=== PATIENT | female | born 1950 | race Caucasian/White ===

== ENCOUNTER 2021-02-01 13:42 | Inpatient (IN) | payer OTHER, SELFPAY ==
--- NOTE | 2021-02-01 | ECG_ITS ---
Test Reason : ect clearence Blood Pressure : / mmHG Vent. Rate : 057 BPM Atrial Rate : 057 BPM P-R Int : 128 ms QRS Dur : 068 ms QT Int : 448 ms P-R-T Axes : 055 -19 009 degrees QTc Int : 436 ms Sinus bradycardia Inferior infarct , age undetermined Abnormal ECG No previous ECGs available Referred By: Mark Brennan Electronically Signed By:ILIANA MORAES MD
--- NOTE | ~2021-02-01 | CT_ITS ---
EXAMINATION: CT HEAD WITHOUT CONTRAST CLINICAL INFORMATION: Major depressive disorder with psychosis. COMPARISON: None available. TECHNIQUE: Contiguous axial imaging was performed from the skull base to vertex without intravenous administration of contrast. This CT examination was performed using dose optimization techniques as appropriate, variously including the following: *Automated exposure control. *Adjustment of mA and/or kV according to patient size (this includes techniques or standardized protocols for targeted exams where dose is matched to indication/reason for exam; i.e. extremities or head). *Use of iterative reconstruction technique. DLP: 720 mGy-cm FINDINGS: There is no evidence of acute intracranial hemorrhage or edematous territorial infarction. Scattered hypoattenuation in the periventricular and deep white matter are consistent with mild to moderate microangiopathy. Adams-white matter differentiation is preserved. Proportional prominence of the ventricles and sulcal spaces. No evidence for obstructive hydrocephalus. No abnormal mass effect or midline shift. No extra-axial fluid collections. No acute soft tissue or osseous abnormalities. Mild mucosal thickening of the paranasal sinuses. The mastoid air cells and middle ear cavities are clear. CT/CT head/brain wo con IMPRESSION: 1. No evidence of acute intracranial hemorrhage or edematous territorial infarction. 2. Mild to moderate underlying microangiopathy and generalized cerebral volume loss.
[2021-02-01 14:03] VITALS: BP 142/78; PULSE 63; RESP 18; TEMP 36.6; O2SAT 95
[2021-02-01 15:26] VITALS: BMI 19.5
--- NOTE | 2021-02-01 15:27 | HO.PSYADMNOT ---
HPI Date of Service: 02/01/21 Chief Complaint: Major Depressive D/O Recurrent Severe w/Psychotic Sources of Information: patient interviewed and chart reviewed HPI Subjective Notes: Agosto Warning and Section 12B Narrative: The patient is a 70-year-old female, , mother of 2 adult children, retired customer senior human resources representative, currently living with her with good social support, referred from the [facility] for ECT. 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 The patient reported that her 1st psychiatric contact was 20 years ago and since then she has tried ? all the medications available with poor response. According to the [place] records, the patient has history of lengthy hospitalizations with limited improvement During the intake interview, the patient reported that her depressive symptoms worsened 2 years ago with depressed mood, anhedonia, lack of energy, feelings of hopelessness and worthlessness and sporadic psychotic symptoms elicited by auditory hallucinations and paranoia. She also complained of neurovegetative symptoms elicited by poor appetite and losing weight, at least 10 lb in the last 2 months. The patient complains of feeling ?always cold and requested special treatment regarding that. The patient is a very poor historian, she is unable to recall the different trials of medication but she is able to contract for safety in the facility. She stated that she was transferring to this unit in order to have ECT sings she has failed to hold her medications. She stated that ?this is the last resource . Past Psychiatric History: As described, her 1st psychiatric contact was 20 years ago, the patient is a very poor historian but according to the records she has tried several antidepressants and currently she is on Prozac and mirtazapine. According to the records she has history of lengthy admissions, according to the patient she has 3 admissions in the past. Medical Evaluation Reviewed: Hospitalist [facility] Family History: The patient reported that her mother had severe depression and she was admitted several times due to failed suicidal attempts. Social History: The patient is the oldest of 2 siblings, her milestones were achieved at expected age and she was raised by her grandmother since her mother was absent due to her mental illness. According to the patient, her father was absent. She attended regular school, she graduated and attended college with a degree own liberal arts. 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 She is the mother of 2 children and she has good social support Substance History: Denies Trauma History: Denies Diagnostics Vital Signs (24Hr): Vital Signs - 24 hr 02/01/21 14:03 Temperature 98 F Pulse Rate 63 Respiratory Rate 18 Blood Pressure 142/78 H Pulse Oximetry 95 Meds/Allergies Meds Home Medications Acetaminophen (Acetaminophen 325 Mg Tablet) 650 mg PO Q6H PRN PRN Reason: Headache/Pain Mild Scale (1-3) Al Hydroxide/Mg Hydroxide (Magnesium Hydrox/Alum Hydrox 30 Ml Oral.Susp) 30 ml PO Q6H PRN PRN Reason: Heartburn/Nausea Apixaban (Apixaban 5 Mg Tablet) 5 mg PO BID OMAR Docusate Sodium (Docusate Sodium 100 Mg Capsule) 100 mg PO DAILY PRN PRN Reason: Constipation Fluoxetine HCl (Fluoxetine Hcl 20 Mg Capsule) 40 mg PO DAILY O[facility] Gabapentin (Gabapentin 600 Mg Tablet) 600 mg PO TID OMAR Hydroxyzine HCl (Hydroxyzine Hcl 25 Mg Tablet) 25 mg PO BEDTIME PRN PRN Reason: Anxiety Lorazepam (Lorazepam 0.5 Mg Tablet) 0.5 mg PO Q8H PRN PRN Reason: Anxiety Magnesium Hydroxide (Milk Of Magnesia 30 Ml Oral.Susp) 30 ml PO DAILY PRN PRN Reason: Constipation Mirtazapine (Mirtazapine 15 Mg Tablet) 45 mg PO BEDTIME OMAR Olanzapine (Olanzapine 5 Mg Tablet) 5 mg PO DAILY OMAR Olanzapine (Olanzapine 7.5 Mg Tablet) 7.5 mg PO BEDTIME OMAR Trazodone HCl (Trazodone Hcl 50 Mg Tablet) 50 mg PO BEDTIME PRN PRN Reason: Insomnia Allergies Allergies Allergy/AdvReac Type Severity Reaction Status Date / Time No Known Allergies Allergy Verified 02/01/21 15:34 Mental Status Exam Mental Status Exam Patient Appearance: Well Grooomed Patient Orientation: Person Level of Consciousness: Awake and Restless Patient Behavior: Passive, Restless, Crying and Uncooperative Mood Description: Withdrawn and Depressed Affect Description: Constricted Ability to Follow Directions: Fair Speech Pattern: Clear Hallucinations: None Delusions: Paranoid Ideation Thought Process: Distracted and Evasive Thought Content: positive for Circumstantial, positive for Perseveration and positive for Poverty of Content Depressive Symptoms: Increased Anxiety, Diff. Making Decisions, Difficulty Sleeping and Changes in Appetite Judgement: Fair Assessment & Plan Assessment & Plan (1) Major depressive disorder, recurrent episode with mood-congruent psychotic features: Status: Acute Code(s): F33.3 - Major depressive disorder, recurrent, severe with psychotic symptoms Assessment and Plan: The patient is an elderly female with a long history of 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 The patient was transfer from the [facility] to this facility for ECT treatment. Plan 1. Continue antidepressants as per med reconciliation. 2. Regular blood work with CBC, comprehensive metabolic panel, lipid panel, hemoglobin A1c, TSH, T4 free and other medications. 3. EKG for ECT clearance. 4. Consult to hospitalist for ECT clearance Patient educated on: diagnosis, medication risk/benefits, ECT and therapeutic strategies Informed Consent: understands Reason for continued inpatient stay Substantial Risk for: harm to self, inability to function, rapid decompensation and med/psych decompensation
--- NOTE | 2021-02-01 16:02 | PC.ADMIT ---
Patient Shanelle Hull ,70 years old, female who was diagnosed for Major Depressive Disorder with Psychotic features. Has been transferred today from the [facility] to [facility] for further investigation and management including ECT treatment. Patient with unremarkable medical history except for HTN ,was under medical treatment at the [facility] but reported severe anxiety , she had lengthy hospitalization and has not remitted with pharmacotherapy . Patient has a VS: BP : 142/78 , Spo2: 95. Pls: 63. Temp: 98. She is alert, confused but oriented on time ,space, person. She has been complaining of cold . No complaint of chest pain, no edema, no nausea, no vomiting. HS, LS,BS not listen to. Patient declined complete assessment. Patient was admitted today at 14H00 PM on the unit for further evaluation and advance management including ECT treatment.
[2021-02-01] MEDS: LORazepam 0.5 MG TABLET PO (16:48)
[2021-02-01] MEDS: Mirtazapine 15 MG TABLET 45 MG PO (20:22)
[2021-02-01] MEDS: Gabapentin 600 MG TABLET PO (20:22)
[2021-02-01] MEDS: OLANZapine 7.5 MG TABLET PO (20:22)
[2021-02-01] MEDS: Apixaban 5 MG TABLET PO (20:22)
[2021-02-01 20:32] VITALS: BP 95/57; PULSE 60; RESP 16; TEMP 36.7; O2SAT 96
[2021-02-02 06:00] VITALS: BP 177/65; PULSE 71; RESP 18; TEMP 36.6; O2SAT 96
[2021-02-02 07:00] VITALS: BMI 19.3
[2021-02-02 08:34] LABS: MANUAL DIFF FLAG NO
[2021-02-02 08:39] LABS: Basophils Percent Auto 0.7 % (0-2); Eosinophils Percent Auto 0.9 % (0-4); Hematocrit 42.7 % (37.0-47.0); Hemoglobin 14.3 g/dl (12.0-16.0); Imm Gran Abs Auto 0.02 X10*3/uL (0.00-0.03); Imm Gran Pct Auto 0.5 % (0.0-0.4); Lymphocytes Percent Auto 24.4 % (20-40); Mean Corpuscular HGB Conc 33.5 g/dl (31.0-35.0); Mean Corpuscular Hemoglobin 31.4 pg (27.0-33.0); Mean Corpuscular Volume 93.8 fL (80.0-98.0); Mean Platelet Volume 9.6 fL (9.4-12.3); Monocytes Absolute Auto 0.4 X10*3/uL (0.1-1.2); Monocytes Percent Auto 8.7 % (2-11); Neutrophils Absolute Auto 2.8 x10*3/uL (2.0-8.3); Neutrophils Percent Auto 64.8 % (45-73); Platelet Count 228 X10*3/uL (160-400); Red Blood Count 4.55 X10*6/uL (4.20-5.50); Red Cell Distribution Width 12.6 % (11.0-16.0); White Blood Count 4.3 X10*3/uL (4.8-10.8)
[2021-02-02] MEDS: OLANZapine 5 MG TABLET PO (08:46)
[2021-02-02] MEDS: Apixaban 5 MG TABLET PO ×2 (08:46→20:11)
[2021-02-02] MEDS: Gabapentin 600 MG TABLET PO ×3 (08:46→20:11)
[2021-02-02] MEDS: FLUoxetine HCl 20 MG CAPSULE 40 MG PO (08:46)
[2021-02-02 08:53] LABS: Estimated Average Glucose 108 mg/dL; Hemoglobin A1c % 5.4 %
[2021-02-02 09:06] LABS: Alanine Aminotransferase 21 U/L (0-31); Albumin Level 4.1 g/dL (3.5-5.0); Alkaline Phosphatase 92 U/L (39-117); Anion Gap 11 (12-20); Aspartate Amino Transferase 23 U/L (5-31); Bilirubin Total 0.7 mg/dL (0.0-1.0); Blood Urea Nitrogen 16 mg/dL (9-16); Calcium 9.2 mg/dL (8.4-10.2); Carbon Dioxide 26 mmol/L (22-29); Chloride 108 mmol/L (96-108); Cholesterol 224 mg/dL; Creatinine Clr Calc Pharmacy 55.8; Estimated Glomerular Filt Rate > 60; Glucose Fasting 106 mg/dL (60-99); HDL Cholesterol 54 mg/dL; LDL Cholesterol Calculated 158 mg/dl; Sodium 141 mmol/L (135-145); Total Protein 6.5 g/dL (6.5-8.0); Triglycerides 62 mg/dL
[2021-02-02 09:07] LABS: Alanine Aminotransferase 22 U/L (0-31); Albumin Level 4.1 g/dL (3.5-5.0); Alkaline Phosphatase 92 U/L (39-117); Aspartate Amino Transferase 24 U/L (5-31); Bilirubin Direct 0.2 mg/dL (0.0-0.5); Bilirubin Total 0.7 mg/dL (0.0-1.0); Total Protein 6.6 g/dL (6.5-8.0)
[2021-02-02 09:28] LABS: Free T4 (Free Thyroxine) 1.07 ng/dL (0.71-1.85)
[2021-02-02 09:41] LABS: Vitamin B12 308 pg/mL (200-900)
--- NOTE | 2021-02-02 15:44 | P.PNPSI_ITS ---
Subjective Subjective Date of Service: 02/02/21 Reason For Visit: Major Depressive D/O Recurrent Severe w/Psychotic Subjective Notes: 3 Day Interim History: The nursing staff reported that the patient signed a 3 day notice today since she felt that it was too called. She complains that sometimes her but is too hot or too cold. On interview, the patient reports depressive symptoms and she was feeling not pleased with the temperature of the unit. I ordered a CT scan, another blood work and so far the results are normal. Since the patient has signed a 3 day notice a we are not going to schedule her for ECT tomorrow yet Mental Status Exam Mental Status Exam Patient Appearance: Well Grooomed Patient Orientation: Person Level of Consciousness: Awake Patient Behavior: Passive and Suspicious Mood Description: Depressed Affect Description: Constricted Patient Cognition Impaired: No Ability to Follow Directions: Fair Speech Pattern: Clear Hallucinations: None Delusions: Paranoid Ideation Thought Process: Distracted and Slowed Thinking Thought Content: positive for Circumstantial, positive for Perseveration, positive for Poverty of Content and positive for Thought Blocking Judgement: Fair Diagnostics Vital Signs (24Hr): Vital Signs - 24 hr 02/01/21 20:32 02/02/21 06:00 Temperature 98.1 F 97.8 F Pulse Rate 60 71 Respiratory Rate 16 18 Blood Pressure 95/57 L 177/65 H Pulse Oximetry 96 96 BMI result Body Mass Index 19.3 Labs Results: 02/02/21 08:25 02/02/21 08:25 Labs: Laboratory Results - last 48 hr 02/02/21 02/02/21 02/02/21 08:25 08:25 08:25 WBC 4.3 L RBC 4.55 Hgb 14.3 Hct 42.7 MCV 93.8 MCH 31.4 MCHC 33.5 RDW 12.6 Plt Count 228 MPV 9.6 Immature Gran % (Auto) 0.5 H Neut % (Auto) 64.8 Lymph % (Auto) 24.4 [place] % (Auto) 8.7 Eos % (Auto) 0.9 Baso % (Auto) 0.7 Lymph # (Auto) 1.0 L [place] # (Auto) 0.4 Eos # (Auto) 0.0 Baso # (Auto) 0.0 Abs Immat Gran (auto) 0.02 Absolute Neuts (auto) 2.8 Absolute Nucleated RBC 0.000 Nucleated RBC % (auto) 0.0 Sodium 141 Potassium 4.0 Chloride 108 Carbon Dioxide 26 Anion Gap 11 L BUN 16 Creatinine 0.75 Estim Creat Clear Calc 55.8 Estimated GFR > 60 Fasting Glucose 106 H Estimat Average Glucose Hemoglobin A1c % Calcium 9.2 Total Bilirubin 0.7 0.7 Direct Bilirubin 0.2 AST 24 23 ALT 22 21 Alkaline Phosphatase 92 92 Total Protein 6.6 6.5 Albumin 4.1 4.1 Triglycerides 62 Cholesterol 224 LDL Cholesterol, Calc 158 HDL Cholesterol 54 Vitamin B12 Folate TSH 0.90 Free T4 1.07 02/02/21 02/02/21 08:25 08:25 WBC RBC Hgb Hct MCV MCH MCHC RDW Plt Count MPV Immature Gran % (Auto) Neut % (Auto) Lymph % (Auto) [place] % (Auto) Eos % (Auto) Baso % (Auto) Lymph # (Auto) [place] # (Auto) Eos # (Auto) Baso # (Auto) Abs Immat Gran (auto) Absolute Neuts (auto) Absolute Nucleated RBC Nucleated RBC % (auto) Sodium Potassium Chloride Carbon Dioxide Anion Gap BUN Creatinine Estim Creat Clear Calc Estimated GFR Fasting Glucose Estimat Average Glucose 108 Hemoglobin A1c % 5.4 Calcium Total Bilirubin Direct Bilirubin AST ALT Alkaline Phosphatase Total Protein Albumin Triglycerides Cholesterol LDL Cholesterol, Calc HDL Cholesterol Vitamin B12 308 Folate 16.0 TSH Free T4 Imaging Radiology Impressions: ITS Impressions Head CT 02/02/21 10:30 IMPRESSION: 1. No evidence of acute intracranial hemorrhage or edematous territorial infarction. 2. Mild to moderate underlying microangiopathy and generalized cerebral volume loss. Medications Medications Current Medications Acetaminophen (Acetaminophen 325 Mg Tablet) 650 mg PO Q6H PRN PRN Reason: Headache/Pain Mild Scale (1-3) Al Hydroxide/Mg Hydroxide (Magnesium Hydrox/Alum Hydrox 30 Ml Oral.Susp) 30 ml PO Q6H PRN PRN Reason: Heartburn/Nausea Apixaban (Apixaban 5 Mg Tablet) 5 mg PO BID [facility] Last Admin: 02/02/21 08:46 Dose: 5 mg Documented by: Docusate Sodium (Docusate Sodium 100 Mg Capsule) 100 mg PO DAILY PRN PRN Reason: Constipation Fluoxetine HCl (Fluoxetine Hcl 20 Mg Capsule) 40 mg PO DAILY [facility] Last Admin: 02/02/21 08:46 Dose: 40 mg Documented by: Gabapentin (Gabapentin 600 Mg Tablet) 600 mg PO TID [facility] Last Admin: 02/02/21 08:46 Dose: 600 mg Documented by: Lorazepam (Lorazepam 0.5 Mg Tablet) 0.5 mg PO Q8H PRN PRN Reason: Anxiety Last Admin: 02/01/21 16:48 Dose: 0.5 mg Documented by: Magnesium Hydroxide (Milk Of Magnesia 30 Ml Oral.Susp) 30 ml PO DAILY PRN PRN Reason: Constipation Mirtazapine (Mirtazapine 15 Mg Tablet) 45 mg PO BEDTIME [facility] Last Admin: 02/01/21 20:22 Dose: 45 mg Documented by: Olanzapine (Olanzapine 5 Mg Tablet) 5 mg PO DAILY [facility] Last Admin: 02/02/21 08:46 Dose: 5 mg Documented by: Olanzapine (Olanzapine 7.5 Mg Tablet) 7.5 mg PO BEDTIME [facility] Last Admin: 02/01/21 20:22 Dose: 7.5 mg Documented by: Allergies Allergies Allergy/AdvReac Type Severity Reaction Status Date / Time amoxicillin [From Augmentin] Allergy Unknown Unknown Verified 02/01/21 15:55 aspirin Allergy Unknown Unknown Verified 02/01/21 16:34 clavulanic acid Allergy Unknown Unknown Verified 02/01/21 15:55 [From Augmentin] diphenhydramine Allergy Unknown Unknown Verified 02/01/21 16:35 hydrochlorothiazide Allergy Unknown Unknown Verified 02/01/21 16:44 metronidazole Allergy Unknown Unknown Verified 02/01/21 16:54 trazodone Allergy Unknown Unknown Verified 02/01/21 16:54 augmentin Allergy Unknown Unknown Uncoded 02/01/21 15:55 Assessment & Plan Assessment & Plan (1) Major depressive disorder, recurrent episode with mood-congruent psychotic features: Status: Acute Code(s): F33.3 - Major depressive disorder, recurrent, severe with psychotic symptoms Assessment and Plan: The patient is an elderly female with a long history of 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 The patient was transfer from the [facility] to this facility for ECT treatment. Plan 1. Continue antidepressants as per med reconciliation. 2. Regular blood work with CBC, comprehensive metabolic panel, lipid panel, hemoglobin A1c, TSH, T4 free a came back normal. 3. EKG for ECT clearance came back with an old infarct. 4. Consult to hospitalist for ECT clearance. I called the hospitalist and they are going to come today in the afternoon. 5. Since the patient signed a 3 day notice we are not going to schedule to ECT yet. I spent minutes with the patient and/or on the patient floor today, greater than?50% of which was spent counseling/coordinating care. Reason for contiued inpatient stay Substantial Risk for: inability to function, rapid decompensation and med/psych decompensation
[2021-02-02] MEDS: LORazepam 0.5 MG TABLET PO (16:39)
[2021-02-02] MEDS: clonazePAM 1 MG TABLET PO (17:47)
[2021-02-02 18:00] VITALS: BP 102/54; PULSE 61; RESP 17; TEMP 37.2; O2SAT 94
[2021-02-02] MEDS: Acetaminophen 325 MG TABLET 650 MG PO (18:21)
[2021-02-02] MEDS: OLANZapine 7.5 MG TABLET PO (20:11)
--- NOTE | 2021-02-02 22:15 | PM.EVENT ---
Event Note Date of Service: 02/02/21 Event Note: attempted to see pt at 9 pm. pt was sleeping.l will attempt to see her agin in AM
[2021-02-02] MEDS: Mirtazapine 15 MG TABLET 45 MG PO (23:19)
[2021-02-03 06:00] VITALS: BP 126/67; PULSE 59; RESP 16; TEMP 36.4; O2SAT 95
[2021-02-03] MEDS: OLANZapine 5 MG TABLET PO (08:15)
[2021-02-03] MEDS: Gabapentin 600 MG TABLET PO ×3 (08:16→19:42)
[2021-02-03] MEDS: FLUoxetine HCl 20 MG CAPSULE 40 MG PO (08:16)
[2021-02-03] MEDS: Apixaban 5 MG TABLET PO ×2 (08:16→19:42)
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
--- NOTE | 2021-02-03 13:52 | MHC.CLN ---
Addendum entered by Kamla Johnson, HAI 02/03/21 14:01: ENSURE CLEAR BID PROVIDES 480 KCALS, 16 G PROTEIN. Original Note: NUTRITION VISITED WITH PATIENT AT LUNCH TODAY. ATE GREATER THAN 50% AT LUNCH. ASKED PATIENT ABOUT SUPPLEMENTS. WILLING TO TRY ENSURE CLEAR. 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 PATIENT CONCERNED THAT ACID MAY UPSET HER STOMACH BUT WILLING TO TRY. WEIGHT LOSS REPORTED BY PATIENT OF 20 POUNDS OVER TWO YEAR PERIOD. ATTRIBUTES WEIGHT LOSS TO WALKING TOO MUCH . ENCOURAGE INTAKE OF MEALS AND SUPPLEMENTS.
--- NOTE | 2021-02-03 16:13 | HO.PSYCHPN ---
Subjective Subjective Date of Service: 02/03/21 Reason For Visit: Major Depressive D/O Recurrent Severe w/Psychotic Subjective Notes: Conditional Voluntary Interim History: The nursing staff reported that the patient recanted her 3 day notice. On interview, the patient remains dysphoric very anxious she requested to increase Ativan up to 1 mg 3 times a day. No active suicidal ideation. Over the phone, the social sciences research scientist when this prescriber talked with her psycho education in to ECT was provided. Also we did an extensive psych with location in to ECT with the patient and she agreed on the procedure. Mental Status Exam Mental Status Exam Patient Appearance: Disheveled and Unkempt Patient Orientation: Person Level of Consciousness: Awake and Restless Patient Behavior: Guarded Mood Description: Depressed Affect Description: Constricted Ability to Follow Directions: Fair Speech Pattern: Clear Hallucinations: Tactile Delusions: Paranoid Ideation Thought Process: Linear Thought Content: positive for Obsessional Thoughts and positive for Circumstantial Depressive Symptoms: Increased Anxiety, Increased Irritability, Feelings of Worthlessness, Feelings of Guilt and Loss of Energy Judgement: Fair Diagnostics Vital Signs (24Hr): Vital Signs - 24 hr 02/02/21 18:00 02/03/21 06:00 Temperature 98.9 F 97.5 F Pulse Rate 61 59 Respiratory Rate 17 16 Blood Pressure 102/54 L 126/67 Pulse Oximetry 94 95 BMI result Body Mass Index 19.3 Labs Results: 02/02/21 08:25 02/02/21 08:25 Labs: Laboratory Results - last 48 hr 02/02/21 02/02/21 02/02/21 08:25 08:25 08:25 WBC 4.3 L RBC 4.55 Hgb 14.3 Hct 42.7 MCV 93.8 MCH 31.4 MCHC 33.5 RDW 12.6 Plt Count 228 MPV 9.6 Immature Gran % (Auto) 0.5 H Neut % (Auto) 64.8 Lymph % (Auto) 24.4 [place] % (Auto) 8.7 Eos % (Auto) 0.9 Baso % (Auto) 0.7 Lymph # (Auto) 1.0 L [place] # (Auto) 0.4 Eos # (Auto) 0.0 Baso # (Auto) 0.0 Abs Immat Gran (auto) 0.02 Absolute Neuts (auto) 2.8 Absolute Nucleated RBC 0.000 Nucleated RBC % (auto) 0.0 Sodium 141 Potassium 4.0 Chloride 108 Carbon Dioxide 26 Anion Gap 11 L BUN 16 Creatinine 0.75 Estim Creat Clear Calc 55.8 Estimated GFR > 60 Fasting Glucose 106 H Estimat Average Glucose Hemoglobin A1c % Calcium 9.2 Total Bilirubin 0.7 0.7 Direct Bilirubin 0.2 AST 24 23 ALT 22 21 Alkaline Phosphatase 92 92 Total Protein 6.6 6.5 Albumin 4.1 4.1 Triglycerides 62 Cholesterol 224 LDL Cholesterol, Calc 158 HDL Cholesterol 54 Vitamin B12 Folate TSH 0.90 Free T4 1.07 02/02/21 02/02/21 08:25 08:25 WBC RBC Hgb Hct MCV MCH MCHC RDW Plt Count MPV Immature Gran % (Auto) Neut % (Auto) Lymph % (Auto) [place] % (Auto) Eos % (Auto) Baso % (Auto) Lymph # (Auto) [place] # (Auto) Eos # (Auto) Baso # (Auto) Abs Immat Gran (auto) Absolute Neuts (auto) Absolute Nucleated RBC Nucleated RBC % (auto) Sodium Potassium Chloride Carbon Dioxide Anion Gap BUN Creatinine Estim Creat Clear Calc Estimated GFR Fasting Glucose Estimat Average Glucose 108 Hemoglobin A1c % 5.4 Calcium Total Bilirubin Direct Bilirubin AST ALT Alkaline Phosphatase Total Protein Albumin Triglycerides Cholesterol LDL Cholesterol, Calc HDL Cholesterol Vitamin B12 308 Folate 16.0 TSH Free T4 Imaging Radiology Impressions: ITS Impressions Head CT 02/02/21 10:30 IMPRESSION: 1. No evidence of acute intracranial hemorrhage or edematous territorial infarction. 2. Mild to moderate underlying microangiopathy and generalized cerebral volume loss. Medications Medications Current Medications Acetaminophen (Acetaminophen 325 Mg Tablet) 650 mg PO Q6H PRN PRN Reason: Headache/Pain Mild Scale (1-3) Last Admin: 02/02/21 18:21 Dose: 650 mg Documented by: Al Hydroxide/Mg Hydroxide (Magnesium Hydrox/Alum Hydrox 30 Ml Oral.Susp) 30 ml PO Q6H PRN PRN Reason: Heartburn/Nausea Apixaban (Apixaban 5 Mg Tablet) 5 mg PO BID [facility] Last Admin: 02/03/21 08:16 Dose: 5 mg Documented by: Docusate Sodium (Docusate Sodium 100 Mg Capsule) 100 mg PO DAILY PRN PRN Reason: Constipation Fluoxetine HCl (Fluoxetine Hcl 20 Mg Capsule) 40 mg PO DAILY [facility] Last Admin: 02/03/21 08:16 Dose: 40 mg Documented by: Gabapentin (Gabapentin 600 Mg Tablet) 600 mg PO TID [facility] Last Admin: 02/03/21 14:26 Dose: 600 mg Documented by: Lorazepam (Lorazepam 1 Mg Tablet) 1 mg PO Q8H PRN PRN Reason: Anxiety Magnesium Hydroxide (Milk Of Magnesia 30 Ml Oral.Susp) 30 ml PO DAILY PRN PRN Reason: Constipation Mirtazapine (Mirtazapine 15 Mg Tablet) 45 mg PO BEDTIME [facility] Last Admin: 02/02/21 23:19 Dose: 45 mg Documented by: Olanzapine (Olanzapine 5 Mg Tablet) 5 mg PO DAILY [facility] Last Admin: 02/03/21 08:15 Dose: 5 mg Documented by: Olanzapine (Olanzapine 7.5 Mg Tablet) 7.5 mg PO BEDTIME [facility] Last Admin: 02/02/21 20:11 Dose: 7.5 mg Documented by: Allergies Allergies Allergy/AdvReac Type Severity Reaction Status Date / Time amoxicillin [From Augmentin] Allergy Unknown Unknown Verified 02/01/21 15:55 aspirin Allergy Unknown Unknown Verified 02/01/21 16:34 clavulanic acid Allergy Unknown Unknown Verified 02/01/21 15:55 [From Augmentin] diphenhydramine Allergy Unknown Unknown Verified 02/01/21 16:35 hydrochlorothiazide Allergy Unknown Unknown Verified 02/01/21 16:44 metronidazole Allergy Unknown Unknown Verified 02/01/21 16:54 trazodone Allergy Unknown Unknown Verified 02/01/21 16:54 augmentin Allergy Unknown Unknown Uncoded 02/01/21 15:55 Assessment & Plan Assessment & Plan (1) Pre-op evaluation: Status: Acute Code(s): Z01.818 - Encounter for other preprocedural examination Assessment and Plan: This is a 70 yo F who endorses a medical history of pulmonary embolism. Denies any known CAD / CVD. She is transferred from the [place] for ECT. 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 Plan 1. Continue Remeron and other antidepressants. 2. ECT for Saturday. She was already medically cleared with a kg and a CT scan without any major comorbidities. 3. Gather more collateral information I spent minutes with the patient and/or on the patient floor today, greater than?50% of which was spent counseling/coordinating care. Reason for contiued inpatient stay Substantial Risk for: harm to self, inability to function, rapid decompensation and med/psych decompensation
[2021-02-03] MEDS: Mirtazapine 15 MG TABLET 45 MG PO (19:41)
[2021-02-03] MEDS: OLANZapine 7.5 MG TABLET PO (19:43)
[2021-02-03] MEDS: LORazepam 1 MG TABLET PO (19:46)
[2021-02-03 20:11] VITALS: BP 105/61; PULSE 61; RESP 16; TEMP 37.2; O2SAT 93
[2021-02-04 08:30] VITALS: BP 125/68; PULSE 63; RESP 18; TEMP 36.3; O2SAT 96
[2021-02-04] MEDS: Apixaban 5 MG TABLET PO ×2 (09:27→21:05)
[2021-02-04] MEDS: Gabapentin 600 MG TABLET PO ×3 (09:27→21:04)
[2021-02-04] MEDS: Loperamide HCl 2 MG CAPSULE 4 MG PO (09:27)
[2021-02-04] MEDS: FLUoxetine HCl 20 MG CAPSULE 40 MG PO (09:27)
[2021-02-04] MEDS: OLANZapine 5 MG TABLET PO (09:27)
--- NOTE | 2021-02-04 10:01 | P.PNPSI_ITS ---
Subjective Subjective Date of Service: 02/04/21 Reason For Visit: Major Depressive D/O Recurrent Severe w/Psychotic Subjective Notes: Conditional Voluntary Interim History: The nursing staff reported the patient is mostly in her room, questioning herself if she would really wants to the ECT. On interview the patient remains dysphoric and she was asking me about more information regarding ECT. No safety concerns at this moment Mental Status Exam Mental Status Exam Patient Appearance: Disheveled Patient Orientation: Person Level of Consciousness: Awake Patient Behavior: Cooperative Mood Description: Depressed Affect Description: Constricted Patient Cognition Impaired: No Ability to Follow Directions: Good Speech Pattern: Clear Hallucinations: None Delusions: Paranoid Ideation Thought Process: Distracted and Evasive Thought Content: positive for Circumstantial Judgement: Fair Diagnostics Vital Signs (24Hr): Vital Signs - 24 hr 02/03/21 20:11 02/04/21 08:30 Temperature 98.9 F 97.3 F Pulse Rate 61 63 Respiratory Rate 16 18 Blood Pressure 105/61 125/68 Pulse Oximetry 93 96 BMI result Body Mass Index 19.3 Labs Results: 02/02/21 08:25 02/02/21 08:25 Imaging Radiology Impressions: ITS Impressions Head CT 02/02/21 10:30 IMPRESSION: 1. No evidence of acute intracranial hemorrhage or edematous territorial infarction. 2. Mild to moderate underlying microangiopathy and generalized cerebral volume loss. Medications Medications Current Medications Acetaminophen (Acetaminophen 325 Mg Tablet) 650 mg PO Q6H PRN PRN Reason: Headache/Pain Mild Scale (1-3) Last Admin: 02/02/21 18:21 Dose: 650 mg Documented by: Al Hydroxide/Mg Hydroxide (Magnesium Hydrox/Alum Hydrox 30 Ml Oral.Susp) 30 ml PO Q6H PRN PRN Reason: Heartburn/Nausea Apixaban (Apixaban 5 Mg Tablet) 5 mg PO BID [facility]CLUD[facility] Last Admin: 02/04/21 09:27 Dose: 5 mg Documented by: Docusate Sodium (Docusate Sodium 100 Mg Capsule) 100 mg PO DAILY PRN PRN Reason: Constipation Fluoxetine HCl (Fluoxetine Hcl 20 Mg Capsule) 40 mg PO DAILY [facility]CLUD[facility] Last Admin: 02/04/21 09:27 Dose: 40 mg Documented by: Gabapentin (Gabapentin 600 Mg Tablet) 600 mg PO TID [facility] Last Admin: 02/04/21 09:27 Dose: 600 mg Documented by: Loperamide HCl (Loperamide Hcl 2 Mg Capsule) 4 mg PO Q4H PRN PRN Reason: Diarrhea Last Admin: 02/04/21 09:27 Dose: 4 mg Documented by: Lorazepam (Lorazepam 1 Mg Tablet) 1 mg PO Q8H PRN PRN Reason: Anxiety Last Admin: 02/03/21 19:46 Dose: 1 mg Documented by: Magnesium Hydroxide (Milk Of Magnesia 30 Ml Oral.Susp) 30 ml PO DAILY PRN PRN Reason: Constipation Mirtazapine (Mirtazapine 15 Mg Tablet) 45 mg PO BEDTIME [facility] Last Admin: 02/03/21 19:41 Dose: 45 mg Documented by: Olanzapine (Olanzapine 5 Mg Tablet) 5 mg PO DAILY [facility]CLUD[facility] Last Admin: 02/04/21 09:27 Dose: 5 mg Documented by: Olanzapine (Olanzapine 7.5 Mg Tablet) 7.5 mg PO BEDTIME [facility] Last Admin: 02/03/21 19:43 Dose: 7.5 mg Documented by: Allergies Allergies Allergy/AdvReac Type Severity Reaction Status Date / Time amoxicillin [From Augmentin] Allergy Unknown Unknown Verified 02/01/21 15:55 aspirin Allergy Unknown Unknown Verified 02/01/21 16:34 clavulanic acid Allergy Unknown Unknown Verified 02/01/21 15:55 [From Augmentin] diphenhydramine Allergy Unknown Unknown Verified 02/01/21 16:35 hydrochlorothiazide Allergy Unknown Unknown Verified 02/01/21 16:44 metronidazole Allergy Unknown Unknown Verified 02/01/21 16:54 trazodone Allergy Unknown Unknown Verified 02/01/21 16:54 augmentin Allergy Unknown Unknown Uncoded 02/01/21 15:55 Assessment & Plan Assessment & Plan (1) Pre-op evaluation: Status: Acute Code(s): Z01.818 - Encounter for other preprocedural examination Assessment and Plan: This is a 70 yo F who endorses a medical history of pulmonary embolism. Denies any known CAD / CVD. She is transferred from the [place] for ECT. 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 Plan 1. Continue Remeron and other antidepressants. 2. ECT for Saturday. She was already medically cleared with a kg and a CT scan without any major comorbidities. 3. Gather more collateral information I spent minutes with the patient and/or on the patient floor today, greater than?50% of which was spent counseling/coordinating care. Reason for contiued inpatient stay Substantial Risk for: inability to function, rapid decompensation and med/psych decompensation
[2021-02-04] MEDS: LORazepam 1 MG TABLET PO (11:00)
[2021-02-04 19:51] VITALS: BP 108/58; PULSE 54; RESP 16; TEMP 37; O2SAT 95
[2021-02-04] MEDS: Mirtazapine 15 MG TABLET 45 MG PO (21:05)
[2021-02-04] MEDS: OLANZapine 7.5 MG TABLET PO (21:05)
[2021-02-05] MEDS: FLUoxetine HCl 20 MG CAPSULE 40 MG PO (08:26)
[2021-02-05] MEDS: OLANZapine 5 MG TABLET PO (08:26)
[2021-02-05] MEDS: Apixaban 5 MG TABLET PO ×2 (08:26→21:21)
[2021-02-05] MEDS: Gabapentin 600 MG TABLET PO ×3 (08:26→21:21)
[2021-02-05 08:29] VITALS: BP 113/67; PULSE 67; RESP 16; TEMP 36.5; O2SAT 97
[2021-02-05] MEDS: LORazepam 1 MG TABLET PO (08:32)
--- NOTE | 2021-02-05 10:16 | HO.PSYCHPN ---
Subjective Subjective Date of Service: 02/05/21 Reason For Visit: Major Depressive D/O Recurrent Severe w/Psychotic Subjective Notes: Conditional Voluntary Interim History: The nursing staff reports that the patient has been mostly in her room, she does not have any eye contact with staff or peers. New patient therapist reported that she has court a [place] . On interview, the patient reports some depression, she denies new symptoms and she has been fully compliant with treatment. She is fully aware that tomorrow we will start ECT for depression. Mental Status Exam Mental Status Exam Patient Appearance: Disheveled and Unkempt Patient Orientation: Person Level of Consciousness: Awake Patient Behavior: Passive and Suspicious Mood Description: Depressed Affect Description: Constricted Patient Cognition Impaired: Yes Ability to Follow Directions: Fair Speech Pattern: Clear Hallucinations: None Delusions: Paranoid Ideation Thought Process: Distracted and Evasive Thought Content: positive for Circumstantial Judgement: Fair Diagnostics Vital Signs (24Hr): Vital Signs - 24 hr 02/04/21 19:51 02/05/21 08:29 Temperature 98.6 F 97.7 F Pulse Rate 54 67 Respiratory Rate 16 16 Blood Pressure 108/58 L 113/67 Pulse Oximetry 95 97 BMI result Body Mass Index 19.3 Labs Results: 02/02/21 08:25 02/02/21 08:25 Imaging Radiology Impressions: ITS Impressions Head CT 02/02/21 10:30 IMPRESSION: 1. No evidence of acute intracranial hemorrhage or edematous territorial infarction. 2. Mild to moderate underlying microangiopathy and generalized cerebral volume loss. Medications Medications Current Medications Acetaminophen (Acetaminophen 325 Mg Tablet) 650 mg PO Q6H PRN PRN Reason: Headache/Pain Mild Scale (1-3) Last Admin: 02/02/21 18:21 Dose: 650 mg Documented by: Al Hydroxide/Mg Hydroxide (Magnesium Hydrox/Alum Hydrox 30 Ml Oral.Susp) 30 ml PO Q6H PRN PRN Reason: Heartburn/Nausea Apixaban (Apixaban 5 Mg Tablet) 5 mg PO BID [facility] Last Admin: 02/05/21 08:26 Dose: 5 mg Documented by: Docusate Sodium (Docusate Sodium 100 Mg Capsule) 100 mg PO DAILY PRN PRN Reason: Constipation Fluoxetine HCl (Fluoxetine Hcl 20 Mg Capsule) 40 mg PO DAILY [facility] Last Admin: 02/05/21 08:26 Dose: 40 mg Documented by: Gabapentin (Gabapentin 600 Mg Tablet) 600 mg PO TID [facility] Last Admin: 02/05/21 08:26 Dose: 600 mg Documented by: Loperamide HCl (Loperamide Hcl 2 Mg Capsule) 4 mg PO Q4H PRN PRN Reason: Diarrhea Last Admin: 02/04/21 09:27 Dose: 4 mg Documented by: Lorazepam (Lorazepam 1 Mg Tablet) 1 mg PO Q8H PRN PRN Reason: Anxiety Last Admin: 02/05/21 08:32 Dose: 1 mg Documented by: Magnesium Hydroxide (Milk Of Magnesia 30 Ml Oral.Susp) 30 ml PO DAILY PRN PRN Reason: Constipation Mirtazapine (Mirtazapine 15 Mg Tablet) 45 mg PO BEDTIME [facility] Last Admin: 02/04/21 21:05 Dose: 45 mg Documented by: Olanzapine (Olanzapine 5 Mg Tablet) 5 mg PO DAILY [facility] Last Admin: 02/05/21 08:26 Dose: 5 mg Documented by: Olanzapine (Olanzapine 7.5 Mg Tablet) 7.5 mg PO BEDTIME [facility] Last Admin: 02/04/21 21:05 Dose: 7.5 mg Documented by: Allergies Allergies Allergy/AdvReac Type Severity Reaction Status Date / Time amoxicillin [From Augmentin] Allergy Unknown Unknown Verified 02/01/21 15:55 aspirin Allergy Unknown Unknown Verified 02/01/21 16:34 clavulanic acid Allergy Unknown Unknown Verified 02/01/21 15:55 [From Augmentin] diphenhydramine Allergy Unknown Unknown Verified 02/01/21 16:35 hydrochlorothiazide Allergy Unknown Unknown Verified 02/01/21 16:44 metronidazole Allergy Unknown Unknown Verified 02/01/21 16:54 trazodone Allergy Unknown Unknown Verified 02/01/21 16:54 augmentin Allergy Unknown Unknown Uncoded 02/01/21 15:55 Assessment & Plan Assessment & Plan (1) Pre-op evaluation: Status: Acute Code(s): Z01.818 - Encounter for other preprocedural examination Assessment and Plan: This is a 70 yo F who endorses a medical history of pulmonary embolism. Denies any known CAD / CVD. She is transferred from the [place] for ECT. 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 Plan 1. Continue Remeron and other antidepressants. 2. ECT for Saturday. She was already medically cleared with EKG, laboratory work out and a CT scan without any major comorbidities. 3. Gather more collateral information I spent minutes with the patient and/or on the patient floor today, greater than?50% of which was spent counseling/coordinating care. Reason for contiued inpatient stay Substantial Risk for: harm to self, inability to function, rapid decompensation and med/psych decompensation
[2021-02-05] MEDS: OLANZapine 7.5 MG TABLET PO (21:22)
[2021-02-05] MEDS: Mirtazapine 15 MG TABLET 45 MG PO (21:22)
[2021-02-05] MEDS: Acetaminophen 325 MG TABLET 650 MG PO (21:33)
[2021-02-05 21:50] VITALS: BP 127/64; PULSE 56; RESP 18; TEMP 36.2; O2SAT 95
--- NOTE | 2021-02-06 06:00 | PC.NURSE ---
Pt. is refusing to go to ECT this morning. Pt. is very anxious. She is unable to void. She refuses to put on a hospital gown because she is too cold. Dr. Brennan notified that pt. is refusing ECT. He will let Dr. Castañeda know.
[2021-02-06 06:10] VITALS: BP 142/76; PULSE 66; RESP 18; TEMP 36.6
[2021-02-06] MEDS: OLANZapine 5 MG TABLET PO (09:42)
[2021-02-06] MEDS: FLUoxetine HCl 20 MG CAPSULE 40 MG PO (09:42)
[2021-02-06] MEDS: Apixaban 5 MG TABLET PO ×2 (09:42→20:41)
[2021-02-06] MEDS: Gabapentin 600 MG TABLET PO ×3 (09:42→20:41)
--- NOTE | 2021-02-06 16:45 | P.PNPSI_ITS ---
Subjective Subjective Date of Service: 02/06/21 Reason For Visit: Major Depressive D/O Recurrent Severe w/Psychotic Subjective Notes: Conditional Voluntary and 3 Day Interim History: Patient's case reviewed in treatment team discussed with nursing staff. Patient withdrawn focused on somatic concerns regarding heat and cold and cannot be satisfied in either direction. Somatically obsessional E preoccupied patient refused ECT today which was scheduled Medication Compliance: Yes Review of Systems Acute medical concerns: No Mental Status Exam Mental Status Exam Patient Appearance: Disheveled and Unkempt Patient Orientation: Person and Situation Level of Consciousness: Awake Patient Behavior: Passive and Distractible Mood Description: Depressed, Anxious and Apprehensive Affect Description: Constricted and Anxious Patient Cognition Impaired: Yes Ability to Follow Directions: Fair Speech Pattern: Clear Hallucinations: None Delusions: Paranoid Ideation Thought Process: Distracted and Evasive Thought Content: positive for Circumstantial Judgement: Fair Judgement and Insight: Patient preoccupied with feelings of hot and cold afebrile cannot be consoled has put in 3 day notice understands that she was transferred here for treatment with ECT for treatment resistant psychotic level anxiety and depression Diagnostics Vital Signs (24Hr): Vital Signs - 24 hr 02/05/21 21:50 02/06/21 06:10 Temperature 97.1 F 97.8 F Pulse Rate 56 66 Respiratory Rate 18 18 Blood Pressure 127/64 142/76 H Pulse Oximetry 95 BMI result Body Mass Index 19.3 Labs Results: 02/02/21 08:25 02/02/21 08:25 Imaging Radiology Impressions: ITS Impressions Head CT 02/02/21 10:30 IMPRESSION: 1. No evidence of acute intracranial hemorrhage or edematous territorial infarction. 2. Mild to moderate underlying microangiopathy and generalized cerebral volume loss. Medications Medications Current Medications Acetaminophen (Acetaminophen 325 Mg Tablet) 650 mg PO Q6H PRN PRN Reason: Headache/Pain Mild Scale (1-3) Last Admin: 02/05/21 21:33 Dose: 650 mg Documented by: Al Hydroxide/Mg Hydroxide (Magnesium Hydrox/Alum Hydrox 30 Ml Oral.Susp) 30 ml PO Q6H PRN PRN Reason: Heartburn/Nausea Apixaban (Apixaban 5 Mg Tablet) 5 mg PO BID [facility] Last Admin: 02/06/21 09:42 Dose: 5 mg Documented by: Docusate Sodium (Docusate Sodium 100 Mg Capsule) 100 mg PO DAILY PRN PRN Reason: Constipation Fluoxetine HCl (Fluoxetine Hcl 20 Mg Capsule) 40 mg PO DAILY [facility] Last Admin: 02/06/21 09:42 Dose: 40 mg Documented by: Gabapentin (Gabapentin 600 Mg Tablet) 600 mg PO TID [facility] Last Admin: 02/06/21 14:44 Dose: 600 mg Documented by: Loperamide HCl (Loperamide Hcl 2 Mg Capsule) 4 mg PO Q4H PRN PRN Reason: Diarrhea Last Admin: 02/04/21 09:27 Dose: 4 mg Documented by: Lorazepam (Lorazepam 1 Mg Tablet) 1 mg PO Q8H PRN PRN Reason: Anxiety Last Admin: 02/05/21 08:32 Dose: 1 mg Documented by: Magnesium Hydroxide (Milk Of Magnesia 30 Ml Oral.Susp) 30 ml PO DAILY PRN PRN Reason: Constipation Mirtazapine (Mirtazapine 15 Mg Tablet) 45 mg PO BEDTIME [facility] Last Admin: 02/05/21 21:22 Dose: 45 mg Documented by: Olanzapine (Olanzapine 5 Mg Tablet) 5 mg PO DAILY [facility] Last Admin: 02/06/21 09:42 Dose: 5 mg Documented by: Olanzapine (Olanzapine 7.5 Mg Tablet) 7.5 mg PO BEDTIME [facility] Last Admin: 02/05/21 21:22 Dose: 7.5 mg Documented by: Allergies Allergies Allergy/AdvReac Type Severity Reaction Status Date / Time amoxicillin [From Augmentin] Allergy Unknown Unknown Verified 02/01/21 15:55 aspirin Allergy Unknown Unknown Verified 02/01/21 16:34 clavulanic acid Allergy Unknown Unknown Verified 02/01/21 15:55 [From Augmentin] diphenhydramine Allergy Unknown Unknown Verified 02/01/21 16:35 hydrochlorothiazide Allergy Unknown Unknown Verified 02/01/21 16:44 metronidazole Allergy Unknown Unknown Verified 02/01/21 16:54 trazodone Allergy Unknown Unknown Verified 02/01/21 16:54 augmentin Allergy Unknown Unknown Uncoded 02/01/21 15:55 Assessment & Plan Assessment & Plan (1) Pre-op evaluation: Status: Acute Code(s): Z01.818 - Encounter for other preprocedural examination Assessment and Plan: This is a 70 yo F who endorses a medical history of pulmonary embolism. Denies any known CAD / CVD. She is transferred from the [place] for ECT. 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 Plan Patient irritable dysphoric refusing consideration of ECT at this time preoccupied with needing to leave the hospital because of ongoing somatic concerns. Has difficulty taking and information regarding this and what would her treatment be if she did leave the hospital. Trying to coordinate care with Dr. Solis I spent minutes with the patient and/or on the patient floor today, greater than?50% of which was spent counseling/coordinating care. Reason for contiued inpatient stay Substantial Risk for: inability to function and rapid decompensation
[2021-02-06] MEDS: OLANZapine 7.5 MG TABLET PO (20:41)
[2021-02-06 20:50] VITALS: BP 101/56; PULSE 62; RESP 16; TEMP 36.4; O2SAT 94
[2021-02-06] MEDS: Mirtazapine 15 MG TABLET 45 MG PO (21:06)
[2021-02-06 23:01] LABS: COVID-19 Test Negative (Negative)
[2021-02-07] MEDS: LORazepam 1 MG TABLET PO ×2 (00:34→09:47)
[2021-02-07 06:00] VITALS: BP 141/77; PULSE 65; TEMP 36.8; O2SAT 94
[2021-02-07] MEDS: OLANZapine 5 MG TABLET PO (09:39)
[2021-02-07] MEDS: Apixaban 5 MG TABLET PO ×2 (09:39→20:44)
[2021-02-07] MEDS: Gabapentin 600 MG TABLET PO ×2 (09:39→13:42)
[2021-02-07] MEDS: FLUoxetine HCl 20 MG CAPSULE 40 MG PO (09:39)
[2021-02-07] MEDS: LORazepam 0.5 MG TABLET PO (13:43)
[2021-02-07] MEDS: Acetaminophen 325 MG TABLET 650 MG PO (14:53)
[2021-02-07 19:47] VITALS: BP 96/57; PULSE 58; RESP 16; TEMP 35.8; O2SAT 95
[2021-02-07] MEDS: Mirtazapine 15 MG TABLET 45 MG PO (20:44)
[2021-02-07] MEDS: OLANZapine 7.5 MG TABLET PO (20:45)
--- NOTE | 2021-02-07 22:30 | HO.PSYCHPN ---
Subjective Subjective Date of Service: 02/07/21 Reason For Visit: Major Depressive D/O Recurrent Severe w/Psychotic Subjective Notes: Conditional Voluntary Healthcare Proxy: No Guardianship: No Interim History: The patient did retract her 3 day and although at times somatically preoccupied to the point of delusion and rumination she is aware that she suffers from clinical depression was able to rate relate long history of family history of clinical depression and suicide. Patient able to give informed consent to ECT reviewed risks benefits alternatives Medication Compliance: Yes Attending Groups: No Review of Systems Medical Review of Systems: unchanged Mental Status Exam Mental Status Exam Patient Appearance: Disheveled Patient Orientation: Person, Place and Situation Level of Consciousness: Awake Patient Behavior: Passive and Distractible Mood Description: Withdrawn, Depressed, Anxious and Apprehensive Affect Description: Constricted and Anxious Patient Cognition Impaired: Yes Ability to Follow Directions: Fair Speech Pattern: Clear Hallucinations: None Delusions: Paranoid Ideation Thought Process: Distracted and Evasive Thought Content: positive for Circumstantial Depressive Symptoms: Increased Anxiety and Difficulty Concentrating Judgement: Fair Judgement and Insight: Patient with improved insight agreeable to treatment Diagnostics Vital Signs (24Hr): Vital Signs - 24 hr 02/07/21 06:00 02/07/21 19:47 Temperature 98.2 F 96.5 F L Pulse Rate 65 58 Respiratory Rate 16 Blood Pressure 141/77 H 96/57 L Pulse Oximetry 94 95 BMI result Body Mass Index 19.3 Labs Results: 02/02/21 08:25 02/02/21 08:25 Labs: Laboratory Results - last 48 hr 02/06/21 22:20 COVID-19 ([facility]) Negative COVID-19 Clin Com See Note Imaging Radiology Impressions: ITS Impressions Head CT 02/02/21 10:30 IMPRESSION: 1. No evidence of acute intracranial hemorrhage or edematous territorial infarction. 2. Mild to moderate underlying microangiopathy and generalized cerebral volume loss. Medications Medications Current Medications Acetaminophen (Acetaminophen 325 Mg Tablet) 650 mg PO Q6H PRN PRN Reason: Headache/Pain Mild Scale (1-3) Last Admin: 02/07/21 14:53 Dose: 650 mg Documented by: Al Hydroxide/Mg Hydroxide (Magnesium Hydrox/Alum Hydrox 30 Ml Oral.Susp) 30 ml PO Q6H PRN PRN Reason: Heartburn/Nausea Apixaban (Apixaban 5 Mg Tablet) 5 mg PO BID [facility] Last Admin: 02/07/21 20:44 Dose: 5 mg Documented by: Docusate Sodium (Docusate Sodium 100 Mg Capsule) 100 mg PO DAILY PRN PRN Reason: Constipation Fluoxetine HCl (Fluoxetine Hcl 20 Mg Capsule) 40 mg PO DAILY [facility] Last Admin: 02/07/21 09:39 Dose: 40 mg Documented by: Gabapentin (Gabapentin 600 Mg Tablet) 600 mg PO TID [facility] Last Admin: 02/07/21 20:43 Dose: Not Given Documented by: Loperamide HCl (Loperamide Hcl 2 Mg Capsule) 4 mg PO Q4H PRN PRN Reason: Diarrhea Last Admin: 02/04/21 09:27 Dose: 4 mg Documented by: Lorazepam (Lorazepam 1 Mg Tablet) 1 mg PO Q8H PRN PRN Reason: Anxiety Last Admin: 02/07/21 09:47 Dose: 1 mg Documented by: Lorazepam (Lorazepam 0.5 Mg Tablet) 0.5 mg PO TID [facility] Last Admin: 02/07/21 20:43 Dose: Not Given Documented by: Magnesium Hydroxide (Milk Of Magnesia 30 Ml Oral.Susp) 30 ml PO DAILY PRN PRN Reason: Constipation Mirtazapine (Mirtazapine 15 Mg Tablet) 45 mg PO BEDTIME [facility] Last Admin: 02/07/21 20:44 Dose: 45 mg Documented by: Olanzapine (Olanzapine 5 Mg Tablet) 5 mg PO DAILY [facility] Last Admin: 02/07/21 09:39 Dose: 5 mg Documented by: Olanzapine (Olanzapine 7.5 Mg Tablet) 7.5 mg PO BEDTIME [facility] Last Admin: 02/07/21 20:45 Dose: 7.5 mg Documented by: Allergies Allergies Allergy/AdvReac Type Severity Reaction Status Date / Time amoxicillin [From Augmentin] Allergy Unknown Unknown Verified 02/01/21 15:55 aspirin Allergy Unknown Unknown Verified 02/01/21 16:34 clavulanic acid Allergy Unknown Unknown Verified 02/01/21 15:55 [From Augmentin] diphenhydramine Allergy Unknown Unknown Verified 02/01/21 16:35 hydrochlorothiazide Allergy Unknown Unknown Verified 02/01/21 16:44 metronidazole Allergy Unknown Unknown Verified 02/01/21 16:54 trazodone Allergy Unknown Unknown Verified 02/01/21 16:54 augmentin Allergy Unknown Unknown Uncoded 02/01/21 15:55 Assessment & Plan Assessment & Plan (1) Major depressive disorder, recurrent episode with mood-congruent psychotic features: Status: Acute Code(s): F33.3 - Major depressive disorder, recurrent, severe with psychotic symptoms Assessment and Plan: This is a 70 yo F who endorses a medical history of pulmonary embolism. Denies any known CAD / CVD. She is transferred from the [place] for ECT. 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 Plan Patient with history of treatment distant depression somatic preoccupation. No major contraindication to ECT reviewed risks benefits side effects alternatives. Responded well to lorazepam PRn was able to give a more coherent history of multiple losses and family history. Patient able to retract 3 day notice agreeable to treatment plan which has been coordinated with a I spent __35____ minutes with the patient and/or on the patient floor today, greater than?50% of which was spent counseling/coordinating care. Reason for contiued inpatient stay Substantial Risk for: inability to function and rapid decompensation
[2021-02-08 06:00] VITALS: BP 162/82; PULSE 66; RESP 16; TEMP 36.2; O2SAT 94
[2021-02-08 06:27] VITALS: BP 162/82; PULSE 66; RESP 16; TEMP 36.6; O2SAT 94
--- NOTE | 2021-02-08 06:42 | PC.NURSE ---
Patient was brought already to PACU and was yelling that it is cold there and refused ECT.Patient was brought back by staff to the unit.Dr. Castañeda notified through gilbert Castro
[2021-02-08] MEDS: Apixaban 5 MG TABLET PO ×2 (08:32→20:38)
[2021-02-08] MEDS: LORazepam 0.5 MG TABLET PO ×4 (08:32→20:38)
[2021-02-08] MEDS: Gabapentin 600 MG TABLET PO ×3 (08:32→20:38)
[2021-02-08] MEDS: FLUoxetine HCl 20 MG CAPSULE 40 MG PO (08:32)
[2021-02-08] MEDS: OLANZapine 5 MG TABLET PO (08:32)
[2021-02-08 09:47] LABS: COVID-19 Test Negative (Negative)
[2021-02-08 10:29] VITALS: BP 139/83; PULSE 71; RESP 18; TEMP 36.6; O2SAT 94
[2021-02-08] MEDS: LORazepam 1 MG TABLET PO (15:34)
--- NOTE | 2021-02-08 15:56 | HO.PSYCHPN ---
Subjective Subjective Date of Service: 02/08/21 Reason For Visit: Major Depressive D/O Recurrent Severe w/Psychotic Subjective Notes: Agosto Warning, Conditional Voluntary and 3 Day Healthcare Proxy: No Guardianship: No Interim History: Patient distraught agitated denies active self-harm Patient's case reviewed extensively with Dr. Solis referring psychiatrist and patient's . The patient refused ECT again this morning having severe panic and somatic focus on hot and cold body temperature cannot be reassured and was asking to leave the hospital. Patient ruminating distraught anxious with no plan if she were to return home discussed different options including medication treatment managing anxiety help with ECT treatment in weight and manage patient's physiological concerns however has not been able to manage this either at home or at the [place]. Medication Compliance: Yes Attending Groups: No Mental Status Exam Mental Status Exam Patient Appearance: Disheveled and Unkempt Patient Orientation: Person, Place and Situation Level of Consciousness: Awake and Restless Patient Behavior: Anxious, Distractible and Pacing Mood Description: Withdrawn, Depressed, Anxious and Apprehensive Affect Description: Constricted, Anxious, Sad, Nervous and Apprehensive Patient Cognition Impaired: Yes Ability to Follow Directions: Fair Speech Pattern: Clear Hallucinations: None Delusions: Paranoid Ideation Thought Process: Distracted, Rumination and Evasive Thought Content: positive for Obsessional Thoughts, positive for Circumstantial, positive for Preoccupation, positive for Hypochondriasis, negative for Suicidal Ideation or negative for Homicidal Ideation Depressive Symptoms: Increased Anxiety, Loss of Int. in Activity, Hopelessness and Difficulty Concentrating Judgement: Fair Judgement and Insight: Impulsive easily agitated poor insight difficulty taking information Diagnostics Vital Signs (24Hr): Vital Signs - 24 hr 02/07/21 19:47 02/08/21 06:00 02/08/21 06:27 Temperature 96.5 F L 97.2 F 97.8 F Pulse Rate 58 66 66 Respiratory Rate 16 16 16 Blood Pressure 96/57 L 162/82 H 162/82 H Pulse Oximetry 95 94 94 02/08/21 10:29 Temperature 97.8 F Pulse Rate 71 Respiratory Rate 18 Blood Pressure 139/83 Pulse Oximetry 94 BMI result Body Mass Index 19.3 Labs Results: 02/02/21 08:25 02/02/21 08:25 Labs: Laboratory Results - last 48 hr 02/06/21 02/08/21 22:20 09:20 COVID-19 ([facility]) Negative Negative COVID-19 Clin Com See Note See Note Imaging Radiology Impressions: ITS Impressions Head CT 02/02/21 10:30 IMPRESSION: 1. No evidence of acute intracranial hemorrhage or edematous territorial infarction. 2. Mild to moderate underlying microangiopathy and generalized cerebral volume loss. Medications Medications Current Medications Acetaminophen (Acetaminophen 325 Mg Tablet) 650 mg PO Q6H PRN PRN Reason: Headache/Pain Mild Scale (1-3) Last Admin: 02/07/21 14:53 Dose: 650 mg Documented by: Al Hydroxide/Mg Hydroxide (Magnesium Hydrox/Alum Hydrox 30 Ml Oral.Susp) 30 ml PO Q6H PRN PRN Reason: Heartburn/Nausea Alprazolam (Alprazolam 0.25 Mg Tablet) 0.25 mg PO ONCE ONE Stop: 02/08/21 15:52 Apixaban (Apixaban 5 Mg Tablet) 5 mg PO BID [facility] Last Admin: 02/08/21 08:32 Dose: 5 mg Documented by: Docusate Sodium (Docusate Sodium 100 Mg Capsule) 100 mg PO DAILY PRN PRN Reason: Constipation Gabapentin (Gabapentin 600 Mg Tablet) 600 mg PO TID [facility] Last Admin: 02/08/21 14:57 Dose: 600 mg Documented by: Loperamide HCl (Loperamide Hcl 2 Mg Capsule) 4 mg PO Q4H PRN PRN Reason: Diarrhea Last Admin: 02/04/21 09:27 Dose: 4 mg Documented by: Lorazepam (Lorazepam 1 Mg Tablet) 1 mg PO Q8H PRN PRN Reason: Anxiety Last Admin: 02/08/21 15:34 Dose: 1 mg Documented by: Lorazepam (Lorazepam 0.5 Mg Tablet) 0.5 mg PO TID [facility] Last Admin: 02/08/21 14:57 Dose: 0.5 mg Documented by: Magnesium Hydroxide (Milk Of Magnesia 30 Ml Oral.Susp) 30 ml PO DAILY PRN PRN Reason: Constipation Mirtazapine (Mirtazapine 15 Mg Tablet) 45 mg PO BEDTIME [facility] Last Admin: 02/07/21 20:44 Dose: 45 mg Documented by: Olanzapine (Olanzapine 5 Mg Tablet) 5 mg PO DAILY [facility] Last Admin: 02/08/21 08:32 Dose: 5 mg Documented by: Olanzapine (Olanzapine 7.5 Mg Tablet) 7.5 mg PO BEDTIME [facility] Last Admin: 02/07/21 20:45 Dose: 7.5 mg Documented by: Olanzapine (Olanzapine 2.5 Mg Tablet) 2.5 mg PO BID PRN PRN Reason: Psychosis Allergies Allergies Allergy/AdvReac Type Severity Reaction Status Date / Time amoxicillin [From Augmentin] Allergy Unknown Unknown Verified 02/01/21 15:55 aspirin Allergy Unknown Unknown Verified 02/01/21 16:34 clavulanic acid Allergy Unknown Unknown Verified 02/01/21 15:55 [From Augmentin] diphenhydramine Allergy Unknown Unknown Verified 02/01/21 16:35 hydrochlorothiazide Allergy Unknown Unknown Verified 02/01/21 16:44 metronidazole Allergy Unknown Unknown Verified 02/01/21 16:54 trazodone Allergy Unknown Unknown Verified 02/01/21 16:54 augmentin Allergy Unknown Unknown Uncoded 02/01/21 15:55 Assessment & Plan Assessment & Plan (1) Major depressive disorder, recurrent episode with mood-congruent psychotic features: Status: Acute Code(s): F33.3 - Major depressive disorder, recurrent, severe with psychotic symptoms Assessment and Plan: This is a 70 yo F who endorses a medical history of pulmonary embolism. Denies any known CAD / CVD. She is transferred from the [place] for ECT. 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 Plan Patient has 3 day notice evaluate for safety or for possibility of transfer back to [place] trying to manage symptoms so she can engage in ECT. Marked somatic psychotic anxiety alprazolam p.r.n. given olanzapine 2.5 b.i.d. p.r.n. added. Fluoxetine may be contributing to anxiety is consider Anafranil or nortriptyline no physiologic basis for symptoms or have been noted I spent __45____ minutes with the patient and/or on the patient floor today, greater than?50% of which was spent counseling/coordinating care. Occludes conversations with the patient's Dr. Solis nursing staff and patient Reason for contiued inpatient stay Substantial Risk for: inability to function, rapid decompensation and med/psych decompensation
[2021-02-08] MEDS: ALPRAZolam 0.25 MG TABLET PO (16:22)
[2021-02-08 18:00] VITALS: BP 98/54; PULSE 60; RESP 18; TEMP 35.7; O2SAT 94
[2021-02-08] MEDS: Mirtazapine 15 MG TABLET 45 MG PO (20:38)
[2021-02-08] MEDS: OLANZapine 7.5 MG TABLET PO (20:38)
[2021-02-09 06:00] VITALS: BP 120/63; PULSE 68; TEMP 37; O2SAT 95
[2021-02-09] MEDS: OLANZapine 5 MG TABLET PO (10:14)
[2021-02-09] MEDS: Gabapentin 600 MG TABLET PO ×3 (10:15→20:16)
[2021-02-09] MEDS: LORazepam 0.5 MG TABLET PO (10:15)
[2021-02-09] MEDS: Apixaban 5 MG TABLET PO ×2 (10:15→20:16)
[2021-02-09] MEDS: Acetaminophen 325 MG TABLET 650 MG PO (11:21)
[2021-02-09 11:34] LABS: COVID-19 Test Negative (Negative); IDNOW Serial# 9DD0AD1C
[2021-02-09] MEDS: ALPRAZolam 0.25 MG TABLET PO ×2 (16:07→20:17)
--- NOTE | 2021-02-09 16:36 | HO.PSYCHPN ---
Subjective Subjective Date of Service: 02/09/21 Reason For Visit: Major Depressive D/O Recurrent Severe w/Psychotic Subjective Notes: Agosto Warning, Conditional Voluntary and 3 Day Interim History: Patient has 3 day notice agosto warning. Patient with severe anxiety panic did respond to Education regarding her somatic symptoms and anxiety disorder. Improved with change from lorazepam to alprazolam. Currently agreeable to ECT which to this point she has not been able to cooperate with ECT the to this point secondary to severe anxiety and somatisizing Medication Compliance: Yes Mental Status Exam Mental Status Exam Patient Appearance: Disheveled Patient Orientation: Person, Place and Situation Level of Consciousness: Awake and Restless Patient Behavior: Guarded, Anxious, Distractible and Pacing Mood Description: Withdrawn, Depressed, Anxious and Apprehensive Affect Description: Constricted, Anxious, Sad, Nervous and Apprehensive Patient Cognition Impaired: Yes Ability to Follow Directions: Fair Speech Pattern: Clear Hallucinations: None Delusions: Present (Somatic preoccupations) Thought Process: Distracted, Rumination and Evasive Thought Content: positive for Obsessional Thoughts, positive for Circumstantial, positive for Preoccupation, positive for Hypochondriasis, negative for Suicidal Ideation or negative for Homicidal Ideation Depressive Symptoms: Increased Anxiety, Loss of Int. in Activity, Hopelessness and Difficulty Concentrating Judgement: Fair Judgement and Insight: Impulsive easily agitated poor insight difficulty taking information Diagnostics Vital Signs (24Hr): Vital Signs - 24 hr 02/08/21 18:00 Temperature 96.2 F L Pulse Rate 60 Respiratory Rate 18 Blood Pressure 98/54 L Pulse Oximetry 94 BMI result Body Mass Index 19.3 Labs Results: 02/02/21 08:25 02/02/21 08:25 Labs: Laboratory Results - last 48 hr 02/08/21 02/09/21 09:20 11:00 COVID-19 ([facility]) Negative Negative COVID-19 Clin Com See Note See Note Imaging Radiology Impressions: ITS Impressions Head CT 02/02/21 10:30 IMPRESSION: 1. No evidence of acute intracranial hemorrhage or edematous territorial infarction. 2. Mild to moderate underlying microangiopathy and generalized cerebral volume loss. Medications Medications Current Medications Acetaminophen (Acetaminophen 325 Mg Tablet) 650 mg PO Q6H PRN PRN Reason: Headache/Pain Mild Scale (1-3) Last Admin: 02/09/21 11:21 Dose: 650 mg Documented by: Al Hydroxide/Mg Hydroxide (Magnesium Hydrox/Alum Hydrox 30 Ml Oral.Susp) 30 ml PO Q6H PRN PRN Reason: Heartburn/Nausea Alprazolam (Alprazolam 0.25 Mg Tablet) 0.25 mg PO TID [facility] Last Admin: 02/09/21 16:07 Dose: 0.25 mg Documented by: Apixaban (Apixaban 5 Mg Tablet) 5 mg PO BID [facility] Last Admin: 02/09/21 10:15 Dose: 5 mg Documented by: Docusate Sodium (Docusate Sodium 100 Mg Capsule) 100 mg PO DAILY PRN PRN Reason: Constipation Gabapentin (Gabapentin 600 Mg Tablet) 600 mg PO TID [facility] Last Admin: 02/09/21 16:07 Dose: 600 mg Documented by: Loperamide HCl (Loperamide Hcl 2 Mg Capsule) 4 mg PO Q4H PRN PRN Reason: Diarrhea Last Admin: 02/04/21 09:27 Dose: 4 mg Documented by: Magnesium Hydroxide (Milk Of Magnesia 30 Ml Oral.Susp) 30 ml PO DAILY PRN PRN Reason: Constipation Mirtazapine (Mirtazapine 15 Mg Tablet) 45 mg PO BEDTIME [facility] Last Admin: 02/08/21 20:38 Dose: 45 mg Documented by: Olanzapine (Olanzapine 5 Mg Tablet) 5 mg PO DAILY [facility] Last Admin: 02/09/21 10:14 Dose: 5 mg Documented by: Olanzapine (Olanzapine 7.5 Mg Tablet) 7.5 mg PO BEDTIME [facility] Last Admin: 02/08/21 20:38 Dose: 7.5 mg Documented by: Olanzapine (Olanzapine 2.5 Mg Tablet) 2.5 mg PO BID PRN PRN Reason: Psychosis Allergies Allergies Allergy/AdvReac Type Severity Reaction Status Date / Time amoxicillin [From Augmentin] Allergy Unknown Unknown Verified 02/01/21 15:55 aspirin Allergy Unknown Unknown Verified 02/01/21 16:34 clavulanic acid Allergy Unknown Unknown Verified 02/01/21 15:55 [From Augmentin] diphenhydramine Allergy Unknown Unknown Verified 02/01/21 16:35 hydrochlorothiazide Allergy Unknown Unknown Verified 02/01/21 16:44 metronidazole Allergy Unknown Unknown Verified 02/01/21 16:54 trazodone Allergy Unknown Unknown Verified 02/01/21 16:54 augmentin Allergy Unknown Unknown Uncoded 02/01/21 15:55 Assessment & Plan Assessment & Plan (1) Major depressive disorder, recurrent episode with mood-congruent psychotic features: Status: Acute Code(s): F33.3 - Major depressive disorder, recurrent, severe with psychotic symptoms Assessment and Plan: This is a 70 yo F who endorses a medical history of pulmonary embolism. Denies any known CAD / CVD. She is transferred from the [place] for ECT. 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 Plan Patient has 3 day notice but agreeable to retracting. Has been able to take in more information regarding anxiety panic in her symptoms. Agreeable to ECT which is scheduled will need much reassurance seems improved with Prozac discontinued and changed from lorazepam to alprazolam I spent minutes with the patient and/or on the patient floor today, greater than?50% of which was spent counseling/coordinating care. Reason for contiued inpatient stay Substantial Risk for: inability to function, rapid decompensation and med/psych decompensation
--- NOTE | 2021-02-09 17:57 | PC.NURSE ---
Per Dr. Castañeda, do not hold pt's alprazolam on Saturday morning before ECT, will pass along to night RN.
[2021-02-09] MEDS: Mirtazapine 15 MG TABLET 45 MG PO (20:16)
[2021-02-09] MEDS: OLANZapine 7.5 MG TABLET PO (20:17)
[2021-02-09 20:37] VITALS: BP 99/58; PULSE 60; RESP 16; TEMP 36.1; O2SAT 95
[2021-02-10 08:53] VITALS: BP 125/64; PULSE 60; RESP 14; TEMP 36.6; O2SAT 94
[2021-02-10] MEDS: ALPRAZolam 0.25 MG TABLET PO ×3 (08:54→19:24)
[2021-02-10] MEDS: OLANZapine 5 MG TABLET PO (08:54)
[2021-02-10] MEDS: Gabapentin 600 MG TABLET PO ×3 (08:54→19:23)
[2021-02-10] MEDS: Apixaban 5 MG TABLET PO ×2 (08:54→19:23)
--- NOTE | 2021-02-10 11:04 | HO.PSYCHPN ---
Subjective Subjective Date of Service: 02/10/21 Reason For Visit: Major Depressive D/O Recurrent Severe w/Psychotic Subjective Notes: Conditional Voluntary and 3 Day Interim History: Patient was seen and discussed in rounds. Records were reviewed. She continues to be extremely anxious and wanting to go home. She is being considered for ECT which was the primary reason for admission however it has not taken place yet. She is walking around saying ?I am cold? repeatedly. PRNs were encouraged. Eating and mostly sleeping adequately. No changes were made today Review of Systems Review of Systems Could not be assessed due to high level of anxiety Mental Status Exam Mental Status Exam Narrative: Patient was seen today. She is alert, extremely anxious and only making repetitive statement about wanting to go home and being cold. She could not be assessed formally today due to high level of anxiety and not wanting to stand still. Diagnostics Vital Signs (24Hr): Vital Signs - 24 hr 02/09/21 20:37 02/10/21 08:53 Temperature 96.9 F 97.8 F Pulse Rate 60 60 Respiratory Rate 16 14 Blood Pressure 99/58 L 125/64 Pulse Oximetry 95 94 BMI result Body Mass Index 19.3 Labs Results: 02/02/21 08:25 02/02/21 08:25 Labs: Laboratory Results - last 48 hr 02/09/21 11:00 COVID-19 ([facility]) Negative COVID-19 Clin Com See Note Imaging Radiology Impressions: ITS Impressions Head CT 02/02/21 10:30 IMPRESSION: 1. No evidence of acute intracranial hemorrhage or edematous territorial infarction. 2. Mild to moderate underlying microangiopathy and generalized cerebral volume loss. Medications Medications Current Medications Acetaminophen (Acetaminophen 325 Mg Tablet) 650 mg PO Q6H PRN PRN Reason: Headache/Pain Mild Scale (1-3) Last Admin: 02/09/21 11:21 Dose: 650 mg Documented by: Al Hydroxide/Mg Hydroxide (Magnesium Hydrox/Alum Hydrox 30 Ml Oral.Susp) 30 ml PO Q6H PRN PRN Reason: Heartburn/Nausea Alprazolam (Alprazolam 0.25 Mg Tablet) 0.25 mg PO TID [facility] Last Admin: 02/10/21 08:54 Dose: 0.25 mg Documented by: Apixaban (Apixaban 5 Mg Tablet) 5 mg PO BID [facility] Last Admin: 02/10/21 08:54 Dose: 5 mg Documented by: Docusate Sodium (Docusate Sodium 100 Mg Capsule) 100 mg PO DAILY PRN PRN Reason: Constipation Gabapentin (Gabapentin 600 Mg Tablet) 600 mg PO TID [facility] Last Admin: 02/10/21 08:54 Dose: 600 mg Documented by: Loperamide HCl (Loperamide Hcl 2 Mg Capsule) 4 mg PO Q4H PRN PRN Reason: Diarrhea Last Admin: 02/04/21 09:27 Dose: 4 mg Documented by: Magnesium Hydroxide (Milk Of Magnesia 30 Ml Oral.Susp) 30 ml PO DAILY PRN PRN Reason: Constipation Mirtazapine (Mirtazapine 15 Mg Tablet) 45 mg PO BEDTIME [facility] Last Admin: 02/09/21 20:16 Dose: 45 mg Documented by: Olanzapine (Olanzapine 5 Mg Tablet) 5 mg PO DAILY [facility] Last Admin: 02/10/21 08:54 Dose: 5 mg Documented by: Olanzapine (Olanzapine 7.5 Mg Tablet) 7.5 mg PO BEDTIME [facility] Last Admin: 02/09/21 20:17 Dose: 7.5 mg Documented by: Olanzapine (Olanzapine 2.5 Mg Tablet) 2.5 mg PO BID PRN PRN Reason: Psychosis Allergies Allergies Allergy/AdvReac Type Severity Reaction Status Date / Time amoxicillin [From Augmentin] Allergy Unknown Unknown Verified 02/01/21 15:55 aspirin Allergy Unknown Unknown Verified 02/01/21 16:34 clavulanic acid Allergy Unknown Unknown Verified 02/01/21 15:55 [From Augmentin] diphenhydramine Allergy Unknown Unknown Verified 02/01/21 16:35 hydrochlorothiazide Allergy Unknown Unknown Verified 02/01/21 16:44 metronidazole Allergy Unknown Unknown Verified 02/01/21 16:54 trazodone Allergy Unknown Unknown Verified 02/01/21 16:54 augmentin Allergy Unknown Unknown Uncoded 02/01/21 15:55 Assessment & Plan Assessment & Plan (1) Major depressive disorder, recurrent episode with mood-congruent psychotic features: Status: Acute Code(s): F33.3 - Major depressive disorder, recurrent, severe with psychotic symptoms Assessment and Plan: This is a 70 yo F who endorses a medical history of pulmonary embolism. Denies any known CAD / CVD. She is transferred from the [place] for ECT. 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 Plan Patient has 3 day notice but agreeable to retracting. Has been able to take in more information regarding anxiety panic in her symptoms. Agreeable to ECT which is scheduled will need much reassurance seems improved with Prozac discontinued and changed from lorazepam to alprazolam 02/10: Continue current regimen and plans with no changes today I spent minutes with the patient and/or on the patient floor today, greater than?50% of which was spent counseling/coordinating care. Reason for contiued inpatient stay Substantial Risk for: inability to function
--- NOTE | 2021-02-10 11:11 | HO.PSYCHPN ---
Subjective Subjective Reason For Visit: Major Depressive D/O Recurrent Severe w/Psychotic Diagnostics Vital Signs (24Hr): Vital Signs - 24 hr 02/09/21 20:37 02/10/21 08:53 Temperature 96.9 F 97.8 F Pulse Rate 60 60 Respiratory Rate 16 14 Blood Pressure 99/58 L 125/64 Pulse Oximetry 95 94 BMI result Body Mass Index 19.3 Labs Results: 02/02/21 08:25 02/02/21 08:25 Labs: Laboratory Results - last 48 hr 02/09/21 11:00 COVID-19 ([facility]) Negative COVID-19 Clin Com See Note Imaging Radiology Impressions: ITS Impressions Head CT 02/02/21 10:30 IMPRESSION: 1. No evidence of acute intracranial hemorrhage or edematous territorial infarction. 2. Mild to moderate underlying microangiopathy and generalized cerebral volume loss. Medications Medications Current Medications Acetaminophen (Acetaminophen 325 Mg Tablet) 650 mg PO Q6H PRN PRN Reason: Headache/Pain Mild Scale (1-3) Last Admin: 02/09/21 11:21 Dose: 650 mg Documented by: Al Hydroxide/Mg Hydroxide (Magnesium Hydrox/Alum Hydrox 30 Ml Oral.Susp) 30 ml PO Q6H PRN PRN Reason: Heartburn/Nausea Alprazolam (Alprazolam 0.25 Mg Tablet) 0.25 mg PO TID [facility] Last Admin: 02/10/21 08:54 Dose: 0.25 mg Documented by: Apixaban (Apixaban 5 Mg Tablet) 5 mg PO BID [facility] Last Admin: 02/10/21 08:54 Dose: 5 mg Documented by: Docusate Sodium (Docusate Sodium 100 Mg Capsule) 100 mg PO DAILY PRN PRN Reason: Constipation Gabapentin (Gabapentin 600 Mg Tablet) 600 mg PO TID [facility] Last Admin: 02/10/21 08:54 Dose: 600 mg Documented by: Loperamide HCl (Loperamide Hcl 2 Mg Capsule) 4 mg PO Q4H PRN PRN Reason: Diarrhea Last Admin: 02/04/21 09:27 Dose: 4 mg Documented by: Magnesium Hydroxide (Milk Of Magnesia 30 Ml Oral.Susp) 30 ml PO DAILY PRN PRN Reason: Constipation Mirtazapine (Mirtazapine 15 Mg Tablet) 45 mg PO BEDTIME [facility] Last Admin: 02/09/21 20:16 Dose: 45 mg Documented by: Olanzapine (Olanzapine 5 Mg Tablet) 5 mg PO DAILY [facility] Last Admin: 02/10/21 08:54 Dose: 5 mg Documented by: Olanzapine (Olanzapine 7.5 Mg Tablet) 7.5 mg PO BEDTIME [facility] Last Admin: 02/09/21 20:17 Dose: 7.5 mg Documented by: Olanzapine (Olanzapine 2.5 Mg Tablet) 2.5 mg PO BID PRN PRN Reason: Psychosis Allergies Allergies Allergy/AdvReac Type Severity Reaction Status Date / Time amoxicillin [From Augmentin] Allergy Unknown Unknown Verified 02/01/21 15:55 aspirin Allergy Unknown Unknown Verified 02/01/21 16:34 clavulanic acid Allergy Unknown Unknown Verified 02/01/21 15:55 [From Augmentin] diphenhydramine Allergy Unknown Unknown Verified 02/01/21 16:35 hydrochlorothiazide Allergy Unknown Unknown Verified 02/01/21 16:44 metronidazole Allergy Unknown Unknown Verified 02/01/21 16:54 trazodone Allergy Unknown Unknown Verified 02/01/21 16:54 augmentin Allergy Unknown Unknown Uncoded 02/01/21 15:55 Assessment & Plan Assessment & Plan (1) Major depressive disorder, recurrent episode with mood-congruent psychotic features: Status: Acute Code(s): F33.3 - Major depressive disorder, recurrent, severe with psychotic symptoms Assessment and Plan: This is a 70 yo F who endorses a medical history of pulmonary embolism. Denies any known CAD / CVD. She is transferred from the [place] for ECT. 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 Plan Patient has 3 day notice but agreeable to retracting. Has been able to take in more information regarding anxiety panic in her symptoms. Agreeable to ECT which is scheduled will need much reassurance seems improved with Prozac discontinued and changed from lorazepam to alprazolam 02/10: Continue current regimen and plans with no changes today I spent minutes with the patient and/or on the patient floor today, greater than?50% of which was spent counseling/coordinating care.
[2021-02-10] MEDS: OLANZapine 2.5 MG TABLET PO (17:57)
[2021-02-10] MEDS: Mirtazapine 15 MG TABLET 45 MG PO (19:23)
[2021-02-10] MEDS: OLANZapine 7.5 MG TABLET PO (19:24)
[2021-02-10 20:38] VITALS: BP 137/74; PULSE 55; RESP 16; TEMP 37.1; O2SAT 97
[2021-02-10] MEDS: LORazepam 1 MG TABLET PO (21:00)
[2021-02-11] MEDS: Gabapentin 600 MG TABLET PO ×3 (08:29→21:13)
[2021-02-11] MEDS: ALPRAZolam 0.25 MG TABLET PO ×3 (08:29→21:13)
[2021-02-11] MEDS: OLANZapine 5 MG TABLET PO (08:29)
[2021-02-11] MEDS: Apixaban 5 MG TABLET PO ×2 (08:29→21:14)
--- NOTE | 2021-02-11 10:13 | P.PNPSI_ITS ---
Subjective Subjective Date of Service: 02/11/21 Reason For Visit: Major Depressive D/O Recurrent Severe w/Psychotic Subjective Notes: Conditional Voluntary Interim History: Patient was seen and discussed in rounds. She has settled down and is much less anxious today. She did receive p.r.n. Ativan which was very helpful. I will order a p.r.n. in case she gets more anxious and restless today. She is much calmer and was laying comfortably in bed today. No comp laints or side effects. No changes were made today except the p.r.n. addition Review of Systems Review of Systems Yes all other systems are reviewed and are negative Mental Status Exam Mental Status Exam Narrative: Patient was seen today. She is alert, markedly lessanxious. She is not demanding to go home and not walking around stating that she is ?cold?. No acute signs observed. No signs of psychosis. No SI. Moderate depression is present. Cognitively is grossly intact. Judgment is intact Diagnostics Vital Signs (24Hr): Vital Signs - 24 hr 02/10/21 20:38 Temperature 98.8 F Pulse Rate 55 Respiratory Rate 16 Blood Pressure 137/74 Pulse Oximetry 97 BMI result Body Mass Index 19.3 Labs Results: 02/02/21 08:25 02/02/21 08:25 Labs: Laboratory Results - last 48 hr 02/09/21 11:00 COVID-19 ([facility]) Negative COVID-19 Clin Com See Note Imaging Radiology Impressions: ITS Impressions Head CT 02/02/21 10:30 IMPRESSION: 1. No evidence of acute intracranial hemorrhage or edematous territorial infarction. 2. Mild to moderate underlying microangiopathy and generalized cerebral volume loss. Medications Medications Current Medications Acetaminophen (Acetaminophen 325 Mg Tablet) 650 mg PO Q6H PRN PRN Reason: Headache/Pain Mild Scale (1-3) Last Admin: 02/09/21 11:21 Dose: 650 mg Documented by: Al Hydroxide/Mg Hydroxide (Magnesium Hydrox/Alum Hydrox 30 Ml Oral.Susp) 30 ml PO Q6H PRN PRN Reason: Heartburn/Nausea Alprazolam (Alprazolam 0.25 Mg Tablet) 0.25 mg PO TID [facility] Last Admin: 02/11/21 08:29 Dose: 0.25 mg Documented by: Apixaban (Apixaban 5 Mg Tablet) 5 mg PO BID [facility] Last Admin: 12/25/21 08:29 Dose: 5 mg Documented by: Docusate Sodium (Docusate Sodium 100 Mg Capsule) 100 mg PO DAILY PRN PRN Reason: Constipation Gabapentin (Gabapentin 600 Mg Tablet) 600 mg PO TID [facility] Last Admin: 02/11/21 08:29 Dose: 600 mg Documented by: Loperamide HCl (Loperamide Hcl 2 Mg Capsule) 4 mg PO Q4H PRN PRN Reason: Diarrhea Last Admin: 02/04/21 09:27 Dose: 4 mg Documented by: Magnesium Hydroxide (Milk Of Magnesia 30 Ml Oral.Susp) 30 ml PO DAILY PRN PRN Reason: Constipation Mirtazapine (Mirtazapine 15 Mg Tablet) 45 mg PO BEDTIME [facility] Last Admin: 02/10/21 19:23 Dose: 45 mg Documented by: Olanzapine (Olanzapine 5 Mg Tablet) 5 mg PO DAILY [facility] Last Admin: 02/11/21 08:29 Dose: 5 mg Documented by: Olanzapine (Olanzapine 7.5 Mg Tablet) 7.5 mg PO BEDTIME [facility] Last Admin: 02/10/21 19:24 Dose: 7.5 mg Documented by: Olanzapine (Olanzapine 2.5 Mg Tablet) 2.5 mg PO BID PRN PRN Reason: Psychosis Last Admin: 02/10/21 17:57 Dose: 2.5 mg Documented by: Allergies Allergies Allergy/AdvReac Type Severity Reaction Status Date / Time amoxicillin [From Augmentin] Allergy Unknown Unknown Verified 02/01/21 15:55 aspirin Allergy Unknown Unknown Verified 02/01/21 16:34 clavulanic acid Allergy Unknown Unknown Verified 02/01/21 15:55 [From Augmentin] diphenhydramine Allergy Unknown Unknown Verified 02/01/21 16:35 hydrochlorothiazide Allergy Unknown Unknown Verified 02/01/21 16:44 metronidazole Allergy Unknown Unknown Verified 02/01/21 16:54 trazodone Allergy Unknown Unknown Verified 02/01/21 16:54 augmentin Allergy Unknown Unknown Uncoded 02/01/21 15:55 Assessment & Plan Assessment & Plan (1) Major depressive disorder, recurrent episode with mood-congruent psychotic features: Status: Acute Code(s): F33.3 - Major depressive disorder, recurrent, severe with psychotic symptoms Assessment and Plan: This is a 70 yo F who endorses a medical history of pulmonary embolism. Denies any known CAD / CVD. She is transferred from the [place] for ECT. 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 Plan Patient has 3 day notice but agreeable to retracting. Has been able to take in more information regarding anxiety panic in her symptoms. Agreeable to ECT which is scheduled will need much reassurance seems improved with Prozac discontinued and changed from lorazepam to alprazolam 02/10: Continue current regimen and plans with no changes today 02/11: Continue current regimen and plans. Addition of p.r.n. Ativan was put in place I spent minutes with the patient and/or on the patient floor today, greater than?50% of which was spent counseling/coordinating care. Reason for contiued inpatient stay Substantial Risk for: other
[2021-02-11] MEDS: OLANZapine 2.5 MG TABLET PO (11:40)
[2021-02-11] MEDS: LORazepam 1 MG TABLET PO (13:14)
[2021-02-11 18:00] VITALS: BP 98/35; PULSE 55; RESP 16; TEMP 36.5; O2SAT 94
[2021-02-11] MEDS: OLANZapine 7.5 MG TABLET PO (21:12)
[2021-02-11] MEDS: Mirtazapine 15 MG TABLET 45 MG PO (21:13)
[2021-02-12 06:00] VITALS: BP 100/63; PULSE 61; TEMP 36.9; O2SAT 96
[2021-02-12] MEDS: ALPRAZolam 0.25 MG TABLET PO ×3 (09:17→20:14)
[2021-02-12] MEDS: Gabapentin 600 MG TABLET PO ×2 (09:17→15:37)
[2021-02-12] MEDS: Apixaban 5 MG TABLET PO ×2 (09:17→20:15)
[2021-02-12] MEDS: OLANZapine 5 MG TABLET PO (09:17)
--- NOTE | 2021-02-12 11:11 | P.PNPSI_ITS ---
Subjective Subjective Date of Service: 02/12/21 Reason For Visit: Major Depressive D/O Recurrent Severe w/Psychotic Subjective Notes: Conditional Voluntary Interim History: Patient was seen and discussed in rounds today. Records were reviewed. She is doing much better and has been less anxious. Not complaining of being cold anymore. Current medications reviewed. Questions about 1 of the medications discussed. No complaints or side effects. Eating and sleeping adequately. No changes were implemented today Medication Compliance: Yes Side effects from medications: No Review of Systems Review of Systems Yes all other systems are reviewed and are negative Mental Status Exam Mental Status Exam Narrative: Patient was seen today. She is alert, markedly lessanxious. She is much more settled and agreeable today. No acute signs observed. No signs of psychosis. No SI. No overt signs of depression. Cognitively is grossly intact. Judgment is intact Diagnostics Vital Signs (24Hr): Vital Signs - 24 hr 02/11/21 18:00 Temperature 97.7 F Pulse Rate 55 Respiratory Rate 16 Blood Pressure 98/35 L Pulse Oximetry 94 BMI result Body Mass Index 19.3 Labs Results: 02/02/21 08:25 02/02/21 08:25 Imaging Radiology Impressions: ITS Impressions Head CT 02/02/21 10:30 IMPRESSION: 1. No evidence of acute intracranial hemorrhage or edematous territorial infarction. 2. Mild to moderate underlying microangiopathy and generalized cerebral volume loss. Medications Medications Current Medications Acetaminophen (Acetaminophen 325 Mg Tablet) 650 mg PO Q6H PRN PRN Reason: Headache/Pain Mild Scale (1-3) Last Admin: 02/09/21 11:21 Dose: 650 mg Documented by: Al Hydroxide/Mg Hydroxide (Magnesium Hydrox/Alum Hydrox 30 Ml Oral.Susp) 30 ml PO Q6H PRN PRN Reason: Heartburn/Nausea Alprazolam (Alprazolam 0.25 Mg Tablet) 0.25 mg PO TID [facility] Last Admin: 02/12/21 09:17 Dose: 0.25 mg Documented by: Apixaban (Apixaban 5 Mg Tablet) 5 mg PO BID [facility] Last Admin: 02/12/21 09:17 Dose: 5 mg Documented by: Docusate Sodium (Docusate Sodium 100 Mg Capsule) 100 mg PO DAILY PRN PRN Reason: Constipation Gabapentin (Gabapentin 600 Mg Tablet) 600 mg PO TID [facility] Last Admin: 02/12/21 09:17 Dose: 600 mg Documented by: Loperamide HCl (Loperamide Hcl 2 Mg Capsule) 4 mg PO Q4H PRN PRN Reason: Diarrhea Last Admin: 02/04/21 09:27 Dose: 4 mg Documented by: Magnesium Hydroxide (Milk Of Magnesia 30 Ml Oral.Susp) 30 ml PO DAILY PRN PRN Reason: Constipation Mirtazapine (Mirtazapine 15 Mg Tablet) 45 mg PO BEDTIME [facility] Last Admin: 02/11/21 21:13 Dose: 45 mg Documented by: Olanzapine (Olanzapine 5 Mg Tablet) 5 mg PO DAILY [facility] Last Admin: 02/12/21 09:17 Dose: 5 mg Documented by: Olanzapine (Olanzapine 7.5 Mg Tablet) 7.5 mg PO BEDTIME [facility] Last Admin: 02/11/21 21:12 Dose: 7.5 mg Documented by: Olanzapine (Olanzapine 2.5 Mg Tablet) 2.5 mg PO BID PRN PRN Reason: Psychosis Last Admin: 02/11/21 11:40 Dose: 2.5 mg Documented by: Allergies Allergies Allergy/AdvReac Type Severity Reaction Status Date / Time amoxicillin [From Augmentin] Allergy Unknown Unknown Verified 02/01/21 15:55 aspirin Allergy Unknown Unknown Verified 02/01/21 16:34 clavulanic acid Allergy Unknown Unknown Verified 02/01/21 15:55 [From Augmentin] diphenhydramine Allergy Unknown Unknown Verified 02/01/21 16:35 hydrochlorothiazide Allergy Unknown Unknown Verified 02/01/21 16:44 metronidazole Allergy Unknown Unknown Verified 02/01/21 16:54 trazodone Allergy Unknown Unknown Verified 02/01/21 16:54 augmentin Allergy Unknown Unknown Uncoded 02/01/21 15:55 Assessment & Plan Assessment & Plan (1) Major depressive disorder, recurrent episode with mood-congruent psychotic features: Status: Acute Code(s): F33.3 - Major depressive disorder, recurrent, severe with psychotic symptoms Assessment and Plan: This is a 70 yo F who endorses a medical history of pulmonary embolism. Denies any known CAD / CVD. She is transferred from the [place] for ECT. 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 Plan Patient has 3 day notice but agreeable to retracting. Has been able to take in more information regarding anxiety panic in her symptoms. Agreeable to ECT which is scheduled will need much reassurance seems improved with Prozac discontinued and changed from lorazepam to alprazolam 02/10: Continue current regimen and plans with no changes today 02/11: Continue current regimen and plans. Addition of p.r.n. Ativan was put in place 02/12: No changes were implemented today and continue current regimen and plans I spent minutes with the patient and/or on the patient floor today, greater than?50% of which was spent counseling/coordinating care. Reason for contiued inpatient stay Substantial Risk for: other
[2021-02-12] MEDS: LORazepam 1 MG TABLET PO (16:44)
[2021-02-12 18:00] VITALS: BP 110/55; PULSE 60; RESP 16; TEMP 36.8; O2SAT 95
[2021-02-12] MEDS: OLANZapine 7.5 MG TABLET PO (20:14)
[2021-02-12] MEDS: Mirtazapine 15 MG TABLET 45 MG PO (20:15)
[2021-02-13] VITALS (11 sets, daily range): BP systolic 86–200; BP diastolic 54–148; PULSE 64–119; RESP 14–33; TEMP 36.1–37.3; O2SAT 93–98
[2021-02-13] MEDS: OLANZapine 5 MG TABLET PO (05:18)
[2021-02-13] MEDS: ALPRAZolam 0.25 MG TABLET PO ×2 (06:00→14:47)
--- NOTE | 2021-02-13 06:04 | PC.NURSE ---
dr marino called notified 1. dr mckeon pre ect is having panic attack 2. dr rubio had alprazolam 2100 dose given 3. zyprexa 5 mg po given at [address] rubio 4. plan is to reverse benzos once anaesthesia induction achieved 5. can we give alprazolam now-alprazolam 0.25 mg po now
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
--- NOTE | 2021-02-13 07:32 | MHC.SHP ---
Pre-Procedural Eval Section A Date of Service: 02/13/21 The patient is an INPATIENT: Yes Changes since office visit: No Cold of Flu in the past 2 weeks, No New Medical Problems, No Changes in Medication and No Patient answered all questions The History & Physical has been completed within 30 days and I have reviewed it.: Yes Section B Chief Complaint: Major Depressive D/O Recurrent Severe w/Psychotic Details of Present Illness[facility]. Relevant Family History (Specify if Yes): Yes Relevant Social History: None Present Medications: see Short Stay Collaborative assessment Medical History: No relevant PMH History of Previous Operations: No relevant previous surgery Allergies: Allergies Allergy/AdvReac Type Severity Reaction Status Date / Time amoxicillin [From Augmentin] Allergy Unknown Unknown Verified 02/01/21 15:55 aspirin Allergy Unknown Unknown Verified 02/01/21 16:34 clavulanic acid Allergy Unknown Unknown Verified 02/01/21 15:55 [From Augmentin] diphenhydramine Allergy Unknown Unknown Verified 02/01/21 16:35 hydrochlorothiazide Allergy Unknown Unknown Verified 02/01/21 16:44 metronidazole Allergy Unknown Unknown Verified 02/01/21 16:54 trazodone Allergy Unknown Unknown Verified 02/01/21 16:54 augmentin Allergy Unknown Unknown Uncoded 02/01/21 15:55 Review of Systems Sugical H&P ROS: Negative: Constitution, Cardiovascular, Respiratory, Neurological, Psychiatric, Hem-Onc, Allergic/Immunologic, Gastrointestinal, Genitourinary, Musculoskeletal, Integumentary, Endocrine and Eyes/Ears/Nose/Throat Exam Surgical H&P Exam: Normal: HEENT, Normal: Heart, Normal: Lungs, Normal: Extremities, Normal: Abdomen, Normal: Skin and Normal: Neurological Plan Diagnosis/Plan: Unchanged I have reviewed the history and physical and performed a pertinent physical examination on my patient. No changes have occurred unless specified.
--- NOTE | 2021-02-13 07:33 | HO.ECTPROC ---
ECT Procedure Note Diagnosis/Treatment Date of Service: 02/13/21 Diagnosis: Major Depressive Disorder Current Treatment Number: 1 Treatment: Series Interval Clinical Notes: The patient has been extremely anxious and agitated, still very dysphoric, before, while on PACU, we needed to add some Versed and Propofol before ECT. ECT Settings Device: THYMATRON DGx Electrode Placement: Bitemporal Program/Pulse Width: 0.50 Energy Percent: 100 Seizure Duration By EEG (in seconds): 0 (not recorded by computer but seizure activity on EEG seen until 64s) By Motor Observation (in seconds): 0 Medications Administration General Anesthetic: Etomidate (12) Muscle Relaxant: Succinylcholine (80) Ancillary Medications Analgesics: Torodol - Pre ECT Anti-emetics: Zofran - Pre ECT Miscillaneous Medications: Propofol (30 mg pre ECT due to agitation) Airway Management Airway Management: Bag Mask Ventilation Treatment Recommendations No Changes Recommended: No change Pt Tolerated Procedure w/o Issue: Yes
[2021-02-13] MEDS: Apixaban 5 MG TABLET PO (09:11)
[2021-02-13] MEDS: Gabapentin 600 MG TABLET PO ×2 (09:11→14:47)
[2021-02-13 11:31] LABS: COVID-19 Test Negative (Negative)
--- NOTE | 2021-02-13 16:32 | HO.PSYCHPN ---
Subjective Subjective Date of Service: 02/13/21 Reason For Visit: Major Depressive D/O Recurrent Severe w/Psychotic Subjective Notes: Conditional Voluntary Interim History: The patient had ECT today in the morning and she was extremely anxious at PACU. She needed propofol and Versed before the procedure. The nursing staff reported that she has been on her room most of the time, dysphoric but with no behavioral disturbances. On interview, the patient cannot remember anything that happened at PACU, she denies new symptoms. Mental Status Exam Mental Status Exam Patient Appearance: Disheveled Patient Orientation: Person Level of Consciousness: Awake Patient Behavior: Guarded and Passive Mood Description: Depressed Affect Description: Constricted Ability to Follow Directions: Fair Speech Pattern: Clear Hallucinations: None Delusions: Paranoid Ideation Thought Process: Linear Thought Content: positive for Circumstantial Judgement: Fair Diagnostics Vital Signs (24Hr): Vital Signs - 24 hr 02/12/21 18:00 02/13/21 05:20 02/13/21 05:32 Temperature 98.2 F 98.1 F 98.1 F Pulse Rate 60 76 76 Respiratory Rate 16 14 16 Blood Pressure 110/55 L 141/86 H 141/86 H Pulse Oximetry 95 95 95 02/13/21 07:10 02/13/21 07:52 02/13/21 07:57 Temperature 97 F 99.2 F Pulse Rate 79 68 119 H Respiratory Rate 16 25 H 33 H Blood Pressure 141/72 H 129/75 200/148 H Pulse Oximetry 95 98 96 02/13/21 08:02 02/13/21 08:09 02/13/21 08:24 Temperature 98.0 F Pulse Rate 118 H 118 H 107 H Respiratory Rate 25 H 25 H 24 H Blood Pressure 174/81 H 158/94 H Pulse Oximetry 95 97 96 02/13/21 09:04 Temperature 98.2 F Pulse Rate 92 Respiratory Rate 16 Blood Pressure 118/75 Pulse Oximetry 94 BMI result Body Mass Index 19.3 Labs Results: 02/02/21 08:25 02/02/21 08:25 Labs: Laboratory Results - last 48 hr 02/13/21 10:53 COVID-19 ([facility]) Negative COVID-19 Clin Com See Note Imaging Radiology Impressions: ITS Impressions Head CT 02/02/21 10:30 IMPRESSION: 1. No evidence of acute intracranial hemorrhage or edematous territorial infarction. 2. Mild to moderate underlying microangiopathy and generalized cerebral volume loss. Medications Medications Current Medications Acetaminophen (Acetaminophen 325 Mg Tablet) 650 mg PO Q6H PRN PRN Reason: Headache/Pain Mild Scale (1-3) Last Admin: 02/09/21 11:21 Dose: 650 mg Documented by: Al Hydroxide/Mg Hydroxide (Magnesium Hydrox/Alum Hydrox 30 Ml Oral.Susp) 30 ml PO Q6H PRN PRN Reason: Heartburn/Nausea Alprazolam (Alprazolam 0.25 Mg Tablet) 0.25 mg PO TID [facility] Last Admin: 02/13/21 14:47 Dose: 0.25 mg Documented by: Apixaban (Apixaban 5 Mg Tablet) 5 mg PO BID [facility] Last Admin: 02/13/21 09:11 Dose: 5 mg Documented by: Docusate Sodium (Docusate Sodium 100 Mg Capsule) 100 mg PO DAILY PRN PRN Reason: Constipation Gabapentin (Gabapentin 600 Mg Tablet) 600 mg PO TID [facility] Last Admin: 02/13/21 14:47 Dose: 600 mg Documented by: Loperamide HCl (Loperamide Hcl 2 Mg Capsule) 4 mg PO Q4H PRN PRN Reason: Diarrhea Last Admin: 02/04/21 09:27 Dose: 4 mg Documented by: Magnesium Hydroxide (Milk Of Magnesia 30 Ml Oral.Susp) 30 ml PO DAILY PRN PRN Reason: Constipation Mirtazapine (Mirtazapine 15 Mg Tablet) 45 mg PO BEDTIME [facility] Last Admin: 02/12/21 20:15 Dose: 45 mg Documented by: Olanzapine (Olanzapine 5 Mg Tablet) 5 mg PO DAILY [facility] Last Admin: 02/13/21 05:18 Dose: 5 mg Documented by: Olanzapine (Olanzapine 7.5 Mg Tablet) 7.5 mg PO BEDTIME [facility] Last Admin: 02/12/21 20:14 Dose: 7.5 mg Documented by: Olanzapine (Olanzapine 2.5 Mg Tablet) 2.5 mg PO BID PRN PRN Reason: Psychosis Last Admin: 02/11/21 11:40 Dose: 2.5 mg Documented by: Allergies Allergies Allergy/AdvReac Type Severity Reaction Status Date / Time amoxicillin [From Augmentin] Allergy Unknown Unknown Verified 02/01/21 15:55 aspirin Allergy Unknown Unknown Verified 02/01/21 16:34 clavulanic acid Allergy Unknown Unknown Verified 02/01/21 15:55 [From Augmentin] diphenhydramine Allergy Unknown Unknown Verified 02/01/21 16:35 hydrochlorothiazide Allergy Unknown Unknown Verified 02/01/21 16:44 metronidazole Allergy Unknown Unknown Verified 02/01/21 16:54 trazodone Allergy Unknown Unknown Verified 02/01/21 16:54 augmentin Allergy Unknown Unknown Uncoded 02/01/21 15:55 Assessment & Plan Assessment & Plan (1) Major depressive disorder, recurrent episode with mood-congruent psychotic features: Status: Acute Code(s): F33.3 - Major depressive disorder, recurrent, severe with psychotic symptoms Assessment and Plan: This is a 70 yo F who endorses a medical history of pulmonary embolism. Denies any known CAD / CVD. She is transferred from the [place] for E[place]. 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 Plan Patient has 3 day notice but agreeable to retracting. Has been able to take in more information regarding anxiety panic in her symptoms. Agreeable to ECT which is scheduled will need much reassurance seems improved with Prozac discontinued and changed from lorazepam to alprazolam Continue ECT I spent minutes with the patient and/or on the patient floor today, greater than?50% of which was spent counseling/coordinating care. Reason for contiued inpatient stay Substantial Risk for: inability to function, rapid decompensation and med/psych decompensation
--- NOTE | 2021-02-13 22:52 | PC.NURSE ---
Went in to give pt evening meds at 0940. Pt was sound asleep and when i was able to arouse her she was not able to stay awake to take po meds. Pt was given ECT Tx today and given 2mg Ativan in PACU. No meds given. VS were temp 98.1 / 93% SpO2 / HR 64 / BP was 86/54 / RR 16. Will continue to monitor pt throughout the night.
[2021-02-14 01:00] VITALS: BP 89/56; PULSE 59; RESP 20; TEMP 36.6; O2SAT 94
--- NOTE | 2021-02-14 01:22 | PC.NURSE ---
Went in to check vitals at 0100. 97.8 / 94% / 59 bpm / 89/56 Left arm. Pt was able to say a few words but unable to sit up and take meds. Held all meds. Pt unable to safely do so.
[2021-02-14] MEDS: OLANZapine 5 MG TABLET PO (08:06)
[2021-02-14] MEDS: Gabapentin 600 MG TABLET PO ×2 (08:06→16:21)
[2021-02-14] MEDS: ALPRAZolam 0.25 MG TABLET PO ×3 (08:06→20:44)
[2021-02-14] MEDS: Apixaban 5 MG TABLET PO ×2 (08:06→20:44)
[2021-02-14 11:05] VITALS: BP 95/58; RESP 16; TEMP 36; O2SAT 94
--- NOTE | 2021-02-14 14:52 | HO.PSYCHPN ---
Subjective Subjective Date of Service: 02/14/21 Reason For Visit: Major Depressive D/O Recurrent Severe w/Psychotic Subjective Notes: Conditional Voluntary Interim History: The nursing staff reported that the patient has been in her room most of the time, able to cope with the restrictions of the COVID-19. On interview, the patient cannot remember anything about yesterday and the ECT. We discussed her anxiety and she agreed to take her Xanax 2 mg 1 hour before the treatment so she can be more relaxed. Mental Status Exam Mental Status Exam Patient Appearance: Well Grooomed Patient Orientation: Person Level of Consciousness: Awake Patient Behavior: Cooperative Mood Description: Depressed Affect Description: Constricted Patient Cognition Impaired: Yes Ability to Follow Directions: Good Speech Pattern: Clear Delusions: Not Present Thought Process: Linear Thought Content: positive for Poverty of Content Judgement: Poor Diagnostics Vital Signs (24Hr): Vital Signs - 24 hr 02/13/21 18:00 02/13/21 21:45 02/14/21 01:00 Temperature 98.1 F 98.1 F 97.8 F Pulse Rate 64 64 59 Respiratory Rate 16 16 20 Blood Pressure 86/54 L 89/56 L Pulse Oximetry 93 93 94 02/14/21 11:05 Temperature 96.8 F Pulse Rate Respiratory Rate 16 Blood Pressure 95/58 L Pulse Oximetry 94 BMI result Body Mass Index 19.3 Labs Results: 02/02/21 08:25 02/02/21 08:25 Labs: Laboratory Results - last 48 hr 02/13/21 10:53 COVID-19 ([facility]) Negative COVID-19 Clin Com See Note Imaging Radiology Impressions: ITS Impressions Head CT 02/02/21 10:30 IMPRESSION: 1. No evidence of acute intracranial hemorrhage or edematous territorial infarction. 2. Mild to moderate underlying microangiopathy and generalized cerebral volume loss. Medications Medications Current Medications Acetaminophen (Acetaminophen 325 Mg Tablet) 650 mg PO Q6H PRN PRN Reason: Headache/Pain Mild Scale (1-3) Last Admin: 02/09/21 11:21 Dose: 650 mg Documented by: Al Hydroxide/Mg Hydroxide (Magnesium Hydrox/Alum Hydrox 30 Ml Oral.Susp) 30 ml PO Q6H PRN PRN Reason: Heartburn/Nausea Alprazolam (Alprazolam 0.25 Mg Tablet) 0.25 mg PO TID [facility] Last Admin: 02/14/21 08:06 Dose: 0.25 mg Documented by: Apixaban (Apixaban 5 Mg Tablet) 5 mg PO BID [facility] Last Admin: 02/14/21 08:06 Dose: 5 mg Documented by: Docusate Sodium (Docusate Sodium 100 Mg Capsule) 100 mg PO DAILY PRN PRN Reason: Constipation Gabapentin (Gabapentin 600 Mg Tablet) 600 mg PO TID [facility] Last Admin: 02/14/21 08:06 Dose: 600 mg Documented by: Loperamide HCl (Loperamide Hcl 2 Mg Capsule) 4 mg PO Q4H PRN PRN Reason: Diarrhea Last Admin: 02/04/21 09:27 Dose: 4 mg Documented by: Magnesium Hydroxide (Milk Of Magnesia 30 Ml Oral.Susp) 30 ml PO DAILY PRN PRN Reason: Constipation Mirtazapine (Mirtazapine 15 Mg Tablet) 45 mg PO BEDTIME [facility] Last Admin: 02/14/21 01:21 Dose: Not Given Documented by: Olanzapine (Olanzapine 5 Mg Tablet) 5 mg PO DAILY [facility] Last Admin: 02/14/21 08:06 Dose: 5 mg Documented by: Olanzapine (Olanzapine 7.5 Mg Tablet) 7.5 mg PO BEDTIME [facility] Last Admin: 02/14/21 01:21 Dose: Not Given Documented by: Olanzapine (Olanzapine 2.5 Mg Tablet) 2.5 mg PO BID PRN PRN Reason: Psychosis Last Admin: 02/11/21 11:40 Dose: 2.5 mg Documented by: Allergies Allergies Allergy/AdvReac Type Severity Reaction Status Date / Time amoxicillin [From Augmentin] Allergy Unknown Unknown Verified 02/01/21 15:55 aspirin Allergy Unknown Unknown Verified 02/01/21 16:34 clavulanic acid Allergy Unknown Unknown Verified 02/01/21 15:55 [From Augmentin] diphenhydramine Allergy Unknown Unknown Verified 02/01/21 16:35 hydrochlorothiazide Allergy Unknown Unknown Verified 02/01/21 16:44 metronidazole Allergy Unknown Unknown Verified 02/01/21 16:54 trazodone Allergy Unknown Unknown Verified 02/01/21 16:54 augmentin Allergy Unknown Unknown Uncoded 02/01/21 15:55 Assessment & Plan Assessment & Plan (1) Major depressive disorder, recurrent episode with mood-congruent psychotic features: Status: Acute Code(s): F33.3 - Major depressive disorder, recurrent, severe with psychotic symptoms Assessment and Plan: This is a 70 yo F who endorses a medical history of pulmonary embolism. Denies any known CAD / CVD. She is transferred from the [place] for ECT. 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 Plan Patient has 3 day notice but agreeable to retracting. Has been able to take in more information regarding anxiety panic in her symptoms. Agreeable to ECT which is scheduled will need much reassurance seems improved with Prozac discontinued and changed from lorazepam to alprazolam Continue ECT I spent minutes with the patient and/or on the patient floor today, greater than?50% of which was spent counseling/coordinating care. Reason for contiued inpatient stay Substantial Risk for: inability to function, rapid decompensation and med/psych decompensation
[2021-02-14 18:00] VITALS: BP 95/53; PULSE 63; TEMP 36.3; O2SAT 95
[2021-02-14] MEDS: OLANZapine 7.5 MG TABLET PO (20:44)
[2021-02-14] MEDS: Mirtazapine 15 MG TABLET 45 MG PO (20:44)
[2021-02-15] VITALS (11 sets, daily range): BP systolic 107–165; BP diastolic 57–101; PULSE 52–99; RESP 16–20; TEMP 36.2–37.4; O2SAT 92–99; BMI 19.1
[2021-02-15] MEDS: ALPRAZolam 0.5 MG TABLET 2 MG PO (05:07)
[2021-02-15] MEDS: OLANZapine 5 MG TABLET PO (05:08)
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
--- NOTE | 2021-02-15 13:04 | MHC.SHP ---
Pre-Procedural Eval Section A Date of Service: 02/15/21 The patient is an INPATIENT: Yes Changes since office visit: No Cold of Flu in the past 2 weeks, No New Medical Problems, No Changes in Medication and No Patient answered all questions The History & Physical has been completed within 30 days and I have reviewed it.: Yes Section B Chief Complaint: Major Depressive D/O Recurrent Severe w/Psychotic Allergies: Allergies Allergy/AdvReac Type Severity Reaction Status Date / Time amoxicillin [From Augmentin] Allergy Unknown Unknown Verified 02/01/21 15:55 aspirin Allergy Unknown Unknown Verified 02/01/21 16:34 clavulanic acid Allergy Unknown Unknown Verified 02/01/21 15:55 [From Augmentin] diphenhydramine Allergy Unknown Unknown Verified 02/01/21 16:35 hydrochlorothiazide Allergy Unknown Unknown Verified 02/01/21 16:44 metronidazole Allergy Unknown Unknown Verified 02/01/21 16:54 trazodone Allergy Unknown Unknown Verified 02/01/21 16:54 augmentin Allergy Unknown Unknown Uncoded 02/01/21 15:55 Plan I have reviewed the history and physical and performed a pertinent physical examination on my patient. No changes have occurred unless specified.
--- NOTE | 2021-02-15 13:04 | HO.ECTPROC ---
ECT Procedure Note Diagnosis/Treatment Date of Service: 02/15/21 Diagnosis: Major Depressive Disorder Previous ECT Date: 02/13/21 Current Treatment Number: 2 Treatment: Series Interval Clinical Notes: The patient remains depressed with lack of energy and very anxious, no side effects with previous ECT ECT Settings Device: THYMATRON DGx Electrode Placement: Bifrontal Program/Pulse Width: 0.50 Energy Percent: 100 Seizure Duration By EEG (in seconds): 0 (not recoreded on computer but seizure activity seen on EEG until 62 s) By Motor Observation (in seconds): 37 Medications Administration General Anesthetic: Etomidate (10) Muscle Relaxant: Succinylcholine (80) Ancillary Medications Miscillaneous Medications: Propofol Airway Management Airway Management: Bag Mask Ventilation Treatment Recommendations No Changes Recommended: No change
--- NOTE | 2021-02-15 13:59 | P.PNPSI_ITS ---
Subjective Subjective Date of Service: 02/15/21 Reason For Visit: Major Depressive D/O Recurrent Severe w/Psychotic Subjective Notes: Conditional Voluntary Interim History: The nursing staff reported very mild improvement of dysphoria, more visible in the unit. On interview, she was upset that she was not scheduled for ECT at AM, she agreed to have ECT JOSEFINA, no safety issues. Mental Status Exam Mental Status Exam Patient Appearance: Disheveled Patient Orientation: Person Level of Consciousness: Awake Patient Behavior: Cooperative Mood Description: Depressed Affect Description: Constricted Patient Cognition Impaired: No Ability to Follow Directions: Good Speech Pattern: Clear Hallucinations: None Delusions: Paranoid Ideation Thought Process: Linear Thought Content: positive for Circumstantial Judgement: Fair Diagnostics Vital Signs (24Hr): Vital Signs - 24 hr 02/14/21 18:00 02/15/21 05:47 02/15/21 08:00 Temperature 97.4 F 97.6 F 97.8 F Pulse Rate 63 64 71 Respiratory Rate 16 Blood Pressure 95/53 L 115/66 120/64 Pulse Oximetry 95 95 95 02/15/21 13:10 02/15/21 13:24 02/15/21 13:29 Temperature 99.4 F 97.1 F Pulse Rate 69 52 73 Respiratory Rate 18 20 20 Blood Pressure 109/71 165/85 H 107/60 Pulse Oximetry 98 99 95 02/15/21 13:34 02/15/21 13:39 Temperature Pulse Rate 73 89 Respiratory Rate 20 20 Blood Pressure 122/65 122/65 Pulse Oximetry 96 98 BMI result Body Mass Index 19.1 Labs Results: 02/02/21 08:25 02/02/21 08:25 Imaging Radiology Impressions: ITS Impressions Head CT 02/02/21 10:30 IMPRESSION: 1. No evidence of acute intracranial hemorrhage or edematous territorial infarction. 2. Mild to moderate underlying microangiopathy and generalized cerebral volume loss. Medications Medications Current Medications Acetaminophen (Acetaminophen 325 Mg Tablet) 650 mg PO Q6H PRN PRN Reason: Headache/Pain Mild Scale (1-3) Last Admin: 02/09/21 11:21 Dose: 650 mg Documented by: Al Hydroxide/Mg Hydroxide (Magnesium Hydrox/Alum Hydrox 30 Ml Oral.Susp) 30 ml PO Q6H PRN PRN Reason: Heartburn/Nausea Alprazolam (Alprazolam 0.25 Mg Tablet) 0.25 mg PO TID [facility] Last Admin: 02/14/21 20:44 Dose: 0.25 mg Documented by: Alprazolam (Alprazolam 0.5 Mg Tablet) 2 mg PO ONCE [facility] Last Admin: 02/15/21 05:07 Dose: 2 mg Documented by: Apixaban (Apixaban 5 Mg Tablet) 5 mg PO BID [facility] Last Admin: 02/14/21 20:44 Dose: 5 mg Documented by: Docusate Sodium (Docusate Sodium 100 Mg Capsule) 100 mg PO DAILY PRN PRN Reason: Constipation Gabapentin (Gabapentin 600 Mg Tablet) 600 mg PO TID [facility] Last Admin: 02/14/21 20:45 Dose: Not Given Documented by: Lactated Ringer's (Lr) 1,000 mls @ 50 mls/hr IVCONT .Q20H [facility] Loperamide HCl (Loperamide Hcl 2 Mg Capsule) 4 mg PO Q4H PRN PRN Reason: Diarrhea Last Admin: 02/04/21 09:27 Dose: 4 mg Documented by: Magnesium Hydroxide (Milk Of Magnesia 30 Ml Oral.Susp) 30 ml PO DAILY PRN PRN Reason: Constipation Mirtazapine (Mirtazapine 15 Mg Tablet) 45 mg PO BEDTIME [facility] Last Admin: 02/14/21 20:44 Dose: 45 mg Documented by: Olanzapine (Olanzapine 5 Mg Tablet) 5 mg PO DAILY [facility] Last Admin: 02/15/21 05:08 Dose: 5 mg Documented by: Olanzapine (Olanzapine 7.5 Mg Tablet) 7.5 mg PO BEDTIME [facility] Last Admin: 02/14/21 20:44 Dose: 7.5 mg Documented by: Olanzapine (Olanzapine 2.5 Mg Tablet) 2.5 mg PO BID PRN PRN Reason: Psychosis Last Admin: 02/11/21 11:40 Dose: 2.5 mg Documented by: Ondansetron HCl (Ondansetron Hcl 4 Mg/2 Ml Vial) 4 mg IVPUSH ONCE PRN PRN Reason: Nausea and Vomiting Allergies Allergies Allergy/AdvReac Type Severity Reaction Status Date / Time amoxicillin [From Augmentin] Allergy Unknown Unknown Verified 02/01/21 15:55 aspirin Allergy Unknown Unknown Verified 02/01/21 16:34 clavulanic acid Allergy Unknown Unknown Verified 02/01/21 15:55 [From Augmentin] diphenhydramine Allergy Unknown Unknown Verified 02/01/21 16:35 hydrochlorothiazide Allergy Unknown Unknown Verified 02/01/21 16:44 metronidazole Allergy Unknown Unknown Verified 02/01/21 16:54 trazodone Allergy Unknown Unknown Verified 02/01/21 16:54 augmentin Allergy Unknown Unknown Uncoded 02/01/21 15:55 Assessment & Plan Assessment & Plan (1) Major depressive disorder, recurrent episode with mood-congruent psychotic features: Status: Acute Code(s): F33.3 - Major depressive disorder, recurrent, severe with psychotic symptoms Assessment and Plan: This is a 70 yo F who endorses a medical history of pulmonary embolism. Denies any known CAD / CVD. She is transferred from the [place] for ECT. 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 Plan Patient has 3 day notice but agreeable to retracting. Has been able to take in more information regarding anxiety panic in her symptoms. Agreeable to ECT which is scheduled will need much reassurance seems improved with Prozac discontinued and changed from lorazepam to alprazolam Continue ECT I spent minutes with the patient and/or on the patient floor today, greater than?50% of which was spent counseling/coordinating care. Reason for contiued inpatient stay Substantial Risk for: inability to function, rapid decompensation and med/psych decompensation
[2021-02-15] MEDS: ALPRAZolam 0.25 MG TABLET PO ×2 (14:32→20:02)
[2021-02-15] MEDS: Apixaban 5 MG TABLET PO ×2 (14:32→20:02)
[2021-02-15] MEDS: Gabapentin 600 MG TABLET PO ×2 (14:32→20:02)
[2021-02-15] MEDS: Mirtazapine 15 MG TABLET 45 MG PO (20:02)
[2021-02-15] MEDS: OLANZapine 7.5 MG TABLET PO (20:02)
[2021-02-16 06:00] VITALS: BP 110/56; PULSE 61; RESP 14; TEMP 36.6; O2SAT 95
[2021-02-16] MEDS: Apixaban 5 MG TABLET PO ×2 (07:44→20:10)
[2021-02-16] MEDS: Gabapentin 600 MG TABLET PO ×2 (07:44→20:10)
[2021-02-16] MEDS: OLANZapine 5 MG TABLET PO (07:44)
[2021-02-16] MEDS: ALPRAZolam 0.25 MG TABLET PO ×2 (07:45→20:10)
[2021-02-16 08:39] LABS: COVID-19 Test Negative (Negative)
--- NOTE | 2021-02-16 14:08 | P.PNPSI_ITS ---
Subjective Subjective Date of Service: 02/16/21 Reason For Visit: Major Depressive D/O Recurrent Severe w/Psychotic Subjective Notes: Conditional Voluntary Interim History: The nursing staff reported the patient slept and was confused after ECT. On interview, the patient reports being depressed but she was seen more in the common areas. She is able to cope without restrictions of COVID night eating in the unit. Mental Status Exam Mental Status Exam Patient Appearance: Well Grooomed Level of Consciousness: Awake Mood Description: Depressed Affect Description: Withdrawn Ability to Follow Directions: Good Speech Pattern: Clear Hallucinations: None Delusions: Not Present Thought Process: Linear and Evasive Thought Content: positive for Poverty of Content Judgement: Fair Diagnostics Vital Signs (24Hr): Vital Signs - 24 hr 02/15/21 14:40 02/15/21 14:54 02/15/21 20:10 Temperature 98.3 F 98.3 F 98.5 F Pulse Rate 99 99 80 Respiratory Rate 18 Blood Pressure 139/101 H 139/101 H 111/57 L Pulse Oximetry 96 96 92 02/16/21 06:00 Temperature 97.9 F Pulse Rate 61 Respiratory Rate 14 Blood Pressure 110/56 L Pulse Oximetry 95 BMI result Body Mass Index 19.1 Labs Results: 02/02/21 08:25 02/02/21 08:25 Labs: Laboratory Results - last 48 hr 02/16/21 07:35 COVID-19 ([facility]) Negative COVID-19 Clin Com See Note Imaging Radiology Impressions: ITS Impressions Head CT 02/02/21 10:30 IMPRESSION: 1. No evidence of acute intracranial hemorrhage or edematous territorial infarction. 2. Mild to moderate underlying microangiopathy and generalized cerebral volume loss. Medications Medications Current Medications Acetaminophen (Acetaminophen 325 Mg Tablet) 650 mg PO Q6H PRN PRN Reason: Headache/Pain Mild Scale (1-3) Last Admin: 02/09/21 11:21 Dose: 650 mg Documented by: Al Hydroxide/Mg Hydroxide (Magnesium Hydrox/Alum Hydrox 30 Ml Oral.Susp) 30 ml PO Q6H PRN PRN Reason: Heartburn/Nausea Alprazolam (Alprazolam 0.25 Mg Tablet) 0.25 mg PO TID [facility] Last Admin: 02/16/21 07:45 Dose: 0.25 mg Documented by: Apixaban (Apixaban 5 Mg Tablet) 5 mg PO BID [facility] Last Admin: 02/16/21 07:44 Dose: 5 mg Documented by: Docusate Sodium (Docusate Sodium 100 Mg Capsule) 100 mg PO DAILY PRN PRN Reason: Constipation Gabapentin (Gabapentin 600 Mg Tablet) 600 mg PO TID [facility] Last Admin: 02/16/21 07:44 Dose: 600 mg Documented by: Loperamide HCl (Loperamide Hcl 2 Mg Capsule) 4 mg PO Q4H PRN PRN Reason: Diarrhea Last Admin: 02/04/21 09:27 Dose: 4 mg Documented by: Magnesium Hydroxide (Milk Of Magnesia 30 Ml Oral.Susp) 30 ml PO DAILY PRN PRN Reason: Constipation Mirtazapine (Mirtazapine 15 Mg Tablet) 45 mg PO BEDTIME [facility] Last Admin: 02/15/21 20:02 Dose: 45 mg Documented by: Olanzapine (Olanzapine 5 Mg Tablet) 5 mg PO DAILY [facility] Last Admin: 02/16/21 07:44 Dose: 5 mg Documented by: Olanzapine (Olanzapine 7.5 Mg Tablet) 7.5 mg PO BEDTIME [facility] Last Admin: 02/15/21 20:02 Dose: 7.5 mg Documented by: Olanzapine (Olanzapine 2.5 Mg Tablet) 2.5 mg PO BID PRN PRN Reason: Psychosis Last Admin: 02/11/21 11:40 Dose: 2.5 mg Documented by: Ondansetron HCl (Ondansetron Hcl 4 Mg/2 Ml Vial) 4 mg IVPUSH ONCE PRN PRN Reason: Nausea and Vomiting Allergies Allergies Allergy/AdvReac Type Severity Reaction Status Date / Time amoxicillin [From Augmentin] Allergy Unknown Unknown Verified 02/01/21 15:55 aspirin Allergy Unknown Unknown Verified 02/01/21 16:34 clavulanic acid Allergy Unknown Unknown Verified 02/01/21 15:55 [From Augmentin] diphenhydramine Allergy Unknown Unknown Verified 02/01/21 16:35 hydrochlorothiazide Allergy Unknown Unknown Verified 02/01/21 16:44 metronidazole Allergy Unknown Unknown Verified 02/01/21 16:54 trazodone Allergy Unknown Unknown Verified 02/01/21 16:54 augmentin Allergy Unknown Unknown Uncoded 02/01/21 15:55 Assessment & Plan Assessment & Plan (1) Major depressive disorder, recurrent episode with mood-congruent psychotic features: Status: Acute Code(s): F33.3 - Major depressive disorder, recurrent, severe with psychotic symptoms Assessment and Plan: This is a 70 yo F who endorses a medical history of pulmonary embolism. Denies any known CAD / CVD. She is transferred from the [place] for ECT. 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 Plan Patient has 3 day notice but agreeable to retracting. Has been able to take in more information regarding anxiety panic in her symptoms. Agreeable to ECT which is scheduled will need much reassurance seems improved with Prozac discontinued and changed from lorazepam to alprazolam Continue ECT I spent minutes with the patient and/or on the patient floor today, greater than?50% of which was spent counseling/coordinating care. Reason for contiued inpatient stay Substantial Risk for: harm to self, inability to function, rapid decompensation and med/psych decompensation
[2021-02-16 18:00] VITALS: BP 102/57; PULSE 61; RESP 16; TEMP 36.6; O2SAT 93
[2021-02-16] MEDS: Mirtazapine 15 MG TABLET 45 MG PO (20:10)
[2021-02-16] MEDS: OLANZapine 7.5 MG TABLET PO (20:10)
[2021-02-17 06:00] VITALS: BP 110/56; PULSE 60; RESP 14; TEMP 36.8; O2SAT 94
[2021-02-17] MEDS: Apixaban 5 MG TABLET PO ×2 (08:38→20:19)
[2021-02-17] MEDS: OLANZapine 5 MG TABLET PO (08:38)
[2021-02-17] MEDS: ALPRAZolam 0.25 MG TABLET PO ×3 (08:38→20:19)
[2021-02-17] MEDS: Gabapentin 600 MG TABLET PO ×3 (08:38→20:19)
--- NOTE | 2021-02-17 10:45 | P.PNPSI_ITS ---
Subjective Subjective Date of Service: 02/17/21 Reason For Visit: Major Depressive D/O Recurrent Severe w/Psychotic Subjective Notes: Conditional Voluntary Interim History: The nursing staff reported the patient is more awake and alert, she interacts with a brighter affect with peers and staff. On interview, the patient reports improvement of her dysphoria with more energy but still some residual anxiety. She is concerned of her poor short-term memory after ECT and I explained her that that is an expected side effect of the treatment. Mental Status Exam Mental Status Exam Patient Appearance: Well Grooomed Patient Orientation: Person Level of Consciousness: Awake Patient Behavior: Cooperative Mood Description: Depressed Affect Description: Constricted Patient Cognition Impaired: No Speech Pattern: Appropriate Hallucinations: None Delusions: Not Present Thought Content: positive for Intact Judgement: Fair Diagnostics Vital Signs (24Hr): Vital Signs - 24 hr 02/16/21 18:00 02/17/21 06:00 Temperature 97.9 F 98.2 F Pulse Rate 61 60 Respiratory Rate 16 14 Blood Pressure 102/57 L 110/56 L Pulse Oximetry 93 94 BMI result Body Mass Index 19.1 Labs Results: 02/02/21 08:25 02/02/21 08:25 Labs: Laboratory Results - last 48 hr 02/16/21 07:35 COVID-19 ([facility]) Negative COVID-19 Clin Com See Note Imaging Radiology Impressions: ITS Impressions Head CT 02/02/21 10:30 IMPRESSION: 1. No evidence of acute intracranial hemorrhage or edematous territorial infarction. 2. Mild to moderate underlying microangiopathy and generalized cerebral volume loss. Medications Medications Current Medications Acetaminophen (Acetaminophen 325 Mg Tablet) 650 mg PO Q6H PRN PRN Reason: Headache/Pain Mild Scale (1-3) Last Admin: 02/09/21 11:21 Dose: 650 mg Documented by: Al Hydroxide/Mg Hydroxide (Magnesium Hydrox/Alum Hydrox 30 Ml Oral.Susp) 30 ml PO Q6H PRN PRN Reason: Heartburn/Nausea Alprazolam (Alprazolam 0.25 Mg Tablet) 0.25 mg PO TID [facility] Last Admin: 02/17/21 08:38 Dose: 0.25 mg Documented by: Apixaban (Apixaban 5 Mg Tablet) 5 mg PO BID [facility] Last Admin: 02/17/21 08:38 Dose: 5 mg Documented by: Docusate Sodium (Docusate Sodium 100 Mg Capsule) 100 mg PO DAILY PRN PRN Reason: Constipation Gabapentin (Gabapentin 600 Mg Tablet) 600 mg PO TID [facility] Last Admin: 02/17/21 08:38 Dose: 600 mg Documented by: Loperamide HCl (Loperamide Hcl 2 Mg Capsule) 4 mg PO Q4H PRN PRN Reason: Diarrhea Last Admin: 02/04/21 09:27 Dose: 4 mg Documented by: Magnesium Hydroxide (Milk Of Magnesia 30 Ml Oral.Susp) 30 ml PO DAILY PRN PRN Reason: Constipation Mirtazapine (Mirtazapine 15 Mg Tablet) 45 mg PO BEDTIME [facility] Last Admin: 02/16/21 20:10 Dose: 45 mg Documented by: Olanzapine (Olanzapine 5 Mg Tablet) 5 mg PO DAILY [facility] Last Admin: 02/17/21 08:38 Dose: 5 mg Documented by: Olanzapine (Olanzapine 7.5 Mg Tablet) 7.5 mg PO BEDTIME [facility] Last Admin: 02/16/21 20:10 Dose: 7.5 mg Documented by: Olanzapine (Olanzapine 2.5 Mg Tablet) 2.5 mg PO BID PRN PRN Reason: Psychosis Last Admin: 02/11/21 11:40 Dose: 2.5 mg Documented by: Ondansetron HCl (Ondansetron Hcl 4 Mg/2 Ml Vial) 4 mg IVPUSH ONCE PRN PRN Reason: Nausea and Vomiting Allergies Allergies Allergy/AdvReac Type Severity Reaction Status Date / Time amoxicillin [From Augmentin] Allergy Unknown Unknown Verified 02/01/21 15:55 aspirin Allergy Unknown Unknown Verified 02/01/21 16:34 clavulanic acid Allergy Unknown Unknown Verified 02/01/21 15:55 [From Augmentin] diphenhydramine Allergy Unknown Unknown Verified 02/01/21 16:35 hydrochlorothiazide Allergy Unknown Unknown Verified 02/01/21 16:44 metronidazole Allergy Unknown Unknown Verified 02/01/21 16:54 trazodone Allergy Unknown Unknown Verified 02/01/21 16:54 augmentin Allergy Unknown Unknown Uncoded 02/01/21 15:55 Assessment & Plan Assessment & Plan (1) Major depressive disorder, recurrent episode with mood-congruent psychotic features: Status: Acute Code(s): F33.3 - Major depressive disorder, recurrent, severe with psychotic symptoms Assessment and Plan: This is a 70 yo F who endorses a medical history of pulmonary embolism. Denies any known CAD / CVD. She is transferred from the [place] for ECT. 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 Plan Patient has 3 day notice but agreeable to retracting. Has been able to take in more information regarding anxiety panic in her symptoms. Agreeable to ECT which is scheduled will need much reassurance seems improved with Prozac discontinued and changed from lorazepam to alprazolam Continue ECT I spent minutes with the patient and/or on the patient floor today, greater than?50% of which was spent counseling/coordinating care. Reason for contiued inpatient stay Substantial Risk for: harm to self, inability to function, rapid decompensation and med/psych decompensation
[2021-02-17 18:00] VITALS: BP 106/61; PULSE 56; RESP 16; TEMP 36.1; O2SAT 94
[2021-02-17] MEDS: Mirtazapine 15 MG TABLET 45 MG PO (20:19)
[2021-02-17] MEDS: OLANZapine 7.5 MG TABLET PO (20:19)
[2021-02-18 08:56] VITALS: BP 120/81; PULSE 69; RESP 16; TEMP 36.7; O2SAT 96
[2021-02-18] MEDS: OLANZapine 5 MG TABLET PO (09:04)
[2021-02-18] MEDS: ALPRAZolam 0.25 MG TABLET PO ×3 (09:04→20:03)
[2021-02-18] MEDS: Apixaban 5 MG TABLET PO ×2 (09:04→20:03)
[2021-02-18] MEDS: Gabapentin 600 MG TABLET PO ×3 (09:04→20:03)
[2021-02-18] MEDS: OLANZapine 2.5 MG TABLET PO (13:41)
[2021-02-18 18:00] VITALS: BP 97/54; PULSE 60; RESP 18; TEMP 35.7; O2SAT 94
[2021-02-18] MEDS: Mirtazapine 15 MG TABLET 45 MG PO (20:03)
[2021-02-18] MEDS: OLANZapine 7.5 MG TABLET PO (20:03)
--- NOTE | 2021-02-18 22:40 | HO.PSYCHPN ---
Subjective Subjective Date of Service: 02/18/21 Reason For Visit: Major Depressive D/O Recurrent Severe w/Psychotic Subjective Notes: Conditional Voluntary Interim History: Patient's case reviewed with nursing staff chart reviewed patient seen. Patient with a much babin affect less anxious tolerating ECT feels more hopeful able to have a discussion regarding possibility of outpatient Medication Compliance: Yes Mental Status Exam Mental Status Exam Patient Appearance: Well Grooomed Patient Orientation: Person, Place, Time and Situation Level of Consciousness: Awake Patient Behavior: Cooperative Mood Description: Depressed Affect Description: Constricted Patient Cognition Impaired: No Speech Pattern: Appropriate Hallucinations: None Delusions: Not Present Thought Content: positive for Intact Judgement: Fair Diagnostics Vital Signs (24Hr): Vital Signs - 24 hr 02/18/21 08:56 02/18/21 18:00 Temperature 98.1 F 96.2 F L Pulse Rate 69 60 Respiratory Rate 16 18 Blood Pressure 120/81 97/54 L Pulse Oximetry 96 94 BMI result Body Mass Index 19.1 Labs Results: 02/02/21 08:25 02/02/21 08:25 Imaging Radiology Impressions: ITS Impressions Head CT 02/02/21 10:30 IMPRESSION: 1. No evidence of acute intracranial hemorrhage or edematous territorial infarction. 2. Mild to moderate underlying microangiopathy and generalized cerebral volume loss. Medications Medications Current Medications Acetaminophen (Acetaminophen 325 Mg Tablet) 650 mg PO Q6H PRN PRN Reason: Headache/Pain Mild Scale (1-3) Last Admin: 02/09/21 11:21 Dose: 650 mg Documented by: Al Hydroxide/Mg Hydroxide (Magnesium Hydrox/Alum Hydrox 30 Ml Oral.Susp) 30 ml PO Q6H PRN PRN Reason: Heartburn/Nausea Alprazolam (Alprazolam 0.25 Mg Tablet) 0.25 mg PO TID [facility] Last Admin: 02/18/21 20:03 Dose: 0.25 mg Documented by: Apixaban (Apixaban 5 Mg Tablet) 5 mg PO BID [facility] Last Admin: 02/18/21 20:03 Dose: 5 mg Documented by: Docusate Sodium (Docusate Sodium 100 Mg Capsule) 100 mg PO DAILY PRN PRN Reason: Constipation Gabapentin (Gabapentin 600 Mg Tablet) 600 mg PO TID [facility] Last Admin: 02/18/21 20:03 Dose: 600 mg Documented by: Loperamide HCl (Loperamide Hcl 2 Mg Capsule) 4 mg PO Q4H PRN PRN Reason: Diarrhea Last Admin: 02/04/21 09:27 Dose: 4 mg Documented by: Magnesium Hydroxide (Milk Of Magnesia 30 Ml Oral.Susp) 30 ml PO DAILY PRN PRN Reason: Constipation Mirtazapine (Mirtazapine 15 Mg Tablet) 45 mg PO BEDTIME [facility] Last Admin: 02/18/21 20:03 Dose: 45 mg Documented by: Olanzapine (Olanzapine 5 Mg Tablet) 5 mg PO DAILY [facility] Last Admin: 02/18/21 09:04 Dose: 5 mg Documented by: Olanzapine (Olanzapine 7.5 Mg Tablet) 7.5 mg PO BEDTIME [facility] Last Admin: 02/18/21 20:03 Dose: 7.5 mg Documented by: Olanzapine (Olanzapine 2.5 Mg Tablet) 2.5 mg PO BID PRN PRN Reason: Psychosis Last Admin: 02/18/21 13:41 Dose: 2.5 mg Documented by: Ondansetron HCl (Ondansetron Hcl 4 Mg/2 Ml Vial) 4 mg IVPUSH ONCE PRN PRN Reason: Nausea and Vomiting Allergies Allergies Allergy/AdvReac Type Severity Reaction Status Date / Time amoxicillin [From Augmentin] Allergy Unknown Unknown Verified 02/01/21 15:55 aspirin Allergy Unknown Unknown Verified 02/01/21 16:34 clavulanic acid Allergy Unknown Unknown Verified 02/01/21 15:55 [From Augmentin] diphenhydramine Allergy Unknown Unknown Verified 02/01/21 16:35 hydrochlorothiazide Allergy Unknown Unknown Verified 02/01/21 16:44 metronidazole Allergy Unknown Unknown Verified 02/01/21 16:54 trazodone Allergy Unknown Unknown Verified 02/01/21 16:54 augmentin Allergy Unknown Unknown Uncoded 02/01/21 15:55 Assessment & Plan Assessment & Plan (1) Major depressive disorder, recurrent episode with mood-congruent psychotic features: Status: Acute Code(s): F33.3 - Major depressive disorder, recurrent, severe with psychotic symptoms Assessment and Plan: This is a 70 yo F who endorses a medical history of pulmonary embolism. Denies any known CAD / CVD. She is transferred from the [place] for ECT. 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 02/18/2021 Patient showing continued improvement continue olanzapine alprazolam ECT no COVID symptoms noted I spent minutes with the patient and/or on the patient floor today, greater than?50% of which was spent counseling/coordinating care. Reason for contiued inpatient stay Substantial Risk for: harm to self, rapid decompensation and med/psych decompensation
[2021-02-19] MEDS: Gabapentin 600 MG TABLET PO ×2 (08:02→16:01)
[2021-02-19] MEDS: ALPRAZolam 0.25 MG TABLET PO ×3 (08:02→20:11)
[2021-02-19] MEDS: OLANZapine 5 MG TABLET PO (08:02)
[2021-02-19] MEDS: Apixaban 5 MG TABLET PO ×2 (08:02→20:10)
[2021-02-19 08:13] VITALS: BP 123/59; PULSE 61; TEMP 36.2; O2SAT 95
[2021-02-19] MEDS: OLANZapine 2.5 MG TABLET PO (12:40)
[2021-02-19 19:34] VITALS: BP 103/60; PULSE 60; RESP 17; TEMP 36.8; O2SAT 94
[2021-02-19] MEDS: Mirtazapine 15 MG TABLET 45 MG PO (20:10)
[2021-02-19] MEDS: OLANZapine 7.5 MG TABLET PO (20:10)
--- NOTE | 2021-02-19 22:22 | HO.PSYCHPN ---
Subjective Subjective Date of Service: 02/19/21 Reason For Visit: Major Depressive D/O Recurrent Severe w/Psychotic Subjective Notes: Conditional Voluntary Interim History: Patient continues to show improvement continue ECT milieu management less anxious less ruminating future oriented more hopeful Medication Compliance: Yes Mental Status Exam Mental Status Exam Patient Appearance: Well Grooomed Patient Orientation: Person, Place, Time and Situation Level of Consciousness: Awake Patient Behavior: Cooperative Mood Description: Depressed and Blunted Affect Description: Constricted and Flat Patient Cognition Impaired: No Speech Pattern: Appropriate Hallucinations: None Delusions: Not Present Thought Content: positive for Intact Judgement: Fair Diagnostics Vital Signs (24Hr): Vital Signs - 24 hr 02/19/21 08:13 02/19/21 19:34 Temperature 97.2 F 98.2 F Pulse Rate 61 60 Respiratory Rate 17 Blood Pressure 123/59 L 103/60 Pulse Oximetry 95 94 BMI result Body Mass Index 19.1 Labs Results: 02/02/21 08:25 02/02/21 08:25 Imaging Radiology Impressions: ITS Impressions Head CT 02/02/21 10:30 IMPRESSION: 1. No evidence of acute intracranial hemorrhage or edematous territorial infarction. 2. Mild to moderate underlying microangiopathy and generalized cerebral volume loss. Medications Medications Current Medications Acetaminophen (Acetaminophen 325 Mg Tablet) 650 mg PO Q6H PRN PRN Reason: Headache/Pain Mild Scale (1-3) Last Admin: 02/09/21 11:21 Dose: 650 mg Documented by: Al Hydroxide/Mg Hydroxide (Magnesium Hydrox/Alum Hydrox 30 Ml Oral.Susp) 30 ml PO Q6H PRN PRN Reason: Heartburn/Nausea Alprazolam (Alprazolam 0.25 Mg Tablet) 0.25 mg PO TID REPLACED BY [facility] Last Admin: 02/19/21 20:11 Dose: 0.25 mg Documented by: Apixaban (Apixaban 5 Mg Tablet) 5 mg PO BID REPLACED BY [facility] Last Admin: 02/19/21 20:10 Dose: 5 mg Documented by: Docusate Sodium (Docusate Sodium 100 Mg Capsule) 100 mg PO DAILY PRN PRN Reason: Constipation Gabapentin (Gabapentin 600 Mg Tablet) 600 mg PO TID REPLACED BY [facility] Last Admin: 02/19/21 20:14 Dose: Not Given Documented by: Loperamide HCl (Loperamide Hcl 2 Mg Capsule) 4 mg PO Q4H PRN PRN Reason: Diarrhea Last Admin: 02/04/21 09:27 Dose: 4 mg Documented by: Magnesium Hydroxide (Milk Of Magnesia 30 Ml Oral.Susp) 30 ml PO DAILY PRN PRN Reason: Constipation Mirtazapine (Mirtazapine 15 Mg Tablet) 45 mg PO BEDTIME [facility] Last Admin: 02/19/21 20:10 Dose: 45 mg Documented by: Olanzapine (Olanzapine 5 Mg Tablet) 5 mg PO DAILY [facility] Last Admin: 02/19/21 08:02 Dose: 5 mg Documented by: Olanzapine (Olanzapine 7.5 Mg Tablet) 7.5 mg PO BEDTIME [facility] Last Admin: 02/19/21 20:10 Dose: 7.5 mg Documented by: Olanzapine (Olanzapine 2.5 Mg Tablet) 2.5 mg PO BID PRN PRN Reason: Psychosis Last Admin: 02/19/21 12:40 Dose: 2.5 mg Documented by: Ondansetron HCl (Ondansetron Hcl 4 Mg/2 Ml Vial) 4 mg IVPUSH ONCE PRN PRN Reason: Nausea and Vomiting Allergies Allergies Allergy/AdvReac Type Severity Reaction Status Date / Time amoxicillin [From Augmentin] Allergy Unknown Unknown Verified 02/01/21 15:55 aspirin Allergy Unknown Unknown Verified 02/01/21 16:34 clavulanic acid Allergy Unknown Unknown Verified 02/01/21 15:55 [From Augmentin] diphenhydramine Allergy Unknown Unknown Verified 02/01/21 16:35 hydrochlorothiazide Allergy Unknown Unknown Verified 02/01/21 16:44 metronidazole Allergy Unknown Unknown Verified 02/01/21 16:54 trazodone Allergy Unknown Unknown Verified 02/01/21 16:54 augmentin Allergy Unknown Unknown Uncoded 02/01/21 15:55 Assessment & Plan Assessment & Plan (1) Major depressive disorder, recurrent episode with mood-congruent psychotic features: Status: Acute Code(s): F33.3 - Major depressive disorder, recurrent, severe with psychotic symptoms Assessment and Plan: This is a 70 yo F who endorses a medical history of pulmonary embolism. Denies any known CAD / CVD. She is transferred from the [place] for ECT. 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 02/18/2021 Patient showing continued improvement continue olanzapine alprazolam ECT no COVID symptoms noted 02/19/2021 Patient continues to show improvement with current plan of care continue olanzapine alprazolam agreeable to ECT consider try to change to unilateral I spent minutes with the patient and/or on the patient floor today, greater than?50% of which was spent counseling/coordinating care. Reason for contiued inpatient stay Substantial Risk for: harm to self and rapid decompensation
[2021-02-20] VITALS (9 sets, daily range): BP systolic 90–134; BP diastolic 51–77; PULSE 60–82; RESP 16–20; TEMP 36.2–37.4; O2SAT 94–97
[2021-02-20] MEDS: ALPRAZolam 0.25 MG TABLET PO ×3 (05:13→20:30)
[2021-02-20] MEDS: OLANZapine 5 MG TABLET PO (05:14)
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
--- NOTE | 2021-02-20 07:06 | MHC.SHP ---
Pre-Procedural Eval Section A Date of Service: 02/20/21 The patient is an INPATIENT: Yes Changes since office visit: No Cold of Flu in the past 2 weeks, No New Medical Problems, No Changes in Medication and No Patient answered all questions The History & Physical has been completed within 30 days and I have reviewed it.: Yes Section B Chief Complaint: Major Depressive D/O Recurrent Severe w/Psychotic Allergies: Allergies Allergy/AdvReac Type Severity Reaction Status Date / Time amoxicillin [From Augmentin] Allergy Unknown Unknown Verified 02/01/21 15:55 aspirin Allergy Unknown Unknown Verified 02/01/21 16:34 clavulanic acid Allergy Unknown Unknown Verified 02/01/21 15:55 [From Augmentin] diphenhydramine Allergy Unknown Unknown Verified 02/01/21 16:35 hydrochlorothiazide Allergy Unknown Unknown Verified 02/01/21 16:44 metronidazole Allergy Unknown Unknown Verified 02/01/21 16:54 trazodone Allergy Unknown Unknown Verified 02/01/21 16:54 augmentin Allergy Unknown Unknown Uncoded 02/01/21 15:55 Plan I have reviewed the history and physical and performed a pertinent physical examination on my patient. No changes have occurred unless specified.
--- NOTE | 2021-02-20 07:07 | HO.ECTPROC ---
ECT Procedure Note Diagnosis/Treatment Date of Service: 02/20/21 Diagnosis: Major Depressive Disorder Previous ECT Date: 02/15/21 Current Treatment Number: 3 Treatment: Series Interval Clinical Notes: The patient reported improvement of her dysphoria, now less anxious. She reported memory loss with 2 previous ECT. ECT Settings Device: THYMATRON DGx Electrode Placement: Right Unilateral Program/Pulse Width: 0.50 Energy Percent: 100 Seizure Duration By EEG (in seconds): 0 (not recorded by computer but seizure activity noted up to 59s) By Motor Observation (in seconds): 27 Medications Administration General Anesthetic: Etomidate (10) Muscle Relaxant: Succinylcholine (80) Ancillary Medications Miscillaneous Medications: Propofol and Flumazenil Airway Management Airway Management: Bag Mask Ventilation Treatment Recommendations No Changes Recommended: No change Pt Tolerated Procedure w/o Issue: Yes
[2021-02-20] MEDS: Gabapentin 600 MG TABLET PO ×3 (08:33→20:30)
[2021-02-20] MEDS: Apixaban 5 MG TABLET PO ×2 (08:33→20:30)
[2021-02-20 10:15] LABS: COVID-19 Test Negative (Negative)
--- NOTE | 2021-02-20 16:37 | HO.PSYCHPN ---
Subjective Subjective Date of Service: 02/20/21 Reason For Visit: Major Depressive D/O Recurrent Severe w/Psychotic Subjective Notes: Conditional Voluntary Interim History: The nursing staff reports the patient is usually anxious before ECT. Today, we had ECT without any incidents. On interview, the patient reports improvement of dysphoria but still clinically depressed. But her affect is brighter and there is slightly more energy. Mental Status Exam Mental Status Exam Patient Appearance: Well Grooomed Patient Orientation: Person Level of Consciousness: Awake Patient Behavior: Cooperative Mood Description: Depressed Affect Description: Constricted Patient Cognition Impaired: No Ability to Follow Directions: Good Speech Pattern: Clear Hallucinations: None Delusions: Not Present Thought Content: positive for Circumstantial Judgement: Fair Diagnostics Vital Signs (24Hr): Vital Signs - 24 hr 02/19/21 19:34 02/20/21 06:01 02/20/21 06:38 Temperature 98.2 F 97.2 F 98.6 F Pulse Rate 60 60 66 Respiratory Rate 17 16 16 Blood Pressure 103/60 121/70 124/67 Pulse Oximetry 94 94 94 02/20/21 07:27 02/20/21 07:32 02/20/21 07:37 Temperature 97.8 F Pulse Rate 61 60 74 Respiratory Rate 16 16 20 Blood Pressure 113/51 L 115/60 122/54 L Pulse Oximetry 97 97 95 02/20/21 07:41 02/20/21 07:56 02/20/21 08:08 Temperature Pulse Rate 82 73 70 Respiratory Rate 20 16 16 Blood Pressure 130/77 133/71 134/75 Pulse Oximetry 96 94 94 BMI result Body Mass Index 19.1 Labs Results: 02/02/21 08:25 02/02/21 08:25 Labs: Laboratory Results - last 48 hr 02/20/21 09:49 COVID-19 ([facility]) Negative COVID-19 Clin Com See Note Imaging Radiology Impressions: ITS Impressions Head CT 02/02/21 10:30 IMPRESSION: 1. No evidence of acute intracranial hemorrhage or edematous territorial infarction. 2. Mild to moderate underlying microangiopathy and generalized cerebral volume loss. Medications Medications Current Medications Acetaminophen (Acetaminophen 325 Mg Tablet) 650 mg PO Q6H PRN PRN Reason: Headache/Pain Mild Scale (1-3) Last Admin: 02/09/21 11:21 Dose: 650 mg Documented by: Al Hydroxide/Mg Hydroxide (Magnesium Hydrox/Alum Hydrox 30 Ml Oral.Susp) 30 ml PO Q6H PRN PRN Reason: Heartburn/Nausea Alprazolam (Alprazolam 0.25 Mg Tablet) 0.25 mg PO TID [facility] Last Admin: 02/20/21 16:02 Dose: 0.25 mg Documented by: Apixaban (Apixaban 5 Mg Tablet) 5 mg PO BID [facility] Last Admin: 02/20/21 08:33 Dose: 5 mg Documented by: Docusate Sodium (Docusate Sodium 100 Mg Capsule) 100 mg PO DAILY PRN PRN Reason: Constipation Gabapentin (Gabapentin 600 Mg Tablet) 600 mg PO TID [facility] Last Admin: 02/20/21 16:02 Dose: 600 mg Documented by: Loperamide HCl (Loperamide Hcl 2 Mg Capsule) 4 mg PO Q4H PRN PRN Reason: Diarrhea Last Admin: 02/04/21 09:27 Dose: 4 mg Documented by: Magnesium Hydroxide (Milk Of Magnesia 30 Ml Oral.Susp) 30 ml PO DAILY PRN PRN Reason: Constipation Mirtazapine (Mirtazapine 15 Mg Tablet) 45 mg PO BEDTIME [facility] Last Admin: 02/19/21 20:10 Dose: 45 mg Documented by: Olanzapine (Olanzapine 5 Mg Tablet) 5 mg PO DAILY [facility] Last Admin: 02/20/21 05:14 Dose: 5 mg Documented by: Olanzapine (Olanzapine 7.5 Mg Tablet) 7.5 mg PO BEDTIME [facility] Last Admin: 02/19/21 20:10 Dose: 7.5 mg Documented by: Olanzapine (Olanzapine 2.5 Mg Tablet) 2.5 mg PO BID PRN PRN Reason: Psychosis Last Admin: 02/19/21 12:40 Dose: 2.5 mg Documented by: Ondansetron HCl (Ondansetron Hcl 4 Mg/2 Ml Vial) 4 mg IVPUSH ONCE PRN PRN Reason: Nausea and Vomiting Allergies Allergies Allergy/AdvReac Type Severity Reaction Status Date / Time amoxicillin [From Augmentin] Allergy Unknown Unknown Verified 02/01/21 15:55 aspirin Allergy Unknown Unknown Verified 02/01/21 16:34 clavulanic acid Allergy Unknown Unknown Verified 02/01/21 15:55 [From Augmentin] diphenhydramine Allergy Unknown Unknown Verified 02/01/21 16:35 hydrochlorothiazide Allergy Unknown Unknown Verified 02/01/21 16:44 metronidazole Allergy Unknown Unknown Verified 02/01/21 16:54 trazodone Allergy Unknown Unknown Verified 02/01/21 16:54 augmentin Allergy Unknown Unknown Uncoded 02/01/21 15:55 Assessment & Plan Assessment & Plan (1) Major depressive disorder, recurrent episode with mood-congruent psychotic features: Status: Acute Code(s): F33.3 - Major depressive disorder, recurrent, severe with psychotic symptoms Assessment and Plan: This is a 70 yo F who endorses a medical history of pulmonary embolism. Denies any known CAD / CVD. She is transferred from the [place] for ECT. 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 Patient continues to show improvement with current plan of care continue olanzapine alprazolam agreeable to ECT consider try to change to unilateral I spent minutes with the patient and/or on the patient floor today, greater than?50% of which was spent counseling/coordinating care. Reason for contiued inpatient stay Substantial Risk for: inability to function, rapid decompensation and med/psych decompensation
[2021-02-20] MEDS: Mirtazapine 15 MG TABLET 45 MG PO (20:31)
[2021-02-20] MEDS: OLANZapine 7.5 MG TABLET PO (20:31)
[2021-02-21 06:00] VITALS: BP 113/58; PULSE 62; RESP 16; TEMP 36.3; O2SAT 96
[2021-02-21] MEDS: ALPRAZolam 0.25 MG TABLET PO ×3 (08:01→20:12)
[2021-02-21] MEDS: Apixaban 5 MG TABLET PO ×2 (08:01→20:12)
[2021-02-21] MEDS: Gabapentin 600 MG TABLET PO ×3 (08:01→20:13)
[2021-02-21] MEDS: OLANZapine 5 MG TABLET PO (08:01)
--- NOTE | 2021-02-21 15:23 | P.PNPSI_ITS ---
Subjective Subjective Date of Service: 02/21/21 Reason For Visit: Major Depressive D/O Recurrent Severe w/Psychotic Subjective Notes: Conditional Voluntary Interim History: The nursing staff reported that she has been in her room, following COVID restrictions. Her mood is better, with a brighter affect, responding to ECT. Mental Status Exam Mental Status Exam Patient Appearance: Well Grooomed Patient Orientation: Person Level of Consciousness: Awake Patient Behavior: Cooperative Mood Description: Depressed Affect Description: Constricted Patient Cognition Impaired: No Ability to Follow Directions: Good Speech Pattern: Clear Hallucinations: None Delusions: Not Present Thought Process: Linear Thought Content: positive for Circumstantial Judgement: Fair Diagnostics Vital Signs (24Hr): Vital Signs - 24 hr 02/20/21 19:59 02/21/21 06:00 Temperature 99.4 F 97.3 F Pulse Rate 63 62 Respiratory Rate 16 16 Blood Pressure 90/53 L 113/58 L Pulse Oximetry 94 96 BMI result Body Mass Index 19.1 Labs Results: 02/02/21 08:25 02/02/21 08:25 Labs: Laboratory Results - last 48 hr 02/20/21 09:49 COVID-19 ([facility]) Negative COVID-19 Clin Com See Note Imaging Radiology Impressions: ITS Impressions Head CT 02/02/21 10:30 IMPRESSION: 1. No evidence of acute intracranial hemorrhage or edematous territorial infarction. 2. Mild to moderate underlying microangiopathy and generalized cerebral volume loss. Medications Medications Current Medications Acetaminophen (Acetaminophen 325 Mg Tablet) 650 mg PO Q6H PRN PRN Reason: Headache/Pain Mild Scale (1-3) Last Admin: 02/09/21 11:21 Dose: 650 mg Documented by: Al Hydroxide/Mg Hydroxide (Magnesium Hydrox/Alum Hydrox 30 Ml Oral.Susp) 30 ml PO Q6H PRN PRN Reason: Heartburn/Nausea Alprazolam (Alprazolam 0.25 Mg Tablet) 0.25 mg PO TID [facility] Last Admin: 02/21/21 08:01 Dose: 0.25 mg Documented by: Apixaban (Apixaban 5 Mg Tablet) 5 mg PO BID [facility] Last Admin: 02/21/21 08:01 Dose: 5 mg Documented by: Docusate Sodium (Docusate Sodium 100 Mg Capsule) 100 mg PO DAILY PRN PRN Reason: Constipation Gabapentin (Gabapentin 600 Mg Tablet) 600 mg PO TID [facility] Last Admin: 02/21/21 08:01 Dose: 600 mg Documented by: Loperamide HCl (Loperamide Hcl 2 Mg Capsule) 4 mg PO Q4H PRN PRN Reason: Diarrhea Last Admin: 02/04/21 09:27 Dose: 4 mg Documented by: Magnesium Hydroxide (Milk Of Magnesia 30 Ml Oral.Susp) 30 ml PO DAILY PRN PRN Reason: Constipation Mirtazapine (Mirtazapine 15 Mg Tablet) 45 mg PO BEDTIME [facility] Last Admin: 02/20/21 20:31 Dose: 45 mg Documented by: Olanzapine (Olanzapine 5 Mg Tablet) 5 mg PO DAILY [facility] Last Admin: 02/21/21 08:01 Dose: 5 mg Documented by: Olanzapine (Olanzapine 7.5 Mg Tablet) 7.5 mg PO BEDTIME [facility] Last Admin: 02/20/21 20:31 Dose: 7.5 mg Documented by: Olanzapine (Olanzapine 2.5 Mg Tablet) 2.5 mg PO BID PRN PRN Reason: Psychosis Last Admin: 02/19/21 12:40 Dose: 2.5 mg Documented by: Ondansetron HCl (Ondansetron Hcl 4 Mg/2 Ml Vial) 4 mg IVPUSH ONCE PRN PRN Reason: Nausea and Vomiting Allergies Allergies Allergy/AdvReac Type Severity Reaction Status Date / Time amoxicillin [From Augmentin] Allergy Unknown Unknown Verified 02/01/21 15:55 aspirin Allergy Unknown Unknown Verified 02/01/21 16:34 clavulanic acid Allergy Unknown Unknown Verified 02/01/21 15:55 [From Augmentin] diphenhydramine Allergy Unknown Unknown Verified 02/01/21 16:35 hydrochlorothiazide Allergy Unknown Unknown Verified 02/01/21 16:44 metronidazole Allergy Unknown Unknown Verified 02/01/21 16:54 trazodone Allergy Unknown Unknown Verified 02/01/21 16:54 augmentin Allergy Unknown Unknown Uncoded 02/01/21 15:55 Assessment & Plan Assessment & Plan (1) Major depressive disorder, recurrent episode with mood-congruent psychotic features: Status: Acute Code(s): F33.3 - Major depressive disorder, recurrent, severe with psychotic symptoms Assessment and Plan: This is a 70 yo F who endorses a medical history of pulmonary embolism. Denies any known CAD / CVD. She is transferred from the [place] for ECT. 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 Patient continues to show improvement with current plan of care continue olanzapine alprazolam agreeable to ECT, now on unilateral. Family meeting on Saturday. I spent minutes with the patient and/or on the patient floor today, greater than?50% of which was spent counseling/coordinating care. Reason for contiued inpatient stay Substantial Risk for: inability to function, rapid decompensation and med/psych decompensation
[2021-02-21 20:08] VITALS: BP 100/55; PULSE 62; RESP 17; TEMP 36.4; O2SAT 94
[2021-02-21] MEDS: Mirtazapine 15 MG TABLET 45 MG PO (20:12)
[2021-02-21] MEDS: OLANZapine 7.5 MG TABLET PO (20:13)
[2021-02-22] VITALS (14 sets, daily range): BP systolic 99–129; BP diastolic 52–71; PULSE 56–67; RESP 15–20; TEMP 35.5–36.8; O2SAT 92–97
[2021-02-22] MEDS: OLANZapine 5 MG TABLET PO (05:32)
[2021-02-22] MEDS: ALPRAZolam 0.25 MG TABLET PO ×3 (05:32→20:08)
--- NOTE | 2021-02-22 07:01 | MHC.SHP ---
Pre-Procedural Eval Section A Date of Service: 02/22/21 The patient is an INPATIENT: Yes Changes since office visit: No Cold of Flu in the past 2 weeks, No New Medical Problems, No Changes in Medication and No Patient answered all questions The History & Physical has been completed within 30 days and I have reviewed it.: Yes Section B Chief Complaint: Major Depressive D/O Recurrent Severe w/Psychotic Allergies: Allergies Allergy/AdvReac Type Severity Reaction Status Date / Time amoxicillin [From Augmentin] Allergy Unknown Unknown Verified 02/01/21 15:55 aspirin Allergy Unknown Unknown Verified 02/01/21 16:34 clavulanic acid Allergy Unknown Unknown Verified 02/01/21 15:55 [From Augmentin] diphenhydramine Allergy Unknown Unknown Verified 02/01/21 16:35 hydrochlorothiazide Allergy Unknown Unknown Verified 02/01/21 16:44 metronidazole Allergy Unknown Unknown Verified 02/01/21 16:54 trazodone Allergy Unknown Unknown Verified 02/01/21 16:54 augmentin Allergy Unknown Unknown Uncoded 02/01/21 15:55 Plan I have reviewed the history and physical and performed a pertinent physical examination on my patient. No changes have occurred unless specified.
--- NOTE | 2021-02-22 07:02 | HO.ECTPROC ---
ECT Procedure Note Diagnosis/Treatment Date of Service: 02/22/21 Diagnosis: Major Depressive Disorder Previous ECT Date: 02/20/21 Current Treatment Number: 4 Treatment: Series Interval Clinical Notes: The patient reports improvement of dysphoira, less anxious but still symptomatic. She denied new symptoms, no side effects with the last procedure besides memory loss ECT Settings Device: THYMATRON DGx Electrode Placement: Right Unilateral Program/Pulse Width: 0.50 Energy Percent: 95 Seizure Duration By EEG (in seconds): 29 By Motor Observation (in seconds): 44 Medications Administration General Anesthetic: Etomidate (10) Muscle Relaxant: Succinylcholine (80) Ancillary Medications Anti-emetics: Zofran - Pre ECT Miscillaneous Medications: Midazolam Airway Management Airway Management: Bag Mask Ventilation Treatment Recommendations No Changes Recommended: No change Pt Tolerated Procedure w/o Issue: Yes
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
[2021-02-22] MEDS: Apixaban 5 MG TABLET PO ×2 (09:14→20:08)
[2021-02-22] MEDS: Gabapentin 600 MG TABLET PO ×3 (09:14→20:08)
--- NOTE | 2021-02-22 12:01 | HO.POSTANES ---
Post Anesthesia Evaluation Post Anesthesia Evaluation Vital Signs: Vital Signs Temp Pulse Resp BP Pulse Ox 02/22/21 09:49 96 F L 60 127/69 02/22/21 09:13 96 F L 60 127/69 94 02/22/21 08:37 97.8 F 59 20 125/71 95 02/22/21 08:21 57 16 117/65 94 02/22/21 08:03 59 15 121/68 95 02/22/21 07:42 60 20 129/58 L 97 02/22/21 07:37 59 20 113/69 97 02/22/21 07:32 57 18 105/53 L 95 02/22/21 07:27 97.8 F 56 20 104/53 L 95 02/22/21 06:25 97.6 F 62 16 101/61 93 02/22/21 05:54 97.8 F 60 18 109/56 L 94 02/22/21 05:29 97.8 F 60 109/56 L 94 Anesthesia: General Mental Status: Awake Pain Control: Satisfactory Nausea/Vomiting: None Hydration: Adequate Anesthesia-Related Issues: No Anes. Related Issues
--- NOTE | 2021-02-22 14:05 | HO.PSYCHPN ---
Subjective Subjective Date of Service: 02/22/21 Reason For Visit: Major Depressive D/O Recurrent Severe w/Psychotic Subjective Notes: Conditional Voluntary Interim History: The nursing staff reported that she was able to sleep and eat well, mostly in her room due to COVID-19 restricitons in the unit. Today, we had ECT without complications. On interveiw, she reported feeling much better, less dysphoric but with some residual anxiety. Mental Status Exam Mental Status Exam Patient Appearance: Disheveled Patient Orientation: Person Level of Consciousness: Awake Patient Behavior: Cooperative Mood Description: Depressed Affect Description: Constricted Patient Cognition Impaired: No Ability to Follow Directions: Good Speech Pattern: Appropriate Hallucinations: None Delusions: Not Present Thought Process: Linear Thought Content: positive for Circumstantial and positive for Poverty of Content Judgement: Fair Diagnostics Vital Signs (24Hr): Vital Signs - 24 hr 02/21/21 20:08 02/22/21 05:29 02/22/21 05:54 Temperature 97.5 F 97.8 F 97.8 F Pulse Rate 62 60 60 Respiratory Rate 17 18 Blood Pressure 100/55 L 109/56 L 109/56 L Pulse Oximetry 94 94 94 02/22/21 06:25 02/22/21 07:27 02/22/21 07:32 Temperature 97.6 F 97.8 F Pulse Rate 62 56 57 Respiratory Rate 16 20 18 Blood Pressure 101/61 104/53 L 105/53 L Pulse Oximetry 93 95 95 02/22/21 07:37 02/22/21 07:42 02/22/21 08:03 Temperature Pulse Rate 59 60 59 Respiratory Rate 20 20 15 Blood Pressure 113/69 129/58 L 121/68 Pulse Oximetry 97 97 95 02/22/21 08:21 02/22/21 08:37 02/22/21 09:13 Temperature 97.8 F 96 F L Pulse Rate 57 59 60 Respiratory Rate 16 20 Blood Pressure 117/65 125/71 127/69 Pulse Oximetry 94 95 94 02/22/21 09:49 Temperature 96 F L Pulse Rate 60 Respiratory Rate Blood Pressure 127/69 Pulse Oximetry BMI result Body Mass Index 19.1 Labs Results: 02/02/21 08:25 02/02/21 08:25 Imaging Radiology Impressions: ITS Impressions Head CT 02/02/21 10:30 IMPRESSION: 1. No evidence of acute intracranial hemorrhage or edematous territorial infarction. 2. Mild to moderate underlying microangiopathy and generalized cerebral volume loss. Medications Medications Current Medications Acetaminophen (Acetaminophen 325 Mg Tablet) 650 mg PO Q6H PRN PRN Reason: Headache/Pain Mild Scale (1-3) Last Admin: 02/09/21 11:21 Dose: 650 mg Documented by: Al Hydroxide/Mg Hydroxide (Magnesium Hydrox/Alum Hydrox 30 Ml Oral.Susp) 30 ml PO Q6H PRN PRN Reason: Heartburn/Nausea Alprazolam (Alprazolam 0.25 Mg Tablet) 0.25 mg PO TID [facility] Last Admin: 02/22/21 05:32 Dose: 0.25 mg Documented by: Apixaban (Apixaban 5 Mg Tablet) 5 mg PO BID [facility] Last Admin: 02/22/21 09:14 Dose: 5 mg Documented by: Docusate Sodium (Docusate Sodium 100 Mg Capsule) 100 mg PO DAILY PRN PRN Reason: Constipation Gabapentin (Gabapentin 600 Mg Tablet) 600 mg PO TID [facility] Last Admin: 02/22/21 09:14 Dose: 600 mg Documented by: Loperamide HCl (Loperamide Hcl 2 Mg Capsule) 4 mg PO Q4H PRN PRN Reason: Diarrhea Last Admin: 02/04/21 09:27 Dose: 4 mg Documented by: Magnesium Hydroxide (Milk Of Magnesia 30 Ml Oral.Susp) 30 ml PO DAILY PRN PRN Reason: Constipation Mirtazapine (Mirtazapine 15 Mg Tablet) 45 mg PO BEDTIME [facility] Last Admin: 02/21/21 20:12 Dose: 45 mg Documented by: Olanzapine (Olanzapine 5 Mg Tablet) 5 mg PO DAILY [facility] Last Admin: 02/22/21 05:32 Dose: 5 mg Documented by: Olanzapine (Olanzapine 7.5 Mg Tablet) 7.5 mg PO BEDTIME [facility] Last Admin: 02/21/21 20:13 Dose: 7.5 mg Documented by: Olanzapine (Olanzapine 2.5 Mg Tablet) 2.5 mg PO BID PRN PRN Reason: Psychosis Last Admin: 02/19/21 12:40 Dose: 2.5 mg Documented by: Ondansetron HCl (Ondansetron Hcl 4 Mg/2 Ml Vial) 4 mg IVPUSH ONCE PRN PRN Reason: Nausea and Vomiting Allergies Allergies Allergy/AdvReac Type Severity Reaction Status Date / Time amoxicillin [From Augmentin] Allergy Unknown Unknown Verified 02/01/21 15:55 aspirin Allergy Unknown Unknown Verified 02/01/21 16:34 clavulanic acid Allergy Unknown Unknown Verified 02/01/21 15:55 [From Augmentin] diphenhydramine Allergy Unknown Unknown Verified 02/01/21 16:35 hydrochlorothiazide Allergy Unknown Unknown Verified 02/01/21 16:44 metronidazole Allergy Unknown Unknown Verified 02/01/21 16:54 trazodone Allergy Unknown Unknown Verified 02/01/21 16:54 augmentin Allergy Unknown Unknown Uncoded 02/01/21 15:55 Assessment & Plan Assessment & Plan (1) Major depressive disorder, recurrent episode with mood-congruent psychotic features: Status: Acute Code(s): F33.3 - Major depressive disorder, recurrent, severe with psychotic symptoms Assessment and Plan: This is a 70 yo F who endorses a medical history of pulmonary embolism. Denies any known CAD / CVD. [facility] 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 Patient continues to show improvement with current plan of care continue olanzapine alprazolam agreeable to ECT, now on unilateral. Family meeting on Saturday. I spent minutes with the patient and/or on the patient floor today, greater than?50% of which was spent counseling/coordinating care. Reason for contiued inpatient stay Substantial Risk for: harm to self, inability to function, rapid decompensation and med/psych decompensation
[2021-02-22] MEDS: Mirtazapine 15 MG TABLET 45 MG PO (20:08)
[2021-02-22] MEDS: OLANZapine 7.5 MG TABLET PO (20:08)
[2021-02-23 07:00] VITALS: BMI 20.7
[2021-02-23] MEDS: Gabapentin 600 MG TABLET PO ×2 (07:59→16:11)
[2021-02-23] MEDS: Apixaban 5 MG TABLET PO ×2 (07:59→20:41)
[2021-02-23 08:00] VITALS: BP 112/69; PULSE 63; RESP 16; TEMP 36.6; O2SAT 96
[2021-02-23] MEDS: OLANZapine 5 MG TABLET PO (08:00)
[2021-02-23] MEDS: ALPRAZolam 0.25 MG TABLET PO ×3 (08:00→20:41)
[2021-02-23 09:35] LABS: COVID-19 Test Negative (Negative); IDNOW Serial# 9DD0AD1C
--- NOTE | 2021-02-23 13:20 | HO.PSYCHPN ---
Subjective Subjective Date of Service: 02/23/21 Reason For Visit: Major Depressive D/O Recurrent Severe w/Psychotic Subjective Notes: Conditional Voluntary Interim History: the nursing staff reports that the patient has slept well, she is eating 100% of her meals and she looks more social and pleasant. Today, we have a family meeting over the phone and her Lucio reported that she looks better. Still, the plan is to continue ECT and reassess in a few days for proper discharge planning. On interview, the patient denies side effects with ECT, she still dysphoric but no safety concerns. Mental Status Exam Mental Status Exam Patient Appearance: Appropriate Patient Orientation: Person and Place Level of Consciousness: Awake Patient Behavior: Cooperative Mood Description: Constricted Affect Description: Constricted Patient Cognition Impaired: Yes Ability to Follow Directions: Good Speech Pattern: Clear Hallucinations: None Delusions: Present ( No evidence of somatic delusions at this moment) Thought Process: Intact Thought Content: positive for Circumstantial Judgement: Fair Diagnostics Vital Signs (24Hr): Vital Signs - 24 hr 02/22/21 15:25 02/22/21 20:23 02/23/21 08:00 Temperature 97.8 F 98.2 F 97.8 F Pulse Rate 67 60 63 Respiratory Rate 16 16 Blood Pressure 99/52 L 102/54 L 112/69 Pulse Oximetry 92 94 96 BMI result Body Mass Index 20.7 Labs Results: 02/02/21 08:25 02/02/21 08:25 Labs: Laboratory Results - last 48 hr 02/23/21 09:05 COVID-19 ([facility]LES) Negative COVID-19 Clin Com See Note Imaging Radiology Impressions: ITS Impressions Head CT 02/02/21 10:30 IMPRESSION: 1. No evidence of acute intracranial hemorrhage or edematous territorial infarction. 2. Mild to moderate underlying microangiopathy and generalized cerebral volume loss. Medications Medications Current Medications Acetaminophen (Acetaminophen 325 Mg Tablet) 650 mg PO Q6H PRN PRN Reason: Headache/Pain Mild Scale (1-3) Last Admin: 02/09/21 11:21 Dose: 650 mg Documented by: Al Hydroxide/Mg Hydroxide (Magnesium Hydrox/Alum Hydrox 30 Ml Oral.Susp) 30 ml PO Q6H PRN PRN Reason: Heartburn/Nausea Alprazolam (Alprazolam 0.25 Mg Tablet) 0.25 mg PO TID OMAR Last Admin: 02/23/21 08:00 Dose: 0.25 mg Documented by: Apixaban (Apixaban 5 Mg Tablet) 5 mg PO BID [facility] Last Admin: 02/23/21 07:59 Dose: 5 mg Documented by: Docusate Sodium (Docusate Sodium 100 Mg Capsule) 100 mg PO DAILY PRN PRN Reason: Constipation Gabapentin (Gabapentin 600 Mg Tablet) 600 mg PO TID [facility] Last Admin: 02/23/21 07:59 Dose: 600 mg Documented by: Loperamide HCl (Loperamide Hcl 2 Mg Capsule) 4 mg PO Q4H PRN PRN Reason: Diarrhea Last Admin: 02/04/21 09:27 Dose: 4 mg Documented by: Magnesium Hydroxide (Milk Of Magnesia 30 Ml Oral.Susp) 30 ml PO DAILY PRN PRN Reason: Constipation Mirtazapine (Mirtazapine 15 Mg Tablet) 45 mg PO BEDTIME [facility] Last Admin: 02/22/21 20:08 Dose: 45 mg Documented by: Olanzapine (Olanzapine 5 Mg Tablet) 5 mg PO DAILY [facility] Last Admin: 02/23/21 08:00 Dose: 5 mg Documented by: Olanzapine (Olanzapine 7.5 Mg Tablet) 7.5 mg PO BEDTIME [facility] Last Admin: 02/22/21 20:08 Dose: 7.5 mg Documented by: Olanzapine (Olanzapine 2.5 Mg Tablet) 2.5 mg PO BID PRN PRN Reason: Psychosis Last Admin: 02/19/21 12:40 Dose: 2.5 mg Documented by: Ondansetron HCl (Ondansetron Hcl 4 Mg/2 Ml Vial) 4 mg IVPUSH ONCE PRN PRN Reason: Nausea and Vomiting Allergies Allergies Allergy/AdvReac Type Severity Reaction Status Date / Time amoxicillin [From Augmentin] Allergy Unknown Unknown Verified 02/01/21 15:55 aspirin Allergy Unknown Unknown Verified 02/01/21 16:34 clavulanic acid Allergy Unknown Unknown Verified 02/01/21 15:55 [From Augmentin] diphenhydramine Allergy Unknown Unknown Verified 02/01/21 16:35 hydrochlorothiazide Allergy Unknown Unknown Verified 02/01/21 16:44 metronidazole Allergy Unknown Unknown Verified 02/01/21 16:54 trazodone Allergy Unknown Unknown Verified 02/01/21 16:54 augmentin Allergy Unknown Unknown Uncoded 02/01/21 15:55 Assessment & Plan Assessment & Plan (1) Major depressive disorder, recurrent episode with mood-congruent psychotic features: Status: Acute Code(s): F33.3 - Major depressive disorder, recurrent, severe with psychotic symptoms Assessment and Plan: This is a 70 yo F who endorses a medical history of pulmonary embolism. Denies any known CAD / CVD. She is transferred from the [place] for ECT. 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 Patient continues to show improvement with current plan of care continue olanzapine alprazolam agreeable to ECT, now on unilateral. Family meeting on Saturday. I spent minutes with the patient and/or on the patient floor today, greater than?50% of which was spent counseling/coordinating care. Reason for contiued inpatient stay Substantial Risk for: harm to self, inability to function, rapid decompensation and med/psych decompensation
[2021-02-23 19:49] VITALS: BP 99/57; PULSE 60; RESP 16; TEMP 36.6; O2SAT 93
[2021-02-23] MEDS: Mirtazapine 15 MG TABLET 45 MG PO (20:40)
[2021-02-23] MEDS: OLANZapine 7.5 MG TABLET PO (20:41)
[2021-02-24] VITALS (11 sets, daily range): BP systolic 93–171; BP diastolic 55–82; PULSE 55–94; RESP 16–20; TEMP 36.6–36.9; O2SAT 92–100
[2021-02-24] MEDS: OLANZapine 5 MG TABLET PO ×2 (05:23→09:22)
[2021-02-24] MEDS: ALPRAZolam 0.25 MG TABLET PO ×3 (05:23→21:30)
--- NOTE | 2021-02-24 06:51 | ECG_ITS ---
Test Reason : rhythm Blood Pressure : / mmHG Vent. Rate : 057 BPM Atrial Rate : 057 BPM P-R Int : 154 ms QRS Dur : 068 ms QT Int : 488 ms P-R-T Axes : 020 -13 144 degrees QTc Int : 474 ms Sinus bradycardia T wave abnormality, consider lateral ischemia Prolonged QT Abnormal ECG When compared with ECG of 01-FEB-2021 15:37, T wave inversion now evident in Lateral leads Referred By: Chaz Falcon Electronically Signed By:ILIANA MORAES MD
--- NOTE | 2021-02-24 07:06 | MHC.SHP ---
Pre-Procedural Eval Section A Date of Service: 02/24/21 The patient is an INPATIENT: Yes Changes since office visit: No Cold of Flu in the past 2 weeks, No New Medical Problems, No Changes in Medication and No Patient answered all questions The History & Physical has been completed within 30 days and I have reviewed it.: Yes Section B Chief Complaint: Major Depressive D/O Recurrent Severe w/Psychotic Allergies: Allergies Allergy/AdvReac Type Severity Reaction Status Date / Time amoxicillin [From Augmentin] Allergy Unknown Unknown Verified 02/01/21 15:55 aspirin Allergy Unknown Unknown Verified 02/01/21 16:34 clavulanic acid Allergy Unknown Unknown Verified 02/01/21 15:55 [From Augmentin] diphenhydramine Allergy Unknown Unknown Verified 02/01/21 16:35 hydrochlorothiazide Allergy Unknown Unknown Verified 02/01/21 16:44 metronidazole Allergy Unknown Unknown Verified 02/01/21 16:54 trazodone Allergy Unknown Unknown Verified 02/01/21 16:54 augmentin Allergy Unknown Unknown Uncoded 02/01/21 15:55 Plan I have reviewed the history and physical and performed a pertinent physical examination on my patient. No changes have occurred unless specified.
--- NOTE | 2021-02-24 07:28 | HO.ECTPROC ---
ECT Procedure Note Diagnosis/Treatment Date of Service: 02/24/21 Diagnosis: Major Depressive Disorder Previous ECT Date: 02/22/21 Current Treatment Number: 5 Treatment: Series Interval Clinical Notes: The patient has showed some improvement of her depression, with a brighter affect. Besides memory loss, she has no other side effects since we are using Zofran for nausea. ECT Settings Device: THYMATRON DGx Electrode Placement: Right Unilateral Program/Pulse Width: 0.50 Energy Percent: 90 Seizure Duration By EEG (in seconds): 0 (but seizure activity seen until 51s) By Motor Observation (in seconds): 27 Medications Administration General Anesthetic: Etomidate (10) Muscle Relaxant: Succinylcholine (80) Ancillary Medications Anti-emetics: Zofran - Pre ECT Miscillaneous Medications: Propofol Airway Management Airway Management: Bag Mask Ventilation Treatment Recommendations No Changes Recommended: No change Pt Tolerated Procedure w/o Issue: Yes
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
[2021-02-24] MEDS: Gabapentin 600 MG TABLET PO ×3 (09:21→21:31)
[2021-02-24] MEDS: Apixaban 5 MG TABLET PO ×2 (09:22→21:31)
--- NOTE | 2021-02-24 10:17 | HO.POSTANES ---
Post Anesthesia Evaluation Post Anesthesia Evaluation Vital Signs: Vital Signs Temp Pulse Resp BP Pulse Ox 02/24/21 08:47 97.9 F 76 171/82 H 96 02/24/21 08:37 98.4 F 79 17 136/76 97 02/24/21 08:23 88 16 137/79 97 02/24/21 08:08 94 19 98 02/24/21 08:03 93 16 98 02/24/21 07:58 78 20 140/78 H 96 02/24/21 07:53 98.4 F 64 16 146/77 H 100 02/24/21 06:53 98.1 F 55 16 121/73 95 02/24/21 05:12 98.0 F 65 18 131/72 95 02/24/21 05:11 98.0 F 65 18 131/72 95 Mental Status: Awake Pain Control: Satisfactory Nausea/Vomiting: None Hydration: Adequate Anesthesia-Related Issues: No Anes. Related Issues
--- NOTE | 2021-02-24 15:56 | HO.PSYCHPN ---
Subjective Subjective Date of Service: 02/24/21 Reason For Visit: Major Depressive D/O Recurrent Severe w/Psychotic Subjective Notes: Conditional Voluntary Interim History: the nursing staff reported the patient slept well and she is having her meals. Today the patient had ECT without any problems. On interview, the patient reports improvement of her dysphoria but still anxiety and lack of energy. Mental Status Exam Mental Status Exam Patient Appearance: Appropriate Patient Orientation: Person and Situation Level of Consciousness: Awake Patient Behavior: Cooperative Mood Description: Depressed Affect Description: Constricted Patient Cognition Impaired: No Ability to Follow Directions: Good Speech Pattern: Clear Hallucinations: None Delusions: Not Present Thought Process: Linear Thought Content: positive for Circumstantial Judgement: Fair Diagnostics Vital Signs (24Hr): Vital Signs - 24 hr 02/23/21 19:49 02/24/21 05:11 02/24/21 05:12 Temperature 98 F 98.0 F 98.0 F Pulse Rate 60 65 65 Respiratory Rate 16 18 18 Blood Pressure 99/57 L 131/72 131/72 Pulse Oximetry 93 95 95 02/24/21 06:53 02/24/21 07:53 02/24/21 07:58 Temperature 98.1 F 98.4 F Pulse Rate 55 64 78 Respiratory Rate 16 16 20 Blood Pressure 121/73 146/77 H 140/78 H Pulse Oximetry 95 100 96 02/24/21 08:03 02/24/21 08:08 02/24/21 08:23 Temperature Pulse Rate 93 94 88 Respiratory Rate 16 19 16 Blood Pressure 137/79 Pulse Oximetry 98 98 97 02/24/21 08:37 02/24/21 08:47 Temperature 98.4 F 97.9 F Pulse Rate 79 76 Respiratory Rate 17 Blood Pressure 136/76 171/82 H Pulse Oximetry 97 96 BMI result Body Mass Index 20.7 Labs Results: 02/02/21 08:25 02/02/21 08:25 Labs: Laboratory Results - last 48 hr 02/23/21 09:05 COVID-19 (CHARLES) Negative COVID-19 Clin Com See Note Imaging Radiology Impressions: ITS Impressions Head CT 02/02/21 10:30 IMPRESSION: 1. No evidence of acute intracranial hemorrhage or edematous territorial infarction. 2. Mild to moderate underlying microangiopathy and generalized cerebral volume loss. Medications Medications Current Medications Acetaminophen (Acetaminophen 325 Mg Tablet) 650 mg PO Q6H PRN PRN Reason: Headache/Pain Mild Scale (1-3) Last Admin: 02/09/21 11:21 Dose: 650 mg Documented by: Al Hydroxide/Mg Hydroxide (Magnesium Hydrox/Alum Hydrox 30 Ml Oral.Susp) 30 ml PO Q6H PRN PRN Reason: Heartburn/Nausea Alprazolam (Alprazolam 0.25 Mg Tablet) 0.25 mg PO TID [facility] Last Admin: 02/24/21 15:48 Dose: 0.25 mg Documented by: Apixaban (Apixaban 5 Mg Tablet) 5 mg PO BID [facility] Last Admin: 02/24/21 09:22 Dose: 5 mg Documented by: Docusate Sodium (Docusate Sodium 100 Mg Capsule) 100 mg PO DAILY PRN PRN Reason: Constipation Gabapentin (Gabapentin 600 Mg Tablet) 600 mg PO TID [facility] Last Admin: 02/24/21 15:48 Dose: 600 mg Documented by: Loperamide HCl (Loperamide Hcl 2 Mg Capsule) 4 mg PO Q4H PRN PRN Reason: Diarrhea Last Admin: 02/04/21 09:27 Dose: 4 mg Documented by: Magnesium Hydroxide (Milk Of Magnesia 30 Ml Oral.Susp) 30 ml PO DAILY PRN PRN Reason: Constipation Mirtazapine (Mirtazapine 15 Mg Tablet) 45 mg PO BEDTIME [facility] Last Admin: 02/23/21 20:40 Dose: 45 mg Documented by: Olanzapine (Olanzapine 5 Mg Tablet) 5 mg PO DAILY [facility] Last Admin: 02/24/21 09:22 Dose: 5 mg Documented by: Olanzapine (Olanzapine 7.5 Mg Tablet) 7.5 mg PO BEDTIME [facility] Last Admin: 02/23/21 20:41 Dose: 7.5 mg Documented by: Olanzapine (Olanzapine 2.5 Mg Tablet) 2.5 mg PO BID PRN PRN Reason: Psychosis Last Admin: 02/19/21 12:40 Dose: 2.5 mg Documented by: Ondansetron HCl (Ondansetron Hcl 4 Mg/2 Ml Vial) 4 mg IVPUSH ONCE PRN PRN Reason: Nausea and Vomiting Allergies Allergies Allergy/AdvReac Type Severity Reaction Status Date / Time amoxicillin [From Augmentin] Allergy Unknown Unknown Verified 02/01/21 15:55 aspirin Allergy Unknown Unknown Verified 02/01/21 16:34 clavulanic acid Allergy Unknown Unknown Verified 02/01/21 15:55 [From Augmentin] diphenhydramine Allergy Unknown Unknown Verified 02/01/21 16:35 hydrochlorothiazide Allergy Unknown Unknown Verified 02/01/21 16:44 metronidazole Allergy Unknown Unknown Verified 02/01/21 16:54 trazodone Allergy Unknown Unknown Verified 02/01/21 16:54 augmentin Allergy Unknown Unknown Uncoded 02/01/21 15:55 Assessment & Plan Assessment & Plan (1) Major depressive disorder, recurrent episode with mood-congruent psychotic features: Status: Acute Code(s): F33.3 - Major depressive disorder, recurrent, severe with psychotic symptoms Assessment and Plan: This is a 70 yo F who endorses a medical history of pulmonary embolism. Denies any known CAD / CVD. She is transferred from the [place] for ECT. 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 Patient continues to show improvement with current plan of care continue olanzapine alprazolam agreeable to ECT, now on unilateral. Family meeting last Saturday We decided to continue with medications and ECT I spent minutes with the patient and/or on the patient floor today, greater than?50% of which was spent counseling/coordinating care. Reason for contiued inpatient stay Substantial Risk for: harm to self, inability to function, rapid decompensation and med/psych decompensation
[2021-02-24] MEDS: OLANZapine 7.5 MG TABLET PO (21:31)
[2021-02-24] MEDS: Mirtazapine 15 MG TABLET 45 MG PO (21:31)
[2021-02-25 09:00] VITALS: BP 117/64; PULSE 64; RESP 15; TEMP 36.4; O2SAT 93
[2021-02-25] MEDS: ALPRAZolam 0.25 MG TABLET PO ×3 (09:04→20:48)
[2021-02-25] MEDS: Apixaban 5 MG TABLET PO ×2 (09:04→20:48)
[2021-02-25] MEDS: Gabapentin 600 MG TABLET PO ×3 (09:05→20:48)
[2021-02-25] MEDS: OLANZapine 5 MG TABLET PO (09:06)
--- NOTE | 2021-02-25 12:21 | HO.PSYCHPN ---
Subjective Subjective Date of Service: 02/25/21 Reason For Visit: Major Depressive D/O Recurrent Severe w/Psychotic Interim History: pt has no questions or concerns. she reports she is doing good. per staff, ate some breakfast today. no dep/SI. had ECT yesterday. awaiting DC. Mental Status Exam Mental Status Exam Narrative: adequately dressed and groomed. cooperative. no PMA/PMR. speech nml rate, amount, loudness, tone latency. thoughts linear and logical. affect constricted. no SI/HI/AVH expressed. Diagnostics Vital Signs (24Hr): Vital Signs - 24 hr 02/24/21 18:00 02/25/21 09:00 Temperature 98.3 F 97.6 F Pulse Rate 64 64 Respiratory Rate 16 15 Blood Pressure 93/55 L 117/64 Pulse Oximetry 92 93 BMI result Body Mass Index 20.7 Labs Results: 02/02/21 08:25 02/02/21 08:25 Imaging Radiology Impressions: ITS Impressions Head CT 02/02/21 10:30 IMPRESSION: 1. No evidence of acute intracranial hemorrhage or edematous territorial infarction. 2. Mild to moderate underlying microangiopathy and generalized cerebral volume loss. Medications Medications Current Medications Acetaminophen (Acetaminophen 325 Mg Tablet) 650 mg PO Q6H PRN PRN Reason: Headache/Pain Mild Scale (1-3) Last Admin: 02/09/21 11:21 Dose: 650 mg Documented by: Al Hydroxide/Mg Hydroxide (Magnesium Hydrox/Alum Hydrox 30 Ml Oral.Susp) 30 ml PO Q6H PRN PRN Reason: Heartburn/Nausea Alprazolam (Alprazolam 0.25 Mg Tablet) 0.25 mg PO TID [facility] Last Admin: 02/25/21 09:04 Dose: 0.25 mg Documented by: Apixaban (Apixaban 5 Mg Tablet) 5 mg PO BID [facility] Last Admin: 02/25/21 09:04 Dose: 5 mg Documented by: Docusate Sodium (Docusate Sodium 100 Mg Capsule) 100 mg PO DAILY PRN PRN Reason: Constipation Gabapentin (Gabapentin 600 Mg Tablet) 600 mg PO TID [facility] Last Admin: 02/25/21 09:05 Dose: 600 mg Documented by: Loperamide HCl (Loperamide Hcl 2 Mg Capsule) 4 mg PO Q4H PRN PRN Reason: Diarrhea Last Admin: 02/04/21 09:27 Dose: 4 mg Documented by: Magnesium Hydroxide (Milk Of Magnesia 30 Ml Oral.Susp) 30 ml PO DAILY PRN PRN Reason: Constipation Mirtazapine (Mirtazapine 15 Mg Tablet) 45 mg PO BEDTIME [facility] Last Admin: 02/24/21 21:31 Dose: 45 mg Documented by: Olanzapine (Olanzapine 5 Mg Tablet) 5 mg PO DAILY [facility] Last Admin: 02/25/21 09:06 Dose: 5 mg Documented by: Olanzapine (Olanzapine 7.5 Mg Tablet) 7.5 mg PO BEDTIME [facility] Last Admin: 02/24/21 21:31 Dose: 7.5 mg Documented by: Olanzapine (Olanzapine 2.5 Mg Tablet) 2.5 mg PO BID PRN PRN Reason: Psychosis Last Admin: 02/19/21 12:40 Dose: 2.5 mg Documented by: Ondansetron HCl (Ondansetron Hcl 4 Mg/2 Ml Vial) 4 mg IVPUSH ONCE PRN PRN Reason: Nausea and Vomiting Allergies Allergies Allergy/AdvReac Type Severity Reaction Status Date / Time amoxicillin [From Augmentin] Allergy Unknown Unknown Verified 02/01/21 15:55 aspirin Allergy Unknown Unknown Verified 02/01/21 16:34 clavulanic acid Allergy Unknown Unknown Verified 02/01/21 15:55 [From Augmentin] diphenhydramine Allergy Unknown Unknown Verified 02/01/21 16:35 hydrochlorothiazide Allergy Unknown Unknown Verified 02/01/21 16:44 metronidazole Allergy Unknown Unknown Verified 02/01/21 16:54 trazodone Allergy Unknown Unknown Verified 02/01/21 16:54 augmentin Allergy Unknown Unknown Uncoded 02/01/21 15:55 Assessment & Plan Assessment & Plan (1) Major depressive disorder, recurrent episode with mood-congruent psychotic features: Status: Acute Code(s): F33.3 - Major depressive disorder, recurrent, severe with psychotic symptoms Assessment and Plan: This is a 70 yo F who endorses a medical history of pulmonary embolism. Denies any known CAD / CVD. [place]. 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 Patient continues to show improvement with current plan of care continue olanzapine alprazolam agreeable to ECT, now on unilateral. Family meeting last Saturday We decided to continue with medications and ECT I spent minutes with the patient and/or on the patient floor today, greater than?50% of which was spent counseling/coordinating care. Reason for contiued inpatient stay Substantial Risk for: inability to function and rapid decompensation
[2021-02-25 19:56] VITALS: BP 93/56; PULSE 61; RESP 16; TEMP 36.3; O2SAT 93
[2021-02-25] MEDS: OLANZapine 7.5 MG TABLET PO (20:48)
[2021-02-25] MEDS: Mirtazapine 15 MG TABLET 45 MG PO (20:48)
[2021-02-26 08:30] VITALS: BP 116/64; PULSE 79; RESP 16; TEMP 36.3; O2SAT 96
[2021-02-26] MEDS: ALPRAZolam 0.25 MG TABLET PO ×3 (08:41→20:22)
[2021-02-26] MEDS: Apixaban 5 MG TABLET PO ×2 (08:41→20:22)
[2021-02-26] MEDS: OLANZapine 5 MG TABLET PO (08:41)
[2021-02-26] MEDS: Gabapentin 600 MG TABLET PO ×2 (08:41→16:49)
[2021-02-26] MEDS: OLANZapine 2.5 MG TABLET PO (11:13)
--- NOTE | 2021-02-26 13:58 | P.PNPSI_ITS ---
Subjective Subjective Date of Service: 02/26/21 Reason For Visit: Major Depressive D/O Recurrent Severe w/Psychotic Interim History: pt has no questions or concerns.? she reports she is all set, thank you. ? per staff, quiet, anxious. slept well overnight. had zyprexa PRN. Mental Status Exam Mental Status Exam Narrative: adequately dressed and groomed. cooperative. no PMA/PMR. speech nml rate, amount, loudness, tone latency. thoughts linear and logical. affect constricted. no SI/HI/AVH expressed. Diagnostics Vital Signs (24Hr): Vital Signs - 24 hr 02/25/21 19:56 02/26/21 08:30 Temperature 97.4 F 97.4 F Pulse Rate 61 79 Respiratory Rate 16 16 Blood Pressure 93/56 L 116/64 Pulse Oximetry 93 96 BMI result Body Mass Index 20.7 Labs Results: 02/02/21 08:25 02/02/21 08:25 Imaging Radiology Impressions: ITS Impressions Head CT 02/02/21 10:30 IMPRESSION: 1. No evidence of acute intracranial hemorrhage or edematous territorial infarction. 2. Mild to moderate underlying microangiopathy and generalized cerebral volume loss. Medications Medications Current Medications Acetaminophen (Acetaminophen 325 Mg Tablet) 650 mg PO Q6H PRN PRN Reason: Headache/Pain Mild Scale (1-3) Last Admin: 02/09/21 11:21 Dose: 650 mg Documented by: Al Hydroxide/Mg Hydroxide (Magnesium Hydrox/Alum Hydrox 30 Ml Oral.Susp) 30 ml PO Q6H PRN PRN Reason: Heartburn/Nausea Alprazolam (Alprazolam 0.25 Mg Tablet) 0.25 mg PO TID [facility] Last Admin: 02/26/21 08:41 Dose: 0.25 mg Documented by: Apixaban (Apixaban 5 Mg Tablet) 5 mg PO BID [facility] Last Admin: 02/26/21 08:41 Dose: 5 mg Documented by: Docusate Sodium (Docusate Sodium 100 Mg Capsule) 100 mg PO DAILY PRN PRN Reason: Constipation Gabapentin (Gabapentin 600 Mg Tablet) 600 mg PO TID [facility] Last Admin: 02/26/21 08:41 Dose: 600 mg Documented by: Loperamide HCl (Loperamide Hcl 2 Mg Capsule) 4 mg PO Q4H PRN PRN Reason: Diarrhea Last Admin: 02/04/21 09:27 Dose: 4 mg Documented by: Magnesium Hydroxide (Milk Of Magnesia 30 Ml Oral.Susp) 30 ml PO DAILY PRN PRN Reason: Constipation Mirtazapine (Mirtazapine 15 Mg Tablet) 45 mg PO BEDTIME [facility] Last Admin: 02/25/21 20:48 Dose: 45 mg Documented by: Olanzapine (Olanzapine 5 Mg Tablet) 5 mg PO DAILY [facility] Last Admin: 02/26/21 08:41 Dose: 5 mg Documented by: Olanzapine (Olanzapine 7.5 Mg Tablet) 7.5 mg PO BEDTIME [facility] Last Admin: 02/25/21 20:48 Dose: 7.5 mg Documented by: Olanzapine (Olanzapine 2.5 Mg Tablet) 2.5 mg PO BID PRN PRN Reason: Psychosis Last Admin: 02/26/21 11:13 Dose: 2.5 mg Documented by: Ondansetron HCl (Ondansetron Hcl 4 Mg/2 Ml Vial) 4 mg IVPUSH ONCE PRN PRN Reason: Nausea and Vomiting Allergies Allergies Allergy/AdvReac Type Severity Reaction Status Date / Time amoxicillin [From Augmentin] Allergy Unknown Unknown Verified 02/01/21 15:55 aspirin Allergy Unknown Unknown Verified 02/01/21 16:34 clavulanic acid Allergy Unknown Unknown Verified 02/01/21 15:55 [From Augmentin] diphenhydramine Allergy Unknown Unknown Verified 02/01/21 16:35 hydrochlorothiazide Allergy Unknown Unknown Verified 02/01/21 16:44 metronidazole Allergy Unknown Unknown Verified 02/01/21 16:54 trazodone Allergy Unknown Unknown Verified 02/01/21 16:54 augmentin Allergy Unknown Unknown Uncoded 02/01/21 15:55 Assessment & Plan Assessment & Plan (1) Major depressive disorder, recurrent episode with mood-congruent psychotic features: Status: Acute Code(s): F33.3 - Major depressive disorder, recurrent, severe with psychotic symptoms Assessment and Plan: This is a 70 yo F who endorses a medical history of pulmonary embolism. Denies any known CAD / CVD. She is transferred from the [place] for ECT. 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 Patient continues to show improvement with current plan of care continue olanzapine alprazolam agreeable to ECT, now on unilateral. Family meeting last Saturday We decided to continue with medications and ECT I spent minutes with the patient and/or on the patient floor today, greater than?50% of which was spent counseling/coordinating care. Reason for contiued inpatient stay Substantial Risk for: inability to function and rapid decompensation
[2021-02-26 19:30] VITALS: BP 102/58; PULSE 67; RESP 17; TEMP 36.2; O2SAT 94
[2021-02-26] MEDS: Mirtazapine 15 MG TABLET 45 MG PO (20:22)
[2021-02-26] MEDS: OLANZapine 7.5 MG TABLET PO (20:22)
[2021-02-27] VITALS (11 sets, daily range): BP systolic 115–147; BP diastolic 54–110; PULSE 71–101; RESP 16–22; TEMP 36.1–37.1; O2SAT 92–97; BMI 20.7
[2021-02-27] MEDS: ALPRAZolam 0.25 MG TABLET PO ×3 (06:51→20:23)
[2021-02-27] MEDS: OLANZapine 5 MG TABLET PO (06:51)
--- NOTE | 2021-02-27 07:10 | MHC.SHP ---
Pre-Procedural Eval Section A Date of Service: 02/27/21 The patient is an INPATIENT: Yes Changes since office visit: No Cold of Flu in the past 2 weeks, No New Medical Problems, No Changes in Medication and No Patient answered all questions The History & Physical has been completed within 30 days and I have reviewed it.: Yes Section B Chief Complaint: Major Depressive D/O Recurrent Severe w/Psychotic Allergies: Allergies Allergy/AdvReac Type Severity Reaction Status Date / Time amoxicillin [From Augmentin] Allergy Unknown Unknown Verified 02/01/21 15:55 aspirin Allergy Unknown Unknown Verified 02/01/21 16:34 clavulanic acid Allergy Unknown Unknown Verified 02/01/21 15:55 [From Augmentin] diphenhydramine Allergy Unknown Unknown Verified 02/01/21 16:35 hydrochlorothiazide Allergy Unknown Unknown Verified 02/01/21 16:44 metronidazole Allergy Unknown Unknown Verified 02/01/21 16:54 trazodone Allergy Unknown Unknown Verified 02/01/21 16:54 augmentin Allergy Unknown Unknown Uncoded 02/01/21 15:55 Plan I have reviewed the history and physical and performed a pertinent physical examination on my patient. No changes have occurred unless specified.
--- NOTE | 2021-02-27 07:10 | HO.ECTPROC ---
ECT Procedure Note Diagnosis/Treatment Date of Service: 02/27/21 Diagnosis: Major Depressive Disorder Previous ECT Date: 02/24/21 Current Treatment Number: 5 Treatment: Series Interval Clinical Notes: The patient remains depressed but her affect is brighter since ECT was started. ECT Settings Device: THYMATRON DGx Electrode Placement: Right Unilateral Program/Pulse Width: 0.50 Energy Percent: 90 Seizure Duration By EEG (in seconds): 41 By Motor Observation (in seconds): 0 Medications Administration General Anesthetic: Etomidate (10) Muscle Relaxant: Succinylcholine (80) Ancillary Medications Analgesics: Torodol - Pre ECT Anti-emetics: Zofran - Pre ECT Miscillaneous Medications: Propofol, Midazolam and Flumazenil Airway Management Airway Management: Bag Mask Ventilation Treatment Recommendations No Changes Recommended: No change Pt Tolerated Procedure w/o Issue: Yes
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
[2021-02-27] MEDS: Apixaban 5 MG TABLET PO ×2 (09:00→20:23)
[2021-02-27] MEDS: Gabapentin 600 MG TABLET PO ×3 (09:00→20:23)
--- NOTE | 2021-02-27 15:05 | P.PNPSI_ITS ---
Subjective Subjective Date of Service: 02/27/21 Reason For Visit: Major Depressive D/O Recurrent Severe w/Psychotic Subjective Notes: Conditional Voluntary Interim History: The nursing staff reported the patient has been on her room most of the time. Her affect looks brighter and today, initially she refused to have ECT but later she cooperated. On interview, the patient reported that she has poor short-term memory and she was confused about how many days she has been in this facility. No safety concerns Mental Status Exam Mental Status Exam Patient Appearance: Well Grooomed Patient Orientation: Person Level of Consciousness: Awake Patient Behavior: Cooperative Mood Description: Depressed Affect Description: Constricted Patient Cognition Impaired: No Ability to Follow Directions: Good Speech Pattern: Clear Hallucinations: None Delusions: Not Present Thought Content: positive for Linear Depressive Symptoms: Difficulty Sleeping Judgement: Fair Diagnostics Vital Signs (24Hr): Vital Signs - 24 hr 02/26/21 19:30 02/27/21 06:00 02/27/21 06:22 Temperature 97.1 F 97.0 F 97.0 F Pulse Rate 67 100 100 Respiratory Rate 17 19 19 Blood Pressure 102/58 L 122/72 122/72 Pulse Oximetry 94 94 02/27/21 07:15 02/27/21 07:36 02/27/21 07:41 Temperature 98.4 F 98.8 F Pulse Rate 88 71 73 Respiratory Rate 16 20 22 H Blood Pressure 124/75 118/60 131/70 Pulse Oximetry 93 95 94 02/27/21 07:46 02/27/21 07:51 02/27/21 08:00 Temperature 98.1 F Pulse Rate 101 H 92 92 Respiratory Rate 22 H 20 17 Blood Pressure 115/91 H 147/110 H 132/92 H Pulse Oximetry 94 97 95 02/27/21 08:06 02/27/21 09:09 Temperature 98.1 F Pulse Rate 87 92 Respiratory Rate 20 17 Blood Pressure 132/74 132/92 H Pulse Oximetry 95 BMI result Body Mass Index 20.7 Labs Results: 02/02/21 08:25 02/02/21 08:25 Imaging Radiology Impressions: ITS Impressions Head CT 02/02/21 10:30 IMPRESSION: 1. No evidence of acute intracranial hemorrhage or edematous territorial infarction. 2. Mild to moderate underlying microangiopathy and generalized cerebral volume loss. Medications Medications Current Medications Acetaminophen (Acetaminophen 325 Mg Tablet) 650 mg PO Q6H PRN PRN Reason: Headache/Pain Mild Scale (1-3) Last Admin: 02/09/21 11:21 Dose: 650 mg Documented by: Al Hydroxide/Mg Hydroxide (Magnesium Hydrox/Alum Hydrox 30 Ml Oral.Susp) 30 ml PO Q6H PRN PRN Reason: Heartburn/Nausea Alprazolam (Alprazolam 0.25 Mg Tablet) 0.25 mg PO TID [facility] Last Admin: 02/27/21 06:51 Dose: 0.25 mg Documented by: Apixaban (Apixaban 5 Mg Tablet) 5 mg PO BID [facility] Last Admin: 02/27/21 09:00 Dose: 5 mg Documented by: Docusate Sodium (Docusate Sodium 100 Mg Capsule) 100 mg PO DAILY PRN PRN Reason: Constipation Gabapentin (Gabapentin 600 Mg Tablet) 600 mg PO TID [facility] Last Admin: 02/27/21 09:00 Dose: 600 mg Documented by: Loperamide HCl (Loperamide Hcl 2 Mg Capsule) 4 mg PO Q4H PRN PRN Reason: Diarrhea Last Admin: 02/04/21 09:27 Dose: 4 mg Documented by: Magnesium Hydroxide (Milk Of Magnesia 30 Ml Oral.Susp) 30 ml PO DAILY PRN PRN Reason: Constipation Mirtazapine (Mirtazapine 15 Mg Tablet) 45 mg PO BEDTIME [facility] Last Admin: 02/26/21 20:22 Dose: 45 mg Documented by: Olanzapine (Olanzapine 5 Mg Tablet) 5 mg PO DAILY [facility] Last Admin: 02/27/21 06:51 Dose: 5 mg Documented by: Olanzapine (Olanzapine 7.5 Mg Tablet) 7.5 mg PO BEDTIME [facility] Last Admin: 02/26/21 20:22 Dose: 7.5 mg Documented by: Olanzapine (Olanzapine 2.5 Mg Tablet) 2.5 mg PO BID PRN PRN Reason: Psychosis Last Admin: 02/26/21 11:13 Dose: 2.5 mg Documented by: Ondansetron HCl (Ondansetron Hcl 4 Mg/2 Ml Vial) 4 mg IVPUSH ONCE PRN PRN Reason: Nausea and Vomiting Allergies Allergies Allergy/AdvReac Type Severity Reaction Status Date / Time amoxicillin [From Augmentin] Allergy Unknown Unknown Verified 02/01/21 15:55 aspirin Allergy Unknown Unknown Verified 02/01/21 16:34 clavulanic acid Allergy Unknown Unknown Verified 02/01/21 15:55 [From Augmentin] diphenhydramine Allergy Unknown Unknown Verified 02/01/21 16:35 hydrochlorothiazide Allergy Unknown Unknown Verified 02/01/21 16:44 metronidazole Allergy Unknown Unknown Verified 02/01/21 16:54 trazodone Allergy Unknown Unknown Verified 02/01/21 16:54 augmentin Allergy Unknown Unknown Uncoded 02/01/21 15:55 Assessment & Plan Assessment & Plan (1) Major depressive disorder, recurrent episode with mood-congruent psychotic features: Status: Acute Code(s): F33.3 - Major depressive disorder, recurrent, severe with psychotic symptoms Assessment and Plan: This is a 70 yo F who endorses a medical history of pulmonary embolism. Denies any known CAD / CVD. She is transferred from the [place] for ECT. 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 Patient continues to show improvement with current plan of care continue olanzapine alprazolam agreeable to ECT, now on unilateral. Family meeting last Saturday We decided to continue with medications and ECT I spent minutes with the patient and/or on the patient floor today, greater than?50% of which was spent counseling/coordinating care. Reason for contiued inpatient stay Substantial Risk for: inability to function, rapid decompensation and med/psych decompensation
[2021-02-27] MEDS: OLANZapine 7.5 MG TABLET PO (20:23)
[2021-02-27] MEDS: Mirtazapine 15 MG TABLET 45 MG PO (20:23)
[2021-02-28] MEDS: OLANZapine 5 MG TABLET PO (07:57)
[2021-02-28] MEDS: Gabapentin 600 MG TABLET PO ×3 (07:57→21:09)
[2021-02-28] MEDS: ALPRAZolam 0.25 MG TABLET PO ×3 (07:58→21:09)
[2021-02-28] MEDS: Apixaban 5 MG TABLET PO ×2 (07:58→21:09)
[2021-02-28 08:00] VITALS: BP 138/72; PULSE 78; RESP 14; TEMP 36.6; O2SAT 92
--- NOTE | 2021-02-28 12:51 | P.PNPSI_ITS ---
Subjective Subjective Date of Service: 02/28/21 Reason For Visit: Major Depressive D/O Recurrent Severe w/Psychotic Subjective Notes: Conditional Voluntary Interim History: The nursing staff reported the patient has been appropriate, very tired after ECT. Today, the staff tried to gave her a shower and they found there soiled clothes, she looked confused at times. Also, the staff reported that the remove the patient has a very strong smell of urine. On interview, the patient denies new symptoms but he looks slightly confused. We will order a new urinalysis and reassess. Mental Status Exam Mental Status Exam Patient Appearance: Well Grooomed Patient Orientation: Person Level of Consciousness: Awake Patient Behavior: Guarded, Passive and Suspicious Mood Description: Depressed Affect Description: Constricted Patient Cognition Impaired: No Ability to Follow Directions: Good Speech Pattern: Clear Hallucinations: None Delusions: Not Present Thought Process: Distracted and Evasive Thought Content: positive for Circumstantial and positive for [place] of Content Judgement: Fair Diagnostics Vital Signs (24Hr): Vital Signs - 24 hr 02/27/21 18:00 02/28/21 08:00 Temperature 98.7 F 97.9 F Pulse Rate 85 78 Respiratory Rate 16 14 Blood Pressure 121/54 L 138/72 Pulse Oximetry 92 92 BMI result Body Mass Index 20.7 Labs Results: 02/02/21 08:25 02/02/21 08:25 Imaging Radiology Impressions: ITS Impressions Head CT 02/02/21 10:30 IMPRESSION: 1. No evidence of acute intracranial hemorrhage or edematous territorial infarction. 2. Mild to moderate underlying microangiopathy and generalized cerebral volume loss. Medications Medications Current Medications Acetaminophen (Acetaminophen 325 Mg Tablet) 650 mg PO Q6H PRN PRN Reason: Headache/Pain Mild Scale (1-3) Last Admin: 02/09/21 11:21 Dose: 650 mg Documented by: Al Hydroxide/Mg Hydroxide (Magnesium Hydrox/Alum Hydrox 30 Ml Oral.Susp) 30 ml PO Q6H PRN PRN Reason: Heartburn/Nausea Alprazolam (Alprazolam 0.25 Mg Tablet) 0.25 mg PO TID [facility] Last Admin: 02/28/21 07:58 Dose: 0.25 mg Documented by: Apixaban (Apixaban 5 Mg Tablet) 5 mg PO BID [facility] Last Admin: 01/11/22 07:58 Dose: 5 mg Documented by: Docusate Sodium (Docusate Sodium 100 Mg Capsule) 100 mg PO DAILY PRN PRN Reason: Constipation Gabapentin (Gabapentin 600 Mg Tablet) 600 mg PO TID [facility] Last Admin: 02/28/21 07:57 Dose: 600 mg Documented by: Loperamide HCl (Loperamide Hcl 2 Mg Capsule) 4 mg PO Q4H PRN PRN Reason: Diarrhea Last Admin: 02/04/21 09:27 Dose: 4 mg Documented by: Magnesium Hydroxide (Milk Of Magnesia 30 Ml Oral.Susp) 30 ml PO DAILY PRN PRN Reason: Constipation Mirtazapine (Mirtazapine 15 Mg Tablet) 45 mg PO BEDTIME [facility] Last Admin: 02/27/21 20:23 Dose: 45 mg Documented by: Olanzapine (Olanzapine 5 Mg Tablet) 5 mg PO DAILY [facility] Last Admin: 02/28/21 07:57 Dose: 5 mg Documented by: Olanzapine (Olanzapine 7.5 Mg Tablet) 7.5 mg PO BEDTIME [facility] Last Admin: 02/27/21 20:23 Dose: 7.5 mg Documented by: Olanzapine (Olanzapine 2.5 Mg Tablet) 2.5 mg PO BID PRN PRN Reason: Psychosis Last Admin: 02/26/21 11:13 Dose: 2.5 mg Documented by: Ondansetron HCl (Ondansetron Hcl 4 Mg/2 Ml Vial) 4 mg IVPUSH ONCE PRN PRN Reason: Nausea and Vomiting Allergies Allergies Allergy/AdvReac Type Severity Reaction Status Date / Time amoxicillin [From Augmentin] Allergy Unknown Unknown Verified 02/01/21 15:55 aspirin Allergy Unknown Unknown Verified 02/01/21 16:34 clavulanic acid Allergy Unknown Unknown Verified 02/01/21 15:55 [From Augmentin] diphenhydramine Allergy Unknown Unknown Verified 02/01/21 16:35 hydrochlorothiazide Allergy Unknown Unknown Verified 02/01/21 16:44 metronidazole Allergy Unknown Unknown Verified 02/01/21 16:54 trazodone Allergy Unknown Unknown Verified 02/01/21 16:54 augmentin Allergy Unknown Unknown Uncoded 02/01/21 15:55 Assessment & Plan Assessment & Plan (1) Major depressive disorder, recurrent episode with mood-congruent psychotic features: Status: Acute Code(s): F33.3 - Major depressive disorder, recurrent, severe with psychotic symptoms Assessment and Plan: This is a 70 yo F who endorses a medical history of pulmonary embolism. Denies any known CAD / CVD. She is transferred from the [place] for ECT. 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 Patient continues to show improvement with current plan of care continue olanzapine alprazolam agreeable to ECT, now on unilateral. Family meeting last Saturday We decided to continue with medications and ECT . Today, the staff found so it clothes and disorganized behavior, confused at times. We will order a new urinalysis. I spent minutes with the patient and/or on the patient floor today, greater than?50% of which was spent counseling/coordinating care. Reason for contiued inpatient stay Substantial Risk for: inability to function, rapid decompensation and med/psych decompensation
[2021-02-28 17:55] LABS: Appearance Urine CLEAR; Color Urine STRAW; Glucose Urine UA NEG (NEG); Leukocyte Esterase Urine 1+ (NEG); Nitrite Urine NEG (NEG); Specific Gravity - Urine 1.015 (1.005-1.025); UACC Culture Trigger YES; Urine Blood TRACE (NEG); Urine Ketones NEG (NEG); Urine Protein NEG (NEG-TRACE)
[2021-02-28 18:00] VITALS: BP 102/52; PULSE 62; RESP 16; TEMP 36.4; O2SAT 92
[2021-02-28 18:11] LABS: Bacteria Urine 3+ /LPF; Mucus Urine TRACE /LPF; RBC Urine 0-2 /HPF (0); Squamous Epithelial Cell Urine 1+ /LPF
[2021-02-28 18:41] LABS: MANUAL DIFF FLAG NO
[2021-02-28 18:42] LABS: Basophils Percent Auto 0.3 % (0-2); Eosinophils Absolute Auto 0.2 X10*3/uL (0.0-0.4); Eosinophils Percent Auto 1.6 % (0-4); Hematocrit 34.3 % (37.0-47.0); Hemoglobin 11.3 g/dl (12.0-16.0); Imm Gran Abs Auto 0.03 X10*3/uL (0.00-0.03); Imm Gran Pct Auto 0.3 % (0.0-0.4); Lymphocytes Absolute Auto 1.5 X10*3/uL (1.2-4.9); Lymphocytes Percent Auto 16.4 % (20-40); Mean Corpuscular HGB Conc 32.9 g/dl (31.0-35.0); Mean Corpuscular Hemoglobin 32.2 pg (27.0-33.0); Mean Corpuscular Volume 97.7 fL (80.0-98.0); Mean Platelet Volume 9.5 fL (9.4-12.3); Monocytes Absolute Auto 0.8 X10*3/uL (0.1-1.2); Monocytes Percent Auto 8.9 % (2-11); Neutrophils Absolute Auto 6.7 x10*3/uL (2.0-8.3); Neutrophils Percent Auto 72.5 % (45-73); Platelet Count 207 X10*3/uL (160-400); Red Blood Count 3.51 X10*6/uL (4.20-5.50); White Blood Count 9.3 X10*3/uL (4.8-10.8)
[2021-02-28] MEDS: Mirtazapine 15 MG TABLET 45 MG PO (21:09)
[2021-02-28] MEDS: OLANZapine 7.5 MG TABLET PO (21:09)
[2021-03-01 08:00] VITALS: BP 121/66; PULSE 66; RESP 19; TEMP 36.2; O2SAT 96
[2021-03-01] MEDS: OLANZapine 5 MG TABLET PO (08:21)
[2021-03-01] MEDS: Gabapentin 600 MG TABLET PO ×3 (08:21→20:50)
[2021-03-01] MEDS: Apixaban 5 MG TABLET PO ×2 (08:21→20:49)
[2021-03-01] MEDS: ALPRAZolam 0.25 MG TABLET PO ×3 (08:22→20:49)
[2021-03-01 10:39] LABS: COVID-19 Test Negative (Negative)
[2021-03-01] MEDS: levoFLOXacin 250 MG TABLET PO (14:05)
--- NOTE | 2021-03-01 16:23 | P.PNPSI_ITS ---
Subjective Subjective Date of Service: 03/01/21 Reason For Visit: Major Depressive D/O Recurrent Severe w/Psychotic Subjective Notes: Conditional Voluntary Interim History: The nursing staff reported that the patient sometimes is confused and restless. ECT was canceled due to the abrupt onset of delirium due to UTI. Vital signs are stable no evidence of fever. We discussed the case with the hospitalist and he agreed to start Levaquin. On interview, the patient looks confused but pleasant and cooperative. Mood has improved slightly Mental Status Exam Mental Status Exam Patient Appearance: Well Grooomed Patient Orientation: Person Level of Consciousness: Awake Patient Behavior: Suspicious Mood Description: Withdrawn Affect Description: Constricted Patient Cognition Impaired: Yes Ability to Follow Directions: Good Speech Pattern: Appropriate Hallucinations: None Delusions: Not Present Thought Process: Distracted and Linear Thought Content: positive for Disoriented Judgement: Fair Diagnostics Vital Signs (24Hr): Vital Signs - 24 hr 02/28/21 18:00 03/01/21 08:00 Temperature 97.6 F 97.2 F Pulse Rate 62 66 Respiratory Rate 16 19 Blood Pressure 102/52 L 121/66 Pulse Oximetry 92 96 BMI result Body Mass Index 20.7 Labs Results: 02/28/21 18:33 02/02/21 08:25 Labs: Laboratory Results - last 48 hr 02/28/21 02/28/21 03/01/21 17:30 18:33 10:11 WBC 9.3 RBC 3.51 L D Hgb 11.3 L D Hct 34.3 L MCV 97.7 MCH 32.2 MCHC 32.9 RDW 13.0 Plt Count 207 MPV 9.5 Immature Gran % (Auto) 0.3 Neut % (Auto) 72.5 Lymph % (Auto) 16.4 L [place] % (Auto) 8.9 Eos % (Auto) 1.6 Baso % (Auto) 0.3 Lymph # (Auto) 1.5 [place] # (Auto) 0.8 Eos # (Auto) 0.2 Baso # (Auto) 0.0 Abs Immat Gran (auto) 0.03 Absolute Neuts (auto) 6.7 Absolute Nucleated RBC 0.000 Nucleated RBC % (auto) 0.0 Urine Color STRAW Urine Appearance CLEAR Urine pH 6.0 Ur Specific [place] 1.015 Urine Protein NEG Urine Glucose (UA) NEG Urine Ketones NEG Urine Blood TRACE Urine Nitrite NEG Ur Leukocyte Esterase 1+ H Urine RBC 0-2 Urine WBC 5-9 H Ur Squamous Epith Cells 1+ Urine Bacteria 3+ Urine Mucus TRACE COVID-19 ([facility]) Negative COVID-19 Clin Com See Note Imaging Radiology Impressions: ITS Impressions Head CT 02/02/21 10:30 IMPRESSION: 1. No evidence of acute intracranial hemorrhage or edematous territorial infarction. 2. Mild to moderate underlying microangiopathy and generalized cerebral volume loss. Medications Medications Current Medications Acetaminophen (Acetaminophen 325 Mg Tablet) 650 mg PO Q6H PRN PRN Reason: Headache/Pain Mild Scale (1-3) Last Admin: 02/09/21 11:21 Dose: 650 mg Documented by: Al Hydroxide/Mg Hydroxide (Magnesium Hydrox/Alum Hydrox 30 Ml Oral.Susp) 30 ml PO Q6H PRN PRN Reason: Heartburn/Nausea Alprazolam (Alprazolam 0.25 Mg Tablet) 0.25 mg PO TID [facility] Last Admin: 03/01/21 14:05 Dose: 0.25 mg Documented by: Apixaban (Apixaban 5 Mg Tablet) 5 mg PO BID [facility] Last Admin: 03/01/21 08:21 Dose: 5 mg Documented by: Docusate Sodium (Docusate Sodium 100 Mg Capsule) 100 mg PO DAILY PRN PRN Reason: Constipation Gabapentin (Gabapentin 600 Mg Tablet) 600 mg PO TID [facility] Last Admin: 03/01/21 14:05 Dose: 600 mg Documented by: Levofloxacin (Levofloxacin 250 Mg Tablet) 250 mg PO Q24H [facility] Stop: 03/07/21 13:59 Last Admin: 03/01/21 14:05 Dose: 250 mg Documented by: Loperamide HCl (Loperamide Hcl 2 Mg Capsule) 4 mg PO Q4H PRN PRN Reason: Diarrhea Last Admin: 02/04/21 09:27 Dose: 4 mg Documented by: Magnesium Hydroxide (Milk Of Magnesia 30 Ml Oral.Susp) 30 ml PO DAILY PRN PRN Reason: Constipation Mirtazapine (Mirtazapine 15 Mg Tablet) 45 mg PO BEDTIME [facility] Last Admin: 02/28/21 21:09 Dose: 45 mg Documented by: Olanzapine (Olanzapine 5 Mg Tablet) 5 mg PO DAILY [facility] Last Admin: 03/01/21 08:21 Dose: 5 mg Documented by: Olanzapine (Olanzapine 7.5 Mg Tablet) 7.5 mg PO BEDTIME [facility] Last Admin: 02/28/21 21:09 Dose: 7.5 mg Documented by: Olanzapine (Olanzapine 2.5 Mg Tablet) 2.5 mg PO BID PRN PRN Reason: Psychosis Last Admin: 02/26/21 11:13 Dose: 2.5 mg Documented by: Ondansetron HCl (Ondansetron Hcl 4 Mg/2 Ml Vial) 4 mg IVPUSH ONCE PRN PRN Reason: Nausea and Vomiting Allergies Allergies Allergy/AdvReac Type Severity Reaction Status Date / Time amoxicillin [From Augmentin] Allergy Unknown Unknown Verified 02/01/21 15:55 aspirin Allergy Unknown Unknown Verified 02/01/21 16:34 clavulanic acid Allergy Unknown Unknown Verified 02/01/21 15:55 [From Augmentin] diphenhydramine Allergy Unknown Unknown Verified 02/01/21 16:35 hydrochlorothiazide Allergy Unknown Unknown Verified 02/01/21 16:44 metronidazole Allergy Unknown Unknown Verified 02/01/21 16:54 trazodone Allergy Unknown Unknown Verified 02/01/21 16:54 augmentin Allergy Unknown Unknown Uncoded 02/01/21 15:55 Assessment & Plan Assessment & Plan (1) Major depressive disorder, recurrent episode with mood-congruent psychotic features: Status: Acute Code(s): F33.3 - Major depressive disorder, recurrent, severe with psychotic symptoms Assessment and Plan: This is a 70 yo F who endorses a medical history of pulmonary embolism. Denies any known CAD / CVD. She is transferred from the [place] for ECT. 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 Patient continues to show improvement with current plan of care continue ol anzapine alprazolam agreeable to ECT, now on unilateral. Family meeting last Saturday We decided to continue with medications and ECT . Today, the staff found so it clothes and disorganized behavior, confused at times. she has a UTI and she was started on antibiotics today. ECT who is going to be held until further notice. I spent minutes with the patient and/or on the patient floor today, greater than?50% of which was spent counseling/coordinating care. Reason for contiued inpatient stay Substantial Risk for: inability to function, rapid decompensation and med/psych decompensation
[2021-03-01 18:00] VITALS: BP 95/52; PULSE 66; RESP 16; TEMP 37.4; O2SAT 93
[2021-03-01] MEDS: Mirtazapine 15 MG TABLET 45 MG PO (20:49)
[2021-03-01] MEDS: OLANZapine 7.5 MG TABLET PO (20:50)
[2021-03-02 06:00] VITALS: BP 114/62; PULSE 62; RESP 16; TEMP 36.7; O2SAT 98
[2021-03-02 07:00] VITALS: BMI 20.7
[2021-03-02] MEDS: Gabapentin 600 MG TABLET PO ×3 (08:34→20:18)
[2021-03-02] MEDS: OLANZapine 5 MG TABLET PO (08:34)
[2021-03-02] MEDS: Apixaban 5 MG TABLET PO ×2 (08:34→20:19)
[2021-03-02] MEDS: ALPRAZolam 0.25 MG TABLET PO ×3 (08:34→20:19)
[2021-03-02] MEDS: levoFLOXacin 250 MG TABLET PO (14:56)
--- NOTE | 2021-03-02 15:59 | P.PNPSI_ITS ---
Subjective Subjective Date of Service: 03/02/21 Reason For Visit: Major Depressive D/O Recurrent Severe w/Psychotic Subjective Notes: Conditional Voluntary Interim History: the nursing staff reports that the patient has been less confused in the last 24 hours since antibiotics were started. Still, she seclusive in her room and looks confused at times. The social media analyst has contact her and apparently the patient has disorganized behavior and confusion at times, most likely when she has a UTI and apparently she has chronic UTIs in the past. On interview the patient denies new symptoms, the case was discussed with Dr. Castañeda on her ECT will be held for tomorrow until her delirium is completely resolved Mental Status Exam Mental Status Exam Patient Appearance: Well Grooomed Patient Orientation: Person Level of Consciousness: Awake Patient Behavior: Cooperative Mood Description: Depressed Affect Description: Constricted Patient Cognition Impaired: Yes Ability to Follow Directions: Good Speech Pattern: Appropriate Hallucinations: None Delusions: Not Present Thought Process: Distracted Thought Content: positive for [place] Judgement: Fair Diagnostics Vital Signs (24Hr): Vital Signs - 24 hr 03/01/21 18:00 03/02/21 06:00 Temperature 99.4 F 98.0 F Pulse Rate 66 62 Respiratory Rate 16 16 Blood Pressure 95/52 L 114/62 Pulse Oximetry 93 98 BMI result Body Mass Index 20.7 Labs Results: 02/28/21 18:33 02/02/21 08:25 Labs: Laboratory Results - last 48 hr 02/28/21 02/28/21 03/01/21 17:30 18:33 10:11 WBC 9.3 RBC 3.51 L D Hgb 11.3 L D Hct 34.3 L MCV 97.7 MCH 32.2 MCHC 32.9 RDW 13.0 Plt Count 207 MPV 9.5 Immature Gran % (Auto) 0.3 Neut % (Auto) 72.5 Lymph % (Auto) 16.4 L [place] % (Auto) 8.9 Eos % (Auto) 1.6 Baso % (Auto) 0.3 Lymph # (Auto) 1.5 [place] # (Auto) 0.8 Eos # (Auto) 0.2 Baso # (Auto) 0.0 Abs Immat Gran (auto) 0.03 Absolute Neuts (auto) 6.7 Absolute Nucleated RBC 0.000 Nucleated RBC % (auto) 0.0 Urine Color STRAW Urine Appearance CLEAR Urine pH 6.0 Ur Specific [place] 1.015 Urine Protein NEG Urine Glucose (UA) NEG Urine Ketones NEG Urine Blood TRACE Urine Nitrite NEG Ur Leukocyte Esterase 1+ H Urine RBC 0-2 Urine WBC 5-9 H Ur Squamous Epith Cells 1+ Urine Bacteria 3+ Urine Mucus TRACE COVID-19 ([facility]) Negative COVID-19 Clin Com See Note Imaging Radiology Impressions: ITS Impressions Head CT 02/02/21 10:30 IMPRESSION: 1. No evidence of acute intracranial hemorrhage or edematous territorial infarction. 2. Mild to moderate underlying microangiopathy and generalized cerebral volume loss. Medications Medications Current Medications Acetaminophen (Acetaminophen 325 Mg Tablet) 650 mg PO Q6H PRN PRN Reason: Headache/Pain Mild Scale (1-3) Last Admin: 02/09/21 11:21 Dose: 650 mg Documented by: Al Hydroxide/Mg Hydroxide (Magnesium Hydrox/Alum Hydrox 30 Ml Oral.Susp) 30 ml PO Q6H PRN PRN Reason: Heartburn/Nausea Alprazolam (Alprazolam 0.25 Mg Tablet) 0.25 mg PO TID [facility] Last Admin: 03/02/21 14:56 Dose: 0.25 mg Documented by: Apixaban (Apixaban 5 Mg Tablet) 5 mg PO BID [facility] Last Admin: 03/02/21 08:34 Dose: 5 mg Documented by: Docusate Sodium (Docusate Sodium 100 Mg Capsule) 100 mg PO DAILY PRN PRN Reason: Constipation Gabapentin (Gabapentin 600 Mg Tablet) 600 mg PO TID [facility] Last Admin: 03/02/21 14:56 Dose: 600 mg Documented by: Levofloxacin (Levofloxacin 250 Mg Tablet) 250 mg PO Q24H [facility] Stop: 03/07/21 13:59 Last Admin: 03/02/21 14:56 Dose: 250 mg Documented by: Loperamide HCl (Loperamide Hcl 2 Mg Capsule) 4 mg PO Q4H PRN PRN Reason: Diarrhea Last Admin: 02/04/21 09:27 Dose: 4 mg Documented by: Magnesium Hydroxide (Milk Of Magnesia 30 Ml Oral.Susp) 30 ml PO DAILY PRN PRN Reason: Constipation Mirtazapine (Mirtazapine 15 Mg Tablet) 45 mg PO BEDTIME [facility] Last Admin: 03/01/21 20:49 Dose: 45 mg Documented by: Olanzapine (Olanzapine 5 Mg Tablet) 5 mg PO DAILY [facility] Last Admin: 03/02/21 08:34 Dose: 5 mg Documented by: Olanzapine (Olanzapine 7.5 Mg Tablet) 7.5 mg PO BEDTIME [facility] Last Admin: 03/01/21 20:50 Dose: 7.5 mg Documented by: Olanzapine (Olanzapine 2.5 Mg Tablet) 2.5 mg PO BID PRN PRN Reason: Psychosis Last Admin: 02/26/21 11:13 Dose: 2.5 mg Documented by: Ondansetron HCl (Ondansetron Hcl 4 Mg/2 Ml Vial) 4 mg IVPUSH ONCE PRN PRN Reason: Nausea and Vomiting Allergies Allergies Allergy/AdvReac Type Severity Reaction Status Date / Time amoxicillin [From Augmentin] Allergy Unknown Unknown Verified 02/01/21 15:55 aspirin Allergy Unknown Unknown Verified 02/01/21 16:34 clavulanic acid Allergy Unknown Unknown Verified 02/01/21 15:55 [From Augmentin] diphenhydramine Allergy Unknown Unknown Verified 02/01/21 16:35 hydrochlorothiazide Allergy Unknown Unknown Verified 02/01/21 16:44 metronidazole Allergy Unknown Unknown Verified 02/01/21 16:54 trazodone Allergy Unknown Unknown Verified 02/01/21 16:54 augmentin Allergy Unknown Unknown Uncoded 02/01/21 15:55 Assessment & Plan Assessment & Plan (1) Major depressive disorder, recurrent episode with mood-congruent psychotic features: Status: Acute Code(s): F33.3 - Major depressive disorder, recurrent, severe with psychotic symptoms Assessment and Plan: This is a 70 yo F who endorses a medical history of pulmonary embolism. Denies any known CAD / CVD. She [place] transferred [place] the [place] for [place]. 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 Patient continues to show improvement with current plan of care continue olanzapine alprazolam agreeable to ECT, now on unilateral. Family meeting last Saturday We decided to continue with medications and ECT . Today, the staff found so it clothes and disorganized behavior, confused at times. she has a UTI and she was started on antibiotics today. ECT who is going to be held until further notice. I spent minutes with the patient and/or on the patient floor today, greater than?50% of which was spent counseling/coordinating care. Reason for contiued inpatient stay Substantial Risk for: inability to function, rapid decompensation and med/psych decompensation
[2021-03-02 18:00] VITALS: BP 98/51; PULSE 70; RESP 16; TEMP 37.6; O2SAT 93
[2021-03-02] MEDS: OLANZapine 7.5 MG TABLET PO (20:19)
[2021-03-02] MEDS: Mirtazapine 15 MG TABLET 45 MG PO (20:19)
[2021-03-03 06:00] VITALS: BP 133/68; PULSE 63; RESP 18; TEMP 36.1; O2SAT 95
[2021-03-03] MEDS: OLANZapine 5 MG TABLET PO (08:08)
[2021-03-03] MEDS: ALPRAZolam 0.25 MG TABLET PO ×3 (08:08→20:11)
[2021-03-03] MEDS: Apixaban 5 MG TABLET PO ×2 (08:08→20:12)
[2021-03-03] MEDS: Gabapentin 600 MG TABLET PO ×3 (08:08→20:11)
--- NOTE | 2021-03-03 14:12 | P.PNPSI_ITS ---
Subjective Subjective Date of Service: 03/03/21 Reason For Visit: Major Depressive D/O Recurrent Severe w/Psychotic Subjective Notes: Conditional Voluntary Interim History: the nursing staff reports the patient has complained of depression and anxiety. She also complained of feeling to called. On interview, the patient is less confused she looks more awake and alert but still with some dysphoria and anxiety. We discussed that she will have ECT on Saturday and we have held ECT these week due to delirium. She is on antibiotics now Mental Status Exam Mental Status Exam Patient Appearance: Well Grooomed Patient Orientation: Person Level of Consciousness: Awake Patient Behavior: Cooperative Mood Description: Depressed Affect Description: Constricted Patient Cognition Impaired: No Ability to Follow Directions: Good Speech Pattern: Appropriate Hallucinations: None Thought Process: Linear Thought Content: positive for Circumstantial Judgement: Fair Diagnostics Vital Signs (24Hr): Vital Signs - 24 hr 03/02/21 18:00 03/03/21 06:00 Temperature 99.7 F 97.0 F Pulse Rate 70 63 Respiratory Rate 16 18 Blood Pressure 98/51 L 133/68 Pulse Oximetry 93 95 BMI result Body Mass Index 20.7 Labs Results: 02/28/21 18:33 02/02/21 08:25 Imaging Radiology Impressions: ITS Impressions Head CT 02/02/21 10:30 IMPRESSION: 1. No evidence of acute intracranial hemorrhage or edematous territorial infarction. 2. Mild to moderate underlying microangiopathy and generalized cerebral volume loss. Medications Medications Current Medications Acetaminophen (Acetaminophen 325 Mg Tablet) 650 mg PO Q6H PRN PRN Reason: Headache/Pain Mild Scale (1-3) Last Admin: 02/09/21 11:21 Dose: 650 mg Documented by: Al Hydroxide/Mg Hydroxide (Magnesium Hydrox/Alum Hydrox 30 Ml Oral.Susp) 30 ml PO Q6H PRN PRN Reason: Heartburn/Nausea Alprazolam (Alprazolam 0.25 Mg Tablet) 0.25 mg PO TID [facility] Last Admin: 03/03/21 08:08 Dose: 0.25 mg Documented by: Apixaban (Apixaban 5 Mg Tablet) 5 mg PO BID [facility] Last Admin: 03/03/21 08:08 Dose: 5 mg Documented by: Docusate Sodium (Docusate Sodium 100 Mg Capsule) 100 mg PO DAILY PRN PRN Reason: Constipation Gabapentin (Gabapentin 600 Mg Tablet) 600 mg PO TID [facility] Last Admin: 03/03/21 08:08 Dose: 600 mg Documented by: Levofloxacin (Levofloxacin 250 Mg Tablet) 250 mg PO Q24H [facility] Stop: 03/07/21 13:59 Last Admin: 03/02/21 14:56 Dose: 250 mg Documented by: Loperamide HCl (Loperamide Hcl 2 Mg Capsule) 4 mg PO Q4H PRN PRN Reason: Diarrhea Last Admin: 02/04/21 09:27 Dose: 4 mg Documented by: Magnesium Hydroxide (Milk Of Magnesia 30 Ml Oral.Susp) 30 ml PO DAILY PRN PRN Reason: Constipation Mirtazapine (Mirtazapine 15 Mg Tablet) 45 mg PO BEDTIME [facility] Last Admin: 03/02/21 20:19 Dose: 45 mg Documented by: Olanzapine (Olanzapine 5 Mg Tablet) 5 mg PO DAILY [facility] Last Admin: 03/03/21 08:08 Dose: 5 mg Documented by: Olanzapine (Olanzapine 7.5 Mg Tablet) 7.5 mg PO BEDTIME [facility] Last Admin: 03/02/21 20:19 Dose: 7.5 mg Documented by: Olanzapine (Olanzapine 2.5 Mg Tablet) 2.5 mg PO BID PRN PRN Reason: Psychosis Last Admin: 02/26/21 11:13 Dose: 2.5 mg Documented by: Ondansetron HCl (Ondansetron Hcl 4 Mg/2 Ml Vial) 4 mg IVPUSH ONCE PRN PRN Reason: Nausea and Vomiting Allergies Allergies Allergy/AdvReac Type Severity Reaction Status Date / Time amoxicillin [From Augmentin] Allergy Unknown Unknown Verified 02/01/21 15:55 aspirin Allergy Unknown Unknown Verified 02/01/21 16:34 clavulanic acid Allergy Unknown Unknown Verified 02/01/21 15:55 [From Augmentin] diphenhydramine Allergy Unknown Unknown Verified 02/01/21 16:35 hydrochlorothiazide Allergy Unknown Unknown Verified 02/01/21 16:44 metronidazole Allergy Unknown Unknown Verified 02/01/21 16:54 trazodone Allergy Unknown Unknown Verified 02/01/21 16:54 augmentin Allergy Unknown Unknown Uncoded 02/01/21 15:55 Assessment & Plan Assessment & Plan (1) Major depressive disorder, recurrent episode with mood-congruent psychotic features: Status: Acute Code(s): F33.3 - Major depressive disorder, recurrent, severe with psychotic symptoms Assessment and Plan: This is a 70 yo F who endorses a medical history of pulmonary embolism. Denies any known CAD / CVD. She is transferred from the [place] for ECT. 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 Patient continues to show improvement with current plan of care continue olanzapine alprazolam agreeable to ECT, now on unilateral. Family meeting last Saturday We decided to continue with medications and ECT . Today, the staff found so it clothes and disorganized behavior, confused at times. she has a UTI and she was started on antibiotics 3 days ago. At this moment, the delirium has resolved. We will restart ECT on Saturday I spent minutes with the patient and/or on the patient floor today, greater than?50% of which was spent counseling/coordinating care. Reason for contiued inpatient stay Substantial Risk for: inability to function, rapid decompensation and med/psych decompensation
[2021-03-03] MEDS: levoFLOXacin 250 MG TABLET PO (15:34)
[2021-03-03 18:00] VITALS: BP 101/51; PULSE 61; RESP 16; TEMP 35.9; O2SAT 94
[2021-03-03] MEDS: OLANZapine 7.5 MG TABLET PO (20:11)
[2021-03-03] MEDS: Mirtazapine 15 MG TABLET 45 MG PO (20:11)
[2021-03-04 08:00] VITALS: BP 140/77; PULSE 76; RESP 18; TEMP 36.6; O2SAT 96
[2021-03-04] MEDS: OLANZapine 5 MG TABLET PO (08:14)
[2021-03-04] MEDS: ALPRAZolam 0.25 MG TABLET PO ×3 (08:14→20:33)
[2021-03-04] MEDS: Gabapentin 600 MG TABLET PO ×3 (08:14→20:33)
[2021-03-04] MEDS: Apixaban 5 MG TABLET PO ×2 (08:14→20:33)
--- NOTE | 2021-03-04 10:25 | HO.PSYCHPN ---
Subjective Subjective Date of Service: 03/04/21 Reason For Visit: Major Depressive D/O Recurrent Severe w/Psychotic Subjective Notes: Conditional Voluntary Medical Problems Affecting Mental Status: No Medication Compliance: Yes Side effects from medications: No Review of Systems Patient was seen and discussed in rounds today. She has been feeling less anxious and generally has done better on Xanax verses Ativan. She had been on antibiotic and is complaining of some vaginal itching which may be yeast. I will discuss this with the nursing staff. Discharge planning in place. It appears that she may not be receiving any more ECT but that is not fully clear. No other complaints or changes. No other complaints other than the itching. Review of Systems Review of Systems Except for vaginal itching Yes all other systems are reviewed and are negative Mental Status Exam Mental Status Exam Patient Appearance: Well Grooomed Patient Orientation: Person Level of Consciousness: Awake Patient Behavior: Cooperative Mood Description: Depressed Affect Description: Constricted Patient Cognition Impaired: No Ability to Follow Directions: Good Speech Pattern: Appropriate Hallucinations: None Thought Process: Linear Thought Content: positive for Circumstantial Judgement: Fair Diagnostics Vital Signs (24Hr): Vital Signs - 24 hr 03/03/21 18:00 03/04/21 08:00 Temperature 96.7 F L 98 F Pulse Rate 61 76 Respiratory Rate 16 18 Blood Pressure 101/51 L 140/77 H Pulse Oximetry 94 96 BMI result Body Mass Index 20.7 Labs Results: 02/28/21 18:33 02/02/21 08:25 Imaging Radiology Impressions: ITS Impressions Head CT 02/02/21 10:30 IMPRESSION: 1. No evidence of acute intracranial hemorrhage or edematous territorial infarction. 2. Mild to moderate underlying microangiopathy and generalized cerebral volume loss. Medications Medications Current Medications Acetaminophen (Acetaminophen 325 Mg Tablet) 650 mg PO Q6H PRN PRN Reason: Headache/Pain Mild Scale (1-3) Last Admin: 02/09/21 11:21 Dose: 650 mg Documented by: Al Hydroxide/Mg Hydroxide (Magnesium Hydrox/Alum Hydrox 30 Ml Oral.Susp) 30 ml PO Q6H PRN PRN Reason: Heartburn/Nausea Alprazolam (Alprazolam 0.25 Mg Tablet) 0.25 mg PO TID [facility] Last Admin: 03/04/21 08:14 Dose: 0.25 mg Documented by: Apixaban (Apixaban 5 Mg Tablet) 5 mg PO BID [facility] Last Admin: 03/04/21 08:14 Dose: 5 mg Documented by: Docusate Sodium (Docusate Sodium 100 Mg Capsule) 100 mg PO DAILY PRN PRN Reason: Constipation Gabapentin (Gabapentin 600 Mg Tablet) 600 mg PO TID [facility] Last Admin: 03/04/21 08:14 Dose: 600 mg Documented by: Levofloxacin (Levofloxacin 250 Mg Tablet) 250 mg PO Q24H [facility] Stop: 03/07/21 13:59 Last Admin: 03/03/21 15:34 Dose: 250 mg Documented by: Loperamide HCl (Loperamide Hcl 2 Mg Capsule) 4 mg PO Q4H PRN PRN Reason: Diarrhea Last Admin: 02/04/21 09:27 Dose: 4 mg Documented by: Magnesium Hydroxide (Milk Of Magnesia 30 Ml Oral.Susp) 30 ml PO DAILY PRN PRN Reason: Constipation Mirtazapine (Mirtazapine 15 Mg Tablet) 45 mg PO BEDTIME [facility] Last Admin: 03/03/21 20:11 Dose: 45 mg Documented by: Olanzapine (Olanzapine 5 Mg Tablet) 5 mg PO DAILY [facility] Last Admin: 03/04/21 08:14 Dose: 5 mg Documented by: Olanzapine (Olanzapine 7.5 Mg Tablet) 7.5 mg PO BEDTIME [facility] Last Admin: 03/03/21 20:11 Dose: 7.5 mg Documented by: Olanzapine (Olanzapine 2.5 Mg Tablet) 2.5 mg PO BID PRN PRN Reason: Psychosis Last Admin: 02/26/21 11:13 Dose: 2.5 mg Documented by: Ondansetron HCl (Ondansetron Hcl 4 Mg/2 Ml Vial) 4 mg IVPUSH ONCE PRN PRN Reason: Nausea and Vomiting Allergies Allergies Allergy/AdvReac Type Severity Reaction Status Date / Time amoxicillin [From Augmentin] Allergy Unknown Unknown Verified 02/01/21 15:55 aspirin Allergy Unknown Unknown Verified 02/01/21 16:34 clavulanic acid Allergy Unknown Unknown Verified 02/01/21 15:55 [From Augmentin] diphenhydramine Allergy Unknown Unknown Verified 02/01/21 16:35 hydrochlorothiazide Allergy Unknown Unknown Verified 02/01/21 16:44 metronidazole Allergy Unknown Unknown Verified 02/01/21 16:54 trazodone Allergy Unknown Unknown Verified 02/01/21 16:54 augmentin Allergy Unknown Unknown Uncoded 02/01/21 15:55 Assessment & Plan Assessment & Plan (1) Major depressive disorder, recurrent episode with mood-congruent psychotic features: Status: Acute Code(s): F33.3 - Major depressive disorder, recurrent, severe with psychotic symptoms Assessment and Plan: This is a 70 yo F who endorses a medical history of pulmonary embolism. Denies any known CAD / CVD. She is transferred from the [place] for ECT. 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 Patient continues to show improvement with current plan of care continue olanzapine alprazolam agreeable to ECT, now on unilateral. Family meeting last Saturday We decided to continue with medications and ECT . Today, the staff found so it clothes and disorganized behavior, confused at times. she has a UTI and she was started on antibiotics 3 days ago. At this moment, the delirium has resolved. We will restart ECT on Saturday03/04/2021 Continue current regimen and plans. Discuss her complaint of vaginal itching with nursing staff in possibly starting her on some medication. I spent minutes with the patient and/or on the patient floor today, greater than?50% of which was spent counseling/coordinating care. Reason for contiued inpatient stay Substantial Risk for: other
[2021-03-04] MEDS: levoFLOXacin 250 MG TABLET PO (14:38)
[2021-03-04 18:00] VITALS: BP 101/56; PULSE 55; RESP 18; TEMP 36.4; O2SAT 95
[2021-03-04] MEDS: Mirtazapine 15 MG TABLET 45 MG PO (20:33)
[2021-03-04] MEDS: OLANZapine 7.5 MG TABLET PO (20:33)
[2021-03-05] MEDS: Gabapentin 600 MG TABLET PO ×3 (09:10→20:59)
[2021-03-05] MEDS: ALPRAZolam 0.25 MG TABLET PO (09:10)
[2021-03-05] MEDS: OLANZapine 5 MG TABLET PO (09:10)
[2021-03-05] MEDS: Apixaban 5 MG TABLET PO ×2 (09:11→20:59)
[2021-03-05 09:57] VITALS: BP 126/72; PULSE 58; RESP 14; TEMP 36.1; O2SAT 94
--- NOTE | 2021-03-05 10:22 | P.PNPSI_ITS ---
Subjective Subjective Date of Service: 03/05/21 Reason For Visit: Major Depressive D/O Recurrent Severe w/Psychotic Medical Problems Affecting Mental Status: No Interim History: Patient was seen and discussed in rounds today. She is pleasant and cooperative. She continues to be doing well and the Xanax has been very helpful. Because of some confusion at the pharmacy she did not receive the vaginal cream for her yeast infection. The itching is less but she is still would like to be given that. No other complaints or changes. Eating and sleeping adequately. Medication Compliance: Yes Side effects from medications: No Review of Systems Review of Systems Except for vaginal itching which has actually improved some Yes all other systems are reviewed and are negative Mental Status Exam Mental Status Exam Patient Appearance: Well Grooomed Patient Orientation: Person Level of Consciousness: Awake Patient Behavior: Cooperative Mood Description: Depressed Affect Description: Constricted Patient Cognition Impaired: No Ability to Follow Directions: Good Speech Pattern: Appropriate Hallucinations: None Thought Process: Linear Thought Content: positive for Circumstantial Judgement: Fair Diagnostics Vital Signs (24Hr): Vital Signs - 24 hr 03/04/21 18:00 03/05/21 09:57 Temperature 97.6 F 96.9 F Pulse Rate 55 58 Respiratory Rate 18 14 Blood Pressure 101/56 L 126/72 Pulse Oximetry 95 94 BMI result Body Mass Index 20.7 Labs Results: 02/28/21 18:33 02/02/21 08:25 Imaging Radiology Impressions: ITS Impressions Head CT 02/02/21 10:30 IMPRESSION: 1. No evidence of acute intracranial hemorrhage or edematous territorial infarction. 2. Mild to moderate underlying microangiopathy and generalized cerebral volume loss. Medications Medications Current Medications Acetaminophen (Acetaminophen 325 Mg Tablet) 650 mg PO Q6H PRN PRN Reason: Headache/Pain Mild Scale (1-3) Last Admin: 02/09/21 11:21 Dose: 650 mg Documented by: Al Hydroxide/Mg Hydroxide (Magnesium Hydrox/Alum Hydrox 30 Ml Oral.Susp) 30 ml PO Q6H PRN PRN Reason: Heartburn/Nausea Alprazolam (Alprazolam 0.25 Mg Tablet) 0.25 mg PO TID [facility] Last Admin: 03/05/21 09:10 Dose: 0.25 mg Documented by: Apixaban (Apixaban 5 Mg Tablet) 5 mg PO BID [facility] Last Admin: 03/05/21 09:11 Dose: 5 mg Documented by: Clotrimazole (Clotrimazole 1 % Vaginal Cream 45 Gm Tube) 1 appl VAGINAL BEDTIME [facility] Stop: 03/10/21 21:01 Last Admin: 03/04/21 22:18 Dose: Not Given Documented by: Docusate Sodium (Docusate Sodium 100 Mg Capsule) 100 mg PO DAILY PRN PRN Reason: Constipation Gabapentin (Gabapentin 600 Mg Tablet) 600 mg PO TID [facility] Last Admin: 03/05/21 09:10 Dose: 600 mg Documented by: Levofloxacin (Levofloxacin 250 Mg Tablet) 250 mg PO Q24H [facility] Stop: 03/07/21 13:59 Last Admin: 03/04/21 14:38 Dose: 250 mg Documented by: Loperamide HCl (Loperamide Hcl 2 Mg Capsule) 4 mg PO Q4H PRN PRN Reason: Diarrhea Last Admin: 02/04/21 09:27 Dose: 4 mg Documented by: Magnesium Hydroxide (Milk Of Magnesia 30 Ml Oral.Susp) 30 ml PO DAILY PRN PRN Reason: Constipation Mirtazapine (Mirtazapine 15 Mg Tablet) 45 mg PO BEDTIME [facility] Last Admin: 03/04/21 20:33 Dose: 45 mg Documented by: Olanzapine (Olanzapine 5 Mg Tablet) 5 mg PO DAILY [facility] Last Admin: 03/05/21 09:10 Dose: 5 mg Documented by: Olanzapine (Olanzapine 7.5 Mg Tablet) 7.5 mg PO BEDTIME [facility] Last Admin: 03/04/21 20:33 Dose: 7.5 mg Documented by: Olanzapine (Olanzapine 2.5 Mg Tablet) 2.5 mg PO BID PRN PRN Reason: Psychosis Last Admin: 02/26/21 11:13 Dose: 2.5 mg Documented by: Ondansetron HCl (Ondansetron Hcl 4 Mg/2 Ml Vial) 4 mg IVPUSH ONCE PRN PRN Reason: Nausea and Vomiting Allergies Allergies Allergy/AdvReac Type Severity Reaction Status Date / Time amoxicillin [From Augmentin] Allergy Unknown Unknown Verified 02/01/21 15:55 aspirin Allergy Unknown Unknown Verified 02/01/21 16:34 clavulanic acid Allergy Unknown Unknown Verified 02/01/21 15:55 [From Augmentin] diphenhydramine Allergy Unknown Unknown Verified 02/01/21 16:35 hydrochlorothiazide Allergy Unknown Unknown Verified 02/01/21 16:44 metronidazole Allergy Unknown Unknown Verified 02/01/21 16:54 trazodone Allergy Unknown Unknown Verified 02/01/21 16:54 augmentin Allergy Unknown Unknown Uncoded 02/01/21 15:55 Assessment & Plan Assessment & Plan (1) Major depressive disorder, recurrent episode with mood-congruent psychotic features: Status: Acute Code(s): F33.3 - Major depressive disorder, recurrent, severe with psychotic symptoms Assessment and Plan: This is a 70 yo F who endorses a medical history of pulmonary embolism. Denies any known CAD / CVD. She is transferred from the [place] for ECT. 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 Patient continues to show improvement with current plan of care continue olanzapine alprazolam agreeable to ECT, now on unilateral. Family meeting last Saturday We decided to continue with medications and ECT . Today, the staff found so it clothes and disorganized behavior, confused at times. she has a UTI and she was started on antibiotics 3 days ago. At this moment, the delirium has resolved. We will restart ECT on Saturday03/04/2021 Continue current regimen and plans. Discuss her complaint of vaginal itching with nursing staff in possibly starting her on some medication. I spent minutes with the patient and/or on the patient floor today, greater than?50% of which was spent counseling/coordinating care. Reason for contiued inpatient stay Substantial Risk for: other
[2021-03-05] MEDS: levoFLOXacin 250 MG TABLET PO (14:45)
[2021-03-05 18:00] VITALS: BP 117/72; PULSE 53; RESP 16; TEMP 36.1; O2SAT 96
[2021-03-05] MEDS: OLANZapine 7.5 MG TABLET PO (21:00)
[2021-03-05] MEDS: Mirtazapine 15 MG TABLET 45 MG PO (21:00)
[2021-03-05] MEDS: Clotrimazole 1 % Vaginal Cream 45 GM TUBE 1 APPL VAGINAL (21:04)
[2021-03-06 06:00] VITALS: BP 143/67; PULSE 59; RESP 18; TEMP 36.2; O2SAT 95
--- NOTE | 2021-03-06 06:38 | PC.NURSE ---
Patient refused to go to ECT this morning and I informed DR. Brennan and he cancelled the ECT for today. I also called the PACU NURSE,Enma that it's cancelled.
[2021-03-06] MEDS: Apixaban 5 MG TABLET PO ×2 (08:51→19:54)
[2021-03-06] MEDS: OLANZapine 5 MG TABLET PO (08:51)
[2021-03-06] MEDS: Gabapentin 600 MG TABLET PO ×3 (08:51→19:53)
[2021-03-06] MEDS: Loperamide HCl 2 MG CAPSULE 4 MG PO ×2 (08:59→14:02)
[2021-03-06 09:40] VITALS: BP 143/67; PULSE 59; RESP 18; TEMP 36.2; O2SAT 95
[2021-03-06] MEDS: levoFLOXacin 250 MG TABLET PO (14:01)
--- NOTE | 2021-03-06 14:37 | P.PNPSI_ITS ---
Subjective Subjective Date of Service: 03/06/21 Reason For Visit: Major Depressive D/O Recurrent Severe w/Psychotic Subjective Notes: Conditional Voluntary Interim History: the patient refused today to go to ECT. She stated that she does not like ECT sings she loses her memory and she feels confused the rest of the day. We discussed her case with the clinical social worker and herself and since her mood has improved and she does not want to continue doing ECT we will discharge her on Saturday. Her would be notify pretty soon Mental Status Exam Mental Status Exam Patient Appearance: Well Grooomed Patient Orientation: Person Level of Consciousness: Awake Patient Behavior: Cooperative Mood Description: Depressed Affect Description: Constricted Patient Cognition Impaired: No Ability to Follow Directions: Fair Speech Pattern: Clear Hallucinations: None Delusions: Not Present Thought Process: Linear Thought Content: positive for Circumstantial Judgement: Fair Diagnostics Vital Signs (24Hr): Vital Signs - 24 hr 03/05/21 18:00 03/06/21 06:00 03/06/21 09:40 Temperature 96.9 F 97.1 F 97.1 F Pulse Rate 53 59 59 Respiratory Rate 16 18 18 Blood Pressure 117/72 143/67 H 143/67 H Pulse Oximetry 96 95 95 BMI result Body Mass Index 20.7 Labs Results: 02/28/21 18:33 02/02/21 08:25 Imaging Radiology Impressions: ITS Impressions Head CT 02/02/21 10:30 IMPRESSION: 1. No evidence of acute intracranial hemorrhage or edematous territorial infarction. 2. Mild to moderate underlying microangiopathy and generalized cerebral volume loss. Medications Medications Current Medications Acetaminophen (Acetaminophen 325 Mg Tablet) 650 mg PO Q6H PRN PRN Reason: Headache/Pain Mild Scale (1-3) Last Admin: 02/09/21 11:21 Dose: 650 mg Documented by: Al Hydroxide/Mg Hydroxide (Magnesium Hydrox/Alum Hydrox 30 Ml Oral.Susp) 30 ml PO Q6H PRN PRN Reason: Heartburn/Nausea Apixaban (Apixaban 5 Mg Tablet) 5 mg PO BID [facility] Last Admin: 03/06/21 08:51 Dose: 5 mg Documented by: Clotrimazole (Clotrimazole 1 % Vaginal Cream 45 Gm Tube) 1 appl VAGINAL BEDTIME [facility] Stop: 03/10/21 21:01 Last Admin: 03/05/21 21:04 Dose: 1 appl Documented by: Docusate Sodium (Docusate Sodium 100 Mg Capsule) 100 mg PO DAILY PRN PRN Reason: Constipation Gabapentin (Gabapentin 600 Mg Tablet) 600 mg PO TID [facility] Last Admin: 03/06/21 08:51 Dose: 600 mg Documented by: Levofloxacin (Levofloxacin 250 Mg Tablet) 250 mg PO Q24H [facility] Stop: 03/07/21 13:59 Last Admin: 03/06/21 14:01 Dose: 250 mg Documented by: Loperamide HCl (Loperamide Hcl 2 Mg Capsule) 4 mg PO Q4H PRN PRN Reason: Diarrhea Last Admin: 03/06/21 14:02 Dose: 4 mg Documented by: Magnesium Hydroxide (Milk Of Magnesia 30 Ml Oral.Susp) 30 ml PO DAILY PRN PRN Reason: Constipation Mirtazapine (Mirtazapine 15 Mg Tablet) 45 mg PO BEDTIME [facility] Last Admin: 03/05/21 21:00 Dose: 45 mg Documented by: Olanzapine (Olanzapine 5 Mg Tablet) 5 mg PO DAILY [facility] Last Admin: 03/06/21 08:51 Dose: 5 mg Documented by: Olanzapine (Olanzapine 7.5 Mg Tablet) 7.5 mg PO BEDTIME [facility] Last Admin: 03/05/21 21:00 Dose: 7.5 mg Documented by: Olanzapine (Olanzapine 2.5 Mg Tablet) 2.5 mg PO BID PRN PRN Reason: Psychosis Last Admin: 02/26/21 11:13 Dose: 2.5 mg Documented by: Ondansetron HCl (Ondansetron Hcl 4 Mg/2 Ml Vial) 4 mg IVPUSH ONCE PRN PRN Reason: Nausea and Vomiting Allergies Allergies Allergy/AdvReac Type Severity Reaction Status Date / Time amoxicillin [From Augmentin] Allergy Unknown Unknown Verified 02/01/21 15:55 aspirin Allergy Unknown Unknown Verified 02/01/21 16:34 clavulanic acid Allergy Unknown Unknown Verified 02/01/21 15:55 [From Augmentin] diphenhydramine Allergy Unknown Unknown Verified 02/01/21 16:35 hydrochlorothiazide Allergy Unknown Unknown Verified 02/01/21 16:44 metronidazole Allergy Unknown Unknown Verified 02/01/21 16:54 trazodone Allergy Unknown Unknown Verified 02/01/21 16:54 augmentin Allergy Unknown Unknown Uncoded 02/01/21 15:55 Assessment & Plan Assessment & Plan (1) Major depressive disorder, recurrent episode with mood-congruent psychotic features: Status: Acute Code(s): F33.3 - Major depressive disorder, recurrent, severe with psychotic symptoms Assessment and Plan: This is a 70 yo F who endorses a medical history of pulmonary embolism. Denies any known CAD / CVD. She is transferred from the [place] for ECT. 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 Patient continues to show improvement with current plan of care continue olanzapine alprazolam agreeable to ECT, now on unilateral. Family meeting last Saturday We decided to continue with medications and ECT . but the patient has refused to continue ECT. Her mood is much better and we found that she was delirious a few days ago due to UTI. Will discuss discharge for the middle of the week I spent minutes with the patient and/or on the patient floor today, greater than?50% of which was spent counseling/coordinating care. Reason for contiued inpatient stay Substantial Risk for: rapid decompensation and med/psych decompensation
[2021-03-06] MEDS: Magnesium Hydrox/Alum Hydrox 30 ML ORAL.SUSP PO (17:36)
[2021-03-06 18:00] VITALS: BP 99/52; PULSE 62; RESP 16; TEMP 36.4; O2SAT 92
[2021-03-06] MEDS: LORazepam 0.5 MG TABLET 0.25 MG PO (19:53)
[2021-03-06] MEDS: OLANZapine 7.5 MG TABLET PO (19:54)
[2021-03-06] MEDS: Mirtazapine 15 MG TABLET 45 MG PO (19:54)
[2021-03-06] MEDS: Clotrimazole 1 % Vaginal Cream 45 GM TUBE 1 APPL VAGINAL (19:59)
[2021-03-07 06:00] VITALS: BP 107/53; PULSE 59; RESP 16; TEMP 36.4; O2SAT 91
[2021-03-07] MEDS: Gabapentin 600 MG TABLET PO ×3 (07:49→21:18)
[2021-03-07] MEDS: Apixaban 5 MG TABLET PO ×2 (07:49→21:17)
[2021-03-07] MEDS: OLANZapine 5 MG TABLET PO (07:49)
--- NOTE | 2021-03-07 16:44 | HO.PSYCHPN ---
Subjective Subjective Date of Service: 03/07/21 Reason For Visit: Major Depressive D/O Recurrent Severe w/Psychotic Subjective Notes: Conditional Voluntary Interim History: The nursing staff reports no changes on mental status, scheduled for discharge tomorrow. ON interview, she denied new symptoms Mental Status Exam Mental Status Exam Patient Appearance: Well Grooomed Patient Orientation: Person Level of Consciousness: Awake Patient Behavior: Cooperative Mood Description: Constricted Affect Description: Constricted Patient Cognition Impaired: No Ability to Follow Directions: Good Speech Pattern: Clear Memory Description: Intact Hallucinations: None Delusions: Not Present Thought Process: Intact Thought Content: positive for Circumstantial Judgement: Fair Diagnostics Vital Signs (24Hr): Vital Signs - 24 hr 03/06/21 18:00 03/07/21 06:00 Temperature 97.5 F 97.6 F Pulse Rate 62 59 Respiratory Rate 16 16 Blood Pressure 99/52 L 107/53 L Pulse Oximetry 92 91 L BMI result Body Mass Index 20.7 Labs Results: 02/28/21 18:33 02/02/21 08:25 Imaging Radiology Impressions: ITS Impressions Head CT 02/02/21 10:30 IMPRESSION: 1. No evidence of acute intracranial hemorrhage or edematous territorial infarction. 2. Mild to moderate underlying microangiopathy and generalized cerebral volume loss. Medications Medications Current Medications Acetaminophen (Acetaminophen 325 Mg Tablet) 650 mg PO Q6H PRN PRN Reason: Headache/Pain Mild Scale (1-3) Last Admin: 02/09/21 11:21 Dose: 650 mg Documented by: Al Hydroxide/Mg Hydroxide (Magnesium Hydrox/Alum Hydrox 30 Ml Oral.Susp) 30 ml PO Q6H PRN PRN Reason: Heartburn/Nausea Last Admin: 03/06/21 17:36 Dose: 30 ml Documented by: Alprazolam (Alprazolam 0.25 Mg Tablet) 0.25 mg PO TID OMAR Apixaban (Apixaban 5 Mg Tablet) 5 mg PO BID [facility] Last Admin: 03/07/21 07:49 Dose: 5 mg Documented by: Clotrimazole (Clotrimazole 1 % Vaginal Cream 45 Gm Tube) 1 appl VAGINAL BEDTIME [facility] Stop: 03/10/21 21:01 Last Admin: 03/06/21 19:59 Dose: 1 appl Documented by: Docusate Sodium (Docusate Sodium 100 Mg Capsule) 100 mg PO DAILY PRN PRN Reason: Constipation Gabapentin (Gabapentin 600 Mg Tablet) 600 mg PO TID [facility] Last Admin: 03/07/21 14:25 Dose: 600 mg Documented by: Loperamide HCl (Loperamide Hcl 2 Mg Capsule) 4 mg PO Q4H PRN PRN Reason: Diarrhea Last Admin: 03/06/21 14:02 Dose: 4 mg Documented by: Magnesium Hydroxide (Milk Of Magnesia 30 Ml Oral.Susp) 30 ml PO DAILY PRN PRN Reason: Constipation Mirtazapine (Mirtazapine 15 Mg Tablet) 45 mg PO BEDTIME OMAR Last Admin: 03/06/21 19:54 Dose: 45 mg Documented by: Olanzapine (Olanzapine 5 Mg Tablet) 5 mg PO DAILY [facility] Last Admin: 03/07/21 07:49 Dose: 5 mg Documented by: Olanzapine (Olanzapine 7.5 Mg Tablet) 7.5 mg PO BEDTIME OMAR Last Admin: 03/06/21 19:54 Dose: 7.5 mg Documented by: Olanzapine (Olanzapine 2.5 Mg Tablet) 2.5 mg PO BID PRN PRN Reason: Psychosis Last Admin: 02/26/21 11:13 Dose: 2.5 mg Documented by: Ondansetron HCl (Ondansetron Hcl 4 Mg/2 Ml Vial) 4 mg IVPUSH ONCE PRN PRN Reason: Nausea and Vomiting Allergies Allergies Allergy/AdvReac Type Severity Reaction Status Date / Time amoxicillin [From Augmentin] Allergy Unknown Unknown Verified 02/01/21 15:55 aspirin Allergy Unknown Unknown Verified 02/01/21 16:34 clavulanic acid Allergy Unknown Unknown Verified 02/01/21 15:55 [From Augmentin] diphenhydramine Allergy Unknown Unknown Verified 02/01/21 16:35 hydrochlorothiazide Allergy Unknown Unknown Verified 02/01/21 16:44 metronidazole Allergy Unknown Unknown Verified 02/01/21 16:54 trazodone Allergy Unknown Unknown Verified 02/01/21 16:54 augmentin Allergy Unknown Unknown Uncoded 02/01/21 15:55 Assessment & Plan Assessment & Plan (1) Major depressive disorder, recurrent episode with mood-congruent psychotic features: Status: Acute Code(s): F33.3 - Major depressive disorder, recurrent, severe with psychotic symptoms Assessment and Plan: This is a 70 yo F who endorses a medical history of pulmonary embolism. Denies any known CAD / CVD. She is transferred [facility] the [facility] for [facility]. 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 Patient continues to show improvement with current plan of care continue olanzapine alprazolam agreeable to ECT, now on unilateral. Family meeting last Saturday We decided to continue with medications and ECT . but the patient has refused to continue ECT. Her mood is much better and we found that she was delirious a few days ago due to UTI. Will discuss discharge for the middle of the week I spent minutes with the patient and/or on the patient floor today, greater than?50% of which was spent counseling/coordinating care. Reason for contiued inpatient stay Substantial Risk for: inability to function, rapid decompensation and med/psych decompensation
[2021-03-07 18:00] VITALS: BP 132/60; PULSE 61; RESP 16; TEMP 36.6; O2SAT 93
[2021-03-07] MEDS: ALPRAZolam 0.25 MG TABLET PO (21:17)
[2021-03-07] MEDS: OLANZapine 7.5 MG TABLET PO (21:18)
[2021-03-07] MEDS: Mirtazapine 15 MG TABLET 45 MG PO (21:18)
[2021-03-07] MEDS: Clotrimazole 1 % Vaginal Cream 45 GM TUBE 1 APPL VAGINAL (21:18)
[2021-03-08 08:00] VITALS: BP 124/61; PULSE 58; TEMP 36.4; O2SAT 90
[2021-03-08] MEDS: ALPRAZolam 0.25 MG TABLET PO (08:14)
[2021-03-08] MEDS: Apixaban 5 MG TABLET PO (08:14)
[2021-03-08] MEDS: OLANZapine 5 MG TABLET PO (08:14)
[2021-03-08] MEDS: Gabapentin 600 MG TABLET PO (08:14)
--- NOTE | 2021-03-08 11:58 | PM.PSYDC ---
DS: Providers Provider Date of Service: 03/08/21 Date of admission: 02/01/21 13:42 Date of discharge: 03/08/21 Primary care physician: Cornelius Physician Attending physician on discharge: Mark Brennan DS: Diagnosis Discharge Diagnosis (1) Major depressive disorder, recurrent episode with mood-congruent psychotic features: Status: Acute DS: Medications Discharge Medications Home Medications: Home Medications Medication Instructions Recorded Confirmed Lactobacillus acidophilus 1,000 mmu cells PO BID 02/01/21 02/01/21 gabapentin 600 mg tablet 600 mg PO TID 02/01/21 02/01/21 Previous Rx's Medication Instructions Recorded alprazolam 0.25 mg tablet 0.25 mg PO TID 30 Days #90 tab 03/07/21 apixaban 5 mg tablet 5 mg PO BID 30 Days #60 tab 03/07/21 fluoxetine 40 mg capsule 40 mg PO DAILY 30 Days #30 cap 03/07/21 lorazepam 0.5 mg tablet (Ativan) 0.5 mg PO TID PRN 30 Days #90 tab 03/07/21 mirtazapine 45 mg tablet 45 mg PO BEDTIME 30 Days #30 tab 03/07/21 olanzapine 5 mg tablet 5 mg PO DAILY 30 Days #30 tab 03/07/21 olanzapine 7.5 mg tablet 7.5 mg PO BEDTIME 30 Days #30 tab 03/07/21 Mental Status Exam Mental Status Exam Patient Appearance: Well Grooomed Patient Orientation: Person and Situation Level of Consciousness: Awake Patient Behavior: Cooperative Mood Description: Calm Affect Description: Constricted Patient Cognition Impaired: No Ability to Follow Directions: Good Speech Pattern: Clear Memory Description: Intact Hallucinations: None Delusions: Not Present Thought Process: Linear Thought Content: positive for Circumstantial Judgement: Fair Data Data Completed and Pending Completed studies during hospitalization [Text1]: 02/28/21 17:58 Urine clean catch - Urine villatoro top Urine Culture - Final Imaging Diagnostic Imaging Impressions Head CT 02/02/21 10:30 IMPRESSION: 1. No evidence of acute intracranial hemorrhage or edematous territorial infarction. 2. Mild to moderate underlying microangiopathy and generalized cerebral volume loss. DS: Summary Hospital Course Hospital Course: the patient was transferred from inpatient [facility] for E[place]. she was initially admitted at the [facility] of October 2020 and she have had several trials of antidepressants. The patient presented with depressed mood, severe anhedonia, lack of energy, feelings of hopelessness and delusions regarding temperature. Her case was thoroughly discussed and she was transferred to this facility for ECT. On admission, we continue with the same medications, we started the worked out for ECT and she was informed of the risks and benefits. The patient initially agreed to have the procedure. But later, at the beginning, she refused several times and eventually she agreed to start ECT. After the 3rd session, the patient's mood improved she was brighter, she have more energy and she was able to participate in groups. We continue with ECT 3 times a week for a total number of 6 sessions. But later, the patient complained of memory loss and she refused to take more treatments. Even though, her mood improved dramatically. We had several family meetings with her and he agreed that she was doing much better. Since the patient refuse more ECT, her mood improved and there were no safety concerns discharge planning was discussed. Psychoeducation was provided and she will continue treatment at the [facility]. Time spent discussing smoking cessation with patient: 3 to 10 minutes Status at Discharge Cognitive/behavioral status at discharge: At baseline Functional status at discharge: independent ambulation Overall status at discharge: patient is back to baseline Time Spent with Patient Time attestation: Total time spent providing and/or coordinating discharge services: Time spent: Less than 30 minutes Discharge Plan Discharge Patient Disposition: Home, Self-Care Discharge Diagnosis: major depressive disorder recurrent episode severe with psychotic features Referrals: Dr Szymanski [facility] [Other] - 03/20/21 11:30 am ([facility]. Telehealth by video. ) Annabelle Martin NP [facility] [Other] - 03/09/21 11:00 am (Your next appointment with you primary care provider is scheduled in person at office at the [place] for 03/08/21 at 8:30am. Request for RN from [facility] follow up to assess for home care services through the [facility] was also placed. ) Discharge Medications: New alprazolam 0.25 mg Tablet 0.25 mg PO TID 30 Days Qty: 90 RF: 0 Continued gabapentin 600 mg Tablet 600 mg PO TID RF: 0 fluoxetine 40 mg Capsule 40 mg PO DAILY 30 Days Qty: 30 RF: 0 olanzapine 5 mg Tablet 5 mg PO DAILY 30 Days Qty: 30 RF: 0 olanzapine 7.5 mg Tablet 7.5 mg PO BEDTIME 30 Days Qty: 30 RF: 0 lorazepam [Ativan] 0.5 mg Tablet 0.5 mg PO TID PRN (Reason: Anxiety) 30 Days Qty: 90 RF: 0 mirtazapine 45 mg Tablet 45 mg PO BEDTIME 30 Days Qty: 30 RF: 0 apixaban 5 mg Tablet 5 mg PO BID 30 Days Qty: 60 RF: 0 Discontinued Lactobacillus acidophilus Tablet 1,000 mmu cells PO BID RF: 0 Discharge Orders: Discharge Order (Routine); Ordered 03/08/21 Ordered By: Mark Brennan Diet: advance to usual diet Activity on Discharge: As tolerated Stand Alone Forms: Patient Portal Discharge page, Community Support Care Plan Goals: care plan goals achieved in this hospitalization Health Concerns: continued patient service Plan of Treatment: continue psychiatric services at the [place]. We will not schedule more ECT at this facility until further evaluation Assessment: middle-aged female with a long history of major depressive disorder recurrent episode severe with psychotic features mostly, somatic delusions [facility], resistant to treatment responded fairly well to ECT but she refused more treatment sings she complained of memory loss. At this moment the patient is safe to go back to the community
--- NOTE | 2021-03-08 14:20 | PC.NURSE ---
Patient was aware and ready for discharge. Paperwork reviewed with patient. Next dose medications and follow up appointment explained to patient. Patient verbalized understanding .Patient was pleasant and cooperative. Patient was accompanied with belongings to the front of the building per hospital policy
== END 2021-03-08 13:41 | disposition home or self-care (01) | DRG 885 ==
PROVIDERS: Registered Nurse; Social Worker; Admitting Provider Psychiatry & Neurology Psychiatry; Visit Provider Psychiatry & Neurology Psychiatry
PROC: GZB4ZZZ Other Electroconvulsive Therapy (ICD-10-PCS; CPT 90870; principal; 2021-02-13 07:00)
PROC: (CPT 90870; principal; 2021-02-15 07:00)
DX: F33.3 Major depressive disorder, recurrent, severe with psychotic symptoms (principal); Z20.822 Contact with and (suspected) exposure to COVID-19; Z88.0 Allergy status to penicillin; Z88.6 Allergy status to analgesic agent; Z79.01 Long term (current) use of anticoagulants; Z79.899 Other long term (current) drug therapy
CPT/HCPCS: 36415; 70450; 80053; 80061; 80076; 81001; 82607; 82746; 83036; 84439; 84443; 85025; 87086; 87635; 90870; 93005; J0330; J1885; J2060; J2250; J2405

== ENCOUNTER 2021-05-18 14:40 | Inpatient (IN) | payer OTHER, SELFPAY ==
--- NOTE | ~2021-05-18 | NM_ITS ---
EXAMINATION: MA BRAIN SPECT PERFUSION CLINICAL INFORMATION: Worsening cognitive impairment. COMPARISON: No previous brain SPECT study is available for comparison. CT scan of the head dated 02/02/2021 is available for comparison. TECHNIQUE: A brain SPECT acquisition was performed approximately 62 minutes following the intravenous administration of 30 mCi Tc-99m Neurolite. Single photon emission tomography (SPECT) images were obtained using a dual headed hybrid SPECT/CT scanner acquiring 128 projections of 20 seconds each over 360 degrees using an acquisition matrix of 128 x 128. Transverse, coronal and sagittal projections and a cine volume were reconstructed. Nondiagnostic CT images were obtained for attenuation correction and localization. FINDINGS: The SPECT images show moderately diminished activity diffusely in the bilateral frontal cortex and anterior aspects of the temporal lobes bilaterally. This is fairly symmetrical bilaterally. The activity in the parietal and occipital cortex appears fairly normal with the exception of a small focus in the left posterior parietal cortex near the midline. The activity in the posterior cingulate gyrus appears normal and is slightly more intense than all of the other cerebral cortical activity with the exception of portions of the occipital lobe which may be due to some visual stimulation accentuating the occipital lobes. The subcortical structures including the thalamus and basal ganglia appear normal. The nondiagnostic CT images show no gross abnormalities and do not appear significantly changed in appearance from the diagnostic quality CT of the head dated 02/02/2021. MA/MA brain SPECT IMPRESSION: 1. Abnormal study. There is significantly decreased perfusion in a bilaterally symmetrical distribution involving the frontal and anterior temporal cerebral cortex. Corresponding CT abnormalities are not present. 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 2. A small left posterior parietal focus of decreased perfusion may represent an imaging artifact or may be due to a deep sulcus in this region, or possibly a small cerebral infarct, although this is not visualized on the CT images. This could be further characterized with MRI performed without and with intravenous contrast, if clinically indicated.
[2021-05-18 14:46] VITALS: BMI 21.0
[2021-05-18] MEDS: ALPRAZolam 0.25 MG TABLET PO ×2 (16:23→20:09)
[2021-05-18 17:46] VITALS: BMI 20.5
[2021-05-18 18:00] VITALS: BP 143/94; PULSE 99; RESP 18; TEMP 36.1; O2SAT 96
--- NOTE | 2021-05-18 18:01 | HO.PSYADMNOT ---
HPI Date of Service: 05/18/21 Chief Complaint: major depressive d/o recurrent severe with psychot Sources of Information: patient interviewed and chart reviewed Additional Sources of Information: [facility] HPI Subjective Notes: Agosto Warning, Conditional Voluntary and 3 Day Narrative: The patient is transferred at the request of the [facility] in the patient on a Section 3 The pt has a hx of psychotic depression marked by somatic preoccupations depressed mood severe anxiety. Pt begins to always feels cold becomes preoccupied with that she is cold she has been on mirtazapine prozac olanzapine unclear if she had been taking gabapentin. She has been diagnosed with delusional disorder somatic PTSD and unspecified cognitive disorder. She was transferred from the [facility] emergency room to the [facility] and then was referred to [facility] for ECT treatment. She had been hospitalized at the [facility] from 11/01/2020 to 02/01/2021 and was then transferred to [facility] and did have a short course of ECT. The patient's brought her to the emergency room at [facility] recently because of severe perseveration consult stating she was cold agitation and distraught. There were no physical symptoms no substance abuse. Patient has been unable to function at home recently not doing household house not getting out bed. Past Psychiatric History: Patient with 3 month admission to the [place] in January was then transferred to [facility] and had a course of ECT. As described, her 1st psychiatric contact was 20 years ago, the patient is a very poor historian but according to the records she has tried several antidepressants and currently she is on Prozac and mirtazapine. According to the records she has history of lengthy admissions, according to the patient she has 3 admissions in the past. Medical Evaluation Reviewed: Hospitalist Jeffery Pending Medical evaluation from the emergency room reviewed [facility] Medical History (Updated 05/19/21 @ 09:43 by Richard Castañeda MD) History of pulmonary embolism Neurocognitive disorder Pulmonary embolism Surgical History H/O section Family History: The patient reported that her mother had severe depression and she was admitted several times due to failed suicidal attempts. Social History: The patient is the oldest of 2 siblings, her milestones were achieved at expected age and she was raised by her grandmother since her mother was absent due to her mental illness. According to the patient, her father was absent. She attended regular school, she graduated and attended college with a degree own [employer] arts. 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 She is the mother of 2 children and she has good social support Substance History: none Trauma History: Denies Diagnostics Vital Signs (24Hr): BMI result Body Mass Index 20.5 Labs Results: 05/19/21 07:54 05/19/21 07:54 EKG EKG: reviewed Meds/Allergies Meds Home Medications Acetaminophen (Acetaminophen 325 Mg Tablet) 650 mg PO Q6H PRN PRN Reason: Headache/Pain Mild Scale (1-3) Last Admin: 05/18/21 21:02 Dose: 650 mg Documented by: Al Hydroxide/Mg Hydroxide (Magnesium Hydrox/Alum Hydrox 30 Ml Oral.Susp) 30 ml PO Q6H PRN PRN Reason: Heartburn/Nausea Alprazolam (Alprazolam 0.25 Mg Tablet) 0.25 mg PO TID [facility] Last Admin: 05/19/21 08:21 Dose: 0.25 mg Documented by: Apixaban (Apixaban 5 Mg Tablet) 5 mg PO BID [facility] Last Admin: 05/19/21 08:21 Dose: 5 mg Documented by: Fluoxetine HCl (Fluoxetine Hcl 20 Mg Capsule) 40 mg PO DAILY [facility] Last Admin: 05/19/21 08:21 Dose: 40 mg Documented by: Magnesium Hydroxide (Milk Of Magnesia 30 Ml Oral.Susp) 30 ml PO DAILY PRN PRN Reason: Constipation Mirtazapine (Mirtazapine 15 Mg Tablet) 45 mg PO BEDTIME [facility] Last Admin: 05/18/21 20:09 Dose: 45 mg Documented by: Olanzapine (Olanzapine 5 Mg Tablet) 5 mg PO DAILY [facility] Last Admin: 05/19/21 08:21 Dose: 5 mg Documented by: Olanzapine (Olanzapine 7.5 Mg Tablet) 7.5 mg PO BEDTIME [facility] Last Admin: 05/18/21 20:10 Dose: 7.5 mg Documented by: Olanzapine (Olanzapine 2.5 Mg Tablet) 2.5 mg PO BID PRN PRN Reason: anxiety, agitation Last Admin: 05/18/21 22:02 Dose: 2.5 mg Documented by: Allergies Allergies Allergy/AdvReac Type Severity Reaction Status Date / Time amoxicillin [From Augmentin] Allergy Unknown Unknown Verified 02/01/21 15:55 aspirin Allergy Unknown Unknown Verified 02/01/21 16:34 clavulanic acid Allergy Unknown Unknown Verified 02/01/21 15:55 [From Augmentin] diphenhydramine Allergy Unknown Unknown Verified 02/01/21 16:35 hydrochlorothiazide Allergy Unknown Unknown Verified 02/01/21 16:44 metronidazole Allergy Unknown Unknown Verified 02/01/21 16:54 trazodone Allergy Unknown Unknown Verified 02/01/21 16:54 augmentin Allergy Unknown Unknown Uncoded 02/01/21 15:55 Mental Status Exam Mental Status Exam Patient Appearance: Unkempt Patient Orientation: Person, Place and Situation Level of Consciousness: Awake and Restless Patient Behavior: Hyperactive, Restless and Impulsive Behavior Comments: Patient pacing intrusive stating that she is cold needs more blankets cannot stay here Mood Description: Constricted, Depressed, Anxious and Apprehensive Affect Description: Constricted, Depressed, Anxious and Apprehensive Ability to Follow Directions: Fair Speech Pattern: Clear, Perseverating and Pressured Delusions: Present (Somatic delusions) Thought Process: Racing and Rumination Thought Content: positive for Circumstantial, positive for Poverty of Content, positive for Preoccupation, positive for Suicidal Ideation (Passive SI) and negative for Homicidal Ideation Depressive Symptoms: Increased Anxiety, Increased Irritability, Isolating-Friends/Family, Thoughts of /Suicide and Difficulty Concentrating Judgement: Fair Assessment & Plan Assessment & Plan (1) Major depressive disorder, recurrent episode with mood-congruent psychotic features: Status: Acute Code(s): F33.3 - Major depressive disorder, recurrent, severe with psychotic symptoms Assessment and Plan: Patient agitated restless was referred for ECT unclear if primary depression or delusional disorder somatic with secondary depression did respond to ECT previously will lower fluoxetine increase alprazolam change olanzapine to 5 mg 3 times a day Medical evaluation pre CT will check cortisol level (2) Neurocognitive disorder: Status: Acute Code(s): R41.9 - Unspecified symptoms and signs involving cognitive functions and awareness Assessment and Plan: Head CT scan did reveal vascular changes last admission Patient educated on: diagnosis, medication risk/benefits, ECT and medical condition Informed Consent: further education needed Reason for continued inpatient stay Substantial Risk for: harm to self, inability to function and rapid decompensation
[2021-05-18 19:17] LABS: MANUAL DIFF FLAG NO
[2021-05-18 19:21] LABS: Basophils Percent Auto 0.3 % (0-2); Hematocrit 39.6 % (37.0-47.0); Hemoglobin 13.7 g/dl (12.0-16.0); Imm Gran Abs Auto 0.04 X10*3/uL (0.00-0.03); Imm Gran Pct Auto 0.4 % (0.0-0.4); Lymphocytes Absolute Auto 1.4 X10*3/uL (1.2-4.9); Mean Corpuscular HGB Conc 34.6 g/dl (31.0-35.0); Mean Corpuscular Hemoglobin 31.4 pg (27.0-33.0); Mean Corpuscular Volume 90.6 fL (80.0-98.0); Mean Platelet Volume 9.4 fL (9.4-12.3); Monocytes Absolute Auto 0.9 X10*3/uL (0.1-1.2); Monocytes Percent Auto 8.4 % (2-11); Neutrophils Absolute Auto 7.9 x10*3/uL (2.0-8.3); Neutrophils Percent Auto 76.9 % (45-73); Platelet Count 289 X10*3/uL (160-400); Red Blood Count 4.37 X10*6/uL (4.20-5.50); Red Cell Distribution Width 12.6 % (11.0-16.0); White Blood Count 10.2 X10*3/uL (4.8-10.8)
[2021-05-18 19:37] LABS: Alanine Aminotransferase 22 U/L (0-31); Albumin Level 4.5 g/dL (3.5-5.0); Alkaline Phosphatase 94 U/L (39-117); Anion Gap 18 (12-20); Aspartate Amino Transferase 27 U/L (5-31); Bilirubin Total 0.9 mg/dL (0.0-1.0); Blood Urea Nitrogen 20 mg/dL (9-16); Calcium 9.9 mg/dL (8.4-10.2); Carbon Dioxide 22 mmol/L (22-29); Chloride 106 mmol/L (96-108); Cholesterol 178 mg/dL; Creatinine Clr Calc Pharmacy 43.4; Estimated Glomerular Filt Rate 54; Glucose Fasting 125 mg/dL (60-99); HDL Cholesterol 57 mg/dL; LDL Cholesterol Calculated 110 mg/dl; Sodium 142 mmol/L (135-145); Total Protein 7.2 g/dL (6.5-8.0); Triglycerides 58 mg/dL
[2021-05-18 19:57] LABS: Thyroid Stimulating Hormone 0.82 uIU/mL (0.32-4.0)
[2021-05-18 20:09] LABS: Folate 16.9 ng/mL (> or = 4.0); Vitamin B12 237 pg/mL (200-900)
[2021-05-18] MEDS: Apixaban 5 MG TABLET PO (20:09)
[2021-05-18] MEDS: Mirtazapine 15 MG TABLET 45 MG PO (20:09)
[2021-05-18] MEDS: OLANZapine 7.5 MG TABLET PO (20:10)
[2021-05-18] MEDS: Acetaminophen 325 MG TABLET 650 MG PO (21:02)
[2021-05-18] MEDS: OLANZapine 2.5 MG TABLET PO (22:02)
[2021-05-19] VITALS (12 sets, daily range): BP systolic 100–161; BP diastolic 65–126; PULSE 75–113; RESP 16–26; TEMP 36.3–37.1; O2SAT 94–100; BMI 20.3
--- NOTE | 2021-05-19 | ECG_ITS ---
Test Reason : preop ect Blood Pressure : / mmHG Vent. Rate : 078 BPM Atrial Rate : 078 BPM P-R Int : 122 ms QRS Dur : 068 ms QT Int : 408 ms P-R-T Axes : 106 -16 044 degrees QTc Int : 465 ms Artifact in tracing Normal sinus rhythm Cannot rule out Anterior infarct , age undetermined ; could be related to body habitus and lead placement Nonspecific ST and T wave abnormality Abnormal ECG When compared with ECG of 24-FEB-2021 06:58, T wave inversion no longer evident in Lateral leads Referred By: Richard Castañeda Electronically Signed By:MARY PATTERSON
[2021-05-19 06:58] LABS: Appearance Urine CLOUDY; Color Urine YELLOW; Glucose Urine UA NEG (NEG); Leukocyte Esterase Urine 2+ (NEG); Nitrite Urine NEG (NEG); Specific Gravity - Urine 1.025 (1.005-1.025); UACC Culture Trigger YES; Urine Blood 1+ (NEG); Urine Ketones 15 MG/DL (NEG); Urine Protein TRACE MG/DL (NEG-TRACE)
[2021-05-19 07:12] LABS: Mucus Urine 2+ /LPF; RBC Urine 0-2 /HPF (0)
[2021-05-19 07:13] LABS: Bacteria Urine 1+ /LPF; Squamous Epithelial Cell Urine 1+ /LPF
[2021-05-19 08:10] LABS: MANUAL DIFF FLAG NO
[2021-05-19 08:15] LABS: Basophils Percent Auto 0.5 % (0-2); Eosinophils Percent Auto 0.5 % (0-4); Hematocrit 39.7 % (37.0-47.0); Hemoglobin 13.3 g/dl (12.0-16.0); Imm Gran Abs Auto 0.02 X10*3/uL (0.00-0.03); Imm Gran Pct Auto 0.4 % (0.0-0.4); Lymphocytes Absolute Auto 1.2 X10*3/uL (1.2-4.9); Lymphocytes Percent Auto 20.4 % (20-40); Mean Corpuscular HGB Conc 33.5 g/dl (31.0-35.0); Mean Corpuscular Volume 92.5 fL (80.0-98.0); Mean Platelet Volume 9.4 fL (9.4-12.3); Monocytes Absolute Auto 0.6 X10*3/uL (0.1-1.2); Monocytes Percent Auto 10.5 % (2-11); Neutrophils Absolute Auto 3.9 x10*3/uL (2.0-8.3); Neutrophils Percent Auto 67.7 % (45-73); Platelet Count 243 X10*3/uL (160-400); Red Blood Count 4.29 X10*6/uL (4.20-5.50); White Blood Count 5.7 X10*3/uL (4.8-10.8)
[2021-05-19] MEDS: Apixaban 5 MG TABLET PO ×2 (08:21→20:06)
[2021-05-19] MEDS: ALPRAZolam 0.25 MG TABLET PO (08:21)
[2021-05-19] MEDS: OLANZapine 5 MG TABLET PO ×3 (08:21→20:09)
[2021-05-19] MEDS: FLUoxetine HCl 20 MG CAPSULE 40 MG PO (08:21)
[2021-05-19 08:30] LABS: Alanine Aminotransferase 20 U/L (0-31); Albumin Level 4.3 g/dL (3.5-5.0); Alkaline Phosphatase 93 U/L (39-117); Anion Gap 14 (12-20); Aspartate Amino Transferase 32 U/L (5-31); Bilirubin Total 0.9 mg/dL (0.0-1.0); Blood Urea Nitrogen 21 mg/dL (9-16); Calcium 9.3 mg/dL (8.4-10.2); Carbon Dioxide 25 mmol/L (22-29); Chloride 106 mmol/L (96-108); Cholesterol 165 mg/dL; Creatinine Clr Calc Pharmacy 56.3; Estimated Glomerular Filt Rate > 60; Glucose Fasting 114 mg/dL (60-99); HDL Cholesterol 54 mg/dL; LDL Cholesterol Calculated 100 mg/dl; Potassium 3.6 mmol/L (3.3-5.1); Sodium 141 mmol/L (135-145); Total Protein 6.8 g/dL (6.5-8.0); Triglycerides 57 mg/dL
--- NOTE | 2021-05-19 08:32 | P.PNIM_ITS ---
Subjective Subjective Date of Service: 05/19/21 Interval History: Patient complaining of being cold, specially legs,requesting for more blanket, otherwise denies chest pain, no shortness of breath no palpitation, is ambulatory without symptoms of lightheadedness, dizziness headache, denies acute head injury or fall ,has tolerated ECT in the past. Review of Systems General no headache, no dizziness no fever chills. CVS no chest pain, no palpitation. Respiratory no cough, no sob. Gastrointestinal no nausea, no vomiting, no abdominal pain Review of Systems: Yes all other systems are reviewed and are negative Physical Exam Vital Signs: Vital Signs: Last Vital Signs Temp 96.9 F 05/18/21 18:00 Pulse 99 05/18/21 18:00 Resp 18 05/18/21 18:00 BP 143/94 H 05/18/21 18:00 Pulse Ox 96 05/18/21 18:00 BMI result Body Mass Index 20.5 Const: Other: General awake alert, no acute distress. HEENT anicteric sclera Neck supple no JVD. CVS regular rate rhythm, Respiratory lungs clear to auscultation, no respiratory distress Gastrointestinal abdomen soft, nontender, bowel sounds audible Extremities no edema. Neuro nonfocal, speech clear. Skin no rash Objective Data Active Medications Acetaminophen (Acetaminophen 325 Mg Tablet) 650 mg PO Q6H PRN PRN Reason: Headache/Pain Mild Scale (1-3) Last Admin: 05/18/21 21:02 Dose: 650 mg Documented by: LYNN Al Hydroxide/Mg Hydroxide (Magnesium Hydrox/Alum Hydrox 30 Ml Oral.Susp) 30 ml PO Q6H PRN PRN Reason: Heartburn/Nausea Alprazolam (Alprazolam 0.25 Mg Tablet) 0.25 mg PO TID [facility] [place] Last Admin: 05/19/21 08:21 Dose: 0.25 mg Documented by: AMIRAH Apixaban (Apixaban 5 Mg Tablet) 5 mg PO BID [facility] [place] Last Admin: 05/19/21 08:21 Dose: 5 mg Documented by: AMIRAH Fluoxetine HCl (Fluoxetine Hcl 20 Mg Capsule) 40 mg PO DAILY [facility] [place] Last Admin: 05/19/21 08:21 Dose: 40 mg Documented by: AMIRAH Magnesium Hydroxide (Milk Of Magnesia 30 Ml Oral.Susp) 30 ml PO DAILY PRN PRN Reason: Constipation Mirtazapine (Mirtazapine 15 Mg Tablet) 45 mg PO BEDTIME [facility] [place] Last Admin: 05/18/21 20:09 Dose: 45 mg Documented by: LYNN Olanzapine (Olanzapine 5 Mg Tablet) 5 mg PO DAILY [facility] [place] Last Admin: 05/19/21 08:21 Dose: 5 mg Documented by: AMIRAH Olanzapine (Olanzapine 7.5 Mg Tablet) 7.5 mg PO BEDTIME [facility] [place] Last Admin: 05/18/21 20:10 Dose: 7.5 mg Documented by: LYNN Olanzapine (Olanzapine 2.5 Mg Tablet) 2.5 mg PO BID PRN PRN Reason: anxiety, agitation Last Admin: 05/18/21 22:02 Dose: 2.5 mg Documented by: LYNN Labs CBC & Chem 7: 05/19/21 07:54 05/19/21 07:54 Labs: Laboratory Results - last 24 hr 05/18/21 05/18/21 05/18/21 19:05 19:05 19:05 MCV 90.6 MCH 31.4 MCHC 34.6 RDW 12.6 Plt Count 289 D MPV 9.4 Immature Gran % (Auto) 0.4 Neut % (Auto) 76.9 H Lymph % (Auto) 14.0 L [place] % (Auto) 8.4 Eos % (Auto) 0.0 Baso % (Auto) 0.3 Lymph # (Auto) 1.4 [place] # (Auto) 0.9 Eos # (Auto) 0.0 Baso # (Auto) 0.0 Abs Immat Gran (auto) 0.04 H Absolute Neuts (auto) 7.9 Absolute Nucleated RBC 0.000 Nucleated RBC % (auto) 0.0 Anion Gap 18 Estim Creat Clear Calc 43.4 Estimated GFR 54 Fasting Glucose 125 H Calcium 9.9 D Total Bilirubin 0.9 AST 27 ALT 22 Alkaline Phosphatase 94 Total Protein 7.2 Albumin 4.5 Triglycerides 58 Cholesterol 178 D LDL Cholesterol, Calc 110 HDL Cholesterol 57 Vitamin B12 237 Folate 16.9 TSH 0.82 Urine Color Urine Appearance Urine pH Ur Specific [place] Urine Protein Urine Glucose (UA) Urine Ketones Urine Blood Urine Nitrite Ur Leukocyte Esterase Urine RBC Urine WBC Ur Squamous Epith Cells Urine Bacteria Urine Mucus 05/19/21 05/19/21 05/19/21 06:30 07:54 07:54 MCV 92.5 MCH 31.0 MCHC 33.5 RDW 13.0 Plt Count 243 MPV 9.4 Immature Gran % (Auto) 0.4 Neut % (Auto) 67.7 Lymph % (Auto) 20.4 [place] % (Auto) 10.5 Eos % (Auto) 0.5 Baso % (Auto) 0.5 Lymph # (Auto) 1.2 [place] # (Auto) 0.6 Eos # (Auto) 0.0 Baso # (Auto) 0.0 Abs Immat Gran (auto) 0.02 Absolute Neuts (auto) 3.9 Absolute Nucleated RBC 0.000 Nucleated RBC % (auto) 0.0 Anion Gap 14 Estim Creat Clear Calc 56.3 Estimated GFR > 60 Fasting Glucose 114 H Calcium 9.3 D Total Bilirubin 0.9 AST 32 H ALT 20 Alkaline Phosphatase 93 Total Protein 6.8 Albumin 4.3 Triglycerides 57 Cholesterol 165 LDL Cholesterol, Calc 100 HDL Cholesterol 54 Vitamin B12 Folate TSH Urine Color YELLOW Urine Appearance CLOUDY Urine pH 6.0 Ur Specific [place] 1.025 Urine Protein TRACE Urine Glucose (UA) NEG Urine Ketones 15 Urine Blood 1+ H Urine Nitrite NEG Ur Leukocyte Esterase 2+ H Urine RBC 0-2 Urine WBC 10-14 H Ur Squamous Epith Cells 1+ Urine Bacteria 1+ Urine Mucus 2+ Assessment and Plan (1) Major depressive disorder, recurrent episode with mood-congruent psychotic features: Status: Acute (2) Pre-op testing: Status: Acute Plan 70 yo F admitted to psych for major depressive disorder, with past medical history of pulmonary embolism on Eliquis, Medical consult requested for ECT Clearance. EKG reviewed and unremarkable. labs reviewed and unremarkable/ normal head CT February 07 No absolute contradictions for ECT No further work up needed at this time.? History of PE continue Eliquis as your are doing. Quality Stroke Does the patient have a stroke diagnosis?: No VTE Prior VTE?: No VTE Risk Level:: Medical - moderate - high VTE Device Contraindication: Treatment Not Indicated VTE Drug Contraindication: N/A - Med Ordered
[2021-05-19 09:06] LABS: Vitamin B12 225 pg/mL (200-900)
[2021-05-19 10:24] LABS: Reflex LDLD? No
--- NOTE | 2021-05-19 15:07 | P.HPSUR_ITS ---
Pre-Procedural Eval Section A Date of Service: 05/19/21 The patient is an INPATIENT: Yes Changes since office visit: No Cold of Flu in the past 2 weeks, No New Medical Problems, No Changes in Medication and No Patient answered all questions The History & Physical has been completed within 30 days and I have reviewed it.: Yes Section B Chief Complaint: major depressive d/o recurrent severe with psychot Relevant Family History (Specify if Yes): No Relevant Social History: None Present Medications: None Medical History: No relevant PMH History of Previous Operations: No relevant previous surgery Allergies: Allergies Allergy/AdvReac Type Severity Reaction Status Date / Time amoxicillin [From Augmentin] Allergy Unknown Unknown Verified 02/01/21 15:55 aspirin Allergy Unknown Unknown Verified 02/01/21 16:34 clavulanic acid Allergy Unknown Unknown Verified 02/01/21 15:55 [From Augmentin] diphenhydramine Allergy Unknown Unknown Verified 02/01/21 16:35 hydrochlorothiazide Allergy Unknown Unknown Verified 02/01/21 16:44 metronidazole Allergy Unknown Unknown Verified 02/01/21 16:54 trazodone Allergy Unknown Unknown Verified 02/01/21 16:54 augmentin Allergy Unknown Unknown Uncoded 02/01/21 15:55 Review of Systems Sugical H&P ROS: Negative: Constitution, Cardiovascular, Respiratory, Neurological, Psychiatric, Hem-Onc, Allergic/Immunologic, Gastrointestinal, Gen itourinary, Musculoskeletal, Integumentary, Endocrine and Eyes/Ears/Nose/Throat Exam Surgical H&P Exam: Normal: HEENT, Normal: Heart, Normal: Lungs, Normal: Extremities, Normal: Abdomen, Normal: Skin and Normal: Neurological Plan Diagnosis/Plan: Unchanged I have reviewed the history and physical and performed a pertinent physical examination on my patient. No changes have occurred unless specified.
--- NOTE | 2021-05-19 15:08 | HO.ECTPROC ---
ECT Procedure Note Diagnosis/Treatment Date of Service: 05/19/21 Interval Clinical Notes: The patient was readmitted for exacerbaton of depression in the context of not continuing ECT. Very anxious and depressed ECT Settings Device: THYMATRON DGx Electrode Placement: Right Unilateral Program/Pulse Width: 0.50 Energy Percent: 90 Seizure Duration By EEG (in seconds): 42 By Motor Observation (in seconds): 26 Medications Administration General Anesthetic: Etomidate (10) Muscle Relaxant: Succinylcholine (80) Ancillary Medications Analgesics: Torodol - Pre ECT Anti-emetics: Zofran - Pre ECT Miscillaneous Medications: Propofol and Flumazenil Airway Management Airway Management: Bag Mask Ventilation Treatment Recommendations No Changes Recommended: No change Pt Tolerated Procedure w/o Issue: Yes
--- NOTE | 2021-05-19 15:14 | HO.ANESPROP2 ---
[facility] Active Problems Active Problems: All Active Problems (Updated 05/19/21 @ 10:26 by Enoc Fontaine MD) Pre-op testing (Acute) Major depressive disorder, recurrent episode with mood-congruent psychotic features (Acute) Neurocognitive disorder (Acute) Past Medical History Medical History (Updated 05/19/21 @ 10:26 by Enoc Fontaine MD) History of pulmonary embolism Neurocognitive disorder Pulmonary embolism Family History Family history of problems with anesthesia: No Surgical History Surgical History H/O section History of Problems with Anesthesia: No Social History Social History Household Members: Spouse Household Members Other:: Her and her Housing: House Do you presently have visiting nurse or other home services: No Patient Tobacco Use Status: Never used Tobacco Second Hand Smoke Exposure: No Use of substances other than those prescribed or required for medical reasons: No Currently Displaying Signs/Symptoms of Drug Intoxication Withdrawal: No Have you been hit, kicked, punched, or otherwise hurt by someone within the past year? If so, by whom?: No Do you feel safe in your current relationship?: Yes Is there a partner from a previous relationship who is making you feel unsafe now?: No Are you made to feel afraid or neglected: No Are you DNR?: No Advance Directives: No Do you have thoughts of harming others: None Do you have a plan to hurt others: No Plan Recently lost weight without trying: No Nutrition Risks: No Nutritional Risk Patient : No : No Poor oral hygiene: No service: Yes Sexual orientation: Straight/Heterosexual Meds Allergies Allergy/AdvReac Type Severity Reaction Status Date / Time amoxicillin [From Augmentin] Allergy Unknown Unknown Verified 02/01/21 15:55 aspirin Allergy Unknown Unknown Verified 02/01/21 16:34 clavulanic acid Allergy Unknown Unknown Verified 02/01/21 15:55 [From Augmentin] diphenhydramine Allergy Unknown Unknown Verified 02/01/21 16:35 hydrochlorothiazide Allergy Unknown Unknown Verified 02/01/21 16:44 metronidazole Allergy Unknown Unknown Verified 02/01/21 16:54 trazodone Allergy Unknown Unknown Verified 02/01/21 16:54 augmentin Allergy Unknown Unknown Uncoded 02/01/21 15:55 Active Medications: Current Medications Acetaminophen (Acetaminophen 325 Mg Tablet) 650 mg PO Q6H PRN PRN Reason: Headache/Pain Mild Scale (1-3) Last Admin: 05/18/21 21:02 Dose: 650 mg Documented by: Al Hydroxide/Mg Hydroxide (Magnesium Hydrox/Alum Hydrox 30 Ml Oral.Susp) 30 ml PO Q6H PRN PRN Reason: Heartburn/Nausea Alprazolam (Alprazolam 0.5 Mg Tablet) 0.5 mg PO TID [facility] Apixaban (Apixaban 5 Mg Tablet) 5 mg PO BID [facility] Last Admin: 05/19/21 08:21 Dose: 5 mg Documented by: Magnesium Hydroxide (Milk Of Magnesia 30 Ml Oral.Susp) 30 ml PO DAILY PRN PRN Reason: Constipation Mirtazapine (Mirtazapine 15 Mg Tablet) 45 mg PO BEDTIME [facility] Last Admin: 05/18/21 20:09 Dose: 45 mg Documented by: Olanzapine (Olanzapine 2.5 Mg Tablet) 2.5 mg PO BID PRN PRN Reason: anxiety, agitation Last Admin: 05/18/21 22:02 Dose: 2.5 mg Documented by: Olanzapine (Olanzapine 5 Mg Tablet) 5 mg PO TID [facility] Home Medications Medication Instructions Recorded Confirmed Last Taken Type gabapentin 600 mg tablet 600 mg PO TID 02/01/21 02/01/21 Unknown History lorazepam 0.5 mg tablet (Ativan) 0.5 mg PO DAILY PRN 05/18/21 05/18/21 Unknown History Exam Exam Date and Time: May 19, 2021 1514 Height,Weight and Vital Signs: Height 5 ft 3 in Weight 52.163 kg Last Vital Signs Temp 97.5 F 05/19/21 13:54 Pulse 75 05/19/21 13:54 Resp 21 H 05/19/21 13:54 BP 120/70 05/19/21 13:54 Pulse Ox 94 05/19/21 13:54 Pertinent Lab Results Pertinent Lab Results: Laboratory Tests 05/18/21 05/18/21 05/18/21 19:05 19:05 19:05 WBC 10.2 RBC 4.37 D Hgb 13.7 D Hct 39.6 MCV 90.6 MCH 31.4 MCHC 34.6 RDW 12.6 Plt Count 289 D MPV 9.4 Immature Gran % (Auto) 0.4 Neut % (Auto) 76.9 H Lymph % (Auto) 14.0 L [place] % (Auto) 8.4 Eos % (Auto) 0.0 Baso % (Auto) 0.3 Lymph # (Auto) 1.4 [place] # (Auto) 0.9 Eos # (Auto) 0.0 Baso # (Auto) 0.0 Abs Immat Gran (auto) 0.04 H Absolute Neuts (auto) 7.9 Absolute Nucleated RBC 0.000 Nucleated RBC % (auto) 0.0 Sodium 142 Potassium 4.0 Chloride 106 Carbon Dioxide 22 Anion Gap 18 BUN 20 H Creatinine 1.01 Estim Creat Clear Calc 43.4 Estimated GFR 54 Fasting Glucose 125 H Calcium 9.9 D Total Bilirubin 0.9 AST 27 ALT 22 Alkaline Phosphatase 94 Total Protein 7.2 Albumin 4.5 Triglycerides 58 Cholesterol 178 D LDL Cholesterol, Calc 110 HDL Cholesterol 57 Vitamin B12 237 Folate 16.9 TSH 0.82 Urine Color Urine Appearance Urine pH Ur Specific [place] Urine Protein Urine Glucose (UA) Urine Ketones Urine Blood Urine Nitrite Ur Leukocyte Esterase Urine RBC Urine WBC Ur Squamous Epith Cells Urine Bacteria Urine Mucus 05/19/21 05/19/21 05/19/21 06:30 07:54 07:54 WBC 5.7 RBC 4.29 Hgb 13.3 Hct 39.7 MCV 92.5 MCH 31.0 MCHC 33.5 RDW 13.0 Plt Count 243 MPV 9.4 Immature Gran % (Auto) 0.4 Neut % (Auto) 67.7 Lymph % (Auto) 20.4 [place] % (Auto) 10.5 Eos % (Auto) 0.5 Baso % (Auto) 0.5 Lymph # (Auto) 1.2 [place] # (Auto) 0.6 Eos # (Auto) 0.0 Baso # (Auto) 0.0 Abs Immat Gran (auto) 0.02 Absolute Neuts (auto) 3.9 Absolute Nucleated RBC 0.000 Nucleated RBC % (auto) 0.0 Sodium 141 Potassium 3.6 Chloride 106 Carbon Dioxide 25 Anion Gap 14 BUN 21 H Creatinine 0.78 Estim Creat Clear Calc 56.3 Estimated GFR > 60 Fasting Glucose 114 H Calcium 9.3 D Total Bilirubin 0.9 AST 32 H ALT 20 Alkaline Phosphatase 93 Total Protein 6.8 Albumin 4.3 Triglycerides 57 Cholesterol 165 LDL Cholesterol, Calc 100 HDL Cholesterol 54 Vitamin B12 Folate TSH 0.70 Urine Color YELLOW Urine Appearance CLOUDY Urine pH 6.0 Ur Specific [place] 1.025 Urine Protein TRACE Urine Glucose (UA) NEG Urine Ketones 15 Urine Blood 1+ H Urine Nitrite NEG Ur Leukocyte Esterase 2+ H Urine RBC 0-2 Urine WBC 10-14 H Ur Squamous Epith Cells 1+ Urine Bacteria 1+ Urine Mucus 2+ 05/19/21 07:54 WBC RBC Hgb Hct MCV MCH MCHC RDW Plt Count MPV Immature Gran % (Auto) Neut % (Auto) Lymph % (Auto) [place] % (Auto) Eos % (Auto) Baso % (Auto) Lymph # (Auto) [place] # (Auto) Eos # (Auto) Baso # (Auto) Abs Immat Gran (auto) Absolute Neuts (auto) Absolute Nucleated RBC Nucleated RBC % (auto) Sodium Potassium Chloride Carbon Dioxide Anion Gap BUN Creatinine Estim Creat Clear Calc Estimated GFR Fasting Glucose Calcium Total Bilirubin AST ALT Alkaline Phosphatase Total Protein Albumin Triglycerides Cholesterol LDL Cholesterol, Calc HDL Cholesterol Vitamin B12 225 Folate 18.0 TSH Urine Color Urine Appearance Urine pH Ur Specific [place] Urine Protein Urine Glucose (UA) Urine Ketones Urine Blood Urine Nitrite Ur Leukocyte Esterase Urine RBC Urine WBC Ur Squamous Epith Cells Urine Bacteria Urine Mucus Airway Mallampati Class: II (Multiple caps) TM Dist: >3cm Neck ROM: Full Heart: rrr Lungs: cta Assessment and Plan Assessment Anesthesia Assessment: Anesthesia Plan Discussed and Chart Reviewed Final Anesthetic Review Family History of Problems with Anesthesia: No History of Problems with Anesthesia: No NPO: Yes ASA Class: III Final Preanesthetic Review: No Changes in Pt Med Stat, Meds/Allgs Chart Reviewed and Consent Obtained/Reviewed Patient Risk: Intermediate Procedure Risk: Intermediate Anesthetic Plan Anesthetic Plan: GA Disposition: Standard PACU
[2021-05-19] MEDS: LORazepam 2 MG/ML VIAL 0.5 MG IVPUSH ×2 (16:10→16:15)
--- NOTE | 2021-05-19 16:57 | P.PNPSI_ITS ---
Subjective Subjective Date of Service: 05/19/21 Reason For Visit: major depressive d/o recurrent severe with psychot Subjective Notes: Conditional Voluntary and 3 Day Guardianship: No Medical Problems Affecting Mental Status: Yes (some head ct changes ) Interim History: see ect note pt quite anxious ruminating not easily helped by medication Medication Compliance: Yes Review of Systems Medical Review of Systems: unchanged Mental Status Exam Mental Status Exam Patient Appearance: Unkempt Patient Orientation: Person, Place and Situation Level of Consciousness: Awake Patient Behavior: Appropriate Mood Description: Constricted, Depressed, Anxious and Apprehensive Affect Description: Constricted, Depressed, Anxious and Apprehensive Ability to Follow Directions: Fair Speech Pattern: Clear Delusions: Present (somatic delusions ) Thought Process: Intact Thought Content: positive for Poverty of Content Depressive Symptoms: Difficulty Concentrating Judgement: Poor Diagnostics Vital Signs (24Hr): Vital Signs - 24 hr 05/20/21 20:38 05/21/21 08:00 Temperature 97.4 F 96.9 F Pulse Rate 67 74 Respiratory Rate 16 Blood Pressure 123/73 110/65 Pulse Oximetry 95 95 BMI result Body Mass Index 20.3 Labs Results: 05/19/21 07:54 05/19/21 07:54 Medications Medications Current Medications Acetaminophen (Acetaminophen 325 Mg Tablet) 650 mg PO Q6H PRN PRN Reason: Headache/Pain Mild Scale (1-3) Last Admin: 05/18/21 21:02 Dose: 650 mg Documented by: Al Hydroxide/Mg Hydroxide (Magnesium Hydrox/Alum Hydrox 30 Ml Oral.Susp) 30 ml PO Q6H PRN PRN Reason: Heartburn/Nausea Alprazolam (Alprazolam 0.5 Mg Tablet) 0.5 mg PO TID [facility] Last Admin: 05/21/21 09:43 Dose: 0.5 mg Documented by: Apixaban (Apixaban 5 Mg Tablet) 5 mg PO BID [facility] Last Admin: 05/21/21 09:43 Dose: 5 mg Documented by: Magnesium Hydroxide (Milk Of Magnesia 30 Ml Oral.Susp) 30 ml PO DAILY PRN PRN Reason: Constipation Mirtazapine (Mirtazapine 15 Mg Tablet) 45 mg PO BEDTIME [facility] Last Admin: 05/20/21 21:09 Dose: 45 mg Documented by: Olanzapine (Olanzapine 2.5 Mg Tablet) 2.5 mg PO BID PRN PRN Reason: anxiety, agitation Last Admin: 05/18/21 22:02 Dose: 2.5 mg Documented by: Olanzapine (Olanzapine 5 Mg Tablet) 5 mg PO TID [facility] Last Admin: 05/21/21 09:43 Dose: 5 mg Documented by: Allergies Allergies Allergy/AdvReac Type Severity Reaction Status Date / Time amoxicillin [From Augmentin] Allergy Unknown Unknown Verified 02/01/21 15:55 aspirin Allergy Unknown Unknown Verified 02/01/21 16:34 clavulanic acid Allergy Unknown Unknown Verified 02/01/21 15:55 [From Augmentin] diphenhydramine Allergy Unknown Unknown Verified 02/01/21 16:35 hydrochlorothiazide Allergy Unknown Unknown Verified 02/01/21 16:44 metronidazole Allergy Unknown Unknown Verified 02/01/21 16:54 trazodone Allergy Unknown Unknown Verified 02/01/21 16:54 augmentin Allergy Unknown Unknown Uncoded 02/01/21 15:55 Assessment & Plan Assessment & Plan (1) Major depressive disorder, recurrent episode with mood-congruent psychotic features: Status: Acute Code(s): F33.3 - Major depressive disorder, recurrent, severe with psychotic symptoms (2) Pre-op testing: Status: Acute Code(s): Z01.818 - Encounter for other preprocedural examination Plan 70 yo F admitted to psych for major depressive disorder, with past medical history of pulmonary embolism on Eliquis, Medical consult requested for ECT Clearance. EKG reviewed and unremarkable. labs reviewed and unremarkable/ normal head CT February 07 No absolute contradictions for ECT No further work up needed at this time.? ECT. I spent minutes with the patient and/or on the patient floor today, greater than?50% of which was spent counseling/coordinating care. Reason for contiued inpatient stay Substantial Risk for: harm to self, inability to function and rapid decompensation
[2021-05-19] MEDS: ALPRAZolam 0.5 MG TABLET PO ×2 (17:23→20:06)
--- NOTE | 2021-05-19 18:11 | PC.NURSE ---
At approximately 1745 pt was getting up from the table where she had been eating dinner and lost her footing and fell to her knees, stating, I think I tripped on my own shoe or the base of the table . Pt appeared to have no apparent injury, V/S stable, she has full range of motion to legs and denies pain to hips and knees, though stated her left calf was a tiny bit sore . Pt able to ambulate adequately after the incident.
--- NOTE | 2021-05-19 18:20 | PC.NURSE ---
addendum to previous note, Dr Ko Garrett notified via [place] text. No orders at this time, will continue to monitor pt.
[2021-05-19] MEDS: Mirtazapine 15 MG TABLET 45 MG PO (20:06)
[2021-05-20 08:00] VITALS: BP 98/52; PULSE 85; TEMP 36; O2SAT 95
[2021-05-20] MEDS: Apixaban 5 MG TABLET PO ×2 (08:37→21:09)
[2021-05-20] MEDS: ALPRAZolam 0.5 MG TABLET PO ×3 (08:37→21:09)
[2021-05-20] MEDS: OLANZapine 5 MG TABLET PO ×3 (08:37→21:09)
--- NOTE | 2021-05-20 20:06 | P.PNPSI_ITS ---
Subjective Subjective Date of Service: 05/20/21 Reason For Visit: major depressive d/o recurrent severe with psychot Interim History: pt found resting in her bed. no questions, complaints, or requests for quality analyst/technical writer. per staff, doing well this morning. no behavioral outbursts. slept well overnight. quiet, calm. anxious, med-compliant. Mental Status Exam Mental Status Exam Patient Appearance: Unkempt Patient Orientation: Person, Place and Situation Level of Consciousness: Awake Mood Description: Constricted, Depressed, Anxious and Apprehensive Affect Description: Constricted, Depressed, Anxious and Apprehensive Ability to Follow Directions: Fair Speech Pattern: Clear Thought Process: Intact Thought Content: positive for Poverty of Content Depressive Symptoms: Difficulty Concentrating Judgement: Fair Diagnostics Vital Signs (24Hr): Vital Signs - 24 hr 05/19/21 21:02 05/20/21 08:00 Temperature 97.4 F 96.8 F Pulse Rate 78 85 Respiratory Rate 16 Blood Pressure 100/70 98/52 L Pulse Oximetry 94 95 BMI result Body Mass Index 20.3 Labs Results: 05/19/21 07:54 05/19/21 07:54 Labs: Laboratory Results - last 48 hr 05/18/21 05/19/21 05/19/21 19:05 06:30 07:54 WBC 5.7 RBC 4.29 Hgb 13.3 Hct 39.7 MCV 92.5 MCH 31.0 MCHC 33.5 RDW 13.0 Plt Count 243 MPV 9.4 Immature Gran % (Auto) 0.4 Neut % (Auto) 67.7 Lymph % (Auto) 20.4 [place] % (Auto) 10.5 Eos % (Auto) 0.5 Baso % (Auto) 0.5 Lymph # (Auto) 1.2 [place] # (Auto) 0.6 Eos # (Auto) 0.0 Baso # (Auto) 0.0 Abs Immat Gran (auto) 0.02 Absolute Neuts (auto) 3.9 Absolute Nucleated RBC 0.000 Nucleated RBC % (auto) 0.0 Sodium Potassium Chloride Carbon Dioxide Anion Gap BUN Creatinine Estim Creat Clear Calc Estimated GFR Fasting Glucose Calcium Total Bilirubin AST ALT Alkaline Phosphatase Total Protein Albumin Triglycerides Cholesterol LDL Cholesterol, Calc HDL Cholesterol Vitamin B12 237 Folate 16.9 TSH Urine Color YELLOW Urine Appearance CLOUDY Urine pH 6.0 Ur Specific [place] 1.025 Urine Protein TRACE Urine Glucose (UA) NEG Urine Ketones 15 Urine Blood 1+ H Urine Nitrite NEG Ur Leukocyte Esterase 2+ H Urine RBC 0-2 Urine WBC 10-14 H Ur Squamous Epith Cells 1+ Urine Bacteria 1+ Urine Mucus 2+ 05/19/21 05/19/21 07:54 07:54 WBC RBC Hgb Hct MCV MCH MCHC RDW Plt Count MPV Immature Gran % (Auto) Neut % (Auto) Lymph % (Auto) [place] % (Auto) Eos % (Auto) Baso % (Auto) Lymph # (Auto) [place] # (Auto) Eos # (Auto) Baso # (Auto) Abs Immat Gran (auto) Absolute Neuts (auto) Absolute Nucleated RBC Nucleated RBC % (auto) Sodium 141 Potassium 3.6 Chloride 106 Carbon Dioxide 25 Anion Gap 14 BUN 21 H Creatinine 0.78 Estim Creat Clear Calc 56.3 Estimated GFR > 60 Fasting Glucose 114 H Calcium 9.3 D Total Bilirubin 0.9 AST 32 H ALT 20 Alkaline Phosphatase 93 Total Protein 6.8 Albumin 4.3 Triglycerides 57 Cholesterol 165 LDL Cholesterol, Calc 100 HDL Cholesterol 54 Vitamin B12 225 Folate 18.0 TSH 0.70 Urine Color Urine Appearance Urine pH Ur Specific [place] Urine Protein Urine Glucose (UA) Urine Ketones Urine Blood Urine Nitrite Ur Leukocyte Esterase Urine RBC Urine WBC Ur Squamous Epith Cells Urine Bacteria Urine Mucus Medications Medications Current Medications Acetaminophen (Acetaminophen 325 Mg Tablet) 650 mg PO Q6H PRN PRN Reason: Headache/Pain Mild Scale (1-3) Last Admin: 05/18/21 21:02 Dose: 650 mg Documented by: Al Hydroxide/Mg Hydroxide (Magnesium Hydrox/Alum Hydrox 30 Ml Oral.Susp) 30 ml PO Q6H PRN PRN Reason: Heartburn/Nausea Alprazolam (Alprazolam 0.5 Mg Tablet) 0.5 mg PO TID [facility] Last Admin: 05/20/21 15:18 Dose: 0.5 mg Documented by: Apixaban (Apixaban 5 Mg Tablet) 5 mg PO BID [facility] Last Admin: 05/20/21 08:37 Dose: 5 mg Documented by: Magnesium Hydroxide (Milk Of Magnesia 30 Ml Oral.Susp) 30 ml PO DAILY PRN PRN Reason: Constipation Mirtazapine (Mirtazapine 15 Mg Tablet) 45 mg PO BEDTIME [facility] Last Admin: 05/19/21 20:06 Dose: 45 mg Documented by: Olanzapine (Olanzapine 2.5 Mg Tablet) 2.5 mg PO BID PRN PRN Reason: anxiety, agitation Last Admin: 05/18/21 22:02 Dose: 2.5 mg Documented by: Olanzapine (Olanzapine 5 Mg Tablet) 5 mg PO TID [facility] Last Admin: 05/20/21 15:18 Dose: 5 mg Documented by: Allergies Allergies Allergy/AdvReac Type Severity Reaction Status Date / Time amoxicillin [From Augmentin] Allergy Unknown Unknown Verified 02/01/21 15:55 aspirin Allergy Unknown Unknown Verified 02/01/21 16:34 clavulanic acid Allergy Unknown Unknown Verified 02/01/21 15:55 [From Augmentin] diphenhydramine Allergy Unknown Unknown Verified 02/01/21 16:35 hydrochlorothiazide Allergy Unknown Unknown Verified 02/01/21 16:44 metronidazole Allergy Unknown Unknown Verified 02/01/21 16:54 trazodone Allergy Unknown Unknown Verified 02/01/21 16:54 augmentin Allergy Unknown Unknown Uncoded 02/01/21 15:55 Assessment & Plan Assessment & Plan (1) Major depressive disorder, recurrent episode with mood-congruent psychotic features: Status: Acute Code(s): F33.3 - Major depressive disorder, recurrent, severe with psychotic symptoms (2) Pre-op testing: Status: Acute Code(s): Z01.818 - Encounter for other preprocedural examination Plan 70 yo F admitted to psych for major depressive disorder, with past medical history of pulmonary embolism on Eliquis, Medical consult requested for ECT Clearance. EKG reviewed and unremarkable. labs reviewed and unremarkable/ normal head CT February 07 No absolute contradictions for ECT No further work up needed at this time.? ECT. I spent __15____ minutes with the patient and/or on the patient floor today, greater than?50% of which was spent counseling/coordinating care. Reason for contiued inpatient stay Substantial Risk for: inability to function and rapid decompensation
[2021-05-20 20:38] VITALS: BP 123/73; PULSE 67; RESP 16; TEMP 36.3; O2SAT 95
[2021-05-20] MEDS: Mirtazapine 15 MG TABLET 45 MG PO (21:09)
[2021-05-21 08:00] VITALS: BP 110/65; PULSE 74; TEMP 36.1; O2SAT 95
[2021-05-21] MEDS: Apixaban 5 MG TABLET PO ×2 (09:43→20:18)
[2021-05-21] MEDS: OLANZapine 5 MG TABLET PO ×3 (09:43→20:17)
[2021-05-21] MEDS: ALPRAZolam 0.5 MG TABLET PO ×2 (09:43→15:22)
--- NOTE | 2021-05-21 14:18 | HO.PSYCHPN ---
Subjective Subjective Date of Service: 05/21/21 Reason For Visit: major depressive d/o recurrent severe with psychot Interim History: pt c/o being cold, pulls blankets up higher on her chest. no other complaints or requests for MD. per staff, calm, quiet. isolated, safe. denies SI/HI. eating well, sleeping well, got HS meds. Mental Status Exam Mental Status Exam Patient Appearance: Unkempt Patient Orientation: Person, Place and Situation Level of Consciousness: Awake Patient Behavior: Appropriate Mood Description: Constricted, Depressed, Anxious and Apprehensive Affect Description: Constricted, Depressed, Anxious and Apprehensive Ability to Follow Directions: Fair Speech Pattern: Clear Delusions: Present (somatic delusions ) Thought Process: Intact Thought Content: positive for Poverty of Content Depressive Symptoms: Difficulty Concentrating Judgement: Poor Diagnostics Vital Signs (24Hr): Vital Signs - 24 hr 05/20/21 20:38 05/21/21 08:00 Temperature 97.4 F 96.9 F Pulse Rate 67 74 Respiratory Rate 16 Blood Pressure 123/73 110/65 Pulse Oximetry 95 95 BMI result Body Mass Index 20.3 Labs Results: 05/19/21 07:54 05/19/21 07:54 Medications Medications Current Medications Acetaminophen (Acetaminophen 325 Mg Tablet) 650 mg PO Q6H PRN PRN Reason: Headache/Pain Mild Scale (1-3) Last Admin: 05/18/21 21:02 Dose: 650 mg Documented by: Al Hydroxide/Mg Hydroxide (Magnesium Hydrox/Alum Hydrox 30 Ml Oral.Susp) 30 ml PO Q6H PRN PRN Reason: Heartburn/Nausea Alprazolam (Alprazolam 0.5 Mg Tablet) 0.5 mg PO TID [facility] Last Admin: 05/21/21 09:43 Dose: 0.5 mg Documented by: Apixaban (Apixaban 5 Mg Tablet) 5 mg PO BID [facility] Last Admin: 05/21/21 09:43 Dose: 5 mg Documented by: Magnesium Hydroxide (Milk Of Magnesia 30 Ml Oral.Susp) 30 ml PO DAILY PRN PRN Reason: Constipation Mirtazapine (Mirtazapine 15 Mg Tablet) 45 mg PO BEDTIME [facility] Last Admin: 05/20/21 21:09 Dose: 45 mg Documented by: Olanzapine (Olanzapine 2.5 Mg Tablet) 2.5 mg PO BID PRN PRN Reason: anxiety, agitation Last Admin: 05/18/21 22:02 Dose: 2.5 mg Documented by: Olanzapine (Olanzapine 5 Mg Tablet) 5 mg PO TID [facility] Last Admin: 05/21/21 09:43 Dose: 5 mg Documented by: Allergies Allergies Allergy/AdvReac Type Severity Reaction Status Date / Time amoxicillin [From Augmentin] Allergy Unknown Unknown Verified 02/01/21 15:55 aspirin Allergy Unknown Unknown Verified 02/01/21 16:34 clavulanic acid Allergy Unknown Unknown Verified 02/01/21 15:55 [From Augmentin] diphenhydramine Allergy Unknown Unknown Verified 02/01/21 16:35 hydrochlorothiazide Allergy Unknown Unknown Verified 02/01/21 16:44 metronidazole Allergy Unknown Unknown Verified 02/01/21 16:54 trazodone Allergy Unknown Unknown Verified 02/01/21 16:54 augmentin Allergy Unknown Unknown Uncoded 02/01/21 15:55 Assessment & Plan Assessment & Plan (1) Major depressive disorder, recurrent episode with mood-congruent psychotic features: Status: Acute Code(s): F33.3 - Major depressive disorder, recurrent, severe with psychotic symptoms (2) Pre-op testing: Status: Acute Code(s): Z01.818 - Encounter for other preprocedural examination Plan 70 yo F admitted to psych for major depressive disorder, with past medical history of pulmonary embolism on Eliquis, Medical consult requested for ECT Clearance. EKG reviewed and unremarkable. labs reviewed and unremarkable/ normal head CT February 07 No absolute contradictions for ECT No further work up needed at this time.? ECT. I spent ___15___ minutes with the patient and/or on the patient floor today, greater than?50% of which was spent counseling/coordinating care. Reason for contiued inpatient stay Substantial Risk for: inability to function and rapid decompensation
[2021-05-21 18:00] VITALS: BP 107/61; PULSE 72; RESP 18; TEMP 36.6; O2SAT 94
[2021-05-21] MEDS: Mirtazapine 15 MG TABLET 45 MG PO (20:17)
[2021-05-22] VITALS (8 sets, daily range): BP systolic 124–158; BP diastolic 61–92; PULSE 76–121; RESP 16–28; TEMP 36.3–36.8; O2SAT 94–99
--- NOTE | 2021-05-22 08:42 | MHC.SHP ---
Pre-Procedural Eval Section A Date of Service: 05/22/21 The patient is an INPATIENT: Yes Changes since office visit: Yes New Medical Problems, Yes Changes in Medication and Yes Patient answered all questions; No Cold of Flu in the past 2 weeks The History & Physical has been completed within 30 days and I have reviewed it.: Yes Section B Chief Complaint: major depressive d/o recurrent severe with psychot Allergies: Allergies Allergy/AdvReac Type Severity Reaction Status Date / Time amoxicillin [From Augmentin] Allergy Unknown Unknown Verified 02/01/21 15:55 aspirin Allergy Unknown Unknown Verified 02/01/21 16:34 clavulanic acid Allergy Unknown Unknown Verified 02/01/21 15:55 [From Augmentin] diphenhydramine Allergy Unknown Unknown Verified 02/01/21 16:35 hydrochlorothiazide Allergy Unknown Unknown Verified 02/01/21 16:44 metronidazole Allergy Unknown Unknown Verified 02/01/21 16:54 trazodone Allergy Unknown Unknown Verified 02/01/21 16:54 augmentin Allergy Unknown Unknown Uncoded 02/01/21 15:55 Plan I have reviewed the history and physical and performed a pertinent physical examination on my patient. No changes have occurred unless specified.
[2021-05-22] MEDS: OLANZapine 5 MG TABLET PO ×3 (08:51→20:40)
[2021-05-22] MEDS: Apixaban 5 MG TABLET PO ×2 (08:51→20:39)
[2021-05-22] MEDS: ALPRAZolam 0.5 MG TABLET PO ×3 (08:51→14:22)
--- NOTE | 2021-05-22 09:59 | HO.PSYCHPN ---
Subjective Subjective Date of Service: 05/22/21 Reason For Visit: major depressive d/o recurrent severe with psychot Subjective Notes: Agosto Warning, Conditional Voluntary and 3 Day Healthcare Proxy: No Guardianship: No Interim History: See ECT note patient floridly agitated irrational constantly thinking she is dying resistant to benzodiazepines antipsychotics did eventually consent to ECT later in the afternoon was quite agitated Medication Compliance: Yes Side effects from medications: Yes (Some balance problems) Attending Groups: No Mental Status Exam Mental Status Exam Patient Appearance: Unkempt Patient Orientation: Person, Place and Situation Level of Consciousness: Awake Patient Behavior: Appropriate and Wandering Mood Description: Constricted, Depressed, Fearful, Anxious, Nervous and Apprehensive Affect Description: Constricted, Depressed, Anxious and Apprehensive Ability to Follow Directions: Fair Speech Pattern: Clear Delusions: Present (somatic delusions ) Thought Process: Intact Thought Content: positive for Poverty of Content Depressive Symptoms: Increased Anxiety, Increased Irritability, Isolating-Friends/Family, Thoughts of /Suicide and Difficulty Concentrating Judgement: Poor Diagnostics Vital Signs (24Hr): Vital Signs - 24 hr 05/21/21 18:00 05/22/21 04:56 Temperature 97.8 F 97.3 F Pulse Rate 72 76 Respiratory Rate 18 18 Blood Pressure 107/61 124/72 Pulse Oximetry 94 95 BMI result Body Mass Index 20.3 Labs Results: 05/19/21 07:54 05/19/21 07:54 Medications Medications Current Medications Acetaminophen (Acetaminophen 325 Mg Tablet) 650 mg PO Q6H PRN PRN Reason: Headache/Pain Mild Scale (1-3) Last Admin: 05/18/21 21:02 Dose: 650 mg Documented by: Al Hydroxide/Mg Hydroxide (Magnesium Hydrox/Alum Hydrox 30 Ml Oral.Susp) 30 ml PO Q6H PRN PRN Reason: Heartburn/Nausea Alprazolam (Alprazolam 0.5 Mg Tablet) 0.5 mg PO TID [facility] Last Admin: 05/22/21 08:51 Dose: 0.5 mg Documented by: Apixaban (Apixaban 5 Mg Tablet) 5 mg PO BID [facility] Last Admin: 05/22/21 08:51 Dose: 5 mg Documented by: Magnesium Hydroxide (Milk Of Magnesia 30 Ml Oral.Susp) 30 ml PO DAILY PRN PRN Reason: Constipation Mirtazapine (Mirtazapine 15 Mg Tablet) 45 mg PO BEDTIME [facility] Last Admin: 05/21/21 20:17 Dose: 45 mg Documented by: Olanzapine (Olanzapine 2.5 Mg Tablet) 2.5 mg PO BID PRN PRN Reason: anxiety, agitation Last Admin: 05/18/21 22:02 Dose: 2.5 mg Documented by: Olanzapine (Olanzapine 5 Mg Tablet) 5 mg PO TID [facility] Last Admin: 05/22/21 08:51 Dose: 5 mg Documented by: Allergies Allergies Allergy/AdvReac Type Severity Reaction Status Date / Time amoxicillin [From Augmentin] Allergy Unknown Unknown Verified 02/01/21 15:55 aspirin Allergy Unknown Unknown Verified 02/01/21 16:34 clavulanic acid Allergy Unknown Unknown Verified 02/01/21 15:55 [From Augmentin] diphenhydramine Allergy Unknown Unknown Verified 02/01/21 16:35 hydrochlorothiazide Allergy Unknown Unknown Verified 02/01/21 16:44 metronidazole Allergy Unknown Unknown Verified 02/01/21 16:54 trazodone Allergy Unknown Unknown Verified 02/01/21 16:54 augmentin Allergy Unknown Unknown Uncoded 02/01/21 15:55 Assessment & Plan Assessment & Plan (1) Major depressive disorder, recurrent episode with mood-congruent psychotic features: Status: Acute Code(s): F33.3 - Major depressive disorder, recurrent, severe with psychotic symptoms Assessment and Plan: Prozac discontinued in case causing increased anxiety agitation. Lower mirtazapine to 30 mg. Zyprexa change to 5 mg 3 times a day. Continue ECT. Change alprazolam to lorazepam 1 t.i.d. patient has responded to lorazepam previously. One-to-one for gait disturbance but requires these doses secondary to level of anxiety agitation fearfulness continue ECT (2) Pre-op testing: Status: Acute Code(s): Z01.818 - Encounter for other preprocedural examination Plan 70 yo F admitted to psych for major depressive disorder, with past medical history of pulmonary embolism on Eliquis, Medical consult requested for ECT Clearance. EKG reviewed and unremarkable. labs reviewed and unremarkable/ normal head CT February 07 No absolute contradictions for ECT No further work up needed at this time.? ECT. I spent minutes with the patient and/or on the patient floor today, greater than?50% of which was spent counseling/coordinating care. Reason for contiued inpatient stay Substantial Risk for: harm to self, inability to function and rapid decompensation
--- NOTE | 2021-05-22 13:06 | P.CONAN_ITS ---
[facility] Active Problems Active Problems: All Active Problems (Updated 05/19/21 @ 10:26 by Enoc Fontaine MD) Pre-op testing (Acute) Major depressive disorder, recurrent episode with mood-congruent psychotic features (Acute) Neurocognitive disorder (Acute) Past Medical History Medical History (Updated 05/19/21 @ 10:26 by Enoc Fontaine MD) History of pulmonary embolism Neurocognitive disorder Pulmonary embolism Family History Family history of problems with anesthesia: No Surgical History Surgical History H/O section History of Problems with Anesthesia: No Social History Social History Household Members: Spouse Household Members Other:: Her and her Housing: House Do you presently have visiting nurse or other home services: No Patient Tobacco Use Status: Never used Tobacco Second Hand Smoke Exposure: No Use of substances other than those prescribed or required for medical reasons: No Currently Displaying Signs/Symptoms of Drug Intoxication Withdrawal: No Have you been hit, kicked, punched, or otherwise hurt by someone within the past year? If so, by whom?: No Do you feel safe in your current relationship?: Yes Is there a partner from a previous relationship who is making you feel unsafe now?: No Are you made to feel afraid or neglected: No Are you DNR?: No Advance Directives: No Do you have thoughts of harming others: None Do you have a plan to hurt others: No Plan Recently lost weight without trying: No Nutrition Risks: No Nutritional Risk Patient : No : No Poor oral hygiene: No service: Yes Sexual orientation: Straight/Heterosexual Meds Allergies Allergy/AdvReac Type Severity Reaction Status Date / Time amoxicillin [From Augmentin] Allergy Unknown Unknown Verified 02/01/21 15:55 aspirin Allergy Unknown Unknown Verified 02/01/21 16:34 clavulanic acid Allergy Unknown Unknown Verified 02/01/21 15:55 [From Augmentin] diphenhydramine Allergy Unknown Unknown Verified 02/01/21 16:35 hydrochlorothiazide Allergy Unknown Unknown Verified 02/01/21 16:44 metronidazole Allergy Unknown Unknown Verified 02/01/21 16:54 trazodone Allergy Unknown Unknown Verified 02/01/21 16:54 augmentin Allergy Unknown Unknown Uncoded 02/01/21 15:55 Active Medications: Current Medications Acetaminophen (Acetaminophen 325 Mg Tablet) 650 mg PO Q6H PRN PRN Reason: Headache/Pain Mild Scale (1-3) Last Admin: 05/18/21 21:02 Dose: 650 mg Documented by: Al Hydroxide/Mg Hydroxide (Magnesium Hydrox/Alum Hydrox 30 Ml Oral.Susp) 30 ml PO Q6H PRN PRN Reason: Heartburn/Nausea Alprazolam (Alprazolam 0.5 Mg Tablet) 0.5 mg PO TID [facility] Last Admin: 05/22/21 08:51 Dose: 0.5 mg Documented by: Apixaban (Apixaban 5 Mg Tablet) 5 mg PO BID [facility] Last Admin: 05/22/21 08:51 Dose: 5 mg Documented by: Lactated Ringer's (Lr) 1,000 mls @ 50 mls/hr IVCONT .Q20H [facility] Magnesium Hydroxide (Milk Of Magnesia 30 Ml Oral.Susp) 30 ml PO DAILY PRN PRN Reason: Constipation Mirtazapine (Mirtazapine 15 Mg Tablet) 45 mg PO BEDTIME [facility] Last Admin: 05/21/21 20:17 Dose: 45 mg Documented by: Olanzapine (Olanzapine 2.5 Mg Tablet) 2.5 mg PO BID PRN PRN Reason: anxiety, agitation Last Admin: 05/18/21 22:02 Dose: 2.5 mg Documented by: Olanzapine (Olanzapine 5 Mg Tablet) 5 mg PO TID [facility] Last Admin: 05/22/21 08:51 Dose: 5 mg Documented by: Home Medications Medication Instructions Recorded Confirmed Last Taken Type gabapentin 600 mg tablet 600 mg PO TID 02/01/21 02/01/21 Unknown History lorazepam 0.5 mg tablet (Ativan) 0.5 mg PO DAILY PRN 05/18/21 05/18/21 Unknown History Exam Exam Date and Time: May 22, 2021 1306 Height,Weight and Vital Signs: Height 5 ft 3 in Weight 52.163 kg Last Vital Signs Temp 97.3 F 05/22/21 04:56 Pulse 76 05/22/21 04:56 Resp 18 05/22/21 04:56 BP 124/72 05/22/21 04:56 Pulse Ox 95 05/22/21 04:56 Pertinent Lab Results Pertinent Lab Results: Laboratory Tests 05/18/21 05/18/21 05/18/21 19:05 19:05 19:05 WBC 10.2 RBC 4.37 D Hgb 13.7 D Hct 39.6 MCV 90.6 MCH 31.4 MCHC 34.6 RDW 12.6 Plt Count 289 D MPV 9.4 Immature Gran % (Auto) 0.4 Neut % (Auto) 76.9 H Lymph % (Auto) 14.0 L [place] % (Auto) 8.4 Eos % (Auto) 0.0 Baso % (Auto) 0.3 Lymph # (Auto) 1.4 [place] # (Auto) 0.9 Eos # (Auto) 0.0 Baso # (Auto) 0.0 Abs Immat Gran (auto) 0.04 H Absolute Neuts (auto) 7.9 Absolute Nucleated RBC 0.000 Nucleated RBC % (auto) 0.0 Sodium 142 Potassium 4.0 Chloride 106 Carbon Dioxide 22 Anion Gap 18 BUN 20 H Creatinine 1.01 Estim Creat Clear Calc 43.4 Estimated GFR 54 Fasting Glucose 125 H Calcium 9.9 D Total Bilirubin 0.9 AST 27 ALT 22 Alkaline Phosphatase 94 Total Protein 7.2 Albumin 4.5 Triglycerides 58 Cholesterol 178 D LDL Cholesterol, Calc 110 HDL Cholesterol 57 Vitamin B12 237 Folate 16.9 TSH 0.82 Urine Color Urine Appearance Urine pH Ur Specific [place] Urine Protein Urine Glucose (UA) Urine Ketones Urine Blood Urine Nitrite Ur Leukocyte Esterase Urine RBC Urine WBC Ur Squamous Epith Cells Urine Bacteria Urine Mucus 05/19/21 05/19/21 05/19/21 06:30 07:54 07:54 WBC 5.7 RBC 4.29 Hgb 13.3 Hct 39.7 MCV 92.5 MCH 31.0 MCHC 33.5 RDW 13.0 Plt Count 243 MPV 9.4 Immature Gran % (Auto) 0.4 Neut % (Auto) 67.7 Lymph % (Auto) 20.4 [place] % (Auto) 10.5 Eos % (Auto) 0.5 Baso % (Auto) 0.5 Lymph # (Auto) 1.2 [place] # (Auto) 0.6 Eos # (Auto) 0.0 Baso # (Auto) 0.0 Abs Immat Gran (auto) 0.02 Absolute Neuts (auto) 3.9 Absolute Nucleated RBC 0.000 Nucleated RBC % (auto) 0.0 Sodium 141 Potassium 3.6 Chloride 106 Carbon Dioxide 25 Anion Gap 14 BUN 21 H Creatinine 0.78 Estim Creat Clear Calc 56.3 Estimated GFR > 60 Fasting Glucose 114 H Calcium 9.3 D Total Bilirubin 0.9 AST 32 H ALT 20 Alkaline Phosphatase 93 Total Protein 6.8 Albumin 4.3 Triglycerides 57 Cholesterol 165 LDL Cholesterol, Calc 100 HDL Cholesterol 54 Vitamin B12 Folate TSH 0.70 Urine Color YELLOW Urine Appearance CLOUDY Urine pH 6.0 Ur Specific [place] 1.025 Urine Protein TRACE Urine Glucose (UA) NEG Urine Ketones 15 Urine Blood 1+ H Urine Nitrite NEG Ur Leukocyte Esterase 2+ H Urine RBC 0-2 Urine WBC 10-14 H Ur Squamous Epith Cells 1+ Urine Bacteria 1+ Urine Mucus 2+ 05/19/21 07:54 WBC RBC Hgb Hct MCV MCH MCHC RDW Plt Count MPV Immature Gran % (Auto) Neut % (Auto) Lymph % (Auto) [place] % (Auto) Eos % (Auto) Baso % (Auto) Lymph # (Auto) [place] # (Auto) Eos # (Auto) Baso # (Auto) Abs Immat Gran (auto) Absolute Neuts (auto) Absolute Nucleated RBC Nucleated RBC % (auto) Sodium Potassium Chloride Carbon Dioxide Anion Gap BUN Creatinine Estim Creat Clear Calc Estimated GFR Fasting Glucose Calcium Total Bilirubin AST ALT Alkaline Phosphatase Total Protein Albumin Triglycerides Cholesterol LDL Cholesterol, Calc HDL Cholesterol Vitamin B12 225 Folate 18.0 TSH Urine Color Urine Appearance Urine pH Ur Specific [place] Urine Protein Urine Glucose (UA) Urine Ketones Urine Blood Urine Nitrite Ur Leukocyte Esterase Urine RBC Urine WBC Ur Squamous Epith Cells Urine Bacteria Urine Mucus Airway Mallampati Class: II TM Dist: >3cm Neck ROM: Full Heart: rrr Lungs: cta Assessment and Plan Assessment Anesthesia Assessment: Anesthesia Plan Discussed and Chart Reviewed Final Anesthetic Review Family History of Problems with Anesthesia: No History of Problems with Anesthesia: No NPO: Yes ASA Class: III Final Preanesthetic Review: No Changes in Pt Med Stat, Meds/Allgs Chart Reviewed and Consent Obtained/Reviewed Patient Risk: Intermediate Procedure Risk: Intermediate Anesthetic Plan Anesthetic Plan: GA Disposition: Standard PACU
--- NOTE | 2021-05-22 13:07 | MHC.SHP ---
Pre-Procedural Eval Section A Date of Service: 05/22/21 The patient is an INPATIENT: Yes Changes since office visit: Yes Changes in Medication; No Cold of Flu in the past 2 weeks, No New Medical Problems and No Patient answered all questions The History & Physical has been completed within 30 days and I have reviewed it.: Yes Section B Chief Complaint: major depressive d/o recurrent severe with psychot Allergies: Allergies Allergy/AdvReac Type Severity Reaction Status Date / Time amoxicillin [From Augmentin] Allergy Unknown Unknown Verified 02/01/21 15:55 aspirin Allergy Unknown Unknown Verified 02/01/21 16:34 clavulanic acid Allergy Unknown Unknown Verified 02/01/21 15:55 [From Augmentin] diphenhydramine Allergy Unknown Unknown Verified 02/01/21 16:35 hydrochlorothiazide Allergy Unknown Unknown Verified 02/01/21 16:44 metronidazole Allergy Unknown Unknown Verified 02/01/21 16:54 trazodone Allergy Unknown Unknown Verified 02/01/21 16:54 augmentin Allergy Unknown Unknown Uncoded 02/01/21 15:55 Plan I have reviewed the history and physical and performed a pertinent physical examination on my patient. No changes have occurred unless specified.
--- NOTE | 2021-05-22 13:22 | HO.ECTPROC ---
ECT Procedure Note Diagnosis/Treatment Date of Service: 05/22/21 Diagnosis: Major Depressive Disorder (with psychosis) Current Treatment Number: 2 Treatment: Series ECT Settings Device: THYMATRON DGx Electrode Placement: Right Unilateral Program/Pulse Width: 0.50 Energy Percent: 100 Seizure Duration By EEG (in seconds): 64 Medications Administration General Anesthetic: Etomidate (10) Muscle Relaxant: Succinylcholine (80) Ancillary Medications Anti-emetics: Zofran - Pre ECT Miscillaneous Medications: Midazolam (2 mg pre limited effect), Flumazenil and Other (lorazepam 2 mg iv post) Airway Management Airway Management: Bag Mask Ventilation Treatment Recommendations Notes: constant feeling of panic pre somatically delusional agitated tolerated ect Pt Tolerated Procedure w/o Issue: Yes
[2021-05-22] MEDS: LORazepam 2 MG/ML VIAL IVPUSH (13:51)
--- NOTE | 2021-05-22 14:47 | PC.NURSE ---
Patient went back from PACU for ECT around 2h20 PM. patient was very agitated and 15:00 medications given. Vital signs are stable and patient is in 1-1. we will continue to monitor.
[2021-05-22] MEDS: LORazepam 1 MG TABLET PO (20:39)
[2021-05-22] MEDS: Mirtazapine 30 MG TABLET PO (20:40)
[2021-05-23] MEDS: LORazepam 1 MG TABLET PO ×3 (08:53→20:42)
[2021-05-23] MEDS: Apixaban 5 MG TABLET PO ×2 (08:53→20:41)
[2021-05-23] MEDS: OLANZapine 5 MG TABLET PO ×3 (08:54→20:42)
[2021-05-23] MEDS: Acetaminophen 325 MG TABLET 650 MG PO (11:28)
[2021-05-23 14:52] LABS: Vitamin D 25-OH, D2 <4 ng/mL; Vitamin D 25-OH, D3 21 ng/mL; Vitamin D 25-OH, Total 21 ng/mL (30-100)
[2021-05-23 15:46] LABS: Vitamin D 25-OH, D2 <4 ng/mL; Vitamin D 25-OH, D3 15 ng/mL; Vitamin D 25-OH, Total 15 ng/mL (30-100)
[2021-05-23 20:00] VITALS: BP 115/58; PULSE 64; RESP 16; TEMP 36.4; O2SAT 93
--- NOTE | 2021-05-23 20:25 | HO.PSYCHPN ---
Subjective Subjective Date of Service: 05/23/21 Reason For Visit: major depressive d/o recurrent severe with psychot Subjective Notes: Conditional Voluntary Interim History: pt remains anxious preoccupied had ect with lot agitation difficulty Review of Systems ongoing panic Mental Status Exam Mental Status Exam Patient Appearance: Disheveled Patient Orientation: Person Level of Consciousness: Restless Patient Behavior: Appropriate Mood Description: Depressed, Anxious, Labile and Apprehensive Affect Description: Fearful and Nervous Speech Pattern: Perseverating Hallucinations: None Thought Process: Rumination Depressive Symptoms: Increased Anxiety, Diff. Making Decisions and Increased Irritability Abnormal Motor Activity Signs and Symptoms: Restlessness Judgement: Fair Diagnostics Vital Signs (24Hr): BMI result Body Mass Index 20.3 Labs Results: 05/19/21 07:54 05/19/21 07:54 Labs: Laboratory Results - last 48 hr 05/18/21 05/19/21 19:05 07:54 25-OH Vitamin D Total 21 L 15 L 25-Hydroxy Vitamin D2 <4 <4 25-Hydroxy Vitamin D3 21 15 Medications Medications Current Medications Acetaminophen (Acetaminophen 325 Mg Tablet) 650 mg PO Q6H PRN PRN Reason: Headache/Pain Mild Scale (1-3) Last Admin: 05/23/21 11:28 Dose: 650 mg Documented by: Al Hydroxide/Mg Hydroxide (Magnesium Hydrox/Alum Hydrox 30 Ml Oral.Susp) 30 ml PO Q6H PRN PRN Reason: Heartburn/Nausea Apixaban (Apixaban 5 Mg Tablet) 5 mg PO BID [facility] Last Admin: 05/23/21 08:53 Dose: 5 mg Documented by: Lorazepam (Lorazepam 1 Mg Tablet) 1 mg PO TID [facility] Last Admin: 05/23/21 15:59 Dose: 1 mg Documented by: Lorazepam (Lorazepam 1 Mg Tablet) 1 mg PO BID PRN PRN Reason: anxiety/restlessness Magnesium Hydroxide (Milk Of Magnesia 30 Ml Oral.Susp) 30 ml PO DAILY PRN PRN Reason: Constipation Mirtazapine (Mirtazapine 30 Mg Tablet) 30 mg PO BEDTIME [facility] Last Admin: 05/22/21 20:40 Dose: 30 mg Documented by: Olanzapine (Olanzapine 2.5 Mg Tablet) 2.5 mg PO BID PRN PRN Reason: anxiety, agitation Last Admin: 05/18/21 22:02 Dose: 2.5 mg Documented by: Olanzapine (Olanzapine 5 Mg Tablet) 5 mg PO TID [facility] Last Admin: 05/23/21 15:59 Dose: 5 mg Documented by: Allergies Allergies Allergy/AdvReac Type Severity Reaction Status Date / Time amoxicillin [From Augmentin] Allergy Unknown Unknown Verified 02/01/21 15:55 aspirin Allergy Unknown Unknown Verified 02/01/21 16:34 clavulanic acid Allergy Unknown Unknown Verified 02/01/21 15:55 [From Augmentin] diphenhydramine Allergy Unknown Unknown Verified 02/01/21 16:35 hydrochlorothiazide Allergy Unknown Unknown Verified 02/01/21 16:44 metronidazole Allergy Unknown Unknown Verified 02/01/21 16:54 trazodone Allergy Unknown Unknown Verified 02/01/21 16:54 augmentin Allergy Unknown Unknown Uncoded 02/01/21 15:55 Assessment & Plan Assessment & Plan (1) Major depressive disorder, recurrent episode with mood-congruent psychotic features: Status: Acute Code(s): F33.3 - Major depressive disorder, recurrent, severe with psychotic symptoms Assessment and Plan: Prozac discontinued in case causing increased anxiety agitation. Lower mirtazapine to 30 mg. Zyprexa change to 5 mg 3 times a day. Continue ECT. Change alprazolam to lorazepam 1 t.i.d. patient has responded to lorazepam previously. One-to-one for gait disturbance but requires these doses secondary to level of anxiety agitation fearfulness continue ECTcont plan of care monitor respobnse to ect needs premedication secondary severe anxiety panic (2) Pre-op testing: Status: Acute Code(s): Z01.818 - Encounter for other preprocedural examination Plan 70 yo F admitted to psych for major depressive disorder, with past medical history of pulmonary embolism on Eliquis, Medical consult requested for ECT Clearance. EKG reviewed and unremarkable. labs reviewed and unremarkable/ normal head CT February 07 No absolute contradictions for ECT No further work up needed at this time.? ECT. I spent minutes with the patient and/or on the patient floor today, greater than?50% of which was spent counseling/coordinating care. Reason for contiued inpatient stay Substantial Risk for: inability to function and rapid decompensation
[2021-05-23] MEDS: Mirtazapine 30 MG TABLET PO (20:41)
[2021-05-24] VITALS (15 sets, daily range): BP systolic 111–147; BP diastolic 49–89; PULSE 74–110; RESP 16–25; TEMP 36.3–37.2; O2SAT 93–97
[2021-05-24] MEDS: LORazepam 1 MG TABLET PO ×3 (05:37→20:43)
[2021-05-24] MEDS: OLANZapine 5 MG TABLET PO ×3 (05:37→20:43)
--- NOTE | 2021-05-24 06:43 | HO.ANESPROP2 ---
ON LICENSE OF [facility] Active Problems Active Problems: All Active Problems (Updated 05/19/21 @ 10:26 by Enoc Fontaine MD) Pre-op testing (Acute) Major depressive disorder, recurrent episode with mood-congruent psychotic features (Acute) Neurocognitive disorder (Acute) Past Medical History Medical History (Updated 05/19/21 @ 10:26 by Enoc Fontaine MD) History of pulmonary embolism Neurocognitive disorder Pulmonary embolism Family History Family history of problems with anesthesia: No Surgical History Surgical History H/O section History of Problems with Anesthesia: No Social History Social History Household Members: Spouse Household Members Other:: Her and her Housing: House Do you presently have visiting nurse or other home services: No Patient Tobacco Use Status: Never used Tobacco Second Hand Smoke Exposure: No Use of substances other than those prescribed or required for medical reasons: No Currently Displaying Signs/Symptoms of Drug Intoxication Withdrawal: No Have you been hit, kicked, punched, or otherwise hurt by someone within the past year? If so, by whom?: No Do you feel safe in your current relationship?: Yes Is there a partner from a previous relationship who is making you feel unsafe now?: No Are you made to feel afraid or neglected: No Are you DNR?: No Advance Directives: No Do you have thoughts of harming others: None Do you have a plan to hurt others: No Plan Recently lost weight without trying: No Nutrition Risks: No Nutritional Risk Patient : No : No Poor oral hygiene: No service: Yes Sexual orientation: Straight/Heterosexual Meds Allergies Allergy/AdvReac Type Severity Reaction Status Date / Time amoxicillin [From Augmentin] Allergy Unknown Unknown Verified 02/01/21 15:55 aspirin Allergy Unknown Unknown Verified 02/01/21 16:34 clavulanic acid Allergy Unknown Unknown Verified 02/01/21 15:55 [From Augmentin] diphenhydramine Allergy Unknown Unknown Verified 02/01/21 16:35 hydrochlorothiazide Allergy Unknown Unknown Verified 02/01/21 16:44 metronidazole Allergy Unknown Unknown Verified 02/01/21 16:54 trazodone Allergy Unknown Unknown Verified 02/01/21 16:54 augmentin Allergy Unknown Unknown Uncoded 02/01/21 15:55 Active Medications: Current Medications Acetaminophen (Acetaminophen 325 Mg Tablet) 650 mg PO Q6H PRN PRN Reason: Headache/Pain Mild Scale (1-3) Last Admin: 05/23/21 11:28 Dose: 650 mg Documented by: Al Hydroxide/Mg Hydroxide (Magnesium Hydrox/Alum Hydrox 30 Ml Oral.Susp) 30 ml PO Q6H PRN PRN Reason: Heartburn/Nausea Apixaban (Apixaban 5 Mg Tablet) 5 mg PO BID [facility] Last Admin: 05/23/21 20:41 Dose: 5 mg Documented by: Lorazepam (Lorazepam 1 Mg Tablet) 1 mg PO TID [facility] Last Admin: 05/24/21 05:37 Dose: 1 mg Documented by: Lorazepam (Lorazepam 1 Mg Tablet) 1 mg PO BID PRN PRN Reason: anxiety/restlessness Magnesium Hydroxide (Milk Of Magnesia 30 Ml Oral.Susp) 30 ml PO DAILY PRN PRN Reason: Constipation Mirtazapine (Mirtazapine 30 Mg Tablet) 30 mg PO BEDTIME [facility] Last Admin: 05/23/21 20:41 Dose: 30 mg Documented by: Olanzapine (Olanzapine 2.5 Mg Tablet) 2.5 mg PO BID PRN PRN Reason: anxiety, agitation Last Admin: 05/18/21 22:02 Dose: 2.5 mg Documented by: Olanzapine (Olanzapine 5 Mg Tablet) 5 mg PO TID [facility] Last Admin: 05/24/21 05:37 Dose: 5 mg Documented by: Home Medications Medication Instructions Recorded Confirmed Last Taken Type gabapentin 600 mg tablet 600 mg PO TID 02/01/21 02/01/21 Unknown History lorazepam 0.5 mg tablet (Ativan) 0.5 mg PO DAILY PRN 05/18/21 05/18/21 Unknown History Exam Exam Date and Time: May 24, 2021 0643 Height,Weight and Vital Signs: Height 5 ft 3 in Weight 52.163 kg Last Vital Signs Temp 99 F 05/24/21 06:32 Pulse 81 05/24/21 06:32 Resp 16 05/24/21 06:32 BP 117/72 05/24/21 06:32 Pulse Ox 95 05/24/21 06:32 Pertinent Lab Results Pertinent Lab Results: Laboratory Tests 05/18/21 05/18/21 05/18/21 19:05 19:05 19:05 WBC 10.2 RBC 4.37 D Hgb 13.7 D Hct 39.6 MCV 90.6 MCH 31.4 MCHC 34.6 RDW 12.6 Plt Count 289 D MPV 9.4 Immature Gran % (Auto) 0.4 Neut % (Auto) 76.9 H Lymph % (Auto) 14.0 L [place] % (Auto) 8.4 Eos % (Auto) 0.0 Baso % (Auto) 0.3 Lymph # (Auto) 1.4 [place] # (Auto) 0.9 Eos # (Auto) 0.0 Baso # (Auto) 0.0 Abs Immat Gran (auto) 0.04 H Absolute Neuts (auto) 7.9 Absolute Nucleated RBC 0.000 Nucleated RBC % (auto) 0.0 Sodium 142 Potassium 4.0 Chloride 106 Carbon Dioxide 22 Anion Gap 18 BUN 20 H Creatinine 1.01 Estim Creat Clear Calc 43.4 Estimated GFR 54 Fasting Glucose 125 H Calcium 9.9 D Total Bilirubin 0.9 AST 27 ALT 22 Alkaline Phosphatase 94 Total Protein 7.2 Albumin 4.5 Triglycerides 58 Cholesterol 178 D LDL Cholesterol, Calc 110 HDL Cholesterol 57 Vitamin B12 237 25-OH Vitamin D Total 25-Hydroxy Vitamin D2 25-Hydroxy Vitamin D3 Folate 16.9 TSH 0.82 Urine Color Urine Appearance Urine pH Ur Specific [place] Urine Protein Urine Glucose (UA) Urine Ketones Urine Blood Urine Nitrite Ur Leukocyte Esterase Urine RBC Urine WBC Ur Squamous Epith Cells Urine Bacteria Urine Mucus 05/18/21 05/19/21 05/19/21 19:05 06:30 07:54 WBC 5.7 RBC 4.29 Hgb 13.3 Hct 39.7 MCV 92.5 MCH 31.0 MCHC 33.5 RDW 13.0 Plt Count 243 MPV 9.4 Immature Gran % (Auto) 0.4 Neut % (Auto) 67.7 Lymph % (Auto) 20.4 [place] % (Auto) 10.5 Eos % (Auto) 0.5 Baso % (Auto) 0.5 Lymph # (Auto) 1.2 [place] # (Auto) 0.6 Eos # (Auto) 0.0 Baso # (Auto) 0.0 Abs Immat Gran (auto) 0.02 Absolute Neuts (auto) 3.9 Absolute Nucleated RBC 0.000 Nucleated RBC % (auto) 0.0 Sodium Potassium Chloride Carbon Dioxide Anion Gap BUN Creatinine Estim Creat Clear Calc Estimated GFR Fasting Glucose Calcium Total Bilirubin AST ALT Alkaline Phosphatase Total Protein Albumin Triglycerides Cholesterol LDL Cholesterol, Calc HDL Cholesterol Vitamin B12 25-OH Vitamin D Total 21 L 25-Hydroxy Vitamin D2 <4 25-Hydroxy Vitamin D3 21 Folate TSH Urine Color YELLOW Urine Appearance CLOUDY Urine pH 6.0 Ur Specific [place] 1.025 Urine Protein TRACE Urine Glucose (UA) NEG Urine Ketones 15 Urine Blood 1+ H Urine Nitrite NEG Ur Leukocyte Esterase 2+ H Urine RBC 0-2 Urine WBC 10-14 H Ur Squamous Epith Cells 1+ Urine Bacteria 1+ Urine Mucus 2+ 05/19/21 05/19/21 05/19/21 07:54 07:54 07:54 WBC RBC Hgb Hct MCV MCH MCHC RDW Plt Count MPV Immature Gran % (Auto) Neut % (Auto) Lymph % (Auto) [place] % (Auto) Eos % (Auto) Baso % (Auto) Lymph # (Auto) [place] # (Auto) Eos # (Auto) Baso # (Auto) Abs Immat Gran (auto) Absolute Neuts (auto) Absolute Nucleated RBC Nucleated RBC % (auto) Sodium 141 Potassium 3.6 Chloride 106 Carbon Dioxide 25 Anion Gap 14 BUN 21 H Creatinine 0.78 Estim Creat Clear Calc 56.3 Estimated GFR > 60 Fasting Glucose 114 H Calcium 9.3 D Total Bilirubin 0.9 AST 32 H ALT 20 Alkaline Phosphatase 93 Total Protein 6.8 Albumin 4.3 Triglycerides 57 Cholesterol 165 LDL Cholesterol, Calc 100 HDL Cholesterol 54 Vitamin B12 225 25-OH Vitamin D Total 15 L 25-Hydroxy Vitamin D2 <4 25-Hydroxy Vitamin D3 15 Folate 18.0 TSH 0.70 Urine Color Urine Appearance Urine pH Ur Specific [place] Urine Protein Urine Glucose (UA) Urine Ketones Urine Blood Urine Nitrite Ur Leukocyte Esterase Urine RBC Urine WBC Ur Squamous Epith Cells Urine Bacteria Urine Mucus Airway Mallampati Class: II TM Dist: >3cm Neck ROM: Full Heart: rrr Lungs: cta Assessment and Plan Assessment Anesthesia Assessment: Anesthesia Plan Discussed and Chart Reviewed Final Anesthetic Review Family History of Problems with Anesthesia: No History of Problems with Anesthesia: No NPO: Yes ASA Class: III Final Preanesthetic Review: No Changes in Pt Med Stat, Meds/Allgs Chart Reviewed and Consent Obtained/Reviewed Patient Risk: Intermediate Procedure Risk: Intermediate Anesthetic Plan Anesthetic Plan: GA Disposition: Standard PACU
[2021-05-24] MEDS: Lactated Ringers 1,000 ML 50 ML IVCONT (06:59)
--- NOTE | 2021-05-24 07:06 | MHC.SHP ---
Pre-Procedural Eval Section A Date of Service: 05/24/21 The patient is an INPATIENT: Yes Changes since office visit: No Cold of Flu in the past 2 weeks, No New Medical Problems, No Changes in Medication and No Patient answered all questions The History & Physical has been completed within 30 days and I have reviewed it.: Yes Section B Chief Complaint: major depressive d/o recurrent severe with psychot Allergies: Allergies Allergy/AdvReac Type Severity Reaction Status Date / Time amoxicillin [From Augmentin] Allergy Unknown Unknown Verified 02/01/21 15:55 aspirin Allergy Unknown Unknown Verified 02/01/21 16:34 clavulanic acid Allergy Unknown Unknown Verified 02/01/21 15:55 [From Augmentin] diphenhydramine Allergy Unknown Unknown Verified 02/01/21 16:35 hydrochlorothiazide Allergy Unknown Unknown Verified 02/01/21 16:44 metronidazole Allergy Unknown Unknown Verified 02/01/21 16:54 trazodone Allergy Unknown Unknown Verified 02/01/21 16:54 augmentin Allergy Unknown Unknown Uncoded 02/01/21 15:55 Plan I have reviewed the history and physical and performed a pertinent physical examination on my patient. No changes have occurred unless specified.
--- NOTE | 2021-05-24 07:21 | HO.ECTPROC ---
ECT Procedure Note Diagnosis/Treatment Date of Service: 05/24/21 Diagnosis: Major Depressive Disorder Previous ECT Date: 05/22/21 Current Treatment Number: 3 Treatment: Series Interval Clinical Notes: The patient reports feeling better, less agitated today. She had benzodiazepines at AM before the procedure. ECT Settings Device: THYMATRON DGx Electrode Placement: Right Unilateral Program/Pulse Width: 0.50 Energy Percent: 100 Seizure Duration By EEG (in seconds): 41 By Motor Observation (in seconds): 23 Medications Administration General Anesthetic: Etomidate (10) Muscle Relaxant: Succinylcholine (80) Ancillary Medications Analgesics: Torodol - Pre ECT Anti-emetics: Zofran - Pre ECT Miscillaneous Medications: Flumazenil Airway Management Airway Management: Bag Mask Ventilation Treatment Recommendations No Changes Recommended: No change Pt Tolerated Procedure w/o Issue: Yes
[2021-05-24] MEDS: LORazepam 2 MG/ML VIAL IVPUSH (07:59)
[2021-05-24] MEDS: Apixaban 5 MG TABLET PO ×2 (09:43→20:43)
--- NOTE | 2021-05-24 10:45 | PC.NURSE ---
Patient went to ECT this morning. Patient came back well oriented . VS post ECT are stable. Will continue to monitor.
--- NOTE | 2021-05-24 10:57 | HO.PSYCHPN ---
Subjective Subjective Date of Service: 05/24/21 Reason For Visit: major depressive d/o recurrent severe with psychot Subjective Notes: Conditional Voluntary Interim History: The nursing staff reports the patient is on one-to-one for safety since she put herself down on the floor the day before yesterday. According to the staff, the patient slept all day long and she had a good night sleep. Today she had ECT and she was pleasant and cooperative. During the interview the patient denies exacerbation of depression she reports mild anxiety. ECT was uneventful. Mental Status Exam Mental Status Exam Patient Appearance: Well Grooomed Patient Orientation: Person and Situation Level of Consciousness: Awake Patient Behavior: Guarded and Suspicious Mood Description: Depressed Affect Description: Withdrawn and Constricted Ability to Follow Directions: Good Speech Pattern: Clear Hallucinations: None Delusions: Present (somatic delusions of been cold) Thought Process: Distracted and Slowed Thinking Thought Content: positive for [place] and positive for Poverty of Content Judgement: Poor Diagnostics Vital Signs (24Hr): Vital Signs - 24 hr 05/23/21 20:00 05/24/21 05:40 05/24/21 05:44 Temperature 97.6 F 97.6 F 97.6 F Pulse Rate 64 77 77 Respiratory Rate 16 16 16 Blood Pressure 115/58 L 129/76 129/76 Pulse Oximetry 93 94 94 05/24/21 06:32 05/24/21 07:27 05/24/21 07:34 Temperature 99 F 98.2 F Pulse Rate 81 81 90 Respiratory Rate 16 25 H 20 Blood Pressure 117/72 127/70 140/86 H Pulse Oximetry 95 96 94 05/24/21 07:44 05/24/21 07:49 05/24/21 07:59 Temperature 98.7 F Pulse Rate 82 110 H 79 Respiratory Rate 18 22 H 20 Blood Pressure 142/70 H 147/89 H 124/73 Pulse Oximetry 93 93 95 05/24/21 08:05 05/24/21 08:10 05/24/21 08:15 Temperature Pulse Rate 79 76 78 Respiratory Rate 18 19 18 Blood Pressure 121/49 L 111/62 118/72 Pulse Oximetry 93 93 93 05/24/21 08:20 05/24/21 08:26 05/24/21 08:40 Temperature 98.5 F Pulse Rate 79 79 80 Respiratory Rate 20 20 16 Blood Pressure 115/72 116/73 118/70 Pulse Oximetry 93 93 93 BMI result Body Mass Index 20.3 Labs Results: 05/19/21 07:54 05/19/21 07:54 Labs: Laboratory Results - last 48 hr 05/18/21 05/19/21 19:05 07:54 25-OH Vitamin D Total 21 L 15 L 25-Hydroxy Vitamin D2 <4 <4 25-Hydroxy Vitamin D3 21 15 Medications Medications Current Medications Acetaminophen (Acetaminophen 325 Mg Tablet) 650 mg PO Q6H PRN PRN Reason: Headache/Pain Mild Scale (1-3) Last Admin: 05/23/21 11:28 Dose: 650 mg Documented by: Al Hydroxide/Mg Hydroxide (Magnesium Hydrox/Alum Hydrox 30 Ml Oral.Susp) 30 ml PO Q6H PRN PRN Reason: Heartburn/Nausea Apixaban (Apixaban 5 Mg Tablet) 5 mg PO BID [facility] Last Admin: 05/24/21 09:43 Dose: 5 mg Documented by: Lorazepam (Lorazepam 1 Mg Tablet) 1 mg PO TID [facility] Last Admin: 05/24/21 05:37 Dose: 1 mg Documented by: Lorazepam (Lorazepam 1 Mg Tablet) 1 mg PO BID PRN PRN Reason: anxiety/restlessness Magnesium Hydroxide (Milk Of Magnesia 30 Ml Oral.Susp) 30 ml PO DAILY PRN PRN Reason: Constipation Mirtazapine (Mirtazapine 30 Mg Tablet) 30 mg PO BEDTIME [facility] Last Admin: 05/23/21 20:41 Dose: 30 mg Documented by: Olanzapine (Olanzapine 2.5 Mg Tablet) 2.5 mg PO BID PRN PRN Reason: anxiety, agitation Last Admin: 05/18/21 22:02 Dose: 2.5 mg Documented by: Olanzapine (Olanzapine 5 Mg Tablet) 5 mg PO TID [facility] Last Admin: 05/24/21 05:37 Dose: 5 mg Documented by: Allergies Allergies Allergy/AdvReac Type Severity Reaction Status Date / Time amoxicillin [From Augmentin] Allergy Unknown Unknown Verified 02/01/21 15:55 aspirin Allergy Unknown Unknown Verified 02/01/21 16:34 clavulanic acid Allergy Unknown Unknown Verified 02/01/21 15:55 [From Augmentin] diphenhydramine Allergy Unknown Unknown Verified 02/01/21 16:35 hydrochlorothiazide Allergy Unknown Unknown Verified 02/01/21 16:44 metronidazole Allergy Unknown Unknown Verified 02/01/21 16:54 trazodone Allergy Unknown Unknown Verified 02/01/21 16:54 augmentin Allergy Unknown Unknown Uncoded 02/01/21 15:55 Assessment & Plan Assessment & Plan (1) Major depressive disorder, recurrent episode with mood-congruent psychotic features: Status: Acute Code(s): F33.3 - Major depressive disorder, recurrent, severe with psychotic symptoms Assessment and Plan: Prozac discontinued in case causing increased anxiety agitation. Lower mirtazapine to 30 mg. Zyprexa change to 5 mg 3 times a day. Continue ECT. Change alprazolam to lorazepam 1 t.i.d. patient has responded to lorazepam previously. One-to-one for gait disturbance but requires these doses secondary to level of anxiety agitation fearfulness continue ECT (2) Pre-op testing: Status: Acute Code(s): Z01.818 - Encounter for other preprocedural examination Plan 70 yo F admitted to [facility] for major depressive disorder, with past medical history of pulmonary embolism on Eliquis, Medical consult requested for ECT Clearance. EKG reviewed and unremarkable. labs reviewed and unremarkable/ normal head CT February 07 No absolute contradictions for ECT No further work up needed at this time.? Plan 1. Continue ECT. 2. Continue same medications. I spent minutes with the patient and/or on the patient floor today, greater than?50% of which was spent counseling/coordinating care. Reason for contiued inpatient stay Substantial Risk for: harm to self, inability to function, rapid decompensation and med/psych decompensation
[2021-05-24] MEDS: Mirtazapine 30 MG TABLET PO (20:43)
--- NOTE | 2021-05-25 05:10 | PC.NURSE ---
Pt. assisted to the bathroom around 0430. She had been incontinent of diarrhea and continued to have diarrhea on the toilet. Pt. was drowsy and confused. She had difficulty following directions when staff was attempting to take off soiled clothing. Pt. was cleaned, changed and assisted back to bed.
[2021-05-25 08:00] VITALS: BP 122/66; PULSE 71; RESP 16; TEMP 37.3; O2SAT 98
[2021-05-25] MEDS: OLANZapine 5 MG TABLET PO ×3 (08:34→20:10)
[2021-05-25] MEDS: Apixaban 5 MG TABLET PO ×2 (08:34→20:12)
[2021-05-25] MEDS: LORazepam 1 MG TABLET PO ×3 (08:34→20:11)
[2021-05-25 12:22] VITALS: BMI 21.0
--- NOTE | 2021-05-25 13:11 | P.PNPSI_ITS ---
Subjective Subjective Date of Service: 05/25/21 Reason For Visit: major depressive d/o recurrent severe with psychot Interim History: the nursing staff reported the patient is on one-to-one for high fall risk since her gait is unsteady. Last night the nurse reported the patient was conf used and she stated that she was at her home. She was wearing several layers of clothes because she was very called. Also she was incontinent of stool and most likely she has diarrhea. On her previous admission a few months ago she had a similar episode of confusion, irritability and poor control of her the sphincters and she had a UTI. We will try to get a U/A sample today. On interview the patient denies new symptoms she is pleasant but with limited social interaction. Mental Status Exam Mental Status Exam Patient Appearance: Appropriate Patient Orientation: Person and Situation Level of Consciousness: Awake Patient Behavior: Guarded, Passive and Suspicious Mood Description: Withdrawn and Depressed Affect Description: Constricted Patient Cognition Impaired: Yes Ability to Follow Directions: Fair Speech Pattern: Clear Hallucinations: None Delusions: Not Present Thought Process: Slowed Thinking Thought Content: positive for [place], positive for Circumstantial and positive for Poverty of Content Judgement: Fair Diagnostics Vital Signs (24Hr): Vital Signs - 24 hr 05/24/21 20:25 05/25/21 08:00 Temperature 97.4 F 99.1 F Pulse Rate 74 71 Respiratory Rate 16 16 Blood Pressure 114/69 122/66 Pulse Oximetry 97 98 BMI result Body Mass Index 21.0 Labs Results: 05/19/21 07:54 05/19/21 07:54 Labs: Laboratory Results - last 48 hr 05/18/21 05/19/21 19:05 07:54 25-OH Vitamin D Total 21 L 15 L 25-Hydroxy Vitamin D2 <4 <4 25-Hydroxy Vitamin D3 21 15 Medications Medications Current Medications Acetaminophen (Acetaminophen 325 Mg Tablet) 650 mg PO Q6H PRN PRN Reason: Headache/Pain Mild Scale (1-3) Last Admin: 05/23/21 11:28 Dose: 650 mg Documented by: Al Hydroxide/Mg Hydroxide (Magnesium Hydrox/Alum Hydrox 30 Ml Oral.Susp) 30 ml PO Q6H PRN PRN Reason: Heartburn/Nausea Apixaban (Apixaban 5 Mg Tablet) 5 mg PO BID [facility] Last Admin: 05/25/21 08:34 Dose: 5 mg Documented by: Lorazepam (Lorazepam 1 Mg Tablet) 1 mg PO TID [facility] Last Admin: 05/25/21 08:34 Dose: 1 mg Documented by: Lorazepam (Lorazepam 1 Mg Tablet) 1 mg PO BID PRN PRN Reason: anxiety/restlessness Magnesium Hydroxide (Milk Of Magnesia 30 Ml Oral.Susp) 30 ml PO DAILY PRN PRN Reason: Constipation Mirtazapine (Mirtazapine 30 Mg Tablet) 30 mg PO BEDTIME [facility] Last Admin: 05/24/21 20:43 Dose: 30 mg Documented by: Olanzapine (Olanzapine 2.5 Mg Tablet) 2.5 mg PO BID PRN PRN Reason: anxiety, agitation Last Admin: 05/18/21 22:02 Dose: 2.5 mg Documented by: Olanzapine (Olanzapine 5 Mg Tablet) 5 mg PO TID [facility] Last Admin: 05/25/21 08:34 Dose: 5 mg Documented by: Allergies Allergies Allergy/AdvReac Type Severity Reaction Status Date / Time amoxicillin [From Augmentin] Allergy Unknown Unknown Verified 02/01/21 15:55 aspirin Allergy Unknown Unknown Verified 02/01/21 16:34 clavulanic acid Allergy Unknown Unknown Verified 02/01/21 15:55 [From Augmentin] diphenhydramine Allergy Unknown Unknown Verified 02/01/21 16:35 hydrochlorothiazide Allergy Unknown Unknown Verified 02/01/21 16:44 metronidazole Allergy Unknown Unknown Verified 02/01/21 16:54 trazodone Allergy Unknown Unknown Verified 02/01/21 16:54 augmentin Allergy Unknown Unknown Uncoded 02/01/21 15:55 Assessment & Plan Assessment & Plan (1) Major depressive disorder, recurrent episode with mood-congruent psychotic features: Status: Acute Code(s): F33.3 - Major depressive disorder, recurrent, severe with psychotic symptoms Assessment and Plan: Prozac discontinued in case causing increased anxiety agitation. Lower rey zapine to 30 mg. Zyprexa change to 5 mg 3 times a day. Continue ECT. Change alprazolam to lorazepam 1 t.i.d. patient has responded to lorazepam previously. One-to-one for gait disturbance but requires these doses secondary to level of anxiety agitation fearfulness continue ECT (2) Pre-op testing: Status: Acute Code(s): Z01.818 - Encounter for other preprocedural examination Plan 70 yo F admitted to psych for major depressive disorder, with past medical his tory of pulmonary embolism on Eliquis, Medical consult requested for ECT Clearance. EKG reviewed and unremarkable. labs reviewed and unremarkable/ normal head CT February 07 No absolute contradictions for ECT No further work up needed at this time.? Plan 1. Continue ECT. 2. Continue same medications. 3. Rule out UTI and delirium. I spent __20____ minutes with the patient and/or on the patient floor today, greater than?50% of which was spent counseling/coordinating care. Patient educated on: diagnosis, ECT and therapeutic strategies Informed Consent: further education needed Reason for contiued inpatient stay Substantial Risk for: inability to function, rapid decompensation and med/psych decompensation
[2021-05-25 18:24] LABS: Appearance Urine CLEAR; Color Urine YELLOW; Glucose Urine UA NEG (NEG); Leukocyte Esterase Urine 1+ (NEG); Nitrite Urine NEG (NEG); Specific Gravity - Urine 1.025 (1.005-1.025); Urine Blood TRACE (NEG); Urine Ketones 5 MG/DL (NEG); Urine Protein TRACE MG/DL (NEG-TRACE)
[2021-05-25 18:48] LABS: Bacteria Urine 1+ /LPF; Squamous Epithelial Cell Urine 1+ /LPF
[2021-05-25 18:49] LABS: Mucus Urine 2+ /LPF
[2021-05-25 19:49] VITALS: BP 98/56; PULSE 65; RESP 17; TEMP 36; O2SAT 94
[2021-05-25] MEDS: Mirtazapine 30 MG TABLET PO (20:11)
[2021-05-26] VITALS (12 sets, daily range): BP systolic 103–140; BP diastolic 62–84; PULSE 70–96; RESP 16–22; TEMP 36.1–36.9; O2SAT 93–99
[2021-05-26] MEDS: LORazepam 1 MG TABLET PO ×3 (05:54→20:28)
[2021-05-26] MEDS: OLANZapine 5 MG TABLET PO ×3 (05:54→20:28)
--- NOTE | 2021-05-26 06:50 | P.CONAN_ITS ---
[facility] Active Problems Active Problems: All Active Problems (Updated 05/19/21 @ 10:26 by Enoc Fontaine MD) Pre-op testing (Acute) Major depressive disorder, recurrent episode with mood-congruent psychotic features (Acute) Neurocognitive disorder (Acute) Past Medical History Medical History (Updated 05/19/21 @ 10:26 by Enoc Fontaine MD) History of pulmonary embolism Neurocognitive disorder Pulmonary embolism Family History Family history of problems with anesthesia: No Surgical History Surgical History H/O section History of Problems with Anesthesia: No Social History Social History Household Members: Spouse Household Members Other:: Her and her Housing: House Do you presently have visiting nurse or other home services: No Patient Tobacco Use Status: Never used Tobacco Second Hand Smoke Exposure: No Use of substances other than those prescribed or required for medical reasons: No Currently Displaying Signs/Symptoms of Drug Intoxication Withdrawal: No Have you been hit, kicked, punched, or otherwise hurt by someone within the past year? If so, by whom?: No Do you feel safe in your current relationship?: Yes Is there a partner from a previous relationship who is making you feel unsafe now?: No Are you made to feel afraid or neglected: No Are you DNR?: No Advance Directives: No Do you have thoughts of harming others: None Do you have a plan to hurt others: No Plan Recently lost weight without trying: No Nutrition Risks: No Nutritional Risk Patient : No : No Poor oral hygiene: No service: Yes Sexual orientation: Straight/Heterosexual Meds Allergies Allergy/AdvReac Type Severity Reaction Status Date / Time amoxicillin [From Augmentin] Allergy Unknown Unknown Verified 02/01/21 15:55 aspirin Allergy Unknown Unknown Verified 02/01/21 16:34 clavulanic acid Allergy Unknown Unknown Verified 02/01/21 15:55 [From Augmentin] diphenhydramine Allergy Unknown Unknown Verified 02/01/21 16:35 hydrochlorothiazide Allergy Unknown Unknown Verified 02/01/21 16:44 metronidazole Allergy Unknown Unknown Verified 02/01/21 16:54 trazodone Allergy Unknown Unknown Verified 02/01/21 16:54 augmentin Allergy Unknown Unknown Uncoded 02/01/21 15:55 Active Medications: Current Medications Acetaminophen (Acetaminophen 325 Mg Tablet) 650 mg PO Q6H PRN PRN Reason: Headache/Pain Mild Scale (1-3) Last Admin: 05/23/21 11:28 Dose: 650 mg Documented by: Al Hydroxide/Mg Hydroxide (Magnesium Hydrox/Alum Hydrox 30 Ml Oral.Susp) 30 ml PO Q6H PRN PRN Reason: Heartburn/Nausea Apixaban (Apixaban 5 Mg Tablet) 5 mg PO BID [facility] Last Admin: 05/25/21 20:12 Dose: 5 mg Documented by: Lorazepam (Lorazepam 1 Mg Tablet) 1 mg PO TID [facility] Last Admin: 05/26/21 05:54 Dose: 1 mg Documented by: Lorazepam (Lorazepam 1 Mg Tablet) 1 mg PO BID PRN PRN Reason: anxiety/restlessness Magnesium Hydroxide (Milk Of Magnesia 30 Ml Oral.Susp) 30 ml PO DAILY PRN PRN Reason: Constipation Mirtazapine (Mirtazapine 30 Mg Tablet) 30 mg PO BEDTIME [facility] Last Admin: 05/25/21 20:11 Dose: 30 mg Documented by: Olanzapine (Olanzapine 2.5 Mg Tablet) 2.5 mg PO BID PRN PRN Reason: anxiety, agitation Last Admin: 05/18/21 22:02 Dose: 2.5 mg Documented by: Olanzapine (Olanzapine 5 Mg Tablet) 5 mg PO TID [facility] Last Admin: 05/26/21 05:54 Dose: 5 mg Documented by: Home Medications Medication Instructions Recorded Confirmed Last Taken Type gabapentin 600 mg tablet 600 mg PO TID 02/01/21 02/01/21 Unknown History lorazepam 0.5 mg tablet (Ativan) 0.5 mg PO DAILY PRN 05/18/21 05/18/21 Unknown History Exam Exam Date and Time: May 26, 2021 0650 Height,Weight and Vital Signs: Height 5 ft 3 in Weight 53.9 kg Last Vital Signs Temp 98.1 F 05/26/21 06:31 uPulse 77 05/26/21 06:31 Resp 20 05/26/21 06:31 BP 114/63 05/26/21 06:31 Pulse Ox 93 05/26/21 06:31 Pertinent Lab Results Pertinent Lab Results: Laboratory Tests 05/18/21 05/18/21 05/18/21 19:05 19:05 19:05 WBC 10.2 RBC 4.37 D Hgb 13.7 D Hct 39.6 MCV 90.6 MCH 31.4 MCHC 34.6 RDW 12.6 Plt Count 289 D MPV 9.4 Immature Gran % (Auto) 0.4 Neut % (Auto) 76.9 H Lymph % (Auto) 14.0 L Kane % (Auto) 8.4 Eos % (Auto) 0.0 Baso % (Auto) 0.3 Lymph # (Auto) 1.4 Kane # (Auto) 0.9 Eos # (Auto) 0.0 Baso # (Auto) 0.0 Abs Immat Gran (auto) 0.04 H Absolute Neuts (auto) 7.9 Absolute Nucleated RBC 0.000 Nucleated RBC % (auto) 0.0 Sodium 142 Potassium 4.0 Chloride 106 Carbon Dioxide 22 Anion Gap 18 BUN 20 H Creatinine 1.01 Estim Creat Clear Calc 43.4 Estimated GFR 54 Fasting Glucose 125 H Calcium 9.9 D Total Bilirubin 0.9 AST 27 ALT 22 Alkaline Phosphatase 94 Total Protein 7.2 Albumin 4.5 Triglycerides 58 Cholesterol 178 D LDL Cholesterol, Calc 110 HDL Cholesterol 57 Vitamin B12 237 25-OH Vitamin D Total 25-Hydroxy Vitamin D2 25-Hydroxy Vitamin D3 Folate 16.9 TSH 0.82 Urine Color Urine Appearance Urine pH Ur Specific [place] Urine Protein Urine Glucose (UA) Urine Ketones Urine Blood Urine Nitrite Ur Leukocyte Esterase Urine RBC Urine WBC Ur Squamous Epith Cells Urine Bacteria Urine Mucus 05/18/21 05/19/21 05/19/21 19:05 06:30 07:54 WBC 5.7 RBC 4.29 Hgb 13.3 Hct 39.7 MCV 92.5 MCH 31.0 MCHC 33.5 RDW 13.0 Plt Count 243 MPV 9.4 Immature Gran % (Auto) 0.4 Neut % (Auto) 67.7 Lymph % (Auto) 20.4 Kane % (Auto) 10.5 Eos % (Auto) 0.5 Baso % (Auto) 0.5 Lymph # (Auto) 1.2 Kane # (Auto) 0.6 Eos # (Auto) 0.0 Baso # (Auto) 0.0 Abs Immat Gran (auto) 0.02 Absolute Neuts (auto) 3.9 Absolute Nucleated RBC 0.000 Nucleated RBC % (auto) 0.0 Sodium Potassium Chloride Carbon Dioxide Anion Gap BUN Creatinine Estim Creat Clear Calc Estimated GFR Fasting Glucose Calcium Total Bilirubin AST ALT Alkaline Phosphatase Total Protein Albumin Triglycerides Cholesterol LDL Cholesterol, Calc HDL Cholesterol Vitamin B12 25-OH Vitamin D Total 21 L 25-Hydroxy Vitamin D2 <4 25-Hydroxy Vitamin D3 21 Folate TSH Urine Color YELLOW Urine Appearance CLOUDY Urine pH 6.0 Ur Specific [place] 1.025 Urine Protein TRACE Urine Glucose (UA) NEG Urine Ketones 15 Urine Blood 1+ H Urine Nitrite NEG Ur Leukocyte Esterase 2+ H Urine RBC 0-2 Urine WBC 10-14 H Ur Squamous Epith Cells 1+ Urine Bacteria 1+ Urine Mucus 2+ 05/19/21 05/19/21 05/19/21 07:54 07:54 07:54 WBC RBC Hgb Hct MCV MCH MCHC RDW Plt Count MPV Immature Gran % (Auto) Neut % (Auto) Lymph % (Auto) Kane % (Auto) Eos % (Auto) Baso % (Auto) Lymph # (Auto) Kane # (Auto) Eos # (Auto) Baso # (Auto) Abs Immat Gran (auto) Absolute Neuts (auto) Absolute Nucleated RBC Nucleated RBC % (auto) Sodium 141 Potassium 3.6 Chloride 106 Carbon Dioxide 25 Anion Gap 14 BUN 21 H Creatinine 0.78 Estim Creat Clear Calc 56.3 Estimated GFR > 60 Fasting Glucose 114 H Calcium 9.3 D Total Bilirubin 0.9 AST 32 H ALT 20 Alkaline Phosphatase 93 Total Protein 6.8 Albumin 4.3 Triglycerides 57 Cholesterol 165 LDL Cholesterol, Calc 100 HDL Cholesterol 54 Vitamin B12 225 25-OH Vitamin D Total 15 L 25-Hydroxy Vitamin D2 <4 25-Hydroxy Vitamin D3 15 Folate 18.0 TSH 0.70 Urine Color Urine Appearance Urine pH Ur Specific [place] Urine Protein Urine Glucose (UA) Urine Ketones Urine Blood Urine Nitrite Ur Leukocyte Esterase Urine RBC Urine WBC Ur Squamous Epith Cells Urine Bacteria Urine Mucus 05/25/21 18:10 WBC RBC Hgb Hct MCV MCH MCHC RDW Plt Count MPV Immature Gran % (Auto) Neut % (Auto) Lymph % (Auto) Kane % (Auto) Eos % (Auto) Baso % (Auto) Lymph # (Auto) Kane # (Auto) Eos # (Auto) Baso # (Auto) Abs Immat Gran (auto) Absolute Neuts (auto) Absolute Nucleated RBC Nucleated RBC % (auto) Sodium Potassium Chloride Carbon Dioxide Anion Gap BUN Creatinine Estim Creat Clear Calc Estimated GFR Fasting Glucose Calcium Total Bilirubin AST ALT Alkaline Phosphatase Total Protein Albumin Triglycerides Cholesterol LDL Cholesterol, Calc HDL Cholesterol Vitamin B12 25-OH Vitamin D Total 25-Hydroxy Vitamin D2 25-Hydroxy Vitamin D3 Folate TSH Urine Color YELLOW Urine Appearance CLEAR Urine pH 6.0 Ur Specific [place] 1.025 Urine Protein TRACE Urine Glucose (UA) NEG Urine Ketones 5 Urine Blood TRACE Urine Nitrite NEG Ur Leukocyte Esterase 1+ H Urine RBC 1-4 Urine WBC 5-9 H Ur Squamous Epith Cells 1+ Urine Bacteria 1+ Urine Mucus 2+ Airway Mallampati Class: II TM Dist: >3cm Neck ROM: Full Heart: rrr Lungs: cta Assessment and Plan Assessment Anesthesia Assessment: Anesthesia Plan Discussed and Chart Reviewed Final Anesthetic Review Family History of Problems with Anesthesia: No History of Problems with Anesthesia: No NPO: Yes ASA Class: III Final Preanesthetic Review: No Changes in Pt Med Stat, Meds/Allgs Chart Reviewed and Consent Obtained/Reviewed Patient Risk: Intermediate Procedure Risk: Intermediate Anesthetic Plan Anesthetic Plan: GA Disposition: Standard PACU
--- NOTE | 2021-05-26 07:09 | MHC.SHP ---
Pre-Procedural Eval Section A Date of Service: 05/26/21 The patient is an INPATIENT: Yes Changes since office visit: No Cold of Flu in the past 2 weeks, No New Medical Problems, No Changes in Medication and No Patient answered all questions The History & Physical has been completed within 30 days and I have reviewed it.: Yes Section B Chief Complaint: major depressive d/o recurrent severe with psychot Allergies: Allergies Allergy/AdvReac Type Severity Reaction Status Date / Time amoxicillin [From Augmentin] Allergy Unknown Unknown Verified 02/01/21 15:55 aspirin Allergy Unknown Unknown Verified 02/01/21 16:34 clavulanic acid Allergy Unknown Unknown Verified 02/01/21 15:55 [From Augmentin] diphenhydramine Allergy Unknown Unknown Verified 02/01/21 16:35 hydrochlorothiazide Allergy Unknown Unknown Verified 02/01/21 16:44 metronidazole Allergy Unknown Unknown Verified 02/01/21 16:54 trazodone Allergy Unknown Unknown Verified 02/01/21 16:54 augmentin Allergy Unknown Unknown Uncoded 02/01/21 15:55 Plan I have reviewed the history and physical and performed a pertinent physical examination on my patient. No changes have occurred unless specified.
--- NOTE | 2021-05-26 07:09 | HO.ECTPROC ---
ECT Procedure Note Diagnosis/Treatment Date of Service: 05/26/21 Diagnosis: Major Depressive Disorder Previous ECT Date: 05/24/21 Current Treatment Number: 4 Treatment: Series Interval Clinical Notes: The patient has been confused, mostl likely due to UTI. Even though, VS stable, less irritable. Today we had problems with her IV placement that needed to be changed. ECT Settings Device: THYMATRON DGx Electrode Placement: Right Unilateral Program/Pulse Width: 0.50 Energy Percent: 100 Seizure Duration By EEG (in seconds): 42 By Motor Observation (in seconds): 21 Medications Administration General Anesthetic: Etomidate (10) Muscle Relaxant: Succinylcholine (80) Ancillary Medications Analgesics: Torodol - Pre ECT Anti-emetics: Zofran - Pre ECT Miscillaneous Medications: Propofol and Flumazenil Airway Management Airway Management: Bag Mask Ventilation Treatment Recommendations No Changes Recommended: No change Pt Tolerated Procedure w/o Issue: Yes
[2021-05-26] MEDS: Lactated Ringers 1,000 ML 50 ML IVCONT (07:11)
[2021-05-26] MEDS: LORazepam 2 MG/ML VIAL IVPUSH (08:32)
[2021-05-26] MEDS: Apixaban 5 MG TABLET PO ×2 (09:58→20:28)
--- NOTE | 2021-05-26 13:23 | P.PNPSI_ITS ---
Subjective Subjective Date of Service: 05/26/21 Reason For Visit: major depressive d/o recurrent severe with psychot Subjective Notes: Conditional Voluntary Interim History: The patient had ECT today in the morning and she was slightly agitated a day CT suite since her IV was deficient. According to the staff the patient has been isolative mostly in her room. Her UA came up positive for UTI. Historically, the patient becomes hypoactive whenever she has UTI she becomes very delirious. Today she was start the antibiotics. On interview the patient was on her bed resting stated that she is very tired after ECT. Mental Status Exam Mental Status Exam Patient Appearance: Appropriate Patient Orientation: Person and Situation Level of Consciousness: Awake Patient Behavior: Cooperative Mood Description: Withdrawn Affect Description: Constricted Patient Cognition Impaired: Yes Ability to Follow Directions: Good Speech Pattern: Clear Hallucinations: None Delusions: Not Present Thought Process: Distracted and Linear Thought Content: positive for Circumstantial Judgement: Fair Diagnostics Vital Signs (24Hr): Vital Signs - 24 hr 05/25/21 19:49 05/26/21 05:59 05/26/21 06:00 Temperature 96.8 F 97.4 F 97.4 F Pulse Rate 65 79 79 Respiratory Rate 17 16 16 Blood Pressure 98/56 L 115/62 115/62 Pulse Oximetry 94 95 95 05/26/21 06:31 05/26/21 07:36 05/26/21 07:41 Temperature 98.1 F 97.0 F Pulse Rate 77 96 70 Respiratory Rate 20 16 17 Blood Pressure 114/63 140/68 H 127/64 Pulse Oximetry 93 96 99 05/26/21 07:46 05/26/21 07:51 05/26/21 08:14 Temperature Pulse Rate 79 83 75 Respiratory Rate 22 H 22 H 16 Blood Pressure 103/81 114/84 116/63 Pulse Oximetry 97 97 97 05/26/21 08:29 05/26/21 10:14 05/26/21 10:15 Temperature 98.3 F 98.3 F Pulse Rate 80 84 84 Respiratory Rate 18 16 16 Blood Pressure 124/73 119/69 119/69 Pulse Oximetry 94 94 BMI result Body Mass Index 21.0 Labs Results: 05/19/21 07:54 05/19/21 07:54 Labs: Laboratory Results - last 48 hr 05/25/21 18:10 Urine Color YELLOW Urine Appearance CLEAR Urine pH 6.0 Ur Specific [place] 1.025 Urine Protein TRACE Urine Glucose (UA) NEG Urine Ketones 5 Urine Blood TRACE Urine Nitrite NEG Ur Leukocyte Esterase 1+ H Urine RBC 1-4 Urine WBC 5-9 H Ur Squamous Epith Cells 1+ Urine Bacteria 1+ Urine Mucus 2+ Medications Medications Current Medications Acetaminophen (Acetaminophen 325 Mg Tablet) 650 mg PO Q6H PRN PRN Reason: Headache/Pain Mild Scale (1-3) Last Admin: 05/23/21 11:28 Dose: 650 mg Documented by: Al Hydroxide/Mg Hydroxide (Magnesium Hydrox/Alum Hydrox 30 Ml Oral.Susp) 30 ml PO Q6H PRN PRN Reason: Heartburn/Nausea Apixaban (Apixaban 5 Mg Tablet) 5 mg PO BID [facility] Last Admin: 05/26/21 09:58 Dose: 5 mg Documented by: Cefuroxime Axetil (Cefuroxime Axetil 250 Mg Tablet) 250 mg PO Q12H [facility] Lorazepam (Lorazepam 1 Mg Tablet) 1 mg PO TID [facility] Last Admin: 05/26/21 05:54 Dose: 1 mg Documented by: Lorazepam (Lorazepam 1 Mg Tablet) 1 mg PO BID PRN PRN Reason: anxiety/restlessness Magnesium Hydroxide (Milk Of Magnesia 30 Ml Oral.Susp) 30 ml PO DAILY PRN PRN Reason: Constipation Mirtazapine (Mirtazapine 30 Mg Tablet) 30 mg PO BEDTIME [facility] Last Admin: 05/25/21 20:11 Dose: 30 mg Documented by: Olanzapine (Olanzapine 2.5 Mg Tablet) 2.5 mg PO BID PRN PRN Reason: anxiety, agitation Last Admin: 05/18/21 22:02 Dose: 2.5 mg Documented by: Olanzapine (Olanzapine 5 Mg Tablet) 5 mg PO TID [facility] Last Admin: 05/26/21 05:54 Dose: 5 mg Documented by: Allergies Allergies Allergy/AdvReac Type Severity Reaction Status Date / Time amoxicillin [From Augmentin] Allergy Unknown Unknown Verified 02/01/21 15:55 aspirin Allergy Unknown Unknown Verified 02/01/21 16:34 clavulanic acid Allergy Unknown Unknown Verified 02/01/21 15:55 [From Augmentin] diphenhydramine Allergy Unknown Unknown Verified 02/01/21 16:35 hydrochlorothiazide Allergy Unknown Unknown Verified 02/01/21 16:44 metronidazole Allergy Unknown Unknown Verified 02/01/21 16:54 trazodone Allergy Unknown Unknown Verified 02/01/21 16:54 augmentin Allergy Unknown Unknown Uncoded 02/01/21 15:55 Assessment & Plan Assessment & Plan (1) Major depressive disorder, recurrent episode with mood-congruent psychotic features: Status: Acute Code(s): F33.3 - Major depressive disorder, recurrent, severe with psychotic symptoms Assessment and Plan: Prozac discontinued in case causing increased anxiety agitation. Lower mirtazapine to 30 mg. Zyprexa change to 5 mg 3 times a day. Continue ECT. Change alprazolam to lorazepam 1 t.i.d. patient has responded to lorazepam previously. One-to-one for gait disturbance but requires these doses secondary to level of anxiety agitation fearfulness continue ECT (2) Pre-op testing: Status: Acute Code(s): Z01.818 - Encounter for other preprocedural examination Plan 70 yo F admitted to [facility] for major depressive disorder, with past medical history of pulmonary embolism on Eliquis, Medical consult requested for ECT Clearance. EKG reviewed and unremarkable. labs reviewed and unremarkable/ normal head CT February 07 No absolute contradictions for ECT No further work up needed at this time.? Plan 1. Continue ECT. 2. Continue same medications. 3. Treat UTI and delirium. I spent __20____ minutes with the patient and/or on the patient floor today, greater than?50% of which was spent counseling/coordinating care. Reason for contiued inpatient stay Substantial Risk for: inability to function, rapid decompensation and med/psych decompensation
[2021-05-26] MEDS: Mirtazapine 30 MG TABLET PO (20:28)
[2021-05-27 08:19] VITALS: BP 112/56; PULSE 71; RESP 14; TEMP 37.1; O2SAT 98
[2021-05-27] MEDS: Apixaban 5 MG TABLET PO ×2 (08:37→19:46)
[2021-05-27] MEDS: OLANZapine 5 MG TABLET PO ×3 (08:38→19:46)
[2021-05-27] MEDS: LORazepam 1 MG TABLET PO ×3 (08:38→19:46)
--- NOTE | 2021-05-27 12:56 | P.PNPSI_ITS ---
Subjective Subjective Date of Service: 05/27/21 Reason For Visit: major depressive d/o recurrent severe with psychot Subjective Notes: Conditional Voluntary Interim History: pt feeling better with antibiotics for UTI. her gait is unsteady so she is on one to one to prevent fall. reports sleeping well. pleasant cooperative, depressed, Medication Compliance: Yes Side effects from medications: No Review of Systems unsteady gait Medical Review of Systems: unchanged Review of Systems Review of Systems Yes all other systems are reviewed and are negative Mental Status Exam Mental Status Exam Patient Appearance: Appropriate Patient Orientation: Person and Situation Level of Consciousness: Awake Patient Behavior: Cooperative Behavior Comments: Patient pacing intrusive stating that she is cold needs more blankets cannot stay here Mood Description: Withdrawn Affect Description: Constricted Patient Cognition Impaired: Yes Ability to Follow Directions: Good Speech Pattern: Clear Thought Process: Goal Oriented Thought Content: negative for Intact Abnormal Motor Activity Signs and Symptoms: Restlessness Judgement: Fair Diagnostics Vital Signs (24Hr): Vital Signs - 24 hr 05/26/21 18:00 05/27/21 08:19 Temperature 98.5 F 98.7 F Pulse Rate 84 71 Respiratory Rate 18 14 Blood Pressure 116/73 112/56 L Pulse Oximetry 95 98 BMI result Body Mass Index 21.0 Labs Results: 05/19/21 07:54 05/19/21 07:54 Labs: Laboratory Results - last 48 hr 05/20/21 05/25/21 06:56 18:10 Free Cortisol 0.50 Urine Color YELLOW Urine Appearance CLEAR Urine pH 6.0 Ur Specific [place] 1.025 Urine Protein TRACE Urine Glucose (UA) NEG Urine Ketones 5 Urine Blood TRACE Urine Nitrite NEG Ur Leukocyte Esterase 1+ H Urine RBC 1-4 Urine WBC 5-9 H Ur Squamous Epith Cells 1+ Urine Bacteria 1+ Urine Mucus 2+ Medications Medications Current Medications Acetaminophen (Acetaminophen 325 Mg Tablet) 650 mg PO Q6H PRN PRN Reason: Headache/Pain Mild Scale (1-3) Last Admin: 05/23/21 11:28 Dose: 650 mg Documented by: Al Hydroxide/Mg Hydroxide (Magnesium Hydrox/Alum Hydrox 30 Ml Oral.Susp) 30 ml PO Q6H PRN PRN Reason: Heartburn/Nausea Apixaban (Apixaban 5 Mg Tablet) 5 mg PO BID [facility] Last Admin: 05/27/21 08:37 Dose: 5 mg Documented by: Cefuroxime Axetil (Cefuroxime Axetil 250 Mg Tablet) 250 mg PO Q12H [facility] Last Admin: 05/27/21 06:18 Dose: 250 mg Documented by: Lorazepam (Lorazepam 1 Mg Tablet) 1 mg PO TID [facility] Last Admin: 05/27/21 08:38 Dose: 1 mg Documented by: Lorazepam (Lorazepam 1 Mg Tablet) 1 mg PO BID PRN PRN Reason: anxiety/restlessness Magnesium Hydroxide (Milk Of Magnesia 30 Ml Oral.Susp) 30 ml PO DAILY PRN PRN Reason: Constipation Mirtazapine (Mirtazapine 30 Mg Tablet) 30 mg PO BEDTIME [facility] Last Admin: 05/26/21 20:28 Dose: 30 mg Documented by: Olanzapine (Olanzapine 2.5 Mg Tablet) 2.5 mg PO BID PRN PRN Reason: anxiety, agitation Last Admin: 05/18/21 22:02 Dose: 2.5 mg Documented by: Olanzapine (Olanzapine 5 Mg Tablet) 5 mg PO TID [facility] Last Admin: 05/27/21 08:38 Dose: 5 mg Documented by: Allergies Allergies Allergy/AdvReac Type Severity Reaction Status Date / Time amoxicillin [From Augmentin] Allergy Unknown Unknown Verified 02/01/21 15:55 aspirin Allergy Unknown Unknown Verified 02/01/21 16:34 clavulanic acid Allergy Unknown Unknown Verified 02/01/21 15:55 [From Augmentin] diphenhydramine Allergy Unknown Unknown Verified 02/01/21 16:35 hydrochlorothiazide Allergy Unknown Unknown Verified 02/01/21 16:44 metronidazole Allergy Unknown Unknown Verified 02/01/21 16:54 trazodone Allergy Unknown Unknown Verified 02/01/21 16:54 augmentin Allergy Unknown Unknown Uncoded 02/01/21 15:55 Assessment & Plan Assessment & Plan (1) Major depressive disorder, recurrent episode with mood-congruent psychotic features: Status: Acute Code(s): F33.3 - Major depressive disorder, recurrent, severe with psychotic symptoms (2) Pre-op testing: Status: Acute Code(s): Z01.818 - Encounter for other preprocedural examination Plan continue ECT continue current treatment plan encourage fluids I spent ___15___ minutes with the patient and/or on the patient floor today, greater than?50% of which was spent counseling/coordinating care. Patient educated on: medication risk/benefits, ECT, therapeutic strategies and medical condition Reason for contiued inpatient stay Substantial Risk for: harm to self, inability to function, rapid decompensation and med/psych decompensation
[2021-05-27 18:00] VITALS: BP 115/65; PULSE 72; RESP 16; TEMP 36.8; O2SAT 96
[2021-05-27] MEDS: Mirtazapine 30 MG TABLET PO (19:46)
[2021-05-28 08:52] VITALS: BP 126/64; PULSE 72; RESP 14; TEMP 36.2; O2SAT 97
--- NOTE | 2021-05-28 09:37 | P.PNPSI_ITS ---
Subjective Subjective Date of Service: 05/28/21 Reason For Visit: major depressive d/o recurrent severe with psychot Subjective Notes: Conditional Voluntary Interim History: pt feeling better with antibiotics for UTI. her gait is unsteady so she is on one to one to prevent fall. very anxious, worried, restless. reports sleeping well. Medication Compliance: Yes Side effects from medications: No Attending Groups: No Review of Systems Acute medical concerns: Yes UTI on antibiotics Medical Review of Systems: unchanged Review of Systems Review of Systems Yes all other systems are reviewed and are negative Mental Status Exam Mental Status Exam Patient Appearance: Appropriate Patient Orientation: Person and Situation Level of Consciousness: Awake Patient Behavior: Cooperative Behavior Comments: Patient pacing intrusive stating that she is cold needs more blankets cannot stay here Mood Description: Withdrawn Affect Description: Constricted Patient Cognition Impaired: Yes Ability to Follow Directions: Good Speech Pattern: Perseverating Thought Process: Rumination Depressive Symptoms: Increased Anxiety Abnormal Motor Activity Signs and Symptoms: Restlessness Judgement: Poor Diagnostics Vital Signs (24Hr): Vital Signs - 24 hr 05/27/21 18:00 05/28/21 08:52 Temperature 98.2 F 97.1 F Pulse Rate 72 72 Respiratory Rate 16 14 Blood Pressure 115/65 126/64 Pulse Oximetry 96 97 BMI result Body Mass Index 21.0 Labs Results: 05/19/21 07:54 05/19/21 07:54 Labs: Laboratory Results - last 48 hr 05/20/21 06:56 Free Cortisol 0.50 Medications Medications Current Medications Acetaminophen (Acetaminophen 325 Mg Tablet) 650 mg PO Q6H PRN PRN Reason: Headache/Pain Mild Scale (1-3) Last Admin: 05/23/21 11:28 Dose: 650 mg Documented by: Al Hydroxide/Mg Hydroxide (Magnesium Hydrox/Alum Hydrox 30 Ml Oral.Susp) 30 ml PO Q6H PRN PRN Reason: Heartburn/Nausea Apixaban (Apixaban 5 Mg Tablet) 5 mg PO BID [facility] Last Admin: 05/27/21 19:46 Dose: 5 mg Documented by: Cefuroxime Axetil (Cefuroxime Axetil 250 Mg Tablet) 250 mg PO Q12H [facility] Last Admin: 05/28/21 06:41 Dose: 250 mg Documented by: Magnesium Hydroxide (Milk Of Magnesia 30 Ml Oral.Susp) 30 ml PO DAILY PRN PRN Reason: Constipation Mirtazapine (Mirtazapine 30 Mg Tablet) 30 mg PO BEDTIME [facility] Last Admin: 05/27/21 19:46 Dose: 30 mg Documented by: Olanzapine (Olanzapine 2.5 Mg Tablet) 2.5 mg PO BID PRN PRN Reason: anxiety, agitation Last Admin: 05/18/21 22:02 Dose: 2.5 mg Documented by: Olanzapine (Olanzapine 5 Mg Tablet) 5 mg PO TID [facility] Last Admin: 05/27/21 19:46 Dose: 5 mg Documented by: Allergies Allergies Allergy/AdvReac Type Severity Reaction Status Date / Time amoxicillin [From Augmentin] Allergy Unknown Unknown Verified 02/01/21 15:55 aspirin Allergy Unknown Unknown Verified 02/01/21 16:34 clavulanic acid Allergy Unknown Unknown Verified 02/01/21 15:55 [From Augmentin] diphenhydramine Allergy Unknown Unknown Verified 02/01/21 16:35 hydrochlorothiazide Allergy Unknown Unknown Verified 02/01/21 16:44 metronidazole Allergy Unknown Unknown Verified 02/01/21 16:54 trazodone Allergy Unknown Unknown Verified 02/01/21 16:54 augmentin Allergy Unknown Unknown Uncoded 02/01/21 15:55 Assessment & Plan Assessment & Plan (1) Major depressive disorder, recurrent episode with mood-congruent psychotic features: Status: Acute Code(s): F33.3 - Major depressive disorder, recurrent, severe with psychotic symptoms (2) Pre-op testing: Status: Acute Code(s): Z01.818 - Encounter for other preprocedural examination Plan continue ECT continue current treatment plan encourage fluids I spent __15____ minutes with the patient and/or on the patient floor today, g reater than?50% of which was spent counseling/coordinating care. Reason for contiued inpatient stay Substantial Risk for: harm to self, inability to function, rapid decompensation and med/psych decompensation
[2021-05-28] MEDS: OLANZapine 5 MG TABLET PO ×3 (09:48→19:10)
[2021-05-28] MEDS: Apixaban 5 MG TABLET PO ×2 (09:48→19:11)
[2021-05-28] MEDS: OLANZapine 2.5 MG TABLET PO ×2 (12:01→18:27)
[2021-05-28] MEDS: LORazepam 1 MG TABLET PO ×4 (12:13→19:11)
[2021-05-28 16:45] VITALS: BP 151/80; PULSE 80; RESP 16; TEMP 36.5; O2SAT 97
--- NOTE | 2021-05-28 17:22 | PC.NURSE ---
Patient extremely agitated/restless this shift. Medicated prn with Ativan and Zyprexa with minimal effect. Provider aware. Patient difficult to redirect. Walking with sitter utilizing gait belt throughout shift.
[2021-05-28] MEDS: Mirtazapine 30 MG TABLET PO (19:11)
[2021-05-29] VITALS (9 sets, daily range): BP systolic 81–164; BP diastolic 47–93; PULSE 58–100; RESP 15–21; TEMP 36–36.8; O2SAT 92–96
[2021-05-29] MEDS: OLANZapine 2.5 MG TABLET PO (05:37)
--- NOTE | 2021-05-29 05:46 | PC.NURSE ---
pt awakened for pre-procedure vital signs- escalating anxiety upon stimulation. medicated with zyprexa 2.5 mg po with sips. dr knight contacted and asked about ceftin administration at 0600. hold abx and give when pt returns from ect.
[2021-05-29] MEDS: LORazepam 2 MG/ML VIAL 1 MG IVPUSH ×2 (10:23→11:07)
--- NOTE | 2021-05-29 10:32 | MHC.SHP ---
Pre-Procedural Eval Section A Date of Service: 05/29/21 The patient is an INPATIENT: Yes Changes since office visit: Yes New Medical Problems, Yes Changes in Medication and Yes Patient answered all questions; No Cold of Flu in the past 2 weeks The History & Physical has been completed within 30 days and I have reviewed it.: Yes Section B Chief Complaint: major depressive d/o recurrent severe with psychot Allergies: Allergies Allergy/AdvReac Type Severity Reaction Status Date / Time amoxicillin [From Augmentin] Allergy Unknown Unknown Verified 02/01/21 15:55 aspirin Allergy Unknown Unknown Verified 02/01/21 16:34 clavulanic acid Allergy Unknown Unknown Verified 02/01/21 15:55 [From Augmentin] diphenhydramine Allergy Unknown Unknown Verified 02/01/21 16:35 hydrochlorothiazide Allergy Unknown Unknown Verified 02/01/21 16:44 metronidazole Allergy Unknown Unknown Verified 02/01/21 16:54 trazodone Allergy Unknown Unknown Verified 02/01/21 16:54 augmentin Allergy Unknown Unknown Uncoded 02/01/21 15:55 Plan I have reviewed the history and physical and performed a pertinent physical examination on my patient. No changes have occurred unless specified.
--- NOTE | 2021-05-29 10:48 | HO.ECTPROC ---
ECT Procedure Note Diagnosis/Treatment Date of Service: 05/29/21 Diagnosis: Major Depressive Disorder Previous ECT Date: 05/26/21 Current Treatment Number: 5 Treatment: Series Interval Clinical Notes: pt anxious ruminating panicky in tx uti ECT Settings Device: THYMATRON DGx Electrode Placement: Right Unilateral Program/Pulse Width: 0.50 Energy Percent: 100 Seizure Duration By EEG (in seconds): 55 Medications Administration General Anesthetic: Etomidate (10) Muscle Relaxant: Succinylcholine (80) Ancillary Medications Cardiovascular Medications: Labetolol (30) Miscillaneous Medications: Flumazenil (250) Treatment Recommendations Notes: very anxious pretx given lorazepam 1 mg iv pretx and post tx Pt Tolerated Procedure w/o Issue: Yes
--- NOTE | 2021-05-29 11:53 | P.CONAN_ITS ---
[facility] Active Problems Active Problems: All Active Problems (Updated 05/19/21 @ 10:26 by Enoc Fontaine MD) Pre-op testing (Acute) Major depressive disorder, recurrent episode with mood-congruent psychotic features (Acute) Neurocognitive disorder (Acute) Past Medical History Medical History (Updated 05/19/21 @ 10:26 by Enoc Fontaine MD) History of pulmonary embolism Neurocognitive disorder Pulmonary embolism Family History Family history of problems with anesthesia: No Surgical History Surgical History H/O section History of Problems with Anesthesia: No Social History Social History Household Members: Spouse Household Members Other:: Her and her Housing: House Do you presently have visiting nurse or other home services: No Patient Tobacco Use Status: Never used Tobacco Second Hand Smoke Exposure: No Use of substances other than those prescribed or required for medical reasons: No Currently Displaying Signs/Symptoms of Drug Intoxication Withdrawal: No Have you been hit, kicked, punched, or otherwise hurt by someone within the past year? If so, by whom?: No Do you feel safe in your current relationship?: Yes Is there a partner from a previous relationship who is making you feel unsafe now?: No Are you made to feel afraid or neglected: No Are you DNR?: No Advance Directives: No Do you have thoughts of harming others: None Do you have a plan to hurt others: No Plan Recently lost weight without trying: No Nutrition Risks: No Nutritional Risk Patient : No : No Poor oral hygiene: No service: Yes Sexual orientation: Straight/Heterosexual Meds Allergies Allergy/AdvReac Type Severity Reaction Status Date / Time amoxicillin [From Augmentin] Allergy Unknown Unknown Verified 02/01/21 15:55 aspirin Allergy Unknown Unknown Verified 02/01/21 16:34 clavulanic acid Allergy Unknown Unknown Verified 02/01/21 15:55 [From Augmentin] diphenhydramine Allergy Unknown Unknown Verified 02/01/21 16:35 hydrochlorothiazide Allergy Unknown Unknown Verified 02/01/21 16:44 metronidazole Allergy Unknown Unknown Verified 02/01/21 16:54 trazodone Allergy Unknown Unknown Verified 02/01/21 16:54 augmentin Allergy Unknown Unknown Uncoded 02/01/21 15:55 Active Medications: Current Medications Acetaminophen (Acetaminophen 325 Mg Tablet) 650 mg PO Q6H PRN PRN Reason: Headache/Pain Mild Scale (1-3) Last Admin: 05/23/21 11:28 Dose: 650 mg Documented by: Al Hydroxide/Mg Hydroxide (Magnesium Hydrox/Alum Hydrox 30 Ml Oral.Susp) 30 ml PO Q6H PRN PRN Reason: Heartburn/Nausea Apixaban (Apixaban 5 Mg Tablet) 5 mg PO BID [facility] Last Admin: 05/28/21 19:11 Dose: 5 mg Documented by: Cefuroxime Axetil (Cefuroxime Axetil 250 Mg Tablet) 250 mg PO Q12H [facility] Last Admin: 05/28/21 17:04 Dose: 250 mg Documented by: Lorazepam (Lorazepam 1 Mg Tablet) 1 mg PO TID [facility] Last Admin: 05/28/21 19:11 Dose: 1 mg Documented by: Lorazepam (Lorazepam 1 Mg Tablet) 1 mg PO BID PRN PRN Reason: anxiety/restlessness Last Admin: 05/28/21 18:27 Dose: 1 mg Documented by: Magnesium Hydroxide (Milk Of Magnesia 30 Ml Oral.Susp) 30 ml PO DAILY PRN PRN Reason: Constipation Mirtazapine (Mirtazapine 30 Mg Tablet) 30 mg PO BEDTIME [facility] Last Admin: 05/28/21 19:11 Dose: 30 mg Documented by: Olanzapine (Olanzapine 2.5 Mg Tablet) 2.5 mg PO BID PRN PRN Reason: anxiety, agitation Last Admin: 05/29/21 05:37 Dose: 2.5 mg Documented by: Olanzapine (Olanzapine 5 Mg Tablet) 5 mg PO TID [facility] Last Admin: 05/28/21 19:10 Dose: 5 mg Documented by: Home Medications Medication Instructions Recorded Confirmed Last Taken Type gabapentin 600 mg tablet 600 mg PO TID 02/01/21 02/01/21 Unknown History lorazepam 0.5 mg tablet (Ativan) 0.5 mg PO DAILY PRN 05/18/21 05/18/21 Unknown History Exam Exam Date and Time: May 29, 2021 1153 Height,Weight and Vital Signs: Height 5 ft 3 in Weight 53.9 kg Last Vital Signs Temp 97.2 F 05/29/21 11:37 Pulse 100 05/29/21 11:37 Resp 16 05/29/21 11:37 BP 121/64 05/29/21 11:37 Pulse Ox 96 05/29/21 11:37 Pertinent Lab Results Pertinent Lab Results: Laboratory Tests 05/18/21 05/18/21 05/18/21 19:05 19:05 19:05 WBC 10.2 RBC 4.37 D Hgb 13.7 D Hct 39.6 MCV 90.6 MCH 31.4 MCHC 34.6 RDW 12.6 Plt Count 289 D MPV 9.4 Immature Gran % (Auto) 0.4 Neut % (Auto) 76.9 H Lymph % (Auto) 14.0 L [place] % (Auto) 8.4 Eos % (Auto) 0.0 Baso % (Auto) 0.3 Lymph # (Auto) 1.4 [place] # (Auto) 0.9 Eos # (Auto) 0.0 Baso # (Auto) 0.0 Abs Immat Gran (auto) 0.04 H Absolute Neuts (auto) 7.9 Absolute Nucleated RBC 0.000 Nucleated RBC % (auto) 0.0 Sodium 142 Potassium 4.0 Chloride 106 Carbon Dioxide 22 Anion Gap 18 BUN 20 H Creatinine 1.01 Estim Creat Clear Calc 43.4 Estimated GFR 54 Fasting Glucose 125 H Calcium 9.9 D Total Bilirubin 0.9 AST 27 ALT 22 Alkaline Phosphatase 94 Total Protein 7.2 Albumin 4.5 Triglycerides 58 Cholesterol 178 D LDL Cholesterol, Calc 110 HDL Cholesterol 57 Vitamin B12 237 25-OH Vitamin D Total 25-Hydroxy Vitamin D2 25-Hydroxy Vitamin D3 Folate 16.9 TSH 0.82 Free Cortisol Urine Color Urine Appearance Urine pH Ur Specific [place] Urine Protein Urine Glucose (UA) Urine Ketones Urine Blood Urine Nitrite Ur Leukocyte Esterase Urine RBC Urine WBC Ur Squamous Epith Cells Urine Bacteria Urine Mucus 05/18/21 05/19/21 05/19/21 19:05 06:30 07:54 WBC 5.7 RBC 4.29 Hgb 13.3 Hct 39.7 MCV 92.5 MCH 31.0 MCHC 33.5 RDW 13.0 Plt Count 243 MPV 9.4 Immature Gran % (Auto) 0.4 Neut % (Auto) 67.7 Lymph % (Auto) 20.4 [place] % (Auto) 10.5 Eos % (Auto) 0.5 Baso % (Auto) 0.5 Lymph # (Auto) 1.2 [place] # (Auto) 0.6 Eos # (Auto) 0.0 Baso # (Auto) 0.0 Abs Immat Gran (auto) 0.02 Absolute Neuts (auto) 3.9 Absolute Nucleated RBC 0.000 Nucleated RBC % (auto) 0.0 Sodium Potassium Chloride Carbon Dioxide Anion Gap BUN Creatinine Estim Creat Clear Calc Estimated GFR Fasting Glucose Calcium Total Bilirubin AST ALT Alkaline Phosphatase Total Protein Albumin Triglycerides Cholesterol LDL Cholesterol, Calc HDL Cholesterol Vitamin B12 25-OH Vitamin D Total 21 L 25-Hydroxy Vitamin D2 <4 25-Hydroxy Vitamin D3 21 Folate TSH Free Cortisol Urine Color YELLOW Urine Appearance CLOUDY Urine pH 6.0 Ur Specific [place] 1.025 Urine Protein TRACE Urine Glucose (UA) NEG Urine Ketones 15 Urine Blood 1+ H Urine Nitrite NEG Ur Leukocyte Esterase 2+ H Urine RBC 0-2 Urine WBC 10-14 H Ur Squamous Epith Cells 1+ Urine Bacteria 1+ Urine Mucus 2+ 05/19/21 05/19/21 05/19/21 07:54 07:54 07:54 WBC RBC Hgb Hct MCV MCH MCHC RDW Plt Count MPV Immature Gran % (Auto) Neut % (Auto) Lymph % (Auto) [place] % (Auto) Eos % (Auto) Baso % (Auto) Lymph # (Auto) [place] # (Auto) Eos # (Auto) Baso # (Auto) Abs Immat Gran (auto) Absolute Neuts (auto) Absolute Nucleated RBC Nucleated RBC % (auto) Sodium 141 Potassium 3.6 Chloride 106 Carbon Dioxide 25 Anion Gap 14 BUN 21 H Creatinine 0.78 Estim Creat Clear Calc 56.3 Estimated GFR > 60 Fasting Glucose 114 H Calcium 9.3 D Total Bilirubin 0.9 AST 32 H ALT 20 Alkaline Phosphatase 93 Total Protein 6.8 Albumin 4.3 Triglycerides 57 Cholesterol 165 LDL Cholesterol, Calc 100 HDL Cholesterol 54 Vitamin B12 225 25-OH Vitamin D Total 15 L 25-Hydroxy Vitamin D2 <4 25-Hydroxy Vitamin D3 15 Folate 18.0 TSH 0.70 Free Cortisol Urine Color Urine Appearance Urine pH Ur Specific [place] Urine Protein Urine Glucose (UA) Urine Ketones Urine Blood Urine Nitrite Ur Leukocyte Esterase Urine RBC Urine WBC Ur Squamous Epith Cells Urine Bacteria Urine Mucus 05/20/21 05/25/21 06:56 18:10 WBC RBC Hgb Hct MCV MCH MCHC RDW Plt Count MPV Immature Gran % (Auto) Neut % (Auto) Lymph % (Auto) [place] % (Auto) Eos % (Auto) Baso % (Auto) Lymph # (Auto) [place] # (Auto) Eos # (Auto) Baso # (Auto) Abs Immat Gran (auto) Absolute Neuts (auto) Absolute Nucleated RBC Nucleated RBC % (auto) Sodium Potassium Chloride Carbon Dioxide Anion Gap BUN Creatinine Estim Creat Clear Calc Estimated GFR Fasting Glucose Calcium Total Bilirubin AST ALT Alkaline Phosphatase Total Protein Albumin Triglycerides Cholesterol LDL Cholesterol, Calc HDL Cholesterol Vitamin B12 25-OH Vitamin D Total 25-Hydroxy Vitamin D2 25-Hydroxy Vitamin D3 Folate TSH Free Cortisol 0.50 Urine Color YELLOW Urine Appearance CLEAR Urine pH 6.0 Ur Specific [place] 1.025 Urine Protein TRACE Urine Glucose (UA) NEG Urine Ketones 5 Urine Blood TRACE Urine Nitrite NEG Ur Leukocyte Esterase 1+ H Urine RBC 1-4 Urine WBC 5-9 H Ur Squamous Epith Cells 1+ Urine Bacteria 1+ Urine Mucus 2+ Airway Mallampati Class: II TM Dist: >3cm Neck ROM: Full Assessment and Plan Assessment Anesthesia Assessment: Anesthesia Plan Discussed and Chart Reviewed Final Anesthetic Review Family History of Problems with Anesthesia: No History of Problems with Anesthesia: No NPO: Yes ASA Class: III Final Preanesthetic Review: No Changes in Pt Med Stat, Meds/Allgs Chart Reviewed, Consent Obtained/Reviewed and Anes Risks/Benef Reviewed Patient Risk: Intermediate Procedure Risk: Intermediate Anesthetic Plan Anesthetic Plan: GA Disposition: Standard PACU
--- NOTE | 2021-05-29 14:38 | P.PNPSI_ITS ---
Subjective Subjective Date of Service: 05/29/21 Reason For Visit: major depressive d/o recurrent severe with psychot Subjective Notes: Conditional Voluntary Interim History: Pt continues with one to one due to fall risk. Pt sitting outside in sun. Pt reports she is doing well. She reports feeling less anxious. She denies SI/HI. No VH/AH. When asked about sleep- pt reports she slept well, however, per nursing, pt up most night, yelling that she was too cold keeping other pts up- which pt today denies. Medication Compliance: Yes Side effects from medications: No Attending Groups: Intermittent Review of Systems Review of Systems Yes all other systems are reviewed and are negative Mental Status Exam Mental Status Exam Narrative: Appearance: casually groomed, good hygiene, in NAD behavior: cooperative Speech: clear, normal rate/rhythm/volume, spontaneous Psychomotor: no agitation or retardation noted TP: linear TC: no overt signs of psychosis, feeling less anxious, Mood: okay Affect: congruent, slightly constricted VH/AH: none SI: none HI: none Insight/judgment: fair x 2. Memory/cog: alert, oriented x 3, not formally tested. Diagnostics Vital Signs (24Hr): Vital Signs - 24 hr 05/28/21 16:45 05/29/21 05:49 05/29/21 06:00 Temperature 97.7 F 98.2 F 97.6 F Pulse Rate 80 58 66 Respiratory Rate 16 16 16 Blood Pressure 151/80 H 103/58 L 121/69 Pulse Oximetry 97 95 96 05/29/21 10:55 05/29/21 11:00 05/29/21 11:05 Temperature 97.2 F Pulse Rate 78 83 99 Respiratory Rate 15 18 21 H Blood Pressure 132/59 L 140/80 H 164/83 H Pulse Oximetry 93 92 93 05/29/21 11:10 05/29/21 11:25 05/29/21 11:37 Temperature 97.2 F Pulse Rate 99 95 100 Respiratory Rate 19 21 H 16 Blood Pressure 150/93 H 121/64 121/64 Pulse Oximetry 93 94 96 BMI result Body Mass Index 21.0 Labs Results: 05/19/21 07:54 05/19/21 07:54 Medications Medications Current Medications Acetaminophen (Acetaminophen 325 Mg Tablet) 650 mg PO Q6H PRN PRN Reason: Headache/Pain Mild Scale (1-3) Last Admin: 05/23/21 11:28 Dose: 650 mg Documented by: Al Hydroxide/Mg Hydroxide (Magnesium Hydrox/Alum Hydrox 30 Ml Oral.Susp) 30 ml PO Q6H PRN PRN Reason: Heartburn/Nausea Apixaban (Apixaban 5 Mg Tablet) 5 mg PO BID [facility] Last Admin: 05/29/21 13:59 Dose: Not Given Documented by: Cefuroxime Axetil (Cefuroxime Axetil 250 Mg Tablet) 250 mg PO Q12H [facility] Last Admin: 05/29/21 14:27 Dose: 250 mg Documented by: Lorazepam (Lorazepam 1 Mg Tablet) 1 mg PO TID [facility] Last Admin: 05/29/21 13:59 Dose: Not Given Documented by: Lorazepam (Lorazepam 1 Mg Tablet) 1 mg PO BID PRN PRN Reason: anxiety/restlessness Last Admin: 05/28/21 18:27 Dose: 1 mg Documented by: Magnesium Hydroxide (Milk Of Magnesia 30 Ml Oral.Susp) 30 ml PO DAILY PRN PRN Reason: Constipation Mirtazapine (Mirtazapine 30 Mg Tablet) 30 mg PO BEDTIME [facility] Last Admin: 05/28/21 19:11 Dose: 30 mg Documented by: Olanzapine (Olanzapine 2.5 Mg Tablet) 2.5 mg PO BID PRN PRN Reason: anxiety, agitation Last Admin: 05/29/21 05:37 Dose: 2.5 mg Documented by: Olanzapine (Olanzapine 5 Mg Tablet) 5 mg PO TID [facility] Last Admin: 05/29/21 13:59 Dose: Not Given Documented by: Allergies Allergies Allergy/AdvReac Type Severity Reaction Status Date / Time amoxicillin [From Augmentin] Allergy Unknown Unknown Verified 02/01/21 15:55 aspirin Allergy Unknown Unknown Verified 02/01/21 16:34 clavulanic acid Allergy Unknown Unknown Verified 02/01/21 15:55 [From Augmentin] diphenhydramine Allergy Unknown Unknown Verified 02/01/21 16:35 hydrochlorothiazide Allergy Unknown Unknown Verified 02/01/21 16:44 metronidazole Allergy Unknown Unknown Verified 02/01/21 16:54 trazodone Allergy Unknown Unknown Verified 02/01/21 16:54 augmentin Allergy Unknown Unknown Uncoded 02/01/21 15:55 Assessment & Plan Assessment & Plan (1) Major depressive disorder, recurrent episode with mood-congruent psychotic features: Status: Acute Code(s): F33.3 - Major depressive disorder, recurrent, severe with psychotic symptoms Assessment and Plan: Prozac discontinued in case causing increased anxiety agitation. Lower mirtazapine to 30 mg. Zyprexa change to 5 mg 3 times a day. Continue ECT. Change alprazolam to lorazepam 1 t.i.d. patient has responded to lorazepam previously. One-to-one for gait disturbance but requires these doses secondary to level of anxiety agitation fearfulness continue ECT (2) Pre-op testing: Status: Acute Code(s): Z01.818 - Encounter for other preprocedural examination Plan 70 yo F admitted to psych for major depressive disorder, with past medical history of pulmonary embolism on Eliquis, Medical consult requested for ECT Clearance. EKG reviewed and unremarkable. labs reviewed and unremarkable/ normal head CT February 07 No absolute contradictions for ECT No further work up needed at this time.? ECT. 05/29/21 had ECT today. no complications noted or reported. no changes to tx plan. I spent minutes with the patient and/or on the patient floor today, greater than?50% of which was spent counseling/coordinating care. Reason for contiued inpatient stay Substantial Risk for: inability to function
[2021-05-29] MEDS: LORazepam 1 MG TABLET PO ×2 (15:17→19:51)
[2021-05-29] MEDS: OLANZapine 5 MG TABLET PO ×2 (15:17→19:50)
[2021-05-29] MEDS: Apixaban 5 MG TABLET PO (19:51)
[2021-05-29] MEDS: Mirtazapine 30 MG TABLET PO (19:51)
[2021-05-30 06:00] VITALS: BP 119/58; PULSE 71; TEMP 36.4; O2SAT 93
[2021-05-30] MEDS: OLANZapine 5 MG TABLET PO ×3 (09:49→20:08)
[2021-05-30] MEDS: LORazepam 1 MG TABLET PO ×3 (09:49→20:08)
[2021-05-30] MEDS: Apixaban 5 MG TABLET PO ×2 (09:49→20:07)
--- NOTE | 2021-05-30 14:44 | HO.PSYCHPN ---
Subjective Subjective Date of Service: 05/30/21 Reason For Visit: major depressive d/o recurrent severe with psychot Subjective Notes: Conditional Voluntary Interim History: Pt continues with one to one due to fall risk. Pt presents as calm. She reports less anxious mood. She denies SI/HI. She reports she had good night sleep- but staff does report that she was up few hours screaming that it was too cold. Pt presents as much less dysregulated, calm. No VH/AH. Medication Compliance: Yes Side effects from medications: No Attending Groups: No Review of Systems Review of Systems Yes all other systems are reviewed and are negative Mental Status Exam Mental Status Exam Narrative: Appearance: casually groomed, good hygiene, in NAD behavior: cooperative Speech: clear, normal rate/rhythm/volume, spontaneous Psychomotor: no agitation or retardation noted TP: linear TC: no overt signs of psychosis, feeling less anxious, Mood: okay Affect: congruent, slightly constricted VH/AH: none SI: none HI: none Insight/judgment: fair x 2. Memory/cog: alert, oriented x 3, not formally tested. Diagnostics Vital Signs (24Hr): Vital Signs - 24 hr 05/29/21 19:45 05/30/21 06:00 Temperature 96.8 F 97.6 F Pulse Rate 64 71 Respiratory Rate 16 Blood Pressure 81/47 L 119/58 L Pulse Oximetry 92 93 BMI result Body Mass Index 21.0 Labs Results: 05/19/21 07:54 05/19/21 07:54 Medications Medications Current Medications Acetaminophen (Acetaminophen 325 Mg Tablet) 650 mg PO Q6H PRN PRN Reason: Headache/Pain Mild Scale (1-3) Last Admin: 05/23/21 11:28 Dose: 650 mg Documented by: Al Hydroxide/Mg Hydroxide (Magnesium Hydrox/Alum Hydrox 30 Ml Oral.Susp) 30 ml PO Q6H PRN PRN Reason: Heartburn/Nausea Apixaban (Apixaban 5 Mg Tablet) 5 mg PO BID [facility] Last Admin: 05/30/21 09:49 Dose: 5 mg Documented by: Cefuroxime Axetil (Cefuroxime Axetil 250 Mg Tablet) 250 mg PO Q12H [facility] Last Admin: 05/30/21 06:00 Dose: 250 mg Documented by: Lorazepam (Lorazepam 1 Mg Tablet) 1 mg PO TID [facility] Last Admin: 05/30/21 15:29 Dose: 1 mg Documented by: Lorazepam (Lorazepam 1 Mg Tablet) 1 mg PO BID PRN PRN Reason: anxiety/restlessness Last Admin: 05/28/21 18:27 Dose: 1 mg Documented by: Magnesium Hydroxide (Milk Of Magnesia 30 Ml Oral.Susp) 30 ml PO DAILY PRN PRN Reason: Constipation Mirtazapine (Mirtazapine 30 Mg Tablet) 30 mg PO BEDTIME [facility] Last Admin: 05/29/21 19:51 Dose: 30 mg Documented by: Olanzapine (Olanzapine 2.5 Mg Tablet) 2.5 mg PO BID PRN PRN Reason: anxiety, agitation Last Admin: 05/29/21 05:37 Dose: 2.5 mg Documented by: Olanzapine (Olanzapine 5 Mg Tablet) 5 mg PO TID [facility] Last Admin: 05/30/21 15:29 Dose: 5 mg Documented by: Allergies Allergies Allergy/AdvReac Type Severity Reaction Status Date / Time amoxicillin [From Augmentin] Allergy Unknown Unknown Verified 02/01/21 15:55 aspirin Allergy Unknown Unknown Verified 02/01/21 16:34 clavulanic acid Allergy Unknown Unknown Verified 02/01/21 15:55 [From Augmentin] diphenhydramine Allergy Unknown Unknown Verified 02/01/21 16:35 hydrochlorothiazide Allergy Unknown Unknown Verified 02/01/21 16:44 metronidazole Allergy Unknown Unknown Verified 02/01/21 16:54 trazodone Allergy Unknown Unknown Verified 02/01/21 16:54 augmentin Allergy Unknown Unknown Uncoded 02/01/21 15:55 Assessment & Plan Assessment & Plan (1) Major depressive disorder, recurrent episode with mood-congruent psychotic features: Status: Acute Code(s): F33.3 - Major depressive disorder, recurrent, severe with psychotic symptoms Assessment and Plan: Prozac discontinued in case causing increased anxiety agitation. Lower mirtazapine to 30 mg. Zyprexa change to 5 mg 3 times a day. Continue ECT. Change alprazolam to lorazepam 1 t.i.d. patient has responded to lorazepam previously. One-to-one for gait disturbance but requires these doses secondary to level of anxiety agitation fearfulness continue ECT (2) Pre-op testing: Status: Acute Code(s): Z01.818 - Encounter for other preprocedural examination Plan 70 yo F admitted to psych for major depressive disorder, with past medical history of pulmonary embolism on Eliquis, Medical consult requested for ECT Clearance. EKG reviewed and unremarkable. labs reviewed and unremarkable/ normal head CT February 07 No absolute contradictions for ECT No further work up needed at this time.? ECT. 05/29/21 had ECT today. no complications noted or reported. no changes to tx plan. 05/30- continue current medications. I spent minutes with the patient and/or on the patient floor today, greater than?50% of which was spent counseling/coordinating care. Reason for contiued inpatient stay Substantial Risk for: inability to function
[2021-05-30 19:59] VITALS: BP 94/53; PULSE 69; RESP 17; TEMP 36.5; O2SAT 94
[2021-05-30] MEDS: Mirtazapine 30 MG TABLET PO (20:08)
[2021-05-31] VITALS (11 sets, daily range): BP systolic 111–148; BP diastolic 58–85; PULSE 55–75; RESP 16–21; TEMP 36.1–36.4; O2SAT 93–97
[2021-05-31] MEDS: OLANZapine 5 MG TABLET PO ×3 (05:36→19:54)
--- NOTE | 2021-05-31 07:10 | MHC.SHP ---
Pre-Procedural Eval Section A Date of Service: 05/31/21 Changes since office visit: Yes New Medical Problems and Yes Changes in Medication; No Cold of Flu in the past 2 weeks and No Patient answered all questions The History & Physical has been completed within 30 days and I have reviewed it.: Yes Section B Chief Complaint: major depressive d/o recurrent severe with psychot Allergies: Allergies Allergy/AdvReac Type Severity Reaction Status Date / Time amoxicillin [From Augmentin] Allergy Unknown Unknown Verified 02/01/21 15:55 aspirin Allergy Unknown Unknown Verified 02/01/21 16:34 clavulanic acid Allergy Unknown Unknown Verified 02/01/21 15:55 [From Augmentin] diphenhydramine Allergy Unknown Unknown Verified 02/01/21 16:35 hydrochlorothiazide Allergy Unknown Unknown Verified 02/01/21 16:44 metronidazole Allergy Unknown Unknown Verified 02/01/21 16:54 trazodone Allergy Unknown Unknown Verified 02/01/21 16:54 augmentin Allergy Unknown Unknown Uncoded 02/01/21 15:55 Plan I have reviewed the history and physical and performed a pertinent physical examination on my patient. No changes have occurred unless specified.
--- NOTE | 2021-05-31 07:13 | P.CONAN_ITS ---
[facility] Active Problems Active Problems: All Active Problems (Updated 05/19/21 @ 10:26 by Enoc Fontaine MD) Pre-op testing (Acute) Major depressive disorder, recurrent episode with mood-congruent psychotic features (Acute) Neurocognitive disorder (Acute) Past Medical History Medical History History of pulmonary embolism Neurocognitive disorder Pulmonary embolism Family History Family history of problems with anesthesia: No Surgical History Surgical History H/O section History of Problems with Anesthesia: No Social History Social History Household Members: Spouse Household Members Other:: Her and her Housing: House Do you presently have visiting nurse or other home services: No Patient Tobacco Use Status: Never used Tobacco Second Hand Smoke Exposure: No Use of substances other than those prescribed or required for medical reasons: No Currently Displaying Signs/Symptoms of Drug Intoxication Withdrawal: No Have you been hit, kicked, punched, or otherwise hurt by someone within the past year? If so, by whom?: No Do you feel safe in your current relationship?: Yes Is there a partner from a previous relationship who is making you feel unsafe now?: No Are you made to feel afraid or neglected: No Are you DNR?: No Advance Directives: No Do you have thoughts of harming others: None Do you have a plan to hurt others: No Plan Recently lost weight without trying: No Nutrition Risks: No Nutritional Risk Patient : No : No Poor oral hygiene: No service: Yes Sexual orientation: Straight/Heterosexual Meds Allergies Allergy/AdvReac Type Severity Reaction Status Date / Time amoxicillin [From Augmentin] Allergy Unknown Unknown Verified 02/01/21 15:55 aspirin Allergy Unknown Unknown Verified 02/01/21 16:34 clavulanic acid Allergy Unknown Unknown Verified 02/01/21 15:55 [From Augmentin] diphenhydramine Allergy Unknown Unknown Verified 02/01/21 16:35 hydrochlorothiazide Allergy Unknown Unknown Verified 02/01/21 16:44 metronidazole Allergy Unknown Unknown Verified 02/01/21 16:54 trazodone Allergy Unknown Unknown Verified 02/01/21 16:54 augmentin Allergy Unknown Unknown Uncoded 02/01/21 15:55 Active Medications: Current Medications Acetaminophen (Acetaminophen 325 Mg Tablet) 650 mg PO Q6H PRN PRN Reason: Headache/Pain Mild Scale (1-3) Last Admin: 05/23/21 11:28 Dose: 650 mg Documented by: Al Hydroxide/Mg Hydroxide (Magnesium Hydrox/Alum Hydrox 30 Ml Oral.Susp) 30 ml PO Q6H PRN PRN Reason: Heartburn/Nausea Apixaban (Apixaban 5 Mg Tablet) 5 mg PO BID [facility] Last Admin: 05/30/21 20:07 Dose: 5 mg Documented by: Cefuroxime Axetil (Cefuroxime Axetil 250 Mg Tablet) 250 mg PO Q12H [facility] Last Admin: 05/31/21 05:35 Dose: 250 mg Documented by: Lorazepam (Lorazepam 1 Mg Tablet) 1 mg PO TID [facility] Last Admin: 05/30/21 20:08 Dose: 1 mg Documented by: Lorazepam (Lorazepam 1 Mg Tablet) 1 mg PO BID PRN PRN Reason: anxiety/restlessness Last Admin: 05/28/21 18:27 Dose: 1 mg Documented by: Magnesium Hydroxide (Milk Of Magnesia 30 Ml Oral.Susp) 30 ml PO DAILY PRN PRN Reason: Constipation Mirtazapine (Mirtazapine 30 Mg Tablet) 30 mg PO BEDTIME [facility] Last Admin: 05/30/21 20:08 Dose: 30 mg Documented by: Olanzapine (Olanzapine 2.5 Mg Tablet) 2.5 mg PO BID PRN PRN Reason: anxiety, agitation Last Admin: 05/29/21 05:37 Dose: 2.5 mg Documented by: Olanzapine (Olanzapine 5 Mg Tablet) 5 mg PO TID [facility] Last Admin: 05/31/21 05:36 Dose: 5 mg Documented by: Home Medications Medication Instructions Recorded Confirmed Last Taken Type gabapentin 600 mg tablet 600 mg PO TID 02/01/21 02/01/21 Unknown History lorazepam 0.5 mg tablet (Ativan) 0.5 mg PO DAILY PRN 05/18/21 05/18/21 Unknown History Exam Exam Date and Time: May 31, 2021712 Height,Weight and Vital Signs: Height 5 ft 3 in Weight 53.9 kg Last Vital Signs Temp 97 F 05/31/21 06:28 Pulse 69 05/31/21 06:28 Resp 18 05/31/21 06:28 BP 128/81 05/31/21 06:28 Pulse Ox 93 05/31/21 06:28 Pertinent Lab Results Pertinent Lab Results: Laboratory Tests 05/18/21 05/18/21 05/18/21 19:05 19:05 19:05 WBC 10.2 RBC 4.37 D Hgb 13.7 D Hct 39.6 MCV 90.6 MCH 31.4 MCHC 34.6 RDW 12.6 Plt Count 289 D MPV 9.4 Immature Gran % (Auto) 0.4 Neut % (Auto) 76.9 H Lymph % (Auto) 14.0 L [place] % (Auto) 8.4 Eos % (Auto) 0.0 Baso % (Auto) 0.3 Lymph # (Auto) 1.4 [place] # (Auto) 0.9 Eos # (Auto) 0.0 Baso # (Auto) 0.0 Abs Immat Gran (auto) 0.04 H Absolute Neuts (auto) 7.9 Absolute Nucleated RBC 0.000 Nucleated RBC % (auto) 0.0 Sodium 142 Potassium 4.0 Chloride 106 Carbon Dioxide 22 Anion Gap 18 BUN 20 H Creatinine 1.01 Estim Creat Clear Calc 43.4 Estimated GFR 54 Fasting Glucose 125 H Calcium 9.9 D Total Bilirubin 0.9 AST 27 ALT 22 Alkaline Phosphatase 94 Total Protein 7.2 Albumin 4.5 Triglycerides 58 Cholesterol 178 D LDL Cholesterol, Calc 110 HDL Cholesterol 57 Vitamin B12 237 25-OH Vitamin D Total 25-Hydroxy Vitamin D2 25-Hydroxy Vitamin D3 Folate 16.9 TSH 0.82 Free Cortisol Urine Color Urine Appearance Urine pH Ur Specific [place] Urine Protein Urine Glucose (UA) Urine Ketones Urine Blood Urine Nitrite Ur Leukocyte Esterase Urine RBC Urine WBC Ur Squamous Epith Cells Urine Bacteria Urine Mucus 05/18/21 05/19/21 05/19/21 19:05 06:30 07:54 WBC 5.7 RBC 4.29 Hgb 13.3 Hct 39.7 MCV 92.5 MCH 31.0 MCHC 33.5 RDW 13.0 Plt Count 243 MPV 9.4 Immature Gran % (Auto) 0.4 Neut % (Auto) 67.7 Lymph % (Auto) 20.4 [place] % (Auto) 10.5 Eos % (Auto) 0.5 Baso % (Auto) 0.5 Lymph # (Auto) 1.2 [place] # (Auto) 0.6 Eos # (Auto) 0.0 Baso # (Auto) 0.0 Abs Immat Gran (auto) 0.02 Absolute Neuts (auto) 3.9 Absolute Nucleated RBC 0.000 Nucleated RBC % (auto) 0.0 Sodium Potassium Chloride Carbon Dioxide Anion Gap BUN Creatinine Estim Creat Clear Calc Estimated GFR Fasting Glucose Calcium Total Bilirubin AST ALT Alkaline Phosphatase Total Protein Albumin Triglycerides Cholesterol LDL Cholesterol, Calc HDL Cholesterol Vitamin B12 25-OH Vitamin D Total 21 L 25-Hydroxy Vitamin D2 <4 25-Hydroxy Vitamin D3 21 Folate TSH Free Cortisol Urine Color YELLOW Urine Appearance CLOUDY Urine pH 6.0 Ur Specific [place] 1.025 Urine Protein TRACE Urine Glucose (UA) NEG Urine Ketones 15 Urine Blood 1+ H Urine Nitrite NEG Ur Leukocyte Esterase 2+ H Urine RBC 0-2 Urine WBC 10-14 H Ur Squamous Epith Cells 1+ Urine Bacteria 1+ Urine Mucus 2+ 05/19/21 05/19/21 05/19/21 07:54 07:54 07:54 WBC RBC Hgb Hct MCV MCH MCHC RDW Plt Count MPV Immature Gran % (Auto) Neut % (Auto) Lymph % (Auto) [place] % (Auto) Eos % (Auto) Baso % (Auto) Lymph # (Auto) [place] # (Auto) Eos # (Auto) Baso # (Auto) Abs Immat Gran (auto) Absolute Neuts (auto) Absolute Nucleated RBC Nucleated RBC % (auto) Sodium 141 Potassium 3.6 Chloride 106 Carbon Dioxide 25 Anion Gap 14 BUN 21 H Creatinine 0.78 Estim Creat Clear Calc 56.3 Estimated GFR > 60 Fasting Glucose 114 H Calcium 9.3 D Total Bilirubin 0.9 AST 32 H ALT 20 Alkaline Phosphatase 93 Total Protein 6.8 Albumin 4.3 Triglycerides 57 Cholesterol 165 LDL Cholesterol, Calc 100 HDL Cholesterol 54 Vitamin B12 225 25-OH Vitamin D Total 15 L 25-Hydroxy Vitamin D2 <4 25-Hydroxy Vitamin D3 15 Folate 18.0 TSH 0.70 Free Cortisol Urine Color Urine Appearance Urine pH Ur Specific [place] Urine Protein Urine Glucose (UA) Urine Ketones Urine Blood Urine Nitrite Ur Leukocyte Esterase Urine RBC Urine WBC Ur Squamous Epith Cells Urine Bacteria Urine Mucus 05/20/21 05/25/21 06:56 18:10 WBC RBC Hgb Hct MCV MCH MCHC RDW Plt Count MPV Immature Gran % (Auto) Neut % (Auto) Lymph % (Auto) [place] % (Auto) Eos % (Auto) Baso % (Auto) Lymph # (Auto) [place] # (Auto) Eos # (Auto) Baso # (Auto) Abs Immat Gran (auto) Absolute Neuts (auto) Absolute Nucleated RBC Nucleated RBC % (auto) Sodium Potassium Chloride Carbon Dioxide Anion Gap BUN Creatinine Estim Creat Clear Calc Estimated GFR Fasting Glucose Calcium Total Bilirubin AST ALT Alkaline Phosphatase Total Protein Albumin Triglycerides Cholesterol LDL Cholesterol, Calc HDL Cholesterol Vitamin B12 25-OH Vitamin D Total 25-Hydroxy Vitamin D2 25-Hydroxy Vitamin D3 Folate TSH Free Cortisol 0.50 Urine Color YELLOW Urine Appearance CLEAR Urine pH 6.0 Ur Specific [place] 1.025 Urine Protein TRACE Urine Glucose (UA) NEG Urine Ketones 5 Urine Blood TRACE Urine Nitrite NEG Ur Leukocyte Esterase 1+ H Urine RBC 1-4 Urine WBC 5-9 H Ur Squamous Epith Cells 1+ Urine Bacteria 1+ Urine Mucus 2+ Airway Mallampati Class: II TM Dist: >3cm Neck ROM: Full Loose/Missing/Broken Teeth: No Heart: RRR Lungs: CTA Assessment and Plan Assessment Anesthesia Assessment: Anesthesia Plan Discussed and Chart Reviewed Final Anesthetic Review Family History of Problems with Anesthesia: No History of Problems with Anesthesia: No NPO: Yes ASA Class: II Final Preanesthetic Review: Meds/Allgs Chart Reviewed, Consent Obtained/Reviewed and Anes Risks/Benef Reviewed Patient Risk: Low Anesthetic Plan Anesthetic Plan: GA Disposition: Standard PACU
--- NOTE | 2021-05-31 07:28 | HO.ECTPROC ---
ECT Procedure Note Diagnosis/Treatment Date of Service: 05/31/21 Diagnosis: Major Depressive Disorder Previous ECT Date: 05/29/21 Current Treatment Number: 6 Treatment: Series Interval Clinical Notes: less labile tx for uti ECT Settings Device: THYMATRON DGx Program/Pulse Width: 0.25 Energy Percent: 100 Seizure Duration By EEG (in seconds): 38 Medications Administration General Anesthetic: Etomidate Muscle Relaxant: Succinylcholine Ancillary Medications Miscillaneous Medications: Flumazenil (250 mcg) Airway Management Airway Management: Bag Mask Ventilation Treatment Recommendations Notes: some pre tx apathy not agitated difficulty memory processing Pt Tolerated Procedure w/o Issue: Yes
--- NOTE | 2021-05-31 08:20 | PC.NURSE ---
Patient returned from ECT, somewhat confused but calm. She knows she is in the hospital but not sure which one. T 97.5, P-65 B/P-248/76 R-16 and O2 Sat- 97%. Patient remains on a 1:1.
[2021-05-31] MEDS: LORazepam 1 MG TABLET PO ×3 (08:42→19:54)
[2021-05-31] MEDS: Apixaban 5 MG TABLET PO ×2 (08:42→19:53)
--- NOTE | 2021-05-31 14:26 | P.PNPSI_ITS ---
Subjective Subjective Date of Service: 05/31/21 Reason For Visit: major depressive d/o recurrent severe with psychot Subjective Notes: Conditional Voluntary Interim History: Pt continues on 1:1 for safety. Pt reports feeling calm. She reports less anxious mood. She denies SI/HI. Per defence intelligence analyst, pt has been calm, less anxious, no episodes of yelling or screaming that she is either too cold or too warm. Medication Compliance: Yes Side effects from medications: No Review of Systems Review of Systems Yes all other systems are reviewed and are negative Mental Status Exam Mental Status Exam Narrative: Appearance: casually groomed, good hygiene, in NAD behavior: cooperative Speech: clear, normal rate/rhythm/volume, spontaneous Psychomotor: no agitation or retardation noted TP: linear TC: no overt signs of psychosis, feeling less anxious, Mood: okay Affect: congruent, slightly constricted VH/AH: none SI: none HI: none Insight/judgment: fair x 2. Memory/cog: alert, oriented x 3, not formally tested. Diagnostics Vital Signs (24Hr): Vital Signs - 24 hr 05/30/21 19:59 05/31/21 05:27 05/31/21 05:46 Temperature 97.7 F 97.1 F 97.1 F Pulse Rate 69 63 63 Respiratory Rate 17 16 16 Blood Pressure 94/53 L 128/58 L 128/58 L Pulse Oximetry 94 94 94 05/31/21 05:49 05/31/21 06:28 05/31/21 07:27 Temperature 97.1 F 97 F 97.1 F Pulse Rate 63 69 55 Respiratory Rate 16 18 18 Blood Pressure 128/58 L 128/81 128/64 Pulse Oximetry 94 93 96 05/31/21 07:32 05/31/21 07:37 05/31/21 07:42 Temperature Pulse Rate 64 72 75 Respiratory Rate 21 H 20 20 Blood Pressure 140/83 H 142/85 H 138/84 Pulse Oximetry 96 94 97 05/31/21 07:57 05/31/21 08:37 Temperature 97.6 F Pulse Rate 71 65 Respiratory Rate 18 16 Blood Pressure 135/79 148/76 H Pulse Oximetry 95 97 BMI result Body Mass Index 21.0 Labs Results: 05/19/21 07:54 05/19/21 07:54 Medications Medications Current Medications Acetaminophen (Acetaminophen 325 Mg Tablet) 650 mg PO Q6H PRN PRN Reason: Headache/Pain Mild Scale (1-3) Last Admin: 05/23/21 11:28 Dose: 650 mg Documented by: Al Hydroxide/Mg Hydroxide (Magnesium Hydrox/Alum Hydrox 30 Ml Oral.Susp) 30 ml PO Q6H PRN PRN Reason: Heartburn/Nausea Apixaban (Apixaban 5 Mg Tablet) 5 mg PO BID [facility] Last Admin: 05/31/21 08:42 Dose: 5 mg Documented by: Cefuroxime Axetil (Cefuroxime Axetil 250 Mg Tablet) 250 mg PO Q12H [facility] Last Admin: 05/31/21 05:35 Dose: 250 mg Documented by: Lorazepam (Lorazepam 1 Mg Tablet) 1 mg PO TID [facility] Last Admin: 05/31/21 14:03 Dose: 1 mg Documented by: Lorazepam (Lorazepam 1 Mg Tablet) 1 mg PO BID PRN PRN Reason: anxiety/restlessness Last Admin: 05/28/21 18:27 Dose: 1 mg Documented by: Magnesium Hydroxide (Milk Of Magnesia 30 Ml Oral.Susp) 30 ml PO DAILY PRN PRN Reason: Constipation Mirtazapine (Mirtazapine 30 Mg Tablet) 30 mg PO BEDTIME [facility] Last Admin: 05/30/21 20:08 Dose: 30 mg Documented by: Olanzapine (Olanzapine 2.5 Mg Tablet) 2.5 mg PO BID PRN PRN Reason: anxiety, agitation Last Admin: 05/29/21 05:37 Dose: 2.5 mg Documented by: Olanzapine (Olanzapine 5 Mg Tablet) 5 mg PO TID [facility] Last Admin: 05/31/21 14:02 Dose: 5 mg Documented by: Allergies Allergies Allergy/AdvReac Type Severity Reaction Status Date / Time amoxicillin [From Augmentin] Allergy Unknown Unknown Verified 02/01/21 15:55 aspirin Allergy Unknown Unknown Verified 02/01/21 16:34 clavulanic acid Allergy Unknown Unknown Verified 02/01/21 15:55 [From Augmentin] diphenhydramine Allergy Unknown Unknown Verified 02/01/21 16:35 hydrochlorothiazide Allergy Unknown Unknown Verified 02/01/21 16:44 metronidazole Allergy Unknown Unknown Verified 02/01/21 16:54 trazodone Allergy Unknown Unknown Verified 02/01/21 16:54 augmentin Allergy Unknown Unknown Uncoded 02/01/21 15:55 Assessment & Plan Assessment & Plan (1) Major depressive disorder, recurrent episode with mood-congruent psychotic features: Status: Acute Code(s): F33.3 - Major depressive disorder, recurrent, severe with psychotic symptoms (2) Pre-op testing: Status: Acute Code(s): Z01.818 - Encounter for other preprocedural examination Plan continue current medications, ECT by recommended by Dr. Castañeda. I spent _25 minutes with the patient and/or on the patient floor today, greater than?50% of which was spent counseling/coordinating care. Reason for contiued inpatient stay Substantial Risk for: inability to function
[2021-05-31] MEDS: Mirtazapine 30 MG TABLET PO (19:55)
[2021-06-01 07:00] VITALS: BMI 21.9
[2021-06-01] MEDS: OLANZapine 5 MG TABLET PO ×3 (08:03→20:28)
[2021-06-01] MEDS: Apixaban 5 MG TABLET PO ×2 (08:03→20:28)
[2021-06-01] MEDS: LORazepam 1 MG TABLET PO ×3 (08:03→20:27)
[2021-06-01 08:05] VITALS: BP 119/63; PULSE 70; RESP 15; TEMP 36.3; O2SAT 92
--- NOTE | 2021-06-01 09:20 | HO.PSYCHPN ---
Subjective Subjective Date of Service: 06/02/21 Reason For Visit: major depressive d/o recurrent severe with psychot Interim History: Pt continues on 1:1 for safety. Pt reports feeling calm. She reports less anxious mood. She denies SI/HI. Per staff nurse midwife, pt continues has been calm, less anxious, no episodes of yelling or screaming that she is either too cold or too warm. Medication Compliance: Yes Side effects from medications: No Review of Systems Review of Systems Yes all other systems are reviewed and are negative Mental Status Exam Mental Status Exam Narrative: Appearance: casually groomed, good hygiene, in NAD behavior: cooperative Speech: clear, normal rate/rhythm/volume, spontaneous Psychomotor: no agitation or retardation noted TP: linear TC: no overt signs of psychosis, feeling less anxious, Mood: okay Affect: congruent, slightly constricted VH/AH: none SI: none HI: none Insight/judgment: fair x 2. Memory/cog: alert, oriented x 3, not formally tested. Diagnostics Vital Signs (24Hr): Vital Signs - 24 hr 06/01/21 18:00 06/02/21 08:00 Temperature 98.3 F 98.1 F Pulse Rate 96 66 Respiratory Rate 16 14 Blood Pressure 111/58 L 119/60 Pulse Oximetry 97 95 BMI result Body Mass Index 21.9 Labs Results: 05/19/21 07:54 05/19/21 07:54 Medications Medications Current Medications Acetaminophen (Acetaminophen 325 Mg Tablet) 650 mg PO Q6H PRN PRN Reason: Headache/Pain Mild Scale (1-3) Last Admin: 05/23/21 11:28 Dose: 650 mg Documented by: Al Hydroxide/Mg Hydroxide (Magnesium Hydrox/Alum Hydrox 30 Ml Oral.Susp) 30 ml PO Q6H PRN PRN Reason: Heartburn/Nausea Apixaban (Apixaban 5 Mg Tablet) 5 mg PO BID [facility] Last Admin: 06/02/21 08:36 Dose: 5 mg Documented by: Cefuroxime Axetil (Cefuroxime Axetil 250 Mg Tablet) 250 mg PO Q12H [facility] Last Admin: 06/02/21 06:08 Dose: 250 mg Documented by: Lorazepam (Lorazepam 1 Mg Tablet) 1 mg PO TID [facility] Last Admin: 06/02/21 08:36 Dose: 1 mg Documented by: Lorazepam (Lorazepam 1 Mg Tablet) 1 mg PO BID PRN PRN Reason: anxiety/restlessness Last Admin: 06/02/21 09:05 Dose: 1 mg Documented by: Magnesium Hydroxide (Milk Of Magnesia 30 Ml Oral.Susp) 30 ml PO DAILY PRN PRN Reason: Constipation Mirtazapine (Mirtazapine 30 Mg Tablet) 30 mg PO BEDTIME [facility] Last Admin: 06/01/21 20:28 Dose: 30 mg Documented by: Olanzapine (Olanzapine 2.5 Mg Tablet) 2.5 mg PO BID PRN PRN Reason: anxiety, agitation Last Admin: 05/29/21 05:37 Dose: 2.5 mg Documented by: Olanzapine (Olanzapine 5 Mg Tablet) 5 mg PO TID [facility] Last Admin: 06/02/21 08:35 Dose: 5 mg Documented by: Allergies Allergies Allergy/AdvReac Type Severity Reaction Status Date / Time amoxicillin [From Augmentin] Allergy Unknown Unknown Verified 02/01/21 15:55 aspirin Allergy Unknown Unknown Verified 02/01/21 16:34 clavulanic acid Allergy Unknown Unknown Verified 02/01/21 15:55 [From Augmentin] diphenhydramine Allergy Unknown Unknown Verified 02/01/21 16:35 hydrochlorothiazide Allergy Unknown Unknown Verified 02/01/21 16:44 metronidazole Allergy Unknown Unknown Verified 02/01/21 16:54 trazodone Allergy Unknown Unknown Verified 02/01/21 16:54 augmentin Allergy Unknown Unknown Uncoded 02/01/21 15:55 Assessment & Plan Assessment & Plan (1) Major depressive disorder, recurrent episode with mood-congruent psychotic features: Status: Acute Code(s): F33.3 - Major depressive disorder, recurrent, severe with psychotic symptoms (2) Pre-op testing: Status: Acute Code(s): Z01.818 - Encounter for other preprocedural examination Plan continue current medications, ECT by recommended by Dr. Castañeda. I spent minutes with the patient and/or on the patient floor today, greater than?50% of which was spent counseling/coordinating care. Reason for contiued inpatient stay Substantial Risk for: inability to function
[2021-06-01 18:00] VITALS: BP 111/58; PULSE 96; RESP 16; TEMP 36.8; O2SAT 97
[2021-06-01] MEDS: Mirtazapine 30 MG TABLET PO (20:28)
[2021-06-02 08:00] VITALS: BP 119/60; PULSE 66; RESP 14; TEMP 36.7; O2SAT 95
[2021-06-02] MEDS: OLANZapine 5 MG TABLET PO ×3 (08:35→20:26)
[2021-06-02] MEDS: LORazepam 1 MG TABLET PO ×3 (08:36→14:46)
[2021-06-02] MEDS: Apixaban 5 MG TABLET PO ×2 (08:36→20:26)
[2021-06-02 10:18] VITALS: BP 119/60; PULSE 66; O2SAT 95
[2021-06-02] MEDS: OLANZapine 2.5 MG TABLET PO (12:44)
--- NOTE | 2021-06-02 13:05 | HO.PSYCHPN ---
Subjective Subjective Date of Service: 06/02/21 Reason For Visit: major depressive d/o recurrent severe with psychot Subjective Notes: Conditional Voluntary Interim History: Pt continues on 1:1 for safety. Pt had difficult morning reporting that she was feeling very anxious, intermittent episodes of yelling that she was too cold or couldn't breath - without evidence of oxygen desaturation. Pt sitting with peers, calmer but does report feeling more anxious today. No additional concerns. Medication Compliance: Yes Side effects from medications: No Attending Groups: Intermittent Review of Systems Review of Systems Yes all other systems are reviewed and are negative Mental Status Exam Mental Status Exam Narrative: Appearance: casually groomed, good hygiene, in NAD behavior: cooperative Speech: clear, normal rate/rhythm/volume, spontaneous Psychomotor: no agitation or retardation noted TP: linear TC: no overt signs of psychosis, feeling less anxious, Mood: okay Affect: congruent, slightly constricted VH/AH: none SI: none HI: none Insight/judgment: fair x 2. Memory/cog: alert, oriented x 3, not formally tested. Diagnostics Vital Signs (24Hr): Vital Signs - 24 hr 06/01/21 18:00 06/02/21 08:00 06/02/21 10:18 Temperature 98.3 F 98.1 F Pulse Rate 96 66 66 Respiratory Rate 16 14 Blood Pressure 111/58 L 119/60 119/60 Pulse Oximetry 97 95 95 BMI result Body Mass Index 21.9 Labs Results: 05/19/21 07:54 05/19/21 07:54 Medications Medications Current Medications Acetaminophen (Acetaminophen 325 Mg Tablet) 650 mg PO Q6H PRN PRN Reason: Headache/Pain Mild Scale (1-3) Last Admin: 05/23/21 11:28 Dose: 650 mg Documented by: Al Hydroxide/Mg Hydroxide (Magnesium Hydrox/Alum Hydrox 30 Ml Oral.Susp) 30 ml PO Q6H PRN PRN Reason: Heartburn/Nausea Apixaban (Apixaban 5 Mg Tablet) 5 mg PO BID [facility] Last Admin: 06/02/21 08:36 Dose: 5 mg Documented by: Cefuroxime Axetil (Cefuroxime Axetil 250 Mg Tablet) 250 mg PO Q12H [facility] Last Admin: 06/02/21 06:08 Dose: 250 mg Documented by: Lorazepam (Lorazepam 1 Mg Tablet) 1 mg PO TID [facility] Last Admin: 06/02/21 08:36 Dose: 1 mg Documented by: Magnesium Hydroxide (Milk Of Magnesia 30 Ml Oral.Susp) 30 ml PO DAILY PRN PRN Reason: Constipation Mirtazapine (Mirtazapine 30 Mg Tablet) 30 mg PO BEDTIME [facility] Last Admin: 06/01/21 20:28 Dose: 30 mg Documented by: Olanzapine (Olanzapine 2.5 Mg Tablet) 2.5 mg PO BID PRN PRN Reason: anxiety, agitation Last Admin: 06/02/21 12:44 Dose: 2.5 mg Documented by: Olanzapine (Olanzapine 5 Mg Tablet) 5 mg PO TID [facility] Last Admin: 06/02/21 08:35 Dose: 5 mg Documented by: Allergies Allergies Allergy/AdvReac Type Severity Reaction Status Date / Time amoxicillin [From Augmentin] Allergy Unknown Unknown Verified 02/01/21 15:55 aspirin Allergy Unknown Unknown Verified 02/01/21 16:34 clavulanic acid Allergy Unknown Unknown Verified 02/01/21 15:55 [From Augmentin] diphenhydramine Allergy Unknown Unknown Verified 02/01/21 16:35 hydrochlorothiazide Allergy Unknown Unknown Verified 02/01/21 16:44 metronidazole Allergy Unknown Unknown Verified 02/01/21 16:54 trazodone Allergy Unknown Unknown Verified 02/01/21 16:54 augmentin Allergy Unknown Unknown Uncoded 02/01/21 15:55 Assessment & Plan Assessment & Plan (1) Major depressive disorder, recurrent episode with mood-congruent psychotic features: Status: Acute Code(s): F33.3 - Major depressive disorder, recurrent, severe with psychotic symptoms (2) Pre-op testing: Status: Acute Code(s): Z01.818 - Encounter for other preprocedural examination Plan continue current medications, ECT by recommended by Dr. Castañeda. I spent _25 minutes with the patient and/or on the patient floor today, greater than?50% of which was spent counseling/coordinating care. Reason for contiued inpatient stay Substantial Risk for: inability to function
[2021-06-02 18:00] VITALS: BP 135/65; PULSE 77; RESP 16; TEMP 36.6; O2SAT 96
[2021-06-02] MEDS: Mirtazapine 30 MG TABLET PO (20:26)
[2021-06-03 08:00] VITALS: BP 135/73; PULSE 81; TEMP 36.5; O2SAT 96
[2021-06-03] MEDS: Apixaban 5 MG TABLET PO ×2 (08:26→20:05)
[2021-06-03] MEDS: OLANZapine 5 MG TABLET PO ×3 (08:26→20:05)
[2021-06-03] MEDS: LORazepam 1 MG TABLET PO ×3 (09:45→20:05)
[2021-06-03] MEDS: OLANZapine 2.5 MG TABLET PO (09:45)
--- NOTE | 2021-06-03 11:14 | HO.PSYCHPN ---
Subjective Subjective Date of Service: 06/03/21 Reason For Visit: major depressive d/o recurrent severe with psychot Subjective Notes: Conditional Voluntary Interim History: Patient was seen and discussed in rounds today. She is getting her ECT but does not feel that there has been any improvement. She is med compliant and continues to be anxious with repetitive statements. She is back on one-to-one observation and has a gait belt planes. No side of Mental Status Exam Mental Status Exam Narrative: In today's visit she is alert, oriented x2. Speech is normal. Moderate eye contact. Affect is subdued no signs of psychosis. No dangerous behaviors. Cognitively does have some impairments. Judgment is intact Diagnostics Vital Signs (24Hr): Vital Signs - 24 hr 06/02/21 18:00 Temperature 97.8 F Pulse Rate 77 Respiratory Rate 16 Blood Pressure 135/65 Pulse Oximetry 96 BMI result Body Mass Index 21.9 Labs Results: 05/19/21 07:54 05/19/21 07:54 Medications Medications Current Medications Acetaminophen (Acetaminophen 325 Mg Tablet) 650 mg PO Q6H PRN PRN Reason: Headache/Pain Mild Scale (1-3) Last Admin: 05/23/21 11:28 Dose: 650 mg Documented by: Al Hydroxide/Mg Hydroxide (Magnesium Hydrox/Alum Hydrox 30 Ml Oral.Susp) 30 ml PO Q6H PRN PRN Reason: Heartburn/Nausea Apixaban (Apixaban 5 Mg Tablet) 5 mg PO BID [facility] Last Admin: 06/03/21 08:26 Dose: 5 mg Documented by: Lorazepam (Lorazepam 1 Mg Tablet) 1 mg PO TID [facility] Last Admin: 06/03/21 09:45 Dose: 1 mg Documented by: Magnesium Hydroxide (Milk Of Magnesia 30 Ml Oral.Susp) 30 ml PO DAILY PRN PRN Reason: Constipation Mirtazapine (Mirtazapine 30 Mg Tablet) 30 mg PO BEDTIME [facility] Last Admin: 06/02/21 20:26 Dose: 30 mg Documented by: Olanzapine (Olanzapine 2.5 Mg Tablet) 2.5 mg PO BID PRN PRN Reason: anxiety, agitation Last Admin: 06/03/21 09:45 Dose: 2.5 mg Documented by: Olanzapine (Olanzapine 5 Mg Tablet) 5 mg PO TID [facility] Last Admin: 06/03/21 08:26 Dose: 5 mg Documented by: Allergies Allergies Allergy/AdvReac Type Severity Reaction Status Date / Time amoxicillin [From Augmentin] Allergy Unknown Unknown Verified 02/01/21 15:55 aspirin Allergy Unknown Unknown Verified 02/01/21 16:34 clavulanic acid Allergy Unknown Unknown Verified 02/01/21 15:55 [From Augmentin] diphenhydramine Allergy Unknown Unknown Verified 02/01/21 16:35 hydrochlorothiazide Allergy Unknown Unknown Verified 02/01/21 16:44 metronidazole Allergy Unknown Unknown Verified 02/01/21 16:54 trazodone Allergy Unknown Unknown Verified 02/01/21 16:54 augmentin Allergy Unknown Unknown Uncoded 02/01/21 15:55 Assessment & Plan Assessment & Plan (1) Major depressive disorder, recurrent episode with mood-congruent psychotic features: Status: Acute Code(s): F33.3 - Major depressive disorder, recurrent, severe with psychotic symptoms (2) Pre-op testing: Status: Acute Code(s): Z01.818 - Encounter for other preprocedural examination Plan continue current medications, ECT by recommended by Dr. Castañeda. 06/03: Continue current regimen and plans and continue with ECT I spent minutes with the patient and/or on the patient floor today, greater than?50% of which was spent counseling/coordinating care. Reason for contiued inpatient stay Substantial Risk for: inability to function
[2021-06-03 18:00] VITALS: BP 137/69; PULSE 70; RESP 17; TEMP 36.7; O2SAT 93
[2021-06-03] MEDS: Mirtazapine 30 MG TABLET PO (20:05)
[2021-06-04] MEDS: OLANZapine 5 MG TABLET PO ×3 (07:50→20:14)
[2021-06-04] MEDS: Apixaban 5 MG TABLET PO ×2 (07:50→20:14)
[2021-06-04] MEDS: LORazepam 1 MG TABLET PO ×3 (07:50→20:14)
[2021-06-04 08:00] VITALS: BP 141/81; PULSE 75; TEMP 36.4; O2SAT 96
--- NOTE | 2021-06-04 08:53 | P.PNPSI_ITS ---
Subjective Subjective Date of Service: 06/04/21 Reason For Visit: major depressive d/o recurrent severe with psychot Subjective Notes: Conditional Voluntary Interim History: Patient was seen and discussed in rounds today. She continues to be very anxious and also anxious about discharge. She does have some somatic complaints. She will continue with ECT. No complaints or changes today. Eating and sleeping adequately Review of Systems Review of Systems Yes all other systems are reviewed and are negative Diagnostics Vital Signs (24Hr): Vital Signs - 24 hr 06/03/21 18:00 Temperature 98.1 F Pulse Rate 70 Respiratory Rate 17 Blood Pressure 137/69 Pulse Oximetry 93 BMI result Body Mass Index 21.9 Labs Results: 05/19/21 07:54 05/19/21 07:54 Medications Medications Current Medications Acetaminophen (Acetaminophen 325 Mg Tablet) 650 mg PO Q6H PRN PRN Reason: Headache/Pain Mild Scale (1-3) Last Admin: 05/23/21 11:28 Dose: 650 mg Documented by: Al Hydroxide/Mg Hydroxide (Magnesium Hydrox/Alum Hydrox 30 Ml Oral.Susp) 30 ml PO Q6H PRN PRN Reason: Heartburn/Nausea Apixaban (Apixaban 5 Mg Tablet) 5 mg PO BID [facility] Last Admin: 06/04/21 07:50 Dose: 5 mg Documented by: Lorazepam (Lorazepam 1 Mg Tablet) 1 mg PO TID [facility] Last Admin: 06/04/21 07:50 Dose: 1 mg Documented by: Magnesium Hydroxide (Milk Of Magnesia 30 Ml Oral.Susp) 30 ml PO DAILY PRN PRN Reason: Constipation Mirtazapine (Mirtazapine 30 Mg Tablet) 30 mg PO BEDTIME [facility] Last Admin: 06/03/21 20:05 Dose: 30 mg Documented by: Olanzapine (Olanzapine 2.5 Mg Tablet) 2.5 mg PO BID PRN PRN Reason: anxiety, agitation Last Admin: 06/03/21 09:45 Dose: 2.5 mg Documented by: Olanzapine (Olanzapine 5 Mg Tablet) 5 mg PO TID [facility] Last Admin: 06/04/21 07:50 Dose: 5 mg Documented by: Allergies Allergies Allergy/AdvReac Type Severity Reaction Status Date / Time amoxicillin [From Augmentin] Allergy Unknown Unknown Verified 02/01/21 15:55 aspirin Allergy Unknown Unknown Verified 02/01/21 16:34 clavulanic acid Allergy Unknown Unknown Verified 02/01/21 15:55 [From Augmentin] diphenhydramine Allergy Unknown Unknown Verified 02/01/21 16:35 hydrochlorothiazide Allergy Unknown Unknown Verified 02/01/21 16:44 metronidazole Allergy Unknown Unknown Verified 02/01/21 16:54 trazodone Allergy Unknown Unknown Verified 02/01/21 16:54 augmentin Allergy Unknown Unknown Uncoded 02/01/21 15:55 Assessment & Plan Assessment & Plan (1) Major depressive disorder, recurrent episode with mood-congruent psychotic features: Status: Acute Code(s): F33.3 - Major depressive disorder, recurrent, severe with psychotic symptoms (2) Pre-op testing: Status: Acute Code(s): Z01.818 - Encounter for other preprocedural examination Plan continue current medications, ECT by recommended by Dr. Castañeda. 06/03: Continue current regimen and plans and continue with ECT 06/04: Continue current regimen and plans. Continue ECT I spent minutes with the patient and/or on the patient floor today, greater than?50% of which was spent counseling/coordinating care. Reason for contiued inpatient stay Substantial Risk for: inability to function
[2021-06-04] MEDS: Loperamide HCl 2 MG CAPSULE PO (09:29)
[2021-06-04] MEDS: OLANZapine 2.5 MG TABLET PO (10:57)
[2021-06-04 18:00] VITALS: BP 108/55; PULSE 63; RESP 16; TEMP 35.8; O2SAT 95
[2021-06-04] MEDS: Mirtazapine 30 MG TABLET PO (20:14)
[2021-06-05] MEDS: Apixaban 5 MG TABLET PO ×2 (08:32→20:10)
[2021-06-05] MEDS: OLANZapine 5 MG TABLET PO ×3 (08:32→20:10)
[2021-06-05] MEDS: LORazepam 1 MG TABLET PO ×4 (08:32→20:10)
[2021-06-05 09:00] VITALS: BP 135/79; PULSE 83; RESP 18; TEMP 36.6; O2SAT 96
[2021-06-05] MEDS: OLANZapine 2.5 MG TABLET PO (10:00)
--- NOTE | 2021-06-05 13:56 | HO.PSYCHPN ---
Subjective Subjective Date of Service: 06/05/21 Reason For Visit: major depressive d/o recurrent severe with psychot Interim History: Pt disorganized. She complains that she is very cold, so cold, very cold, im freezing. Just a few minutes later she starts talking about how hot she is, that she is burning up. She does not have insight into this disorganization and is in distress about being cold or hot. otherwise, pt is eating meals, taking meds; denies SI. Mental Status Exam Mental Status Exam Narrative: Pt is alert and oriented; behavior is cooperative, friendly and calm; patient is not in distress; dressed in casual attire with adequate hygiene; mood is described as anxious...depressed and affect congruent; eye contact appropriate; Speech is normal rate, volume and prosody and not pressured; psychomotor agitation present; thought process is goal directed; Thought content is on delusional distress of being hot or cold; denies any SI/HI. There is no evidence of perceptual disturbance. Patients insight and judgment are impaired. Diagnostics Vital Signs (24Hr): Vital Signs - 24 hr 06/04/21 18:00 06/05/21 09:00 Temperature 96.4 F L 97.8 F Pulse Rate 63 83 Respiratory Rate 16 18 Blood Pressure 108/55 L 135/79 Pulse Oximetry 95 96 BMI result Body Mass Index 21.9 Labs Results: 05/19/21 07:54 05/19/21 07:54 Medications Medications Current Medications Acetaminophen (Acetaminophen 325 Mg Tablet) 650 mg PO Q6H PRN PRN Reason: Headache/Pain Mild Scale (1-3) Last Admin: 05/23/21 11:28 Dose: 650 mg Documented by: Al Hydroxide/Mg Hydroxide (Magnesium Hydrox/Alum Hydrox 30 Ml Oral.Susp) 30 ml PO Q6H PRN PRN Reason: Heartburn/Nausea Apixaban (Apixaban 5 Mg Tablet) 5 mg PO BID [facility] Last Admin: 06/05/21 08:32 Dose: 5 mg Documented by: Loperamide HCl (Loperamide Hcl 2 Mg Capsule) 2 mg PO Q4H PRN PRN Reason: diarrhes Last Admin: 06/04/21 09:29 Dose: 2 mg Documented by: Lorazepam (Lorazepam 1 Mg Tablet) 1 mg PO TID [facility] Last Admin: 06/05/21 08:32 Dose: 1 mg Documented by: Lorazepam (Lorazepam 1 Mg Tablet) 1 mg PO BID PRN PRN Reason: anxiety/restlessness Last Admin: 06/05/21 10:55 Dose: 1 mg Documented by: Magnesium Hydroxide (Milk Of Magnesia 30 Ml Oral.Susp) 30 ml PO DAILY PRN PRN Reason: Constipation Mirtazapine (Mirtazapine 30 Mg Tablet) 30 mg PO BEDTIME [facility] Last Admin: 06/04/21 20:14 Dose: 30 mg Documented by: Olanzapine (Olanzapine 2.5 Mg Tablet) 2.5 mg PO BID PRN PRN Reason: anxiety, agitation Last Admin: 06/05/21 10:00 Dose: 2.5 mg Documented by: Olanzapine (Olanzapine 5 Mg Tablet) 5 mg PO TID [facility] Last Admin: 06/05/21 08:32 Dose: 5 mg Documented by: Allergies Allergies Allergy/AdvReac Type Severity Reaction Status Date / Time amoxicillin [From Augmentin] Allergy Unknown Unknown Verified 02/01/21 15:55 aspirin Allergy Unknown Unknown Verified 02/01/21 16:34 clavulanic acid Allergy Unknown Unknown Verified 02/01/21 15:55 [From Augmentin] diphenhydramine Allergy Unknown Unknown Verified 02/01/21 16:35 hydrochlorothiazide Allergy Unknown Unknown Verified 02/01/21 16:44 metronidazole Allergy Unknown Unknown Verified 02/01/21 16:54 trazodone Allergy Unknown Unknown Verified 02/01/21 16:54 augmentin Allergy Unknown Unknown Uncoded 02/01/21 15:55 Assessment & Plan Assessment & Plan (1) Major depressive disorder, recurrent episode with mood-congruent psychotic features: Status: Acute Code(s): F33.3 - Major depressive disorder, recurrent, severe with psychotic symptoms (2) Pre-op testing: Status: Acute Code(s): Z01.818 - Encounter for other preprocedural examination Plan continue current medications, ECT by recommended by Dr. Castañeda. 06/03: Continue current regimen and plans and continue with ECT 06/04: Continue current regimen and plans. Continue ECT 06/05 continue current tx plan I spent minutes with the patient and/or on the patient floor today, greater than?50% of which was spent counseling/coordinating care. Patient educated on: diagnosis Informed Consent: understands Reason for contiued inpatient stay Substantial Risk for: inability to function
[2021-06-05 18:00] VITALS: BP 102/54; PULSE 67; RESP 18; TEMP 36.5; O2SAT 92
[2021-06-05] MEDS: Mirtazapine 30 MG TABLET PO (20:10)
[2021-06-06 06:00] VITALS: BP 131/71; PULSE 72; RESP 14; TEMP 36.5; O2SAT 94
[2021-06-06] MEDS: OLANZapine 5 MG TABLET PO ×3 (07:40→21:16)
[2021-06-06] MEDS: LORazepam 1 MG TABLET PO ×4 (07:40→21:16)
[2021-06-06] MEDS: Apixaban 5 MG TABLET PO ×2 (07:40→21:16)
[2021-06-06] MEDS: Milk of Magnesia 30 ML ORAL.SUSP PO (13:32)
--- NOTE | 2021-06-06 15:05 | P.PNPSI_ITS ---
Subjective Subjective Date of Service: 06/06/21 Reason For Visit: major depressive d/o recurrent severe with psychot Subjective Notes: Conditional Voluntary Interim History: The nursing staff reported the patient has periods of psychosis stating that she has being called, she has been restless on one-to-one observation due to erratic behavior. She finished her antibiotic therapy and according to the nursing staff, last night she slept 7 hours. On interview the patient reports that she is doing fine mucous pleasantly confused with blunted affect. We discussed the possibility of ECT and she wanted to have the procedure tomorrow. Mental Status Exam Mental Status Exam Patient Appearance: Well Grooomed Patient Orientation: Person and Situation Level of Consciousness: Restless Patient Behavior: Appropriate Mood Description: Withdrawn Affect Description: Blunted Patient Cognition Impaired: Yes Ability to Follow Directions: Good Speech Pattern: Clear Hallucinations: None Delusions: Ideas of Reference and Bizarre Thought Process: Distracted and Evasive Thought Content: positive for Poverty of Content Judgement: Fair Diagnostics Vital Signs (24Hr): Vital Signs - 24 hr 06/05/21 18:00 06/06/21 06:00 Temperature 97.7 F 97.7 F Pulse Rate 67 72 Respiratory Rate 18 14 Blood Pressure 102/54 L 131/71 Pulse Oximetry 92 94 BMI result Body Mass Index 21.9 Labs Results: 05/19/21 07:54 05/19/21 07:54 Medications Medications Current Medications Acetaminophen (Acetaminophen 325 Mg Tablet) 650 mg PO Q6H PRN PRN Reason: Headache/Pain Mild Scale (1-3) Last Admin: 05/23/21 11:28 Dose: 650 mg Documented by: Al Hydroxide/Mg Hydroxide (Magnesium Hydrox/Alum Hydrox 30 Ml Oral.Susp) 30 ml PO Q6H PRN PRN Reason: Heartburn/Nausea Apixaban (Apixaban 5 Mg Tablet) 5 mg PO BID [facility] Last Admin: 06/06/21 07:40 Dose: 5 mg Documented by: Loperamide HCl (Loperamide Hcl 2 Mg Capsule) 2 mg PO Q4H PRN PRN Reason: diarrhes Last Admin: 06/04/21 09:29 Dose: 2 mg Documented by: Lorazepam (Lorazepam 1 Mg Tablet) 1 mg PO TID [facility] Last Admin: 06/06/21 13:32 Dose: 1 mg Documented by: Lorazepam (Lorazepam 1 Mg Tablet) 1 mg PO BID PRN PRN Reason: anxiety/restlessness Last Admin: 06/05/21 10:55 Dose: 1 mg Documented by: Magnesium Hydroxide (Milk Of Magnesia 30 Ml Oral.Susp) 30 ml PO DAILY PRN PRN Reason: Constipation Last Admin: 06/06/21 13:32 Dose: 30 ml Documented by: Mirtazapine (Mirtazapine 30 Mg Tablet) 30 mg PO BEDTIME [facility] Last Admin: 06/05/21 20:10 Dose: 30 mg Documented by: Olanzapine (Olanzapine 2.5 Mg Tablet) 2.5 mg PO BID PRN PRN Reason: anxiety, agitation Last Admin: 06/05/21 10:00 Dose: 2.5 mg Documented by: Olanzapine (Olanzapine 5 Mg Tablet) 5 mg PO TID [facility] Last Admin: 06/06/21 13:32 Dose: 5 mg Documented by: Allergies Allergies Allergy/AdvReac Type Severity Reaction Status Date / Time amoxicillin [From Augmentin] Allergy Unknown Unknown Verified 02/01/21 15:55 aspirin Allergy Unknown Unknown Verified 02/01/21 16:34 clavulanic acid Allergy Unknown Unknown Verified 02/01/21 15:55 [From Augmentin] diphenhydramine Allergy Unknown Unknown Verified 02/01/21 16:35 hydrochlorothiazide Allergy Unknown Unknown Verified 02/01/21 16:44 metronidazole Allergy Unknown Unknown Verified 02/01/21 16:54 trazodone Allergy Unknown Unknown Verified 02/01/21 16:54 Assessment & Plan Assessment & Plan (1) Major depressive disorder, recurrent episode with mood-congruent psychotic features: Status: Acute Code(s): F33.3 - Major depressive disorder, recurrent, severe with psychotic symptoms (2) Pre-op testing: Status: Acute Code(s): Z01.818 - Encounter for other preprocedural examination Plan continue current medications, ECT by recommended by Dr. Castañeda. We will schedule ECT for tomorrow a.m.. I spent ___20___ minutes with the patient and/or on the patient floor today, greater than?50% of which was spent counseling/coordinating care. Reason for contiued inpatient stay Substantial Risk for: inability to function, rapid decompensation and med/psych decompensation
[2021-06-06 18:00] VITALS: BP 150/92; PULSE 85; RESP 18; TEMP 36.7; O2SAT 93
[2021-06-06] MEDS: Mirtazapine 30 MG TABLET PO (21:16)
[2021-06-07] VITALS (10 sets, daily range): BP systolic 97–152; BP diastolic 56–112; PULSE 58–127; RESP 14–134; TEMP 36.1–37.3; O2SAT 92–99
[2021-06-07] MEDS: OLANZapine 5 MG TABLET PO ×3 (05:43→20:27)
[2021-06-07] MEDS: LORazepam 1 MG TABLET PO ×3 (10:10→20:27)
[2021-06-07] MEDS: Apixaban 5 MG TABLET PO ×2 (10:10→20:27)
--- NOTE | 2021-06-07 10:22 | HO.ECTPROC ---
ECT Procedure Note Diagnosis/Treatment Date of Service: 06/07/21 Diagnosis: Major Depressive Disorder (with psychosis) Previous ECT Date: 05/31/21 Current Treatment Number: 7 Treatment: Series Interval Clinical Notes: Patient has been ruminating with severe agitation patient has been ruminating with severe agitation restart ECT needed much reassurance pre CT was having panic ECT Settings Device: THYMATRON DGx Electrode Placement: Right Unilateral Program/Pulse Width: 0.25 Energy Percent: 100 Seizure Duration By EEG (in seconds): 44 Medications Administration General Anesthetic: Etomidate (10) Muscle Relaxant: Succinylcholine (80) Ancillary Medications Miscillaneous Medications: Propofol and Flumazenil (250 mcg) Airway Management Airway Management: Bag Mask Ventilation Treatment Recommendations No Changes Recommended: No change Notes: Patient was feeling much better post ECT Pt Tolerated Procedure w/o Issue: Yes
--- NOTE | 2021-06-07 12:42 | HO.ANESPROP2 ---
HPI - Anesthesia Eval Consult details Narrative: Major Depressive Disorder [facility] Active Problems Active Problems: All Active Problems (Updated 05/19/21 @ 10:26 by Enoc Fontaine MD) Pre-op testing (Acute) Major depressive disorder, recurrent episode with mood-congruent psychotic features (Acute) Neurocognitive disorder (Acute) Past Medical History Medical History History of pulmonary embolism Neurocognitive disorder Pulmonary embolism Family History Family history of problems with anesthesia: No Surgical History Surgical History H/O section History of Problems with Anesthesia: No Social History Social History Household Members: Spouse Household Members Other:: Her and her Housing: House Do you presently have visiting nurse or other home services: No Patient Tobacco Use Status: Never used Tobacco Second Hand Smoke Exposure: No Use of substances other than those prescribed or required for medical reasons: No Currently Displaying Signs/Symptoms of Drug Intoxication Withdrawal: No Have you been hit, kicked, punched, or otherwise hurt by someone within the past year? If so, by whom?: No Do you feel safe in your current relationship?: Yes Is there a partner from a previous relationship who is making you feel unsafe now?: No Are you made to feel afraid or neglected: No Are you DNR?: No Advance Directives: No Do you have thoughts of harming others: None Do you have a plan to hurt others: No Plan Recently lost weight without trying: No Nutrition Risks: No Nutritional Risk Patient : No : No Poor oral hygiene: No service: Yes Sexual orientation: Straight/Heterosexual Meds Allergies Allergy/AdvReac Type Severity Reaction Status Date / Time amoxicillin [From Augmentin] Allergy Unknown Unknown Verified 02/01/21 15:55 aspirin Allergy Unknown Unknown Verified 02/01/21 16:34 clavulanic acid Allergy Unknown Unknown Verified 02/01/21 15:55 [From Augmentin] diphenhydramine Allergy Unknown Unknown Verified 02/01/21 16:35 hydrochlorothiazide Allergy Unknown Unknown Verified 02/01/21 16:44 metronidazole Allergy Unknown Unknown Verified 02/01/21 16:54 trazodone Allergy Unknown Unknown Verified 02/01/21 16:54 Active Medications: Current Medications Acetaminophen (Acetaminophen 325 Mg Tablet) 650 mg PO Q6H PRN PRN Reason: Headache/Pain Mild Scale (1-3) Last Admin: 05/23/21 11:28 Dose: 650 mg Documented by: Al Hydroxide/Mg Hydroxide (Magnesium Hydrox/Alum Hydrox 30 Ml Oral.Susp) 30 ml PO Q6H PRN PRN Reason: Heartburn/Nausea Apixaban (Apixaban 5 Mg Tablet) 5 mg PO BID [facility] Last Admin: 06/07/21 10:10 Dose: 5 mg Documented by: Loperamide HCl (Loperamide Hcl 2 Mg Capsule) 2 mg PO Q4H PRN PRN Reason: diarrhes Last Admin: 06/04/21 09:29 Dose: 2 mg Documented by: Lorazepam (Lorazepam 1 Mg Tablet) 1 mg PO TID [facility] Last Admin: 06/07/21 10:10 Dose: 1 mg Documented by: Lorazepam (Lorazepam 1 Mg Tablet) 1 mg PO BID PRN PRN Reason: anxiety/restlessness Last Admin: 06/06/21 18:23 Dose: 1 mg Documented by: Magnesium Hydroxide (Milk Of Magnesia 30 Ml Oral.Susp) 30 ml PO DAILY PRN PRN Reason: Constipation Last Admin: 06/06/21 13:32 Dose: 30 ml Documented by: Mirtazapine (Mirtazapine 30 Mg Tablet) 30 mg PO BEDTIME [facility] Last Admin: 06/06/21 21:16 Dose: 30 mg Documented by: Olanzapine (Olanzapine 2.5 Mg Tablet) 2.5 mg PO BID PRN PRN Reason: anxiety, agitation Last Admin: 06/05/21 10:00 Dose: 2.5 mg Documented by: Olanzapine (Olanzapine 5 Mg Tablet) 5 mg PO TID [facility] Last Admin: 06/07/21 05:43 Dose: 5 mg Documented by: Home Medications Medication Instructions Recorded Confirmed Last Taken Type gabapentin 600 mg tablet 600 mg PO TID 02/01/21 02/01/21 Unknown History lorazepam 0.5 mg tablet (Ativan) 0.5 mg PO DAILY PRN 05/18/21 05/18/21 Unknown History Exam Exam Date and Time: June 07, 2021 1242 Height,Weight and Vital Signs: Height 5 ft 3 in Weight 56.3 kg Last Vital Signs Temp 97 F 06/07/21 06:10 Pulse 62 06/07/21 06:10 Resp 14 06/07/21 06:10 BP 123/74 06/07/21 06:10 Pulse Ox 92 06/07/21 06:10 Pertinent Lab Results Pertinent Lab Results: Laboratory Tests 05/18/21 05/18/21 05/18/21 19:05 19:05 19:05 WBC 10.2 RBC 4.37 D Hgb 13.7 D Hct 39.6 MCV 90.6 MCH 31.4 MCHC 34.6 RDW 12.6 Plt Count 289 D MPV 9.4 Immature Gran % (Auto) 0.4 Neut % (Auto) 76.9 H Lymph % (Auto) 14.0 L [place] % (Auto) 8.4 Eos % (Auto) 0.0 Baso % (Auto) 0.3 Lymph # (Auto) 1.4 [place] # (Auto) 0.9 Eos # (Auto) 0.0 Baso # (Auto) 0.0 Abs Immat Gran (auto) 0.04 H Absolute Neuts (auto) 7.9 Absolute Nucleated RBC 0.000 Nucleated RBC % (auto) 0.0 Sodium 142 Potassium 4.0 Chloride 106 Carbon Dioxide 22 Anion Gap 18 BUN 20 H Creatinine 1.01 Estim Creat Clear Calc 43.4 Estimated GFR 54 Fasting Glucose 125 H Calcium 9.9 D Total Bilirubin 0.9 AST 27 ALT 22 Alkaline Phosphatase 94 Total Protein 7.2 Albumin 4.5 Triglycerides 58 Cholesterol 178 D LDL Cholesterol, Calc 110 HDL Cholesterol 57 Vitamin B12 237 25-OH Vitamin D Total 25-Hydroxy Vitamin D2 25-Hydroxy Vitamin D3 Folate 16.9 TSH 0.82 Free Cortisol Urine Color Urine Appearance Urine pH Ur Specific [place] Urine Protein Urine Glucose (UA) Urine Ketones Urine Blood Urine Nitrite Ur Leukocyte Esterase Urine RBC Urine WBC Ur Squamous Epith Cells Urine Bacteria Urine Mucus 05/18/21 05/19/21 05/19/21 19:05 06:30 07:54 WBC 5.7 RBC 4.29 Hgb 13.3 Hct 39.7 MCV 92.5 MCH 31.0 MCHC 33.5 RDW 13.0 Plt Count 243 MPV 9.4 Immature Gran % (Auto) 0.4 Neut % (Auto) 67.7 Lymph % (Auto) 20.4 [place] % (Auto) 10.5 Eos % (Auto) 0.5 Baso % (Auto) 0.5 Lymph # (Auto) 1.2 [place] # (Auto) 0.6 Eos # (Auto) 0.0 Baso # (Auto) 0.0 Abs Immat Gran (auto) 0.02 Absolute Neuts (auto) 3.9 Absolute Nucleated RBC 0.000 Nucleated RBC % (auto) 0.0 Sodium Potassium Chloride Carbon Dioxide Anion Gap BUN Creatinine Estim Creat Clear Calc Estimated GFR Fasting Glucose Calcium Total Bilirubin AST ALT Alkaline Phosphatase Total Protein Albumin Triglycerides Cholesterol LDL Cholesterol, Calc HDL Cholesterol Vitamin B12 25-OH Vitamin D Total 21 L 25-Hydroxy Vitamin D2 <4 25-Hydroxy Vitamin D3 21 Folate TSH Free Cortisol Urine Color YELLOW Urine Appearance CLOUDY Urine pH 6.0 Ur Specific [place] 1.025 Urine Protein TRACE Urine Glucose (UA) NEG Urine Ketones 15 Urine Blood 1+ H Urine Nitrite NEG Ur Leukocyte Esterase 2+ H Urine RBC 0-2 Urine WBC 10-14 H Ur Squamous Epith Cells 1+ Urine Bacteria 1+ Urine Mucus 2+ 05/19/21 05/19/21 05/19/21 07:54 07:54 07:54 WBC RBC Hgb Hct MCV MCH MCHC RDW Plt Count MPV Immature Gran % (Auto) Neut % (Auto) Lymph % (Auto) [place] % (Auto) Eos % (Auto) Baso % (Auto) Lymph # (Auto) [place] # (Auto) Eos # (Auto) Baso # (Auto) Abs Immat Gran (auto) Absolute Neuts (auto) Absolute Nucleated RBC Nucleated RBC % (auto) Sodium 141 Potassium 3.6 Chloride 106 Carbon Dioxide 25 Anion Gap 14 BUN 21 H Creatinine 0.78 Estim Creat Clear Calc 56.3 Estimated GFR > 60 Fasting Glucose 114 H Calcium 9.3 D Total Bilirubin 0.9 AST 32 H ALT 20 Alkaline Phosphatase 93 Total Protein 6.8 Albumin 4.3 Triglycerides 57 Cholesterol 165 LDL Cholesterol, Calc 100 HDL Cholesterol 54 Vitamin B12 225 25-OH Vitamin D Total 15 L 25-Hydroxy Vitamin D2 <4 25-Hydroxy Vitamin D3 15 Folate 18.0 TSH 0.70 Free Cortisol Urine Color Urine Appearance Urine pH Ur Specific [place] Urine Protein Urine Glucose (UA) Urine Ketones Urine Blood Urine Nitrite Ur Leukocyte Esterase Urine RBC Urine WBC Ur Squamous Epith Cells Urine Bacteria Urine Mucus 05/20/21 05/25/21 06:56 18:10 WBC RBC Hgb Hct MCV MCH MCHC RDW Plt Count MPV Immature Gran % (Auto) Neut % (Auto) Lymph % (Auto) [place] % (Auto) Eos % (Auto) Baso % (Auto) Lymph # (Auto) [place] # (Auto) Eos # (Auto) Baso # (Auto) Abs Immat Gran (auto) Absolute Neuts (auto) Absolute Nucleated RBC Nucleated RBC % (auto) Sodium Potassium Chloride Carbon Dioxide Anion Gap BUN Creatinine Estim Creat Clear Calc Estimated GFR Fasting Glucose Calcium Total Bilirubin AST ALT Alkaline Phosphatase Total Protein Albumin Triglycerides Cholesterol LDL Cholesterol, Calc HDL Cholesterol Vitamin B12 25-OH Vitamin D Total 25-Hydroxy Vitamin D2 25-Hydroxy Vitamin D3 Folate TSH Free Cortisol 0.50 Urine Color YELLOW Urine Appearance CLEAR Urine pH 6.0 Ur Specific [place] 1.025 Urine Protein TRACE Urine Glucose (UA) NEG Urine Ketones 5 Urine Blood TRACE Urine Nitrite NEG Ur Leukocyte Esterase 1+ H Urine RBC 1-4 Urine WBC 5-9 H Ur Squamous Epith Cells 1+ Urine Bacteria 1+ Urine Mucus 2+ Airway Mallampati Class: II TM Dist: >3cm Neck ROM: Full Loose/Missing/Broken Teeth: No Heart: [id number] Lungs: cta b/l Assessment and Plan Assessment Anesthesia Assessment: Anesthesia Plan Discussed and Chart Reviewed Final Anesthetic Review Family History of Problems with Anesthesia: No History of Problems with Anesthesia: No NPO: Yes ASA Class: III Final Preanesthetic Review: No Changes in Pt Med Stat, Meds/Allgs Chart Reviewed, Consent Obtained/Reviewed and Anes Risks/Benef Reviewed Patient Risk: Intermediate Procedure Risk: Intermediate Assessment/Block/Sedation in SS: Assess/Block/Sedation-SS Anesthetic Plan Anesthetic Plan: GA and Agree w/ Assess. and Plan Disposition: Standard PACU
--- NOTE | 2021-06-07 13:05 | MHC.SHP ---
Pre-Procedural Eval Section A Date of Service: 06/07/21 The patient is an INPATIENT: Yes Changes since office visit: Yes New Medical Problems; No Cold of Flu in the past 2 weeks, No Changes in Medication and No Patient answered all questions The History & Physical has been completed within 30 days and I have reviewed it.: Yes Section B Chief Complaint: major depressive d/o recurrent severe with psychot Allergies: Allergies Allergy/AdvReac Type Severity Reaction Status Date / Time amoxicillin [From Augmentin] Allergy Unknown Unknown Verified 02/01/21 15:55 aspirin Allergy Unknown Unknown Verified 02/01/21 16:34 clavulanic acid Allergy Unknown Unknown Verified 02/01/21 15:55 [From Augmentin] diphenhydramine Allergy Unknown Unknown Verified 02/01/21 16:35 hydrochlorothiazide Allergy Unknown Unknown Verified 02/01/21 16:44 metronidazole Allergy Unknown Unknown Verified 02/01/21 16:54 trazodone Allergy Unknown Unknown Verified 02/01/21 16:54 Plan I have reviewed the history and physical and performed a pertinent physical examination on my patient. No changes have occurred unless specified.
--- NOTE | 2021-06-07 13:25 | P.PNPSI_ITS ---
Subjective Subjective Date of Service: 06/07/21 Reason For Visit: major depressive d/o recurrent severe with psychot Subjective Notes: Conditional Voluntary Interim History: The nursing staff reported that the patient was pacing in the hallway, complaining at times of been too cold. Schedule for ECT, no evidence of delirium. On interview, she reported that she is still depressed. Mental Status Exam Mental Status Exam Patient Appearance: Well Grooomed Patient Orientation: Person and Situation Level of Consciousness: Awake Patient Behavior: Appropriate Mood Description: Constricted Affect Description: Calm Patient Cognition Impaired: Yes Ability to Follow Directions: Good Speech Pattern: Clear Hallucinations: Tactile Delusions: Bizarre Thought Process: Linear Thought Content: positive for Intact Diagnostics Vital Signs (24Hr): Vital Signs - 24 hr 06/06/21 18:00 06/07/21 05:25 06/07/21 06:10 Temperature 98.1 F 97 F 97 F Pulse Rate 85 62 62 Respiratory Rate 18 14 14 Blood Pressure 150/92 H 123/74 123/74 Pulse Oximetry 93 92 92 06/07/21 13:02 06/07/21 13:15 06/07/21 13:20 Temperature 99.2 F 97.3 F Pulse Rate 127 H 72 87 Respiratory Rate 134 H 16 14 Blood Pressure 150/89 H 129/63 139/79 Pulse Oximetry 99 95 94 BMI result Body Mass Index 21.9 Labs Results: 05/19/21 07:54 05/19/21 07:54 Medications Medications Current Medications Acetaminophen (Acetaminophen 325 Mg Tablet) 650 mg PO Q6H PRN PRN Reason: Headache/Pain Mild Scale (1-3) Last Admin: 05/23/21 11:28 Dose: 650 mg Documented by: Al Hydroxide/Mg Hydroxide (Magnesium Hydrox/Alum Hydrox 30 Ml Oral.Susp) 30 ml PO Q6H PRN PRN Reason: Heartburn/Nausea Apixaban (Apixaban 5 Mg Tablet) 5 mg PO BID [facility] Last Admin: 06/07/21 10:10 Dose: 5 mg Documented by: Loperamide HCl (Loperamide Hcl 2 Mg Capsule) 2 mg PO Q4H PRN PRN Reason: diarrhes Last Admin: 06/04/21 09:29 Dose: 2 mg Documented by: Lorazepam (Lorazepam 1 Mg Tablet) 1 mg PO TID [facility] Last Admin: 06/07/21 10:10 Dose: 1 mg Documented by: Lorazepam (Lorazepam 1 Mg Tablet) 1 mg PO BID PRN PRN Reason: anxiety/restlessness Last Admin: 06/06/21 18:23 Dose: 1 mg Documented by: Magnesium Hydroxide (Milk Of Magnesia 30 Ml Oral.Susp) 30 ml PO DAILY PRN PRN Reason: Constipation Last Admin: 06/06/21 13:32 Dose: 30 ml Documented by: Mirtazapine (Mirtazapine 30 Mg Tablet) 30 mg PO BEDTIME [facility] Last Admin: 06/06/21 21:16 Dose: 30 mg Documented by: Olanzapine (Olanzapine 2.5 Mg Tablet) 2.5 mg PO BID PRN PRN Reason: anxiety, agitation Last Admin: 06/05/21 10:00 Dose: 2.5 mg Documented by: Olanzapine (Olanzapine 5 Mg Tablet) 5 mg PO TID [facility] Last Admin: 06/07/21 05:43 Dose: 5 mg Documented by: Allergies Allergies Allergy/AdvReac Type Severity Reaction Status Date / Time amoxicillin [From Augmentin] Allergy Unknown Unknown Verified 02/01/21 15:55 aspirin Allergy Unknown Unknown Verified 02/01/21 16:34 clavulanic acid Allergy Unknown Unknown Verified 02/01/21 15:55 [From Augmentin] diphenhydramine Allergy Unknown Unknown Verified 02/01/21 16:35 hydrochlorothiazide Allergy Unknown Unknown Verified 02/01/21 16:44 metronidazole Allergy Unknown Unknown Verified 02/01/21 16:54 trazodone Allergy Unknown Unknown Verified 02/01/21 16:54 Assessment & Plan Assessment & Plan (1) Major depressive disorder, recurrent episode with mood-congruent psychotic features: Status: Acute Code(s): F33.3 - Major depressive disorder, recurrent, severe with psychotic symptoms (2) Pre-op testing: Status: Acute Code(s): Z01.818 - Encounter for other preprocedural examination Plan continue current medications, ECT by recommended by Dr. Castañeda. We will schedule ECT for tomorrow a.m.. I spent __20____ minutes with the patient and/or on the patient floor today, greater than?50% of which was spent counseling/coordinating care. Reason for contiued inpatient stay Substantial Risk for: harm to others, rapid decompensation and med/psych decompensation
[2021-06-07] MEDS: Acetaminophen 325 MG TABLET 650 MG PO (16:21)
[2021-06-07] MEDS: Mirtazapine 30 MG TABLET PO (20:26)
[2021-06-08 06:00] VITALS: BP 109/60; PULSE 74; RESP 16; TEMP 36.9; O2SAT 94
[2021-06-08 07:00] VITALS: BMI 21.2
--- NOTE | 2021-06-08 08:11 | HO.PSYCHPN ---
Subjective Subjective Date of Service: 06/08/21 Reason For Visit: major depressive d/o recurrent severe with psychot Subjective Notes: Conditional Voluntary Interim History: The nursing staff reported the patient was very tired over-sedated after ECT. She slept all night long and she did not complain of been cold or any other somatic delusion. On interview the patient denies new symptoms she looks withdrawn but easily redirectable. Mental Status Exam Mental Status Exam Patient Appearance: Appropriate Patient Orientation: Person and Situation Level of Consciousness: Awake Patient Behavior: Guarded and Suspicious Mood Description: Withdrawn and Blunted Affect Description: Depressed Patient Cognition Impaired: Yes Ability to Follow Directions: Good Speech Pattern: Clear Hallucinations: None Delusions: Present Thought Process: Distracted and Slowed Thinking Thought Content: positive for [place] and positive for Poverty of Content Judgement: Fair Diagnostics Vital Signs (24Hr): Vital Signs - 24 hr 06/07/21 13:02 06/07/21 13:15 06/07/21 13:20 Temperature 99.2 F 97.3 F Pulse Rate 127 H 72 87 Respiratory Rate 134 H 16 14 Blood Pressure 150/89 H 129/63 139/79 Pulse Oximetry 99 95 94 06/07/21 13:25 06/07/21 13:30 06/07/21 13:46 Temperature 98.4 F 99.0 F Pulse Rate 90 99 95 Respiratory Rate 23 H 23 H 17 Blood Pressure 143/61 H 152/112 H 131/69 Pulse Oximetry 95 96 95 06/07/21 14:05 06/07/21 20:23 Temperature 99.0 F 98.5 F Pulse Rate 92 58 Respiratory Rate 17 16 Blood Pressure 131/69 97/56 L Pulse Oximetry 95 95 BMI result Body Mass Index 21.9 Labs Results: 05/19/21 07:54 05/19/21 07:54 Medications Medications Current Medications Acetaminophen (Acetaminophen 325 Mg Tablet) 650 mg PO Q6H PRN PRN Reason: Headache/Pain Mild Scale (1-3) Last Admin: 06/07/21 16:21 Dose: 650 mg Documented by: Al Hydroxide/Mg Hydroxide (Magnesium Hydrox/Alum Hydrox 30 Ml Oral.Susp) 30 ml PO Q6H PRN PRN Reason: Heartburn/Nausea Apixaban (Apixaban 5 Mg Tablet) 5 mg PO BID [facility] Last Admin: 06/07/21 20:27 Dose: 5 mg Documented by: Loperamide HCl (Loperamide Hcl 2 Mg Capsule) 2 mg PO Q4H PRN PRN Reason: diarrhes Last Admin: 06/04/21 09:29 Dose: 2 mg Documented by: Lorazepam (Lorazepam 1 Mg Tablet) 1 mg PO TID [facility] Last Admin: 06/07/21 20:27 Dose: 1 mg Documented by: Lorazepam (Lorazepam 1 Mg Tablet) 1 mg PO BID PRN PRN Reason: anxiety/restlessness Last Admin: 06/06/21 18:23 Dose: 1 mg Documented by: Magnesium Hydroxide (Milk Of Magnesia 30 Ml Oral.Susp) 30 ml PO DAILY PRN PRN Reason: Constipation Last Admin: 06/06/21 13:32 Dose: 30 ml Documented by: Mirtazapine (Mirtazapine 30 Mg Tablet) 30 mg PO BEDTIME [facility] Last Admin: 06/07/21 20:26 Dose: 30 mg Documented by: Olanzapine (Olanzapine 2.5 Mg Tablet) 2.5 mg PO BID PRN PRN Reason: anxiety, agitation Last Admin: 06/05/21 10:00 Dose: 2.5 mg Documented by: Olanzapine (Olanzapine 5 Mg Tablet) 5 mg PO TID [facility] Last Admin: 06/07/21 20:27 Dose: 5 mg Documented by: Allergies Allergies Allergy/AdvReac Type Severity Reaction Status Date / Time amoxicillin [From Augmentin] Allergy Unknown Unknown Verified 02/01/21 15:55 aspirin Allergy Unknown Unknown Verified 02/01/21 16:34 clavulanic acid Allergy Unknown Unknown Verified 02/01/21 15:55 [From Augmentin] diphenhydramine Allergy Unknown Unknown Verified 02/01/21 16:35 hydrochlorothiazide Allergy Unknown Unknown Verified 02/01/21 16:44 metronidazole Allergy Unknown Unknown Verified 02/01/21 16:54 trazodone Allergy Unknown Unknown Verified 02/01/21 16:54 Assessment & Plan Assessment & Plan (1) Major depressive disorder, recurrent episode with mood-congruent psychotic features: Status: Acute Code(s): F33.3 - Major depressive disorder, recurrent, severe with psychotic symptoms (2) Pre-op testing: Status: Acute Code(s): Z01.818 - Encounter for other preprocedural examination Plan continue current medications, ECT by recommended by Dr. Castañeda. We will schedule ECT for tomorrow a.m. I spent ___20___ minutes with the patient and/or on the patient floor today, greater than?50% of which was spent counseling/coordinating care. Reason for contiued inpatient stay Substantial Risk for: inability to function, rapid decompensation and med/psych decompensation
[2021-06-08] MEDS: LORazepam 1 MG TABLET PO (08:35)
[2021-06-08] MEDS: OLANZapine 5 MG TABLET PO ×2 (08:35→19:44)
[2021-06-08] MEDS: Apixaban 5 MG TABLET PO ×2 (08:35→19:45)
[2021-06-08] MEDS: OLANZapine 2.5 MG TABLET PO (19:44)
[2021-06-08] MEDS: Mirtazapine 30 MG TABLET PO (19:45)
[2021-06-08 20:32] VITALS: BP 104/57; PULSE 62; RESP 15; TEMP 36.3; O2SAT 95
--- NOTE | 2021-06-08 23:43 | PC.NURSE ---
It was reported to this nurse that PT is confused and was going into other PTs rooms and with very unsteady gait. PT required assistance to sit on toilet and almost fell off. PT on 1:1 due to safety concerns and prior falls in facility.
[2021-06-09] VITALS (9 sets, daily range): BP systolic 104–141; BP diastolic 58–79; PULSE 61–81; RESP 18–20; TEMP 36.2–36.7; O2SAT 90–98
[2021-06-09] MEDS: OLANZapine 5 MG TABLET PO ×3 (06:19→20:20)
--- NOTE | 2021-06-09 07:29 | MHC.SHP ---
Pre-Procedural Eval Section A Date of Service: 06/09/21 The patient is an INPATIENT: Yes Changes since office visit: No Cold of Flu in the past 2 weeks, No New Medical Problems, No Changes in Medication and No Patient answered all questions The History & Physical has been completed within 30 days and I have reviewed it.: Yes Section B Chief Complaint: major depressive d/o recurrent severe with psychot Allergies: Allergies Allergy/AdvReac Type Severity Reaction Status Date / Time amoxicillin [From Augmentin] Allergy Unknown Unknown Verified 02/01/21 15:55 aspirin Allergy Unknown Unknown Verified 02/01/21 16:34 clavulanic acid Allergy Unknown Unknown Verified 02/01/21 15:55 [From Augmentin] diphenhydramine Allergy Unknown Unknown Verified 02/01/21 16:35 hydrochlorothiazide Allergy Unknown Unknown Verified 02/01/21 16:44 metronidazole Allergy Unknown Unknown Verified 02/01/21 16:54 trazodone Allergy Unknown Unknown Verified 02/01/21 16:54 Plan I have reviewed the history and physical and performed a pertinent physical examination on my patient. No changes have occurred unless specified.
--- NOTE | 2021-06-09 07:30 | HO.ECTPROC ---
ECT Procedure Note Diagnosis/Treatment Date of Service: 06/09/21 Diagnosis: Major Depressive Disorder Previous ECT Date: 06/07/21 ECT Settings Device: THYMATRON DGx Electrode Placement: Right Unilateral Program/Pulse Width: 0.25 Energy Percent: 100 Seizure Duration By EEG (in seconds): 46 By Motor Observation (in seconds): 0 Medications Administration General Anesthetic: Etomidate Muscle Relaxant: Succinylcholine Ancillary Medications Anti-emetics: Zofran - Pre ECT Airway Management Airway Management: Bag Mask Ventilation Treatment Recommendations No Changes Recommended: No change
[2021-06-09] MEDS: Apixaban 5 MG TABLET PO ×2 (09:10→20:20)
--- NOTE | 2021-06-09 09:16 | HO.ANESPROP2 ---
[facility] Active Problems Active Problems: All Active Problems (Updated 05/19/21 @ 10:26 by Enoc Fontaine MD) Pre-op testing (Acute) Major depressive disorder, recurrent episode with mood-congruent psychotic features (Acute) Neurocognitive disorder (Acute) Past Medical History Medical History History of pulmonary embolism Neurocognitive disorder Pulmonary embolism Functional capacity: independent ambulation Patient : No Family History Family history of problems with anesthesia: No Surgical History Surgical History H/O section History of Problems with Anesthesia: No Social History Social History Household Members: Spouse Household Members Other:: Her and her Housing: House Do you presently have visiting nurse or other home services: No Patient Tobacco Use Status: Never used Tobacco Second Hand Smoke Exposure: No Use of substances other than those prescribed or required for medical reasons: No Currently Displaying Signs/Symptoms of Drug Intoxication Withdrawal: No Have you been hit, kicked, punched, or otherwise hurt by someone within the past year? If so, by whom?: No Do you feel safe in your current relationship?: Yes Is there a partner from a previous relationship who is making you feel unsafe now?: No Are you made to feel afraid or neglected: No Are you DNR?: No Advance Directives: No Do you have thoughts of harming others: None Do you have a plan to hurt others: No Plan Recently lost weight without trying: No Nutrition Risks: No Nutritional Risk Patient : No : No Poor oral hygiene: No service: Yes Sexual orientation: Straight/Heterosexual Meds Allergies Allergy/AdvReac Type Severity Reaction Status Date / Time amoxicillin [From Augmentin] Allergy Unknown Unknown Verified 02/01/21 15:55 aspirin Allergy Unknown Unknown Verified 02/01/21 16:34 clavulanic acid Allergy Unknown Unknown Verified 02/01/21 15:55 [From Augmentin] diphenhydramine Allergy Unknown Unknown Verified 02/01/21 16:35 hydrochlorothiazide Allergy Unknown Unknown Verified 02/01/21 16:44 metronidazole Allergy Unknown Unknown Verified 02/01/21 16:54 trazodone Allergy Unknown Unknown Verified 02/01/21 16:54 Active Medications: Current Medications Acetaminophen (Acetaminophen 325 Mg Tablet) 650 mg PO Q6H PRN PRN Reason: Headache/Pain Mild Scale (1-3) Last Admin: 06/07/21 16:21 Dose: 650 mg Documented by: Al Hydroxide/Mg Hydroxide (Magnesium Hydrox/Alum Hydrox 30 Ml Oral.Susp) 30 ml PO Q6H PRN PRN Reason: Heartburn/Nausea Apixaban (Apixaban 5 Mg Tablet) 5 mg PO BID COUNTS INCLUDE 234 BEDS AT THE [facility] Last Admin: 06/09/21 09:10 Dose: 5 mg Documented by: Loperamide HCl (Loperamide Hcl 2 Mg Capsule) 2 mg PO Q4H PRN PRN Reason: diarrhes Last Admin: 06/04/21 09:29 Dose: 2 mg Documented by: Lorazepam (Lorazepam 1 Mg Tablet) 1 mg PO BID PRN PRN Reason: anxiety/restlessness Last Admin: 06/06/21 18:23 Dose: 1 mg Documented by: Magnesium Hydroxide (Milk Of Magnesia 30 Ml Oral.Susp) 30 ml PO DAILY PRN PRN Reason: Constipation Last Admin: 06/06/21 13:32 Dose: 30 ml Documented by: Mirtazapine (Mirtazapine 30 Mg Tablet) 30 mg PO BEDTIME COUNTS INCLUDE 234 BEDS AT THE [facility] Last Admin: 06/08/21 19:45 Dose: 30 mg Documented by: Olanzapine (Olanzapine 2.5 Mg Tablet) 2.5 mg PO BID PRN PRN Reason: anxiety, agitation Last Admin: 06/08/21 19:44 Dose: 2.5 mg Documented by: Olanzapine (Olanzapine 5 Mg Tablet) 5 mg PO TID COUNTS INCLUDE 234 BEDS AT THE [facility] Last Admin: 06/09/21 06:19 Dose: 5 mg Documented by: Home Medications Medication Instructions Recorded Confirmed Last Taken Type gabapentin 600 mg tablet 600 mg PO TID 02/01/21 02/01/21 Unknown History lorazepam 0.5 mg tablet (Ativan) 0.5 mg PO DAILY PRN 05/18/21 05/18/21 Unknown History Exam Exam Date and Time: June 09, 2021 0916 Height,Weight and Vital Signs: Height 5 ft 3 in Weight 54.5 kg Last Vital Signs Temp 97.8 F 06/09/21 08:18 Pulse 69 06/09/21 08:18 Resp 20 06/09/21 08:18 BP 110/76 06/09/21 08:18 Pulse Ox 96 06/09/21 08:18 Pertinent Lab Results Pertinent Lab Results: Laboratory Tests 05/18/21 05/18/21 05/18/21 19:05 19:05 19:05 WBC 10.2 RBC 4.37 D Hgb 13.7 D Hct 39.6 MCV 90.6 MCH 31.4 MCHC 34.6 RDW 12.6 Plt Count 289 D MPV 9.4 Immature Gran % (Auto) 0.4 Neut % (Auto) 76.9 H Lymph % (Auto) 14.0 L [place] % (Auto) 8.4 Eos % (Auto) 0.0 Baso % (Auto) 0.3 Lymph # (Auto) 1.4 [place] # (Auto) 0.9 Eos # (Auto) 0.0 Baso # (Auto) 0.0 Abs Immat Gran (auto) 0.04 H Absolute Neuts (auto) 7.9 Absolute Nucleated RBC 0.000 Nucleated RBC % (auto) 0.0 Sodium 142 Potassium 4.0 Chloride 106 Carbon Dioxide 22 Anion Gap 18 BUN 20 H Creatinine 1.01 Estim Creat Clear Calc 43.4 Estimated GFR 54 Fasting Glucose 125 H Calcium 9.9 D Total Bilirubin 0.9 AST 27 ALT 22 Alkaline Phosphatase 94 Total Protein 7.2 Albumin 4.5 Triglycerides 58 Cholesterol 178 D LDL Cholesterol, Calc 110 HDL Cholesterol 57 Vitamin B12 237 25-OH Vitamin D Total 25-Hydroxy Vitamin D2 25-Hydroxy Vitamin D3 Folate 16.9 TSH 0.82 Free Cortisol Urine Color Urine Appearance Urine pH Ur Specific [place] Urine Protein Urine Glucose (UA) Urine Ketones Urine Blood Urine Nitrite Ur Leukocyte Esterase Urine RBC Urine WBC Ur Squamous Epith Cells Urine Bacteria Urine Mucus 05/18/21 05/19/21 05/19/21 19:05 06:30 07:54 WBC 5.7 RBC 4.29 Hgb 13.3 Hct 39.7 MCV 92.5 MCH 31.0 MCHC 33.5 RDW 13.0 Plt Count 243 MPV 9.4 Immature Gran % (Auto) 0.4 Neut % (Auto) 67.7 Lymph % (Auto) 20.4 [place] % (Auto) 10.5 Eos % (Auto) 0.5 Baso % (Auto) 0.5 Lymph # (Auto) 1.2 [place] # (Auto) 0.6 Eos # (Auto) 0.0 Baso # (Auto) 0.0 Abs Immat Gran (auto) 0.02 Absolute Neuts (auto) 3.9 Absolute Nucleated RBC 0.000 Nucleated RBC % (auto) 0.0 Sodium Potassium Chloride Carbon Dioxide Anion Gap BUN Creatinine Estim Creat Clear Calc Estimated GFR Fasting Glucose Calcium Total Bilirubin AST ALT Alkaline Phosphatase Total Protein Albumin Triglycerides Cholesterol LDL Cholesterol, Calc HDL Cholesterol Vitamin B12 25-OH Vitamin D Total 21 L 25-Hydroxy Vitamin D2 <4 25-Hydroxy Vitamin D3 21 Folate TSH Free Cortisol Urine Color YELLOW Urine Appearance CLOUDY Urine pH 6.0 Ur Specific [place] 1.025 Urine Protein TRACE Urine Glucose (UA) NEG Urine Ketones 15 Urine Blood 1+ H Urine Nitrite NEG Ur Leukocyte Esterase 2+ H Urine RBC 0-2 Urine WBC 10-14 H Ur Squamous Epith Cells 1+ Urine Bacteria 1+ Urine Mucus 2+ 05/19/21 05/19/21 05/19/21 07:54 07:54 07:54 WBC RBC Hgb Hct MCV MCH MCHC RDW Plt Count MPV Immature Gran % (Auto) Neut % (Auto) Lymph % (Auto) [place] % (Auto) Eos % (Auto) Baso % (Auto) Lymph # (Auto) [place] # (Auto) Eos # (Auto) Baso # (Auto) Abs Immat Gran (auto) Absolute Neuts (auto) Absolute Nucleated RBC Nucleated RBC % (auto) Sodium 141 Potassium 3.6 Chloride 106 Carbon Dioxide 25 Anion Gap 14 BUN 21 H Creatinine 0.78 Estim Creat Clear Calc 56.3 Estimated GFR > 60 Fasting Glucose 114 H Calcium 9.3 D Total Bilirubin 0.9 AST 32 H ALT 20 Alkaline Phosphatase 93 Total Protein 6.8 Albumin 4.3 Triglycerides 57 Cholesterol 165 LDL Cholesterol, Calc 100 HDL Cholesterol 54 Vitamin B12 225 25-OH Vitamin D Total 15 L 25-Hydroxy Vitamin D2 <4 25-Hydroxy Vitamin D3 15 Folate 18.0 TSH 0.70 Free Cortisol Urine Color Urine Appearance Urine pH Ur Specific [place] Urine Protein Urine Glucose (UA) Urine Ketones Urine Blood Urine Nitrite Ur Leukocyte Esterase Urine RBC Urine WBC Ur Squamous Epith Cells Urine Bacteria Urine Mucus 05/20/21 05/25/21 06:56 18:10 WBC RBC Hgb Hct MCV MCH MCHC RDW Plt Count MPV Immature Gran % (Auto) Neut % (Auto) Lymph % (Auto) [place] % (Auto) Eos % (Auto) Baso % (Auto) Lymph # (Auto) [place] # (Auto) Eos # (Auto) Baso # (Auto) Abs Immat Gran (auto) Absolute Neuts (auto) Absolute Nucleated RBC Nucleated RBC % (auto) Sodium Potassium Chloride Carbon Dioxide Anion Gap BUN Creatinine Estim Creat Clear Calc Estimated GFR Fasting Glucose Calcium Total Bilirubin AST ALT Alkaline Phosphatase Total Protein Albumin Triglycerides Cholesterol LDL Cholesterol, Calc HDL Cholesterol Vitamin B12 25-OH Vitamin D Total 25-Hydroxy Vitamin D2 25-Hydroxy Vitamin D3 Folate TSH Free Cortisol 0.50 Urine Color YELLOW Urine Appearance CLEAR Urine pH 6.0 Ur Specific [place] 1.025 Urine Protein TRACE Urine Glucose (UA) NEG Urine Ketones 5 Urine Blood TRACE Urine Nitrite NEG Ur Leukocyte Esterase 1+ H Urine RBC 1-4 Urine WBC 5-9 H Ur Squamous Epith Cells 1+ Urine Bacteria 1+ Urine Mucus 2+ Airway Mallampati Class: II (L) TM Dist: >3cm Neck ROM: Full Heart: RRR Lungs: CTA Assessment and Plan Final Anesthetic Review Family History of Problems with Anesthesia: No History of Problems with Anesthesia: No ASA Class: III Final Preanesthetic Review: No Changes in Pt Med Stat, Meds/Allgs Chart Reviewed, Consent Obtained/Reviewed and Anes Risks/Benef Reviewed Patient Risk: Low Procedure Risk: Low Anesthetic Plan Anesthetic Plan: GA Disposition: Standard PACU
--- NOTE | 2021-06-09 09:18 | HO.POSTANES ---
Post Anesthesia Evaluation Post Anesthesia Evaluation Vital Signs: Vital Signs Temp Pulse Resp BP Pulse Ox 06/09/21 08:18 97.8 F 69 20 110/76 96 06/09/21 08:03 81 20 141/78 H 96 06/09/21 07:58 78 20 141/78 H 98 06/09/21 07:53 67 20 133/79 97 06/09/21 07:48 97.8 F 65 18 122/62 97 06/09/21 06:58 98.0 F 69 20 110/76 90 L 06/09/21 06:00 97.1 F 69 18 124/63 95 Anesthesia: General Mental Status: Awake Pain Control: Satisfactory Nausea/Vomiting: None (J) Hydration: Adequate Anesthesia-Related Issues: No Anes. Related Issues
--- NOTE | 2021-06-09 09:30 | HO.POSTANES ---
Post Anesthesia Evaluation Post Anesthesia Evaluation Vital Signs: Vital Signs Temp Pulse Resp BP Pulse Ox 06/09/21 08:18 97.8 F 69 20 110/76 96 06/09/21 08:03 81 20 141/78 H 96 06/09/21 07:58 78 20 141/78 H 98 06/09/21 07:53 67 20 133/79 97 06/09/21 07:48 97.8 F 65 18 122/62 97 06/09/21 06:58 98.0 F 69 20 110/76 90 L 06/09/21 06:00 97.1 F 69 18 124/63 95 Anesthesia: General Mental Status: Awake Pain Control: Satisfactory Nausea/Vomiting: None Hydration: Adequate Anesthesia-Related Issues: No Anes. Related Issues
--- NOTE | 2021-06-09 11:40 | HO.PSYCHPN ---
Subjective Subjective Date of Service: 06/09/21 Reason For Visit: major depressive d/o recurrent severe with psychot Subjective Notes: Conditional Voluntary Interim History: The nursing staff reported the patient was a little confused it mostly in the evening but easily redirectable. She is by far, less somatically delusional but still dysphoric with lack of energy. Today she had moved her ECT without any complications. On interview, the patient denies new symptoms. Mental Status Exam Mental Status Exam Patient Appearance: Well Grooomed Patient Orientation: Person Level of Consciousness: Awake Patient Behavior: Guarded, Cooperative and Passive Mood Description: Depressed Affect Description: Blunted Patient Cognition Impaired: Yes Ability to Follow Directions: Good Speech Pattern: Clear Hallucinations: None Delusions: Not Present Thought Process: Distracted Thought Content: positive for [place] and positive for Poverty of Content Judgement: Fair Diagnostics Vital Signs (24Hr): Vital Signs - 24 hr 06/08/21 20:32 06/09/21 06:00 06/09/21 06:58 Temperature 97.3 F 97.1 F 98.0 F Pulse Rate 62 69 69 Respiratory Rate 15 18 20 Blood Pressure 104/57 L 124/63 110/76 Pulse Oximetry 95 95 90 L 06/09/21 07:48 06/09/21 07:53 06/09/21 07:58 Temperature 97.8 F Pulse Rate 65 67 78 Respiratory Rate 18 20 20 Blood Pressure 122/62 133/79 141/78 H Pulse Oximetry 97 97 98 06/09/21 08:03 06/09/21 08:18 06/09/21 09:37 Temperature 97.8 F 97.4 F Pulse Rate 81 69 71 Respiratory Rate 20 20 Blood Pressure 141/78 H 110/76 131/74 Pulse Oximetry 96 96 BMI result Body Mass Index 21.2 Labs Results: 05/19/21 07:54 05/19/21 07:54 Medications Medications Current Medications Acetaminophen (Acetaminophen 325 Mg Tablet) 650 mg PO Q6H PRN PRN Reason: Headache/Pain Mild Scale (1-3) Last Admin: 06/07/21 16:21 Dose: 650 mg Documented by: Al Hydroxide/Mg Hydroxide (Magnesium Hydrox/Alum Hydrox 30 Ml Oral.Susp) 30 ml PO Q6H PRN PRN Reason: Heartburn/Nausea Apixaban (Apixaban 5 Mg Tablet) 5 mg PO BID [facility] Last Admin: 06/09/21 09:10 Dose: 5 mg Documented by: Loperamide HCl (Loperamide Hcl 2 Mg Capsule) 2 mg PO Q4H PRN PRN Reason: diarrhes Last Admin: 06/04/21 09:29 Dose: 2 mg Documented by: Lorazepam (Lorazepam 1 Mg Tablet) 1 mg PO BID PRN PRN Reason: anxiety/restlessness Last Admin: 06/06/21 18:23 Dose: 1 mg Documented by: Magnesium Hydroxide (Milk Of Magnesia 30 Ml Oral.Susp) 30 ml PO DAILY PRN PRN Reason: Constipation Last Admin: 06/06/21 13:32 Dose: 30 ml Documented by: Mirtazapine (Mirtazapine 30 Mg Tablet) 30 mg PO BEDTIME [facility] Last Admin: 06/08/21 19:45 Dose: 30 mg Documented by: Olanzapine (Olanzapine 2.5 Mg Tablet) 2.5 mg PO BID PRN PRN Reason: anxiety, agitation Last Admin: 06/08/21 19:44 Dose: 2.5 mg Documented by: Olanzapine (Olanzapine 5 Mg Tablet) 5 mg PO TID [facility] Last Admin: 06/09/21 06:19 Dose: 5 mg Documented by: Allergies Allergies Allergy/AdvReac Type Severity Reaction Status Date / Time amoxicillin [From Augmentin] Allergy Unknown Unknown Verified 02/01/21 15:55 aspirin Allergy Unknown Unknown Verified 02/01/21 16:34 clavulanic acid Allergy Unknown Unknown Verified 02/01/21 15:55 [From Augmentin] diphenhydramine Allergy Unknown Unknown Verified 02/01/21 16:35 hydrochlorothiazide Allergy Unknown Unknown Verified 02/01/21 16:44 metronidazole Allergy Unknown Unknown Verified 02/01/21 16:54 trazodone Allergy Unknown Unknown Verified 02/01/21 16:54 Assessment & Plan Assessment & Plan (1) Major depressive disorder, recurrent episode with mood-congruent psychotic features: Status: Acute Code(s): F33.3 - Major depressive disorder, recurrent, severe with psychotic symptoms (2) Pre-op testing: Status: Acute Code(s): Z01.818 - Encounter for other preprocedural examination Plan continue current medications, ECT by recommended by Dr. Castañeda. We will schedule ECT for saturday AM I spent ___20___ minutes with the patient and/or on the patient floor today, greater than?50% of which was spent counseling/coordinating care. Reason for contiued inpatient stay Substantial Risk for: inability to function, rapid decompensation and med/psych decompensation
[2021-06-09] MEDS: Mirtazapine 30 MG TABLET PO (20:20)
[2021-06-10 08:20] VITALS: BP 154/79; PULSE 72; TEMP 36.6
[2021-06-10] MEDS: Apixaban 5 MG TABLET PO ×2 (08:51→20:11)
[2021-06-10] MEDS: OLANZapine 5 MG TABLET PO ×3 (08:51→20:11)
--- NOTE | 2021-06-10 12:54 | P.PNPSI_ITS ---
Subjective Subjective Date of Service: 06/10/21 Reason For Visit: major depressive d/o recurrent severe with psychot Subjective Notes: Conditional Voluntary Interim History: For the patient is status post ECT some odd ruminations when seen generally has been more stable no longer needing one-to-one Diagnostics Vital Signs (24Hr): Vital Signs - 24 hr 06/09/21 18:00 06/10/21 08:20 Temperature 97.6 F 97.8 F Pulse Rate 61 72 Respiratory Rate 18 Blood Pressure 104/58 L 154/79 H Pulse Oximetry 92 BMI result Body Mass Index 21.2 Labs Results: 05/19/21 07:54 05/19/21 07:54 Medications Medications Current Medications Acetaminophen (Acetaminophen 325 Mg Tablet) 650 mg PO Q6H PRN PRN Reason: Headache/Pain Mild Scale (1-3) Last Admin: 06/07/21 16:21 Dose: 650 mg Documented by: Al Hydroxide/Mg Hydroxide (Magnesium Hydrox/Alum Hydrox 30 Ml Oral.Susp) 30 ml PO Q6H PRN PRN Reason: Heartburn/Nausea Apixaban (Apixaban 5 Mg Tablet) 5 mg PO BID [facility] Last Admin: 06/10/21 08:51 Dose: 5 mg Documented by: Loperamide HCl (Loperamide Hcl 2 Mg Capsule) 2 mg PO Q4H PRN PRN Reason: diarrhes Last Admin: 06/04/21 09:29 Dose: 2 mg Documented by: Magnesium Hydroxide (Milk Of Magnesia 30 Ml Oral.Susp) 30 ml PO DAILY PRN PRN Reason: Constipation Last Admin: 06/06/21 13:32 Dose: 30 ml Documented by: Mirtazapine (Mirtazapine 30 Mg Tablet) 30 mg PO BEDTIME [facility] Last Admin: 06/09/21 20:20 Dose: 30 mg Documented by: Olanzapine (Olanzapine 2.5 Mg Tablet) 2.5 mg PO BID PRN PRN Reason: anxiety, agitation Last Admin: 06/08/21 19:44 Dose: 2.5 mg Documented by: Olanzapine (Olanzapine 5 Mg Tablet) 5 mg PO TID [facility] Last Admin: 06/10/21 08:51 Dose: 5 mg Documented by: Allergies Allergies Allergy/AdvReac Type Severity Reaction Status Date / Time amoxicillin [From Augmentin] Allergy Unknown Unknown Verified 02/01/21 15:55 aspirin Allergy Unknown Unknown Verified 02/01/21 16:34 clavulanic acid Allergy Unknown Unknown Verified 02/01/21 15:55 [From Augmentin] diphenhydramine Allergy Unknown Unknown Verified 02/01/21 16:35 hydrochlorothiazide Allergy Unknown Unknown Verified 02/01/21 16:44 metronidazole Allergy Unknown Unknown Verified 02/01/21 16:54 trazodone Allergy Unknown Unknown Verified 02/01/21 16:54 Assessment & Plan Assessment & Plan (1) Major depressive disorder, recurrent episode with mood-congruent psychotic features: Status: Acute Code(s): F33.3 - Major depressive disorder, recurrent, severe with psychotic symptoms (2) Pre-op testing: Status: Acute Code(s): Z01.818 - Encounter for other preprocedural examination Plan Continue ECT as tolerated monitor for confusional state psychotic depression generally improving much decreased mood lability and agitation I spent minutes with the patient and/or on the patient floor today, greater than?50% of which was spent counseling/coordinating care. Reason for contiued inpatient stay Substantial Risk for: inability to function and rapid decompensation
--- NOTE | 2021-06-10 16:25 | PC.NURSE ---
Patient taken off 1:1 and now on 5 minute checks ULB.
[2021-06-10 18:00] VITALS: BP 130/69; PULSE 96; RESP 16; TEMP 37.2; O2SAT 96
[2021-06-10] MEDS: Mirtazapine 30 MG TABLET PO (20:11)
[2021-06-11 06:00] VITALS: BP 126/60; PULSE 63; RESP 15; TEMP 36.8; O2SAT 95
[2021-06-11] MEDS: OLANZapine 5 MG TABLET PO ×3 (08:05→19:47)
[2021-06-11] MEDS: Apixaban 5 MG TABLET PO ×2 (08:05→19:47)
--- NOTE | 2021-06-11 19:34 | P.PNPSI_ITS ---
Subjective Subjective Date of Service: 06/11/21 Reason For Visit: major depressive d/o recurrent severe with psychot Subjective Notes: Conditional Voluntary Interim History: Patient somewhat flat come was able to discuss the possibility of continuing treatment outpatient Mental Status Exam Mental Status Exam Patient Appearance: Well Grooomed Patient Orientation: Person, Place and Situation Level of Consciousness: Awake Patient Behavior: Guarded, Cooperative and Passive Mood Description: Depressed Affect Description: Blunted Patient Cognition Impaired: Yes Ability to Follow Directions: Good Speech Pattern: Clear Hallucinations: None Delusions: Not Present Thought Process: Distracted Thought Content: positive for [place] and positive for Poverty of Content Judgement: Fair Diagnostics Vital Signs (24Hr): Vital Signs - 24 hr 06/11/21 06:00 Temperature 98.2 F Pulse Rate 63 Respiratory Rate 15 Blood Pressure 126/60 Pulse Oximetry 95 BMI result Body Mass Index 21.2 Labs Results: 05/19/21 07:54 05/19/21 07:54 Medications Medications Current Medications Acetaminophen (Acetaminophen 325 Mg Tablet) 650 mg PO Q6H PRN PRN Reason: Headache/Pain Mild Scale (1-3) Last Admin: 06/07/21 16:21 Dose: 650 mg Documented by: Al Hydroxide/Mg Hydroxide (Magnesium Hydrox/Alum Hydrox 30 Ml Oral.Susp) 30 ml PO Q6H PRN PRN Reason: Heartburn/Nausea Apixaban (Apixaban 5 Mg Tablet) 5 mg PO BID [facility] Last Admin: 06/11/21 08:05 Dose: 5 mg Documented by: Loperamide HCl (Loperamide Hcl 2 Mg Capsule) 2 mg PO Q4H PRN PRN Reason: diarrhes Last Admin: 06/04/21 09:29 Dose: 2 mg Documented by: Magnesium Hydroxide (Milk Of Magnesia 30 Ml Oral.Susp) 30 ml PO DAILY PRN PRN Reason: Constipation Last Admin: 06/06/21 13:32 Dose: 30 ml Documented by: Mirtazapine (Mirtazapine 30 Mg Tablet) 30 mg PO BEDTIME [facility] Last Admin: 06/10/21 20:11 Dose: 30 mg Documented by: Olanzapine (Olanzapine 2.5 Mg Tablet) 2.5 mg PO BID PRN PRN Reason: anxiety, agitation Last Admin: 06/08/21 19:44 Dose: 2.5 mg Documented by: Olanzapine (Olanzapine 5 Mg Tablet) 5 mg PO TID [facility] Last Admin: 06/11/21 16:14 Dose: 5 mg Documented by: Allergies Allergies Allergy/AdvReac Type Severity Reaction Status Date / Time amoxicillin [From Augmentin] Allergy Unknown Unknown Verified 02/01/21 15:55 aspirin Allergy Unknown Unknown Verified 02/01/21 16:34 clavulanic acid Allergy Unknown Unknown Verified 02/01/21 15:55 [From Augmentin] diphenhydramine Allergy Unknown Unknown Verified 02/01/21 16:35 hydrochlorothiazide Allergy Unknown Unknown Verified 02/01/21 16:44 metronidazole Allergy Unknown Unknown Verified 02/01/21 16:54 trazodone Allergy Unknown Unknown Verified 02/01/21 16:54 Assessment & Plan Assessment & Plan (1) Major depressive disorder, recurrent episode with mood-congruent psychotic features: Status: Acute Code(s): F33.3 - Major depressive disorder, recurrent, severe with psychotic symptoms (2) Pre-op testing: Status: Acute Code(s): Z01.818 - Encounter for other preprocedural examination Plan Continue ECT as tolerated monitor for confusional state psychotic depression generally improving much decreased mood lability and agitation Discussed transition to maintenance ECT will need to coordinate with her when patient clearly is stable for outpatient I spent minutes with the patient and/or on the patient floor today, greater than?50% of which was spent counseling/coordinating care. Reason for contiued inpatient stay Substantial Risk for: inability to function and rapid decompensation
[2021-06-11 19:35] VITALS: BP 118/61; PULSE 66; RESP 17; TEMP 36.1; O2SAT 96
[2021-06-11] MEDS: Mirtazapine 30 MG TABLET PO (19:47)
[2021-06-12] VITALS (9 sets, daily range): BP systolic 103–165; BP diastolic 53–96; PULSE 61–104; RESP 16–20; TEMP 36.3–37.3; O2SAT 94–100
[2021-06-12] MEDS: OLANZapine 2.5 MG TABLET PO (01:25)
[2021-06-12] MEDS: OLANZapine 5 MG TABLET PO ×3 (05:46→20:22)
--- NOTE | 2021-06-12 07:07 | MHC.SHP ---
Pre-Procedural Eval Section A Date of Service: 06/12/21 The patient is an INPATIENT: Yes Changes since office visit: Yes Patient answered all questions; No Cold of Flu in the past 2 weeks, No New Medical Problems and No Changes in Medication The History & Physical has been completed within 30 days and I have reviewed it.: Yes Section B Chief Complaint: major depressive d/o recurrent severe with psychot Allergies: Allergies Allergy/AdvReac Type Severity Reaction Status Date / Time amoxicillin [From Augmentin] Allergy Unknown Unknown Verified 02/01/21 15:55 aspirin Allergy Unknown Unknown Verified 02/01/21 16:34 clavulanic acid Allergy Unknown Unknown Verified 02/01/21 15:55 [From Augmentin] diphenhydramine Allergy Unknown Unknown Verified 02/01/21 16:35 hydrochlorothiazide Allergy Unknown Unknown Verified 02/01/21 16:44 metronidazole Allergy Unknown Unknown Verified 02/01/21 16:54 trazodone Allergy Unknown Unknown Verified 02/01/21 16:54 Plan I have reviewed the history and physical and performed a pertinent physical examination on my patient. No changes have occurred unless specified.
--- NOTE | 2021-06-12 07:08 | HO.ECTPROC ---
ECT Procedure Note Diagnosis/Treatment Date of Service: 06/12/21 Previous ECT Date: 06/09/21 Current Treatment Number: 9 Interval Clinical Notes: less depressed slowed mentation no longer somatically delusional ECT Settings Device: THYMATRON DGx Electrode Placement: Right Unilateral Program/Pulse Width: 0.25 Energy Percent: 100 Seizure Duration By EEG (in seconds): 50 Medications Administration General Anesthetic: Etomidate (10) Muscle Relaxant: Succinylcholine (80) Ancillary Medications Anti-emetics: Zofran - Pre ECT Miscillaneous Medications: Propofol (30) and Flumazenil Airway Management Airway Management: Bag Mask Ventilation Treatment Recommendations No Changes Recommended: No change Pt Tolerated Procedure w/o Issue: Yes
[2021-06-12] MEDS: Apixaban 5 MG TABLET PO ×2 (08:34→20:22)
--- NOTE | 2021-06-12 09:37 | HO.ANESPROP2 ---
[facility] Active Problems Active Problems: All Active Problems (Updated 05/19/21 @ 10:26 by Enoc Fontaine MD) Pre-op testing (Acute) Major depressive disorder, recurrent episode with mood-congruent psychotic features (Acute) Neurocognitive disorder (Acute) Past Medical History Medical History History of pulmonary embolism Neurocognitive disorder Pulmonary embolism Functional capacity: independent ambulation Family History Family history of problems with anesthesia: No Surgical History Surgical History H/O section History of Problems with Anesthesia: No Social History Social History Household Members: Spouse Household Members Other:: Her and her Housing: House Do you presently have visiting nurse or other home services: No Patient Tobacco Use Status: Never used Tobacco Second Hand Smoke Exposure: No Use of substances other than those prescribed or required for medical reasons: No Currently Displaying Signs/Symptoms of Drug Intoxication Withdrawal: No Have you been hit, kicked, punched, or otherwise hurt by someone within the past year? If so, by whom?: No Do you feel safe in your current relationship?: Yes Is there a partner from a previous relationship who is making you feel unsafe now?: No Are you made to feel afraid or neglected: No Are you DNR?: No Advance Directives: No Do you have thoughts of harming others: None Do you have a plan to hurt others: No Plan Recently lost weight without trying: No Nutrition Risks: No Nutritional Risk Patient : No : No Poor oral hygiene: No service: Yes Sexual orientation: Straight/Heterosexual Meds Allergies Allergy/AdvReac Type Severity Reaction Status Date / Time amoxicillin [From Augmentin] Allergy Unknown Unknown Verified 02/01/21 15:55 aspirin Allergy Unknown Unknown Verified 02/01/21 16:34 clavulanic acid Allergy Unknown Unknown Verified 02/01/21 15:55 [From Augmentin] diphenhydramine Allergy Unknown Unknown Verified 02/01/21 16:35 hydrochlorothiazide Allergy Unknown Unknown Verified 02/01/21 16:44 metronidazole Allergy Unknown Unknown Verified 02/01/21 16:54 trazodone Allergy Unknown Unknown Verified 02/01/21 16:54 Active Medications: Current Medications Acetaminophen (Acetaminophen 325 Mg Tablet) 650 mg PO Q6H PRN PRN Reason: Headache/Pain Mild Scale (1-3) Last Admin: 06/07/21 16:21 Dose: 650 mg Documented by: Al Hydroxide/Mg Hydroxide (Magnesium Hydrox/Alum Hydrox 30 Ml Oral.Susp) 30 ml PO Q6H PRN PRN Reason: Heartburn/Nausea Apixaban (Apixaban 5 Mg Tablet) 5 mg PO BID [facility] Last Admin: 06/12/21 08:34 Dose: 5 mg Documented by: Loperamide HCl (Loperamide Hcl 2 Mg Capsule) 2 mg PO Q4H PRN PRN Reason: diarrhes Last Admin: 06/04/21 09:29 Dose: 2 mg Documented by: Magnesium Hydroxide (Milk Of Magnesia 30 Ml Oral.Susp) 30 ml PO DAILY PRN PRN Reason: Constipation Last Admin: 06/06/21 13:32 Dose: 30 ml Documented by: Mirtazapine (Mirtazapine 30 Mg Tablet) 30 mg PO BEDTIME [facility] Last Admin: 06/11/21 19:47 Dose: 30 mg Documented by: Olanzapine (Olanzapine 2.5 Mg Tablet) 2.5 mg PO BID PRN PRN Reason: anxiety, agitation Last Admin: 06/12/21 01:25 Dose: 2.5 mg Documented by: Olanzapine (Olanzapine 5 Mg Tablet) 5 mg PO TID [facility] Last Admin: 06/12/21 05:46 Dose: 5 mg Documented by: Home Medications Medication Instructions Recorded Confirmed Last Taken Type gabapentin 600 mg tablet 600 mg PO TID 02/01/21 02/01/21 Unknown History lorazepam 0.5 mg tablet (Ativan) 0.5 mg PO DAILY PRN 05/18/21 05/18/21 Unknown History Exam Exam Date and Time: June 12, 2021 0937 Height,Weight and Vital Signs: Height 5 ft 3 in Weight 54.5 kg Last Vital Signs Temp 98.7 F 06/12/21 08:11 Pulse 71 06/12/21 08:11 Resp 16 06/12/21 08:11 BP 135/76 06/12/21 08:11 Pulse Ox 97 06/12/21 08:11 Pertinent Lab Results Pertinent Lab Results: Laboratory Tests 05/18/21 05/18/21 05/18/21 19:05 19:05 19:05 WBC 10.2 RBC 4.37 D Hgb 13.7 D Hct 39.6 MCV 90.6 MCH 31.4 MCHC 34.6 RDW 12.6 Plt Count 289 D MPV 9.4 Immature Gran % (Auto) 0.4 Neut % (Auto) 76.9 H Lymph % (Auto) 14.0 L [place] % (Auto) 8.4 Eos % (Auto) 0.0 Baso % (Auto) 0.3 Lymph # (Auto) 1.4 [place] # (Auto) 0.9 Eos # (Auto) 0.0 Baso # (Auto) 0.0 Abs Immat Gran (auto) 0.04 H Absolute Neuts (auto) 7.9 Absolute Nucleated RBC 0.000 Nucleated RBC % (auto) 0.0 Sodium 142 Potassium 4.0 Chloride 106 Carbon Dioxide 22 Anion Gap 18 BUN 20 H Creatinine 1.01 Estim Creat Clear Calc 43.4 Estimated GFR 54 Fasting Glucose 125 H Calcium 9.9 D Total Bilirubin 0.9 AST 27 ALT 22 Alkaline Phosphatase 94 Total Protein 7.2 Albumin 4.5 Triglycerides 58 Cholesterol 178 D LDL Cholesterol, Calc 110 HDL Cholesterol 57 Vitamin B12 237 25-OH Vitamin D Total 25-Hydroxy Vitamin D2 25-Hydroxy Vitamin D3 Folate 16.9 TSH 0.82 Free Cortisol Urine Color Urine Appearance Urine pH Ur Specific [place] Urine Protein Urine Glucose (UA) Urine Ketones Urine Blood Urine Nitrite Ur Leukocyte Esterase Urine RBC Urine WBC Ur Squamous Epith Cells Urine Bacteria Urine Mucus 05/18/21 05/19/21 05/19/21 19:05 06:30 07:54 WBC 5.7 RBC 4.29 Hgb 13.3 Hct 39.7 MCV 92.5 MCH 31.0 MCHC 33.5 RDW 13.0 Plt Count 243 MPV 9.4 Immature Gran % (Auto) 0.4 Neut % (Auto) 67.7 Lymph % (Auto) 20.4 [place] % (Auto) 10.5 Eos % (Auto) 0.5 Baso % (Auto) 0.5 Lymph # (Auto) 1.2 [place] # (Auto) 0.6 Eos # (Auto) 0.0 Baso # (Auto) 0.0 Abs Immat Gran (auto) 0.02 Absolute Neuts (auto) 3.9 Absolute Nucleated RBC 0.000 Nucleated RBC % (auto) 0.0 Sodium Potassium Chloride Carbon Dioxide Anion Gap BUN Creatinine Estim Creat Clear Calc Estimated GFR Fasting Glucose Calcium Total Bilirubin AST ALT Alkaline Phosphatase Total Protein Albumin Triglycerides Cholesterol LDL Cholesterol, Calc HDL Cholesterol Vitamin B12 25-OH Vitamin D Total 21 L 25-Hydroxy Vitamin D2 <4 25-Hydroxy Vitamin D3 21 Folate TSH Free Cortisol Urine Color YELLOW Urine Appearance CLOUDY Urine pH 6.0 Ur Specific [place] 1.025 Urine Protein TRACE Urine Glucose (UA) NEG Urine Ketones 15 Urine Blood 1+ H Urine Nitrite NEG Ur Leukocyte Esterase 2+ H Urine RBC 0-2 Urine WBC 10-14 H Ur Squamous Epith Cells 1+ Urine Bacteria 1+ Urine Mucus 2+ 05/19/21 05/19/21 05/19/21 07:54 07:54 07:54 WBC RBC Hgb Hct MCV MCH MCHC RDW Plt Count MPV Immature Gran % (Auto) Neut % (Auto) Lymph % (Auto) [place] % (Auto) Eos % (Auto) Baso % (Auto) Lymph # (Auto) [place] # (Auto) Eos # (Auto) Baso # (Auto) Abs Immat Gran (auto) Absolute Neuts (auto) Absolute Nucleated RBC Nucleated RBC % (auto) Sodium 141 Potassium 3.6 Chloride 106 Carbon Dioxide 25 Anion Gap 14 BUN 21 H Creatinine 0.78 Estim Creat Clear Calc 56.3 Estimated GFR > 60 Fasting Glucose 114 H Calcium 9.3 D Total Bilirubin 0.9 AST 32 H ALT 20 Alkaline Phosphatase 93 Total Protein 6.8 Albumin 4.3 Triglycerides 57 Cholesterol 165 LDL Cholesterol, Calc 100 HDL Cholesterol 54 Vitamin B12 225 25-OH Vitamin D Total 15 L 25-Hydroxy Vitamin D2 <4 25-Hydroxy Vitamin D3 15 Folate 18.0 TSH 0.70 Free Cortisol Urine Color Urine Appearance Urine pH Ur Specific [place] Urine Protein Urine Glucose (UA) Urine Ketones Urine Blood Urine Nitrite Ur Leukocyte Esterase Urine RBC Urine WBC Ur Squamous Epith Cells Urine Bacteria Urine Mucus 05/20/21 05/25/21 06:56 18:10 WBC RBC Hgb Hct MCV MCH MCHC RDW Plt Count MPV Immature Gran % (Auto) Neut % (Auto) Lymph % (Auto) [place] % (Auto) Eos % (Auto) Baso % (Auto) Lymph # (Auto) [place] # (Auto) Eos # (Auto) Baso # (Auto) Abs Immat Gran (auto) Absolute Neuts (auto) Absolute Nucleated RBC Nucleated RBC % (auto) Sodium Potassium Chloride Carbon Dioxide Anion Gap BUN Creatinine Estim Creat Clear Calc Estimated GFR Fasting Glucose Calcium Total Bilirubin AST ALT Alkaline Phosphatase Total Protein Albumin Triglycerides Cholesterol LDL Cholesterol, Calc HDL Cholesterol Vitamin B12 25-OH Vitamin D Total 25-Hydroxy Vitamin D2 25-Hydroxy Vitamin D3 Folate TSH Free Cortisol 0.50 Urine Color YELLOW Urine Appearance CLEAR Urine pH 6.0 Ur Specific [place] 1.025 Urine Protein TRACE Urine Glucose (UA) NEG Urine Ketones 5 Urine Blood TRACE Urine Nitrite NEG Ur Leukocyte Esterase 1+ H Urine RBC 1-4 Urine WBC 5-9 H Ur Squamous Epith Cells 1+ Urine Bacteria 1+ Urine Mucus 2+ Airway Mallampati Class: II TM Dist: >3cm Neck ROM: Full Loose/Missing/Broken Teeth: No Heart: RRR Lungs: CTA Assessment and Plan Assessment Anesthesia Assessment: Anesthesia Plan Discussed and Chart Reviewed Final Anesthetic Review Family History of Problems with Anesthesia: No History of Problems with Anesthesia: No NPO: Yes ASA Class: II Final Preanesthetic Review: Meds/Allgs Chart Reviewed, Consent Obtained/Reviewed and Anes Risks/Benef Reviewed Patient Risk: Low Procedure Risk: Intermediate Anesthetic Plan Anesthetic Plan: GA Disposition: Standard PACU
--- NOTE | 2021-06-12 13:30 | P.PNPSI_ITS ---
Subjective Subjective Date of Service: 06/12/21 Reason For Visit: major depressive d/o recurrent severe with psychot Subjective Notes: Conditional Voluntary Interim History: The nursing staff reported the patient has been [place] better, even though that her affect is flat, she is cooperative and fully compliant with treatment. There is no evidence of new panic attacks. Today she had her ECT and she was slightly sedated after the procedure. No new symptoms Mental Status Exam Mental Status Exam Patient Appearance: Appropriate Patient Orientation: Person and Situation Level of Consciousness: Awake Mood Description: Withdrawn Affect Description: Constricted Patient Cognition Impaired: Yes Ability to Follow Directions: Good Speech Pattern: Clear Hallucinations: None Delusions: Ideas of Reference Thought Process: Racing and Distracted Thought Content: positive for [place], positive for [place] and positive for P[place] of Content Judgement: Fair Diagnostics Vital Signs (24Hr): Vital Signs - 24 hr 06/11/21 19:35 06/12/21 05:49 06/12/21 06:24 Temperature 96.9 F 97.3 F 98 F Pulse Rate 66 104 H 67 Respiratory Rate 17 18 16 Blood Pressure 118/61 153/96 H 145/73 H Pulse Oximetry 96 96 97 06/12/21 07:25 06/12/21 07:30 06/12/21 07:35 Temperature 99.2 F Pulse Rate 61 72 85 Respiratory Rate 20 19 20 Blood Pressure 165/67 H 124/74 129/73 Pulse Oximetry 98 97 100 06/12/21 07:40 06/12/21 07:55 06/12/21 08:11 Temperature 98.7 F Pulse Rate 87 78 71 Respiratory Rate 20 19 16 Blood Pressure 147/80 H 133/74 135/76 Pulse Oximetry 99 96 97 BMI result Body Mass Index 21.2 Labs Results: 05/19/21 07:54 05/19/21 07:54 Medications Medications Current Medications Acetaminophen (Acetaminophen 325 Mg Tablet) 650 mg PO Q6H PRN PRN Reason: Headache/Pain Mild Scale (1-3) Last Admin: 06/07/21 16:21 Dose: 650 mg Documented by: Al Hydroxide/Mg Hydroxide (Magnesium Hydrox/Alum Hydrox 30 Ml Oral.Susp) 30 ml PO Q6H PRN PRN Reason: Heartburn/Nausea Apixaban (Apixaban 5 Mg Tablet) 5 mg PO BID [facility] Last Admin: 06/12/21 08:34 Dose: 5 mg Documented by: Loperamide HCl (Loperamide Hcl 2 Mg Capsule) 2 mg PO Q4H PRN PRN Reason: diarrhes Last Admin: 06/04/21 09:29 Dose: 2 mg Documented by: Magnesium Hydroxide (Milk Of Magnesia 30 Ml Oral.Susp) 30 ml PO DAILY PRN PRN Reason: Constipation Last Admin: 06/06/21 13:32 Dose: 30 ml Documented by: Mirtazapine (Mirtazapine 30 Mg Tablet) 30 mg PO BEDTIME [facility] Last Admin: 06/11/21 19:47 Dose: 30 mg Documented by: Olanzapine (Olanzapine 2.5 Mg Tablet) 2.5 mg PO BID PRN PRN Reason: anxiety, agitation Last Admin: 06/12/21 01:25 Dose: 2.5 mg Documented by: Olanzapine (Olanzapine 5 Mg Tablet) 5 mg PO TID [facility] Last Admin: 06/12/21 05:46 Dose: 5 mg Documented by: Allergies Allergies Allergy/AdvReac Type Severity Reaction Status Date / Time amoxicillin [From Augmentin] Allergy Unknown Unknown Verified 02/01/21 15:55 aspirin Allergy Unknown Unknown Verified 02/01/21 16:34 clavulanic acid Allergy Unknown Unknown Verified 02/01/21 15:55 [From Augmentin] diphenhydramine Allergy Unknown Unknown Verified 02/01/21 16:35 hydrochlorothiazide Allergy Unknown Unknown Verified 02/01/21 16:44 metronidazole Allergy Unknown Unknown Verified 02/01/21 16:54 trazodone Allergy Unknown Unknown Verified 02/01/21 16:54 Assessment & Plan Assessment & Plan (1) Major depressive disorder, recurrent episode with mood-congruent psychotic features: Status: Acute Code(s): F33.3 - Major depressive disorder, recurrent, severe with psychotic symptoms (2) Pre-op testing: Status: Acute Code(s): Z01.818 - Encounter for other preprocedural examination Plan Continue ECT as tolerated monitor for confusional state psychotic depression generally improving much decreased mood lability and agitation Discussed transition to maintenance ECT will need to coordinate with her when patient clearly is stable for outpatient I spent ___20___ minutes with the patient and/or on the patient floor today, greater than?50% of which was spent counseling/coordinating care. Reason for contiued inpatient stay Substantial Risk for: inability to function, rapid decompensation and med/psych decompensation
[2021-06-12] MEDS: Mirtazapine 30 MG TABLET PO (20:22)
[2021-06-13 06:00] VITALS: BP 137/88; PULSE 65; TEMP 36; O2SAT 94
[2021-06-13] MEDS: OLANZapine 5 MG TABLET PO ×3 (08:14→21:37)
[2021-06-13] MEDS: Apixaban 5 MG TABLET PO ×2 (08:15→21:37)
--- NOTE | 2021-06-13 14:33 | P.PNPSI_ITS ---
Subjective Subjective Date of Service: 06/13/21 Reason For Visit: major depressive d/o recurrent severe with psychot Subjective Notes: Conditional Voluntary Interim History: the nursing staff reported that the patient slept well last night. Yesterday after ECT, she was confused and she packed all her belongs in a paper bag and was trying to exit but she was very easily redirectable. Today, assessment the patient denies new symptoms she was able to participate in a few groups. Today we had a family meeting with her and explained her diagnosis and prognosis. Had the agreed to sign a healthcare proxy and put her and that document. Mental Status Exam Mental Status Exam Patient Appearance: Well Grooomed Patient Orientation: Person and Situation Level of Consciousness: Awake and Appropriate Patient Behavior: Cooperative Mood Description: Calm Affect Description: Constricted Patient Cognition Impaired: Yes Ability to Follow Directions: Good Speech Pattern: Clear Hallucinations: None Delusions: Not Present Thought Process: Distracted and Evasive Thought Content: positive for [place] and positive for Circumstantial Judgement: Fair Diagnostics Vital Signs (24Hr): Vital Signs - 24 hr 06/12/21 20:15 06/13/21 06:00 Temperature 97.5 F 96.8 F Pulse Rate 61 65 Respiratory Rate 16 Blood Pressure 103/53 L 137/88 Pulse Oximetry 94 94 BMI result Body Mass Index 21.2 Labs Results: 05/19/21 07:54 05/19/21 07:54 Medications Medications Current Medications Acetaminophen (Acetaminophen 325 Mg Tablet) 650 mg PO Q6H PRN PRN Reason: Headache/Pain Mild Scale (1-3) Last Admin: 06/07/21 16:21 Dose: 650 mg Documented by: Al Hydroxide/Mg Hydroxide (Magnesium Hydrox/Alum Hydrox 30 Ml Oral.Susp) 30 ml PO Q6H PRN PRN Reason: Heartburn/Nausea Apixaban (Apixaban 5 Mg Tablet) 5 mg PO BID [facility] Last Admin: 06/13/21 08:15 Dose: 5 mg Documented by: Donepezil HCl (Donepezil Hcl 5 Mg Tablet) 5 mg PO BEDTIME [facility] Loperamide HCl (Loperamide Hcl 2 Mg Capsule) 2 mg PO Q4H PRN PRN Reason: diarrhes Last Admin: 06/04/21 09:29 Dose: 2 mg Documented by: Magnesium Hydroxide (Milk Of Magnesia 30 Ml Oral.Susp) 30 ml PO DAILY PRN PRN Reason: Constipation Last Admin: 06/06/21 13:32 Dose: 30 ml Documented by: Mirtazapine (Mirtazapine 30 Mg Tablet) 30 mg PO BEDTIME [facility] Last Admin: 06/12/21 20:22 Dose: 30 mg Documented by: Olanzapine (Olanzapine 2.5 Mg Tablet) 2.5 mg PO BID PRN PRN Reason: anxiety, agitation Last Admin: 06/12/21 01:25 Dose: 2.5 mg Documented by: Olanzapine (Olanzapine 5 Mg Tablet) 5 mg PO TID [facility] Last Admin: 06/13/21 08:14 Dose: 5 mg Documented by: Allergies Allergies Allergy/AdvReac Type Severity Reaction Status Date / Time amoxicillin [From Augmentin] Allergy Unknown Unknown Verified 02/01/21 15:55 aspirin Allergy Unknown Unknown Verified 02/01/21 16:34 clavulanic acid Allergy Unknown Unknown Verified 02/01/21 15:55 [From Augmentin] diphenhydramine Allergy Unknown Unknown Verified 02/01/21 16:35 hydrochlorothiazide Allergy Unknown Unknown Verified 02/01/21 16:44 metronidazole Allergy Unknown Unknown Verified 02/01/21 16:54 trazodone Allergy Unknown Unknown Verified 02/01/21 16:54 Assessment & Plan Assessment & Plan (1) Major depressive disorder, recurrent episode with mood-congruent psychotic features: Status: Acute Code(s): F33.3 - Major depressive disorder, recurrent, severe with psychotic symptoms (2) Pre-op testing: Status: Acute Code(s): Z01.818 - Encounter for other preprocedural examination Plan Continue ECT as tolerated monitor for confusional state psychotic depression generally improving much decreased mood lability and agitation Discussed transition to maintenance ECT will need to coordinate with her when patient clearly is stable for outpatient I spent ___20___ minutes with the patient and/or on the patient floor today, greater than?50% of which was spent counseling/coordinating care. Reason for contiued inpatient stay Substantial Risk for: inability to function, rapid decompensation and med/psych decompensation
[2021-06-13 18:00] VITALS: BP 120/57; PULSE 63; TEMP 36; O2SAT 96
[2021-06-13] MEDS: Donepezil HCl 5 MG TABLET PO (21:38)
[2021-06-13] MEDS: Mirtazapine 30 MG TABLET PO (21:38)
[2021-06-14] VITALS (11 sets, daily range): BP systolic 103–157; BP diastolic 51–99; PULSE 65–95; RESP 16–20; TEMP 36–36.6; O2SAT 16–97
[2021-06-14] MEDS: OLANZapine 5 MG TABLET PO ×3 (05:41→20:02)
--- NOTE | 2021-06-14 06:47 | HO.ANESPROP2 ---
[facility] Active Problems Active Problems: All Active Problems (Updated 05/19/21 @ 10:26 by Enoc Fontaine MD) Pre-op testing (Acute) Major depressive disorder, recurrent episode with mood-congruent psychotic features (Acute) Neurocognitive disorder (Acute) Past Medical History Medical History History of pulmonary embolism Neurocognitive disorder Pulmonary embolism Functional capacity: independent ambulation Family History Family history of problems with anesthesia: No Surgical History Surgical History H/O section History of Problems with Anesthesia: No Social History Social History Household Members: Spouse Household Members Other:: Her and her Housing: House Do you presently have visiting nurse or other home services: No Patient Tobacco Use Status: Never used Tobacco Second Hand Smoke Exposure: No Use of substances other than those prescribed or required for medical reasons: No Currently Displaying Signs/Symptoms of Drug Intoxication Withdrawal: No Have you been hit, kicked, punched, or otherwise hurt by someone within the past year? If so, by whom?: No Do you feel safe in your current relationship?: Yes Is there a partner from a previous relationship who is making you feel unsafe now?: No Are you made to feel afraid or neglected: No Are you DNR?: No Advance Directives: No Do you have thoughts of harming others: None Do you have a plan to hurt others: No Plan Recently lost weight without trying: No Nutrition Risks: No Nutritional Risk Patient : No : No Poor oral hygiene: No service: Yes Sexual orientation: Straight/Heterosexual Meds Allergies Allergy/AdvReac Type Severity Reaction Status Date / Time amoxicillin [From Augmentin] Allergy Unknown Unknown Verified 02/01/21 15:55 aspirin Allergy Unknown Unknown Verified 02/01/21 16:34 clavulanic acid Allergy Unknown Unknown Verified 02/01/21 15:55 [From Augmentin] diphenhydramine Allergy Unknown Unknown Verified 02/01/21 16:35 hydrochlorothiazide Allergy Unknown Unknown Verified 02/01/21 16:44 metronidazole Allergy Unknown Unknown Verified 02/01/21 16:54 trazodone Allergy Unknown Unknown Verified 02/01/21 16:54 Active Medications: Current Medications Acetaminophen (Acetaminophen 325 Mg Tablet) 650 mg PO Q6H PRN PRN Reason: Headache/Pain Mild Scale (1-3) Last Admin: 06/07/21 16:21 Dose: 650 mg Documented by: Al Hydroxide/Mg Hydroxide (Magnesium Hydrox/Alum Hydrox 30 Ml Oral.Susp) 30 ml PO Q6H PRN PRN Reason: Heartburn/Nausea Apixaban (Apixaban 5 Mg Tablet) 5 mg PO BID [facility] Last Admin: 06/13/21 21:37 Dose: 5 mg Documented by: Donepezil HCl (Donepezil Hcl 5 Mg Tablet) 5 mg PO BEDTIME [facility] Last Admin: 06/13/21 21:38 Dose: 5 mg Documented by: Lactated Ringer's (Lr) 1,000 mls @ 50 mls/hr IVCONT .Q20H OMAR Loperamide HCl (Loperamide Hcl 2 Mg Capsule) 2 mg PO Q4H PRN PRN Reason: diarrhes Last Admin: 06/04/21 09:29 Dose: 2 mg Documented by: Magnesium Hydroxide (Milk Of Magnesia 30 Ml Oral.Susp) 30 ml PO DAILY PRN PRN Reason: Constipation Last Admin: 06/06/21 13:32 Dose: 30 ml Documented by: Mirtazapine (Mirtazapine 30 Mg Tablet) 30 mg PO BEDTIME [facility] Last Admin: 06/13/21 21:38 Dose: 30 mg Documented by: Olanzapine (Olanzapine 2.5 Mg Tablet) 2.5 mg PO BID PRN PRN Reason: anxiety, agitation Last Admin: 06/12/21 01:25 Dose: 2.5 mg Documented by: Olanzapine (Olanzapine 5 Mg Tablet) 5 mg PO TID [facility] Last Admin: 06/14/21 05:41 Dose: 5 mg Documented by: Home Medications Medication Instructions Recorded Confirmed Last Taken Type gabapentin 600 mg tablet 600 mg PO TID 02/01/21 02/01/21 Unknown History lorazepam 0.5 mg tablet (Ativan) 0.5 mg PO DAILY PRN 05/18/21 05/18/21 Unknown History Exam Exam Date and Time: June 14, 2021 0647 Height,Weight and Vital Signs: Height 5 ft 3 in Weight 54.5 kg Last Vital Signs Temp 97.5 F 06/14/21 06:40 Pulse 78 06/14/21 06:40 Resp 18 06/14/21 06:40 BP 137/77 06/14/21 06:40 Pulse Ox 95 06/14/21 06:40 Pertinent Lab Results Pertinent Lab Results: Laboratory Tests 05/18/21 05/18/21 05/18/21 19:05 19:05 19:05 WBC 10.2 RBC 4.37 D Hgb 13.7 D Hct 39.6 MCV 90.6 MCH 31.4 MCHC 34.6 RDW 12.6 Plt Count 289 D MPV 9.4 Immature Gran % (Auto) 0.4 Neut % (Auto) 76.9 H Lymph % (Auto) 14.0 L [place] % (Auto) 8.4 Eos % (Auto) 0.0 Baso % (Auto) 0.3 Lymph # (Auto) 1.4 [place] # (Auto) 0.9 Eos # (Auto) 0.0 Baso # (Auto) 0.0 Abs Immat Gran (auto) 0.04 H Absolute Neuts (auto) 7.9 Absolute Nucleated RBC 0.000 Nucleated RBC % (auto) 0.0 Sodium 142 Potassium 4.0 Chloride 106 Carbon Dioxide 22 Anion Gap 18 BUN 20 H Creatinine 1.01 Estim Creat Clear Calc 43.4 Estimated GFR 54 Fasting Glucose 125 H Calcium 9.9 D Total Bilirubin 0.9 AST 27 ALT 22 Alkaline Phosphatase 94 Total Protein 7.2 Albumin 4.5 Triglycerides 58 Cholesterol 178 D LDL Cholesterol, Calc 110 HDL Cholesterol 57 Vitamin B12 237 25-OH Vitamin D Total 25-Hydroxy Vitamin D2 25-Hydroxy Vitamin D3 Folate 16.9 TSH 0.82 Free Cortisol Urine Color Urine Appearance Urine pH Ur Specific [place] Urine Protein Urine Glucose (UA) Urine Ketones Urine Blood Urine Nitrite Ur Leukocyte Esterase Urine RBC Urine WBC Ur Squamous Epith Cells Urine Bacteria Urine Mucus 05/18/21 05/19/21 05/19/21 19:05 06:30 07:54 WBC 5.7 RBC 4.29 Hgb 13.3 Hct 39.7 MCV 92.5 MCH 31.0 MCHC 33.5 RDW 13.0 Plt Count 243 MPV 9.4 Immature Gran % (Auto) 0.4 Neut % (Auto) 67.7 Lymph % (Auto) 20.4 [place] % (Auto) 10.5 Eos % (Auto) 0.5 Baso % (Auto) 0.5 Lymph # (Auto) 1.2 [place] # (Auto) 0.6 Eos # (Auto) 0.0 Baso # (Auto) 0.0 Abs Immat Gran (auto) 0.02 Absolute Neuts (auto) 3.9 Absolute Nucleated RBC 0.000 Nucleated RBC % (auto) 0.0 Sodium Potassium Chloride Carbon Dioxide Anion Gap BUN Creatinine Estim Creat Clear Calc Estimated GFR Fasting Glucose Calcium Total Bilirubin AST ALT Alkaline Phosphatase Total Protein Albumin Triglycerides Cholesterol LDL Cholesterol, Calc HDL Cholesterol Vitamin B12 25-OH Vitamin D Total 21 L 25-Hydroxy Vitamin D2 <4 25-Hydroxy Vitamin D3 21 Folate TSH Free Cortisol Urine Color YELLOW Urine Appearance CLOUDY Urine pH 6.0 Ur Specific [place] 1.025 Urine Protein TRACE Urine Glucose (UA) NEG Urine Ketones 15 Urine Blood 1+ H Urine Nitrite NEG Ur Leukocyte Esterase 2+ H Urine RBC 0-2 Urine WBC 10-14 H Ur Squamous Epith Cells 1+ Urine Bacteria 1+ Urine Mucus 2+ 05/19/21 05/19/21 05/19/21 07:54 07:54 07:54 WBC RBC Hgb Hct MCV MCH MCHC RDW Plt Count MPV Immature Gran % (Auto) Neut % (Auto) Lymph % (Auto) [place] % (Auto) Eos % (Auto) Baso % (Auto) Lymph # (Auto) [place] # (Auto) Eos # (Auto) Baso # (Auto) Abs Immat Gran (auto) Absolute Neuts (auto) Absolute Nucleated RBC Nucleated RBC % (auto) Sodium 141 Potassium 3.6 Chloride 106 Carbon Dioxide 25 Anion Gap 14 BUN 21 H Creatinine 0.78 Estim Creat Clear Calc 56.3 Estimated GFR > 60 Fasting Glucose 114 H Calcium 9.3 D Total Bilirubin 0.9 AST 32 H ALT 20 Alkaline Phosphatase 93 Total Protein 6.8 Albumin 4.3 Triglycerides 57 Cholesterol 165 LDL Cholesterol, Calc 100 HDL Cholesterol 54 Vitamin B12 225 25-OH Vitamin D Total 15 L 25-Hydroxy Vitamin D2 <4 25-Hydroxy Vitamin D3 15 Folate 18.0 TSH 0.70 Free Cortisol Urine Color Urine Appearance Urine pH Ur Specific [place] Urine Protein Urine Glucose (UA) Urine Ketones Urine Blood Urine Nitrite Ur Leukocyte Esterase Urine RBC Urine WBC Ur Squamous Epith Cells Urine Bacteria Urine Mucus 05/20/21 05/25/21 06:56 18:10 WBC RBC Hgb Hct MCV MCH MCHC RDW Plt Count MPV Immature Gran % (Auto) Neut % (Auto) Lymph % (Auto) [place] % (Auto) Eos % (Auto) Baso % (Auto) Lymph # (Auto) [place] # (Auto) Eos # (Auto) Baso # (Auto) Abs Immat Gran (auto) Absolute Neuts (auto) Absolute Nucleated RBC Nucleated RBC % (auto) Sodium Potassium Chloride Carbon Dioxide Anion Gap BUN Creatinine Estim Creat Clear Calc Estimated GFR Fasting Glucose Calcium Total Bilirubin AST ALT Alkaline Phosphatase Total Protein Albumin Triglycerides Cholesterol LDL Cholesterol, Calc HDL Cholesterol Vitamin B12 25-OH Vitamin D Total 25-Hydroxy Vitamin D2 25-Hydroxy Vitamin D3 Folate TSH Free Cortisol 0.50 Urine Color YELLOW Urine Appearance CLEAR Urine pH 6.0 Ur Specific [place] 1.025 Urine Protein TRACE Urine Glucose (UA) NEG Urine Ketones 5 Urine Blood TRACE Urine Nitrite NEG Ur Leukocyte Esterase 1+ H Urine RBC 1-4 Urine WBC 5-9 H Ur Squamous Epith Cells 1+ Urine Bacteria 1+ Urine Mucus 2+ Airway Mallampati Class: II TM Dist: >3cm Neck ROM: Full Heart: rrr Lungs: cta Assessment and Plan Assessment Anesthesia Assessment: Anesthesia Plan Discussed and Chart Reviewed Final Anesthetic Review Family History of Problems with Anesthesia: No History of Problems with Anesthesia: No NPO: Yes ASA Class: III Final Preanesthetic Review: No Changes in Pt Med Stat, Meds/Allgs Chart Reviewed and Consent Obtained/Reviewed Patient Risk: Intermediate Procedure Risk: Intermediate Anesthetic Plan Anesthetic Plan: GA Disposition: Standard PACU
--- NOTE | 2021-06-14 07:14 | MHC.SHP ---
Pre-Procedural Eval Section A Date of Service: 06/14/21 The patient is an INPATIENT: Yes Changes since office visit: Yes Changes in Medication and Yes Patient answered all questions; No Cold of Flu in the past 2 weeks and No New Medical Problems The History & Physical has been completed within 30 days and I have reviewed it.: Yes Section B Chief Complaint: major depressive d/o recurrent severe with psychot Allergies: Allergies Allergy/AdvReac Type Severity Reaction Status Date / Time amoxicillin [From Augmentin] Allergy Unknown Unknown Verified 02/01/21 15:55 aspirin Allergy Unknown Unknown Verified 02/01/21 16:34 clavulanic acid Allergy Unknown Unknown Verified 02/01/21 15:55 [From Augmentin] diphenhydramine Allergy Unknown Unknown Verified 02/01/21 16:35 hydrochlorothiazide Allergy Unknown Unknown Verified 02/01/21 16:44 metronidazole Allergy Unknown Unknown Verified 02/01/21 16:54 trazodone Allergy Unknown Unknown Verified 02/01/21 16:54 Plan I have reviewed the history and physical and performed a pertinent physical examination on my patient. No changes have occurred unless specified.
--- NOTE | 2021-06-14 07:40 | HO.ECTPROC ---
ECT Procedure Note Diagnosis/Treatment Date of Service: 06/14/21 Diagnosis: Major Depressive Disorder Previous ECT Date: 06/12/21 Current Treatment Number: 10 Treatment: Series Interval Clinical Notes: pt calmer much less depressed flat some memory impairment ECT Settings Device: THYMATRON DGx Electrode Placement: Right Unilateral Program/Pulse Width: 0.25 Energy Percent: 100 Seizure Duration By EEG (in seconds): 51 Medications Administration General Anesthetic: Etomidate (10) Muscle Relaxant: Succinylcholine (80) Ancillary Medications Anti-emetics: Zofran - Pre ECT Airway Management Airway Management: Bag Mask Ventilation Treatment Recommendations No Changes Recommended: No change Notes: monitor for worsening confusion Pt Tolerated Procedure w/o Issue: Yes
[2021-06-14] MEDS: Apixaban 5 MG TABLET PO ×2 (08:37→20:02)
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
[2021-06-14] MEDS: Donepezil HCl 5 MG TABLET PO (20:02)
[2021-06-14] MEDS: Mirtazapine 30 MG TABLET PO (20:02)
[2021-06-15 07:00] VITALS: BMI 21.7
[2021-06-15] MEDS: Apixaban 5 MG TABLET PO ×2 (08:07→20:15)
[2021-06-15] MEDS: OLANZapine 5 MG TABLET PO ×3 (08:07→20:14)
[2021-06-15 08:23] VITALS: BP 129/72; PULSE 80; RESP 14; TEMP 36.4; O2SAT 96
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
[2021-06-15 18:00] VITALS: BP 133/63; PULSE 67; RESP 18; TEMP 36.1; O2SAT 95
[2021-06-15] MEDS: Donepezil HCl 5 MG TABLET PO (20:15)
[2021-06-15] MEDS: Mirtazapine 30 MG TABLET PO (20:15)
[2021-06-15] MEDS: OLANZapine 2.5 MG TABLET PO (23:12)
[2021-06-16] VITALS (10 sets, daily range): BP systolic 104–156; BP diastolic 55–122; PULSE 58–84; RESP 14–20; TEMP 36.1–36.6; O2SAT 9–98
[2021-06-16] MEDS: OLANZapine 5 MG TABLET PO ×3 (05:41→20:36)
--- NOTE | 2021-06-16 06:49 | HO.ANESPROP2 ---
[facility] Active Problems Active Problems: All Active Problems (Updated 05/19/21 @ 10:26 by Enoc Fontaine MD) Pre-op testing (Acute) Major depressive disorder, recurrent episode with mood-congruent psychotic features (Acute) Neurocognitive disorder (Acute) Past Medical History Medical History History of pulmonary embolism Neurocognitive disorder Pulmonary embolism Functional capacity: independent ambulation Family History Family history of problems with anesthesia: No Surgical History Surgical History H/O section History of Problems with Anesthesia: No Social History Social History Household Members: Spouse Household Members Other:: Her and her Housing: House Do you presently have visiting nurse or other home services: No Patient Tobacco Use Status: Never used Tobacco Second Hand Smoke Exposure: No Use of substances other than those prescribed or required for medical reasons: No Currently Displaying Signs/Symptoms of Drug Intoxication Withdrawal: No Have you been hit, kicked, punched, or otherwise hurt by someone within the past year? If so, by whom?: No Do you feel safe in your current relationship?: Yes Is there a partner from a previous relationship who is making you feel unsafe now?: No Are you made to feel afraid or neglected: No Are you DNR?: No Advance Directives: No Do you have thoughts of harming others: None Do you have a plan to hurt others: No Plan Recently lost weight without trying: No Nutrition Risks: No Nutritional Risk Patient : No : No Poor oral hygiene: No service: Yes Sexual orientation: Straight/Heterosexual Meds Allergies Allergy/AdvReac Type Severity Reaction Status Date / Time amoxicillin [From Augmentin] Allergy Unknown Unknown Verified 02/01/21 15:55 aspirin Allergy Unknown Unknown Verified 02/01/21 16:34 clavulanic acid Allergy Unknown Unknown Verified 02/01/21 15:55 [From Augmentin] diphenhydramine Allergy Unknown Unknown Verified 02/01/21 16:35 hydrochlorothiazide Allergy Unknown Unknown Verified 02/01/21 16:44 metronidazole Allergy Unknown Unknown Verified 02/01/21 16:54 trazodone Allergy Unknown Unknown Verified 02/01/21 16:54 Active Medications: Current Medications Acetaminophen (Acetaminophen 325 Mg Tablet) 650 mg PO Q6H PRN PRN Reason: Headache/Pain Mild Scale (1-3) Last Admin: 06/07/21 16:21 Dose: 650 mg Documented by: Al Hydroxide/Mg Hydroxide (Magnesium Hydrox/Alum Hydrox 30 Ml Oral.Susp) 30 ml PO Q6H PRN PRN Reason: Heartburn/Nausea Apixaban (Apixaban 5 Mg Tablet) 5 mg PO BID [facility] Last Admin: 06/15/21 20:15 Dose: 5 mg Documented by: Donepezil HCl (Donepezil Hcl 5 Mg Tablet) 5 mg PO BEDTIME [facility] Last Admin: 06/15/21 20:15 Dose: 5 mg Documented by: Lactated Ringer's (Lr) 1,000 mls @ 50 mls/hr IVCONT .Q20H [facility] Loperamide HCl (Loperamide Hcl 2 Mg Capsule) 2 mg PO Q4H PRN PRN Reason: diarrhes Last Admin: 06/04/21 09:29 Dose: 2 mg Documented by: Magnesium Hydroxide (Milk Of Magnesia 30 Ml Oral.Susp) 30 ml PO DAILY PRN PRN Reason: Constipation Last Admin: 06/06/21 13:32 Dose: 30 ml Documented by: Mirtazapine (Mirtazapine 30 Mg Tablet) 30 mg PO BEDTIME [facility] Last Admin: 06/15/21 20:15 Dose: 30 mg Documented by: Olanzapine (Olanzapine 2.5 Mg Tablet) 2.5 mg PO BID PRN PRN Reason: anxiety, agitation Last Admin: 06/15/21 23:12 Dose: 2.5 mg Documented by: Olanzapine (Olanzapine 5 Mg Tablet) 5 mg PO TID [facility] Last Admin: 06/16/21 05:41 Dose: 5 mg Documented by: Home Medications Medication Instructions Recorded Confirmed Last Taken Type gabapentin 600 mg tablet 600 mg PO TID 02/01/21 02/01/21 Unknown History lorazepam 0.5 mg tablet (Ativan) 0.5 mg PO DAILY PRN 05/18/21 05/18/21 Unknown History Exam Exam Date and Time: June 16, 2021 0649 Height,Weight and Vital Signs: Height 5 ft 3 in Weight 55.8 kg Last Vital Signs Temp 97.5 F 06/16/21 06:42 Pulse 70 06/16/21 06:42 Resp 20 06/16/21 06:42 BP 148/85 H 06/16/21 06:42 Pulse Ox 95 06/16/21 06:42 Pertinent Lab Results Pertinent Lab Results: Laboratory Tests 05/18/21 05/18/21 05/18/21 19:05 19:05 19:05 WBC 10.2 RBC 4.37 D Hgb 13.7 D Hct 39.6 MCV 90.6 MCH 31.4 MCHC 34.6 RDW 12.6 Plt Count 289 D MPV 9.4 Immature Gran % (Auto) 0.4 Neut % (Auto) 76.9 H Lymph % (Auto) 14.0 L [place] % (Auto) 8.4 Eos % (Auto) 0.0 Baso % (Auto) 0.3 Lymph # (Auto) 1.4 [place] # (Auto) 0.9 Eos # (Auto) 0.0 Baso # (Auto) 0.0 Abs Immat Gran (auto) 0.04 H Absolute Neuts (auto) 7.9 Absolute Nucleated RBC 0.000 Nucleated RBC % (auto) 0.0 Sodium 142 Potassium 4.0 Chloride 106 Carbon Dioxide 22 Anion Gap 18 BUN 20 H Creatinine 1.01 Estim Creat Clear Calc 43.4 Estimated GFR 54 Fasting Glucose 125 H Calcium 9.9 D Total Bilirubin 0.9 AST 27 ALT 22 Alkaline Phosphatase 94 Total Protein 7.2 Albumin 4.5 Triglycerides 58 Cholesterol 178 D LDL Cholesterol, Calc 110 HDL Cholesterol 57 Vitamin B12 237 25-OH Vitamin D Total 25-Hydroxy Vitamin D2 25-Hydroxy Vitamin D3 Folate 16.9 TSH 0.82 Free Cortisol Urine Color Urine Appearance Urine pH Ur Specific [place] Urine Protein Urine Glucose (UA) Urine Ketones Urine Blood Urine Nitrite Ur Leukocyte Esterase Urine RBC Urine WBC Ur Squamous Epith Cells Urine Bacteria Urine Mucus 05/18/21 05/19/21 05/19/21 19:05 06:30 07:54 WBC 5.7 RBC 4.29 Hgb 13.3 Hct 39.7 MCV 92.5 MCH 31.0 MCHC 33.5 RDW 13.0 Plt Count 243 MPV 9.4 Immature Gran % (Auto) 0.4 Neut % (Auto) 67.7 Lymph % (Auto) 20.4 [place] % (Auto) 10.5 Eos % (Auto) 0.5 Baso % (Auto) 0.5 Lymph # (Auto) 1.2 [place] # (Auto) 0.6 Eos # (Auto) 0.0 Baso # (Auto) 0.0 Abs Immat Gran (auto) 0.02 Absolute Neuts (auto) 3.9 Absolute Nucleated RBC 0.000 Nucleated RBC % (auto) 0.0 Sodium Potassium Chloride Carbon Dioxide Anion Gap BUN Creatinine Estim Creat Clear Calc Estimated GFR Fasting Glucose Calcium Total Bilirubin AST ALT Alkaline Phosphatase Total Protein Albumin Triglycerides Cholesterol LDL Cholesterol, Calc HDL Cholesterol Vitamin B12 25-OH Vitamin D Total 21 L 25-Hydroxy Vitamin D2 <4 25-Hydroxy Vitamin D3 21 Folate TSH Free Cortisol Urine Color YELLOW Urine Appearance CLOUDY Urine pH 6.0 Ur Specific [place] 1.025 Urine Protein TRACE Urine Glucose (UA) NEG Urine Ketones 15 Urine Blood 1+ H Urine Nitrite NEG Ur Leukocyte Esterase 2+ H Urine RBC 0-2 Urine WBC 10-14 H Ur Squamous Epith Cells 1+ Urine Bacteria 1+ Urine Mucus 2+ 05/19/21 05/19/21 05/19/21 07:54 07:54 07:54 WBC RBC Hgb Hct MCV MCH MCHC RDW Plt Count MPV Immature Gran % (Auto) Neut % (Auto) Lymph % (Auto) [place] % (Auto) Eos % (Auto) Baso % (Auto) Lymph # (Auto) [place] # (Auto) Eos # (Auto) Baso # (Auto) Abs Immat Gran (auto) Absolute Neuts (auto) Absolute Nucleated RBC Nucleated RBC % (auto) Sodium 141 Potassium 3.6 Chloride 106 Carbon Dioxide 25 Anion Gap 14 BUN 21 H Creatinine 0.78 Estim Creat Clear Calc 56.3 Estimated GFR > 60 Fasting Glucose 114 H Calcium 9.3 D Total Bilirubin 0.9 AST 32 H ALT 20 Alkaline Phosphatase 93 Total Protein 6.8 Albumin 4.3 Triglycerides 57 Cholesterol 165 LDL Cholesterol, Calc 100 HDL Cholesterol 54 Vitamin B12 225 25-OH Vitamin D Total 15 L 25-Hydroxy Vitamin D2 <4 25-Hydroxy Vitamin D3 15 Folate 18.0 TSH 0.70 Free Cortisol Urine Color Urine Appearance Urine pH Ur Specific [place] Urine Protein Urine Glucose (UA) Urine Ketones Urine Blood Urine Nitrite Ur Leukocyte Esterase Urine RBC Urine WBC Ur Squamous Epith Cells Urine Bacteria Urine Mucus 05/20/21 05/25/21 06:56 18:10 WBC RBC Hgb Hct MCV MCH MCHC RDW Plt Count MPV Immature Gran % (Auto) Neut % (Auto) Lymph % (Auto) [place] % (Auto) Eos % (Auto) Baso % (Auto) Lymph # (Auto) [place] # (Auto) Eos # (Auto) Baso # (Auto) Abs Immat Gran (auto) Absolute Neuts (auto) Absolute Nucleated RBC Nucleated RBC % (auto) Sodium Potassium Chloride Carbon Dioxide Anion Gap BUN Creatinine Estim Creat Clear Calc Estimated GFR Fasting Glucose Calcium Total Bilirubin AST ALT Alkaline Phosphatase Total Protein Albumin Triglycerides Cholesterol LDL Cholesterol, Calc HDL Cholesterol Vitamin B12 25-OH Vitamin D Total 25-Hydroxy Vitamin D2 25-Hydroxy Vitamin D3 Folate TSH Free Cortisol 0.50 Urine Color YELLOW Urine Appearance CLEAR Urine pH 6.0 Ur Specific [place] 1.025 Urine Protein TRACE Urine Glucose (UA) NEG Urine Ketones 5 Urine Blood TRACE Urine Nitrite NEG Ur Leukocyte Esterase 1+ H Urine RBC 1-4 Urine WBC 5-9 H Ur Squamous Epith Cells 1+ Urine Bacteria 1+ Urine Mucus 2+ Airway Mallampati Class: II (Multiple caps) TM Dist: >3cm Neck ROM: Full Heart: rrr Lungs: cta Assessment and Plan Assessment Anesthesia Assessment: Anesthesia Plan Discussed and Chart Reviewed Final Anesthetic Review Family History of Problems with Anesthesia: No History of Problems with Anesthesia: No NPO: Yes ASA Class: III Final Preanesthetic Review: No Changes in Pt Med Stat, Meds/Allgs Chart Reviewed and Consent Obtained/Reviewed Patient Risk: Intermediate Procedure Risk: Intermediate Anesthetic Plan Anesthetic Plan: GA Disposition: Standard PACU
--- NOTE | 2021-06-16 07:24 | MHC.SHP ---
Pre-Procedural Eval Section A Date of Service: 06/16/21 The patient is an INPATIENT: Yes Changes since office visit: No Cold of Flu in the past 2 weeks, No New Medical Problems, No Changes in Medication and No Patient answered all questions The History & Physical has been completed within 30 days and I have reviewed it.: Yes Section B Chief Complaint: major depressive d/o recurrent severe with psychot Allergies: Allergies Allergy/AdvReac Type Severity Reaction Status Date / Time amoxicillin [From Augmentin] Allergy Unknown Unknown Verified 02/01/21 15:55 aspirin Allergy Unknown Unknown Verified 02/01/21 16:34 clavulanic acid Allergy Unknown Unknown Verified 02/01/21 15:55 [From Augmentin] diphenhydramine Allergy Unknown Unknown Verified 02/01/21 16:35 hydrochlorothiazide Allergy Unknown Unknown Verified 02/01/21 16:44 metronidazole Allergy Unknown Unknown Verified 02/01/21 16:54 trazodone Allergy Unknown Unknown Verified 02/01/21 16:54 Plan I have reviewed the history and physical and performed a pertinent physical examination on my patient. No changes have occurred unless specified.
--- NOTE | 2021-06-16 07:33 | HO.ECTPROC ---
ECT Procedure Note Diagnosis/Treatment Date of Service: 06/16/21 Diagnosis: Major Depressive Disorder Previous ECT Date: 06/16/21 Treatment: Series Interval Clinical Notes: The patient reported improvement of dysphoria but she had episodes of confusion, easily redirectable ECT Settings Device: THYMATRON DGx Electrode Placement: Right Unilateral Program/Pulse Width: 0.25 Energy Percent: 100 Seizure Duration By EEG (in seconds): 42 By Motor Observation (in seconds): 0 Medications Administration General Anesthetic: Etomidate (10) Muscle Relaxant: Succinylcholine (80) Ancillary Medications Analgesics: Torodol - Pre ECT Anti-emetics: Zofran - Pre ECT Miscillaneous Medications: Propofol Airway Management Airway Management: Bag Mask Ventilation Treatment Recommendations No Changes Recommended: No change Pt Tolerated Procedure w/o Issue: Yes
[2021-06-16] MEDS: Apixaban 5 MG TABLET PO ×2 (09:31→20:36)
--- NOTE | 2021-06-16 13:10 | HO.PSYCHPN ---
Subjective Subjective Date of Service: 06/16/21 Reason For Visit: major depressive d/o recurrent severe with psychot Subjective Notes: Conditional Voluntary Interim History: The nursing staff reported the patient has been pacing the hallway, confused at times. Yesterday she needed p.r.n. Zyprexa since she was anxious. Today with had ECT without any complications, she remains slightly confused but easily redirectable. Mental Status Exam Mental Status Exam Patient Appearance: Appropriate Patient Orientation: Person and Situation Level of Consciousness: Awake Patient Behavior: Guarded and Passive Mood Description: Withdrawn Affect Description: Constricted Patient Cognition Impaired: Yes Ability to Follow Directions: Good Speech Pattern: Clear Memory Description: Intact Hallucinations: None Delusions: Paranoid Ideation Thought Process: Distracted and Confusion Thought Content: positive for Poverty of Content and positive for Thought Blocking Judgement: Fair Diagnostics Vital Signs (24Hr): Vital Signs - 24 hr 06/15/21 18:00 06/16/21 05:47 06/16/21 05:48 Temperature 97 F 97.6 F 97.6 F Pulse Rate 67 67 67 Respiratory Rate 18 18 18 Blood Pressure 133/63 156/80 H 156/80 H Pulse Oximetry 95 96 96 06/16/21 06:42 06/16/21 07:50 06/16/21 07:55 Temperature 97.5 F 97 F Pulse Rate 70 63 78 Respiratory Rate 20 16 17 Blood Pressure 148/85 H 155/80 H 147/70 H Pulse Oximetry 95 98 98 06/16/21 08:00 06/16/21 08:05 06/16/21 08:21 Temperature Pulse Rate 84 83 73 Respiratory Rate 20 17 20 Blood Pressure 151/122 H 129/93 H 126/100 H Pulse Oximetry 96 9 L 95 06/16/21 09:25 Temperature 97.8 F Pulse Rate 67 Respiratory Rate 14 Blood Pressure 136/66 Pulse Oximetry 94 BMI result Body Mass Index 21.7 Labs Results: 05/19/21 07:54 05/19/21 07:54 Medications Medications Current Medications Acetaminophen (Acetaminophen 325 Mg Tablet) 650 mg PO Q6H PRN PRN Reason: Headache/Pain Mild Scale (1-3) Last Admin: 06/07/21 16:21 Dose: 650 mg Documented by: Al Hydroxide/Mg Hydroxide (Magnesium Hydrox/Alum Hydrox 30 Ml Oral.Susp) 30 ml PO Q6H PRN PRN Reason: Heartburn/Nausea Apixaban (Apixaban 5 Mg Tablet) 5 mg PO BID [facility] Last Admin: 06/16/21 09:31 Dose: 5 mg Documented by: Donepezil HCl (Donepezil Hcl 5 Mg Tablet) 5 mg PO BEDTIME [facility] Last Admin: 06/15/21 20:15 Dose: 5 mg Documented by: Loperamide HCl (Loperamide Hcl 2 Mg Capsule) 2 mg PO Q4H PRN PRN Reason: diarrhes Last Admin: 06/04/21 09:29 Dose: 2 mg Documented by: Magnesium Hydroxide (Milk Of Magnesia 30 Ml Oral.Susp) 30 ml PO DAILY PRN PRN Reason: Constipation Last Admin: 06/06/21 13:32 Dose: 30 ml Documented by: Mirtazapine (Mirtazapine 30 Mg Tablet) 30 mg PO BEDTIME [facility] Last Admin: 06/15/21 20:15 Dose: 30 mg Documented by: Olanzapine (Olanzapine 2.5 Mg Tablet) 2.5 mg PO BID PRN PRN Reason: anxiety, agitation Last Admin: 06/15/21 23:12 Dose: 2.5 mg Documented by: Olanzapine (Olanzapine 5 Mg Tablet) 5 mg PO TID [facility] Last Admin: 06/16/21 05:41 Dose: 5 mg Documented by: Allergies Allergies Allergy/AdvReac Type Severity Reaction Status Date / Time amoxicillin [From Augmentin] Allergy Unknown Unknown Verified 02/01/21 15:55 aspirin Allergy Unknown Unknown Verified 02/01/21 16:34 clavulanic acid Allergy Unknown Unknown Verified 02/01/21 15:55 [From Augmentin] diphenhydramine Allergy Unknown Unknown Verified 02/01/21 16:35 hydrochlorothiazide Allergy Unknown Unknown Verified 02/01/21 16:44 metronidazole Allergy Unknown Unknown Verified 02/01/21 16:54 trazodone Allergy Unknown Unknown Verified 02/01/21 16:54 Assessment & Plan Assessment & Plan (1) Major depressive disorder, recurrent episode with mood-congruent psychotic features: Status: Acute Code(s): F33.3 - Major depressive disorder, recurrent, severe with psychotic symptoms (2) Pre-op testing: Status: Acute Code(s): Z01.818 - Encounter for other preprocedural examination Plan Continue ECT as tolerated monitor for confusional state psychotic depression generally improving much decreased mood lability and agitation Discussed transition to maintenance ECT will need to coordinate with her when patient clearly is stable for outpatient I spent ____20__ minutes with the patient and/or on the patient floor today, greater than?50% of which was spent counseling/coordinating care. Reason for contiued inpatient stay Substantial Risk for: inability to function, rapid decompensation and med/psych decompensation
[2021-06-16] MEDS: Donepezil HCl 5 MG TABLET PO (20:36)
[2021-06-16] MEDS: Mirtazapine 30 MG TABLET PO (20:36)
[2021-06-17 08:00] VITALS: BP 130/72; PULSE 77; RESP 18; TEMP 36.2; O2SAT 98
[2021-06-17] MEDS: Apixaban 5 MG TABLET PO ×2 (08:58→20:18)
[2021-06-17] MEDS: OLANZapine 5 MG TABLET PO ×3 (08:58→20:19)
--- NOTE | 2021-06-17 15:23 | HO.PSYCHPN ---
Subjective Subjective Date of Service: 06/17/21 Reason For Visit: major depressive d/o recurrent severe with psychot Subjective Notes: Conditional Voluntary Interim History: met with patient. Discussed with Nursing. Has been wandering. Had ECT yesterday. Was flat in affect and appears psychomotor retarded at times. Noted her name sign outside her room. Reported that she could not get organized then reported she feels better then wandered off and did not want to engage in interview Medication Compliance: Yes Side effects from medications: No Attending Groups: No Review of Systems Review of Systems Yes Unobtainable due to mental status Mental Status Exam Mental Status Exam Narrative: Patient Appearance:?Appropriate Patient Orientation:?Person and Situation Level of Consciousness:?Awake Patient Behavior:?Guarded and Passive Mood Description:?Withdrawn Affect Description:?Constricted Patient Cognition Impaired:?Yes Ability to Follow Directions:?Good Speech Pattern:?Clear Memory Description:?Intact Hallucinations:?None Delusions:?Paranoid Ideation Thought Process:?Distracted and Confusion Thought Content:?positive for Poverty of Content and positive for Thought Blocking Judgement:?Fair Diagnostics Vital Signs (24Hr): Vital Signs - 24 hr 06/16/21 21:59 06/17/21 08:00 Temperature 97.4 F 97.1 F Pulse Rate 58 77 Respiratory Rate 16 18 Blood Pressure 104/55 L 130/72 Pulse Oximetry 93 98 BMI result Body Mass Index 21.7 Labs Results: 05/19/21 07:54 05/19/21 07:54 Medications Medications Current Medications Acetaminophen (Acetaminophen 325 Mg Tablet) 650 mg PO Q6H PRN PRN Reason: Headache/Pain Mild Scale (1-3) Last Admin: 06/07/21 16:21 Dose: 650 mg Documented by: Al Hydroxide/Mg Hydroxide (Magnesium Hydrox/Alum Hydrox 30 Ml Oral.Susp) 30 ml PO Q6H PRN PRN Reason: Heartburn/Nausea Apixaban (Apixaban 5 Mg Tablet) 5 mg PO BID [facility] Last Admin: 06/17/21 08:58 Dose: 5 mg Documented by: Donepezil HCl (Donepezil Hcl 5 Mg Tablet) 5 mg PO BEDTIME [facility] Last Admin: 06/16/21 20:36 Dose: 5 mg Documented by: Loperamide HCl (Loperamide Hcl 2 Mg Capsule) 2 mg PO Q4H PRN PRN Reason: diarrhes Last Admin: 06/04/21 09:29 Dose: 2 mg Documented by: Magnesium Hydroxide (Milk Of Magnesia 30 Ml Oral.Susp) 30 ml PO DAILY PRN PRN Reason: Constipation Last Admin: 06/06/21 13:32 Dose: 30 ml Documented by: Mirtazapine (Mirtazapine 30 Mg Tablet) 30 mg PO BEDTIME [facility] Last Admin: 06/16/21 20:36 Dose: 30 mg Documented by: Olanzapine (Olanzapine 2.5 Mg Tablet) 2.5 mg PO BID PRN PRN Reason: anxiety, agitation Last Admin: 06/15/21 23:12 Dose: 2.5 mg Documented by: Olanzapine (Olanzapine 5 Mg Tablet) 5 mg PO TID [facility] Last Admin: 06/17/21 15:17 Dose: 5 mg Documented by: Allergies Allergies Allergy/AdvReac Type Severity Reaction Status Date / Time amoxicillin [From Augmentin] Allergy Unknown Unknown Verified 02/01/21 15:55 aspirin Allergy Unknown Unknown Verified 02/01/21 16:34 clavulanic acid Allergy Unknown Unknown Verified 02/01/21 15:55 [From Augmentin] diphenhydramine Allergy Unknown Unknown Verified 02/01/21 16:35 hydrochlorothiazide Allergy Unknown Unknown Verified 02/01/21 16:44 metronidazole Allergy Unknown Unknown Verified 02/01/21 16:54 trazodone Allergy Unknown Unknown Verified 02/01/21 16:54 Assessment & Plan Assessment & Plan (1) Major depressive disorder, recurrent episode with mood-congruent psychotic features: Status: Acute Code(s): F33.3 - Major depressive disorder, recurrent, severe with psychotic symptoms (2) Pre-op testing: Status: Acute Code(s): Z01.818 - Encounter for other preprocedural examination Plan Continue ECT as tolerated monitor for confusional state psychotic depression generally improving much decreased mood lability and agitation Discussed transition to maintenance ECT will need to coordinate with her when patient clearly is stable for outpatient 06/17/2021: No changes to team's primary treatment plan I spent minutes with the patient and/or on the patient floor today, greater than?50% of which was spent counseling/coordinating care. Reason for contiued inpatient stay Substantial Risk for: inability to function
[2021-06-17 18:00] VITALS: BP 134/79; PULSE 60; RESP 16; TEMP 36.6; O2SAT 98
[2021-06-17] MEDS: Donepezil HCl 5 MG TABLET PO (20:19)
[2021-06-17] MEDS: Mirtazapine 30 MG TABLET PO (20:19)
[2021-06-18 08:00] VITALS: BP 151/80; PULSE 90; RESP 16; TEMP 36.3; O2SAT 98
[2021-06-18] MEDS: Apixaban 5 MG TABLET PO ×2 (08:21→21:50)
[2021-06-18] MEDS: OLANZapine 5 MG TABLET PO ×3 (08:21→21:50)
--- NOTE | 2021-06-18 11:46 | HO.PSYCHPN ---
Subjective Subjective Date of Service: 06/18/21 Reason For Visit: major depressive d/o recurrent severe with psychot Subjective Notes: Conditional Voluntary Interim History: Met with patient. Discussed with Nursing. Still wandering- usual post ECT as per staff. Flat in affect. In bed. Appears psychomotor retarded at times. She diod endorse confusion and unable to elaborate. She did seem less distressed that yesterday regarding this. Does feel; safe. Denies SI. Reports mood is good and slept ok. Medication Compliance: Yes Side effects from medications: No Attending Groups: Intermittent Review of Systems Acute medical concerns: No Review of Systems Review of Systems unremarkable Mental Status Exam Mental Status Exam Narrative: Patient Appearance:?Appropriate Patient Orientation:?Person and Situation Level of Consciousness:?Awake Patient Behavior:?Guarded and Passive Mood Description:?Withdrawn Affect Description:?Constricted Patient Cognition Impaired:?Yes Ability to Follow Directions:?Good Speech Pattern:?Clear Memory Description:?Intact Hallucinations:?None Delusions:?Paranoid Ideation Thought Process:?Distracted and Confusion Thought Content:?positive for Poverty of Content and positive for Thought Blocking Judgement:?Fair Diagnostics Vital Signs (24Hr): Vital Signs - 24 hr 06/17/21 18:00 Temperature 98 F Pulse Rate 60 Respiratory Rate 16 Blood Pressure 134/79 Pulse Oximetry 98 BMI result Body Mass Index 21.7 Labs Results: 05/19/21 07:54 05/19/21 07:54 Medications Medications Current Medications Acetaminophen (Acetaminophen 325 Mg Tablet) 650 mg PO Q6H PRN PRN Reason: Headache/Pain Mild Scale (1-3) Last Admin: 06/07/21 16:21 Dose: 650 mg Documented by: Al Hydroxide/Mg Hydroxide (Magnesium Hydrox/Alum Hydrox 30 Ml Oral.Susp) 30 ml PO Q6H PRN PRN Reason: Heartburn/Nausea Apixaban (Apixaban 5 Mg Tablet) 5 mg PO BID [facility] Last Admin: 06/18/21 08:21 Dose: 5 mg Documented by: Donepezil HCl (Donepezil Hcl 5 Mg Tablet) 5 mg PO BEDTIME [facility] Last Admin: 06/17/21 20:19 Dose: 5 mg Documented by: Loperamide HCl (Loperamide Hcl 2 Mg Capsule) 2 mg PO Q4H PRN PRN Reason: diarrhes Last Admin: 04/17/22 09:29 Dose: 2 mg Documented by: Magnesium Hydroxide (Milk Of Magnesia 30 Ml Oral.Susp) 30 ml PO DAILY PRN PRN Reason: Constipation Last Admin: 06/06/21 13:32 Dose: 30 ml Documented by: Mirtazapine (Mirtazapine 30 Mg Tablet) 30 mg PO BEDTIME [facility] Last Admin: 06/17/21 20:19 Dose: 30 mg Documented by: Olanzapine (Olanzapine 2.5 Mg Tablet) 2.5 mg PO BID PRN PRN Reason: anxiety, agitation Last Admin: 06/15/21 23:12 Dose: 2.5 mg Documented by: Olanzapine (Olanzapine 5 Mg Tablet) 5 mg PO TID [facility] Last Admin: 06/18/21 08:21 Dose: 5 mg Documented by: Allergies Allergies Allergy/AdvReac Type Severity Reaction Status Date / Time amoxicillin [From Augmentin] Allergy Unknown Unknown Verified 02/01/21 15:55 aspirin Allergy Unknown Unknown Verified 02/01/21 16:34 clavulanic acid Allergy Unknown Unknown Verified 02/01/21 15:55 [From Augmentin] diphenhydramine Allergy Unknown Unknown Verified 02/01/21 16:35 hydrochlorothiazide Allergy Unknown Unknown Verified 02/01/21 16:44 metronidazole Allergy Unknown Unknown Verified 02/01/21 16:54 trazodone Allergy Unknown Unknown Verified 02/01/21 16:54 Assessment & Plan Assessment & Plan (1) Major depressive disorder, recurrent episode with mood-congruent psychotic features: Status: Acute Code(s): F33.3 - Major depressive disorder, recurrent, severe with psychotic symptoms (2) Pre-op testing: Status: Acute Code(s): Z01.818 - Encounter for other preprocedural examination Plan Continue ECT as tolerated monitor for confusional state psychotic depression generally improving much decreased mood lability and agitation Discussed transition to maintenance ECT will need to coordinate with her when patient clearly is stable for outpatient 06/18/2021: No changes to team's primary treatment plan I spent minutes with the patient and/or on the patient floor today, greater than?50% of which was spent counseling/coordinating care. Reason for contiued inpatient stay Substantial Risk for: inability to function
[2021-06-18 21:50] VITALS: BP 120/58; PULSE 75; RESP 18; TEMP 36.4; O2SAT 92
[2021-06-18] MEDS: Mirtazapine 30 MG TABLET PO (21:50)
[2021-06-18] MEDS: OLANZapine 2.5 MG TABLET PO (21:50)
[2021-06-18] MEDS: Donepezil HCl 5 MG TABLET PO (21:51)
[2021-06-19] VITALS (8 sets, daily range): BP systolic 125–165; BP diastolic 70–93; PULSE 66–79; RESP 18–26; TEMP 36.1–36.8; O2SAT 94–99
[2021-06-19] MEDS: Acetaminophen 325 MG TABLET 650 MG PO (00:59)
--- NOTE | 2021-06-19 08:19 | P.PNPSI_ITS ---
Subjective Subjective Date of Service: 06/19/21 Reason For Visit: major depressive d/o recurrent severe with psychot Subjective Notes: Conditional Voluntary Interim History: The nursing staff reported the patient has been isolative, fully compliant with medications. She looks slightly confused but easily redirectable. She slept well, woke up only once at 01:00 in the morning. The patient stated today that she is waiting for her ECT and she denies new symptoms. Mental Status Exam Mental Status Exam Patient Appearance: Appropriate Patient Orientation: Person and Situation Level of Consciousness: Awake Patient Behavior: Guarded and Suspicious Mood Description: Withdrawn Affect Description: Constricted Patient Cognition Impaired: Yes Ability to Follow Directions: Good Speech Pattern: Impoverished and Monotone Hallucinations: None Delusions: Not Present Thought Process: Slowed Thinking Thought Content: positive for [place] and positive for Poverty of Content Judgement: Fair Diagnostics Vital Signs (24Hr): Vital Signs - 24 hr 06/18/21 21:50 Temperature 97.6 F Pulse Rate 75 Respiratory Rate 18 Blood Pressure 120/58 L Pulse Oximetry 92 BMI result Body Mass Index 21.7 Labs Results: 05/19/21 07:54 05/19/21 07:54 Medications Medications Current Medications Acetaminophen (Acetaminophen 325 Mg Tablet) 650 mg PO Q6H PRN PRN Reason: Headache/Pain Mild Scale (1-3) Last Admin: 06/19/21 00:59 Dose: 650 mg Documented by: Al Hydroxide/Mg Hydroxide (Magnesium Hydrox/Alum Hydrox 30 Ml Oral.Susp) 30 ml PO Q6H PRN PRN Reason: Heartburn/Nausea Apixaban (Apixaban 5 Mg Tablet) 5 mg PO BID [facility] Last Admin: 06/18/21 21:50 Dose: 5 mg Documented by: Donepezil HCl (Donepezil Hcl 5 Mg Tablet) 5 mg PO BEDTIME [facility] Last Admin: 06/18/21 21:51 Dose: 5 mg Documented by: Loperamide HCl (Loperamide Hcl 2 Mg Capsule) 2 mg PO Q4H PRN PRN Reason: diarrhes Last Admin: 06/04/21 09:29 Dose: 2 mg Documented by: Magnesium Hydroxide (Milk Of Magnesia 30 Ml Oral.Susp) 30 ml PO DAILY PRN PRN Reason: Constipation Last Admin: 06/06/21 13:32 Dose: 30 ml Documented by: Mirtazapine (Mirtazapine 30 Mg Tablet) 30 mg PO BEDTIME [facility] Last Admin: 06/18/21 21:50 Dose: 30 mg Documented by: Olanzapine (Olanzapine 2.5 Mg Tablet) 2.5 mg PO BID PRN PRN Reason: anxiety, agitation Last Admin: 06/18/21 21:50 Dose: 2.5 mg Documented by: Olanzapine (Olanzapine 5 Mg Tablet) 5 mg PO TID [facility] Last Admin: 06/18/21 21:50 Dose: 5 mg Documented by: Allergies Allergies Allergy/AdvReac Type Severity Reaction Status Date / Time amoxicillin [From Augmentin] Allergy Unknown Unknown Verified 02/01/21 15:55 aspirin Allergy Unknown Unknown Verified 02/01/21 16:34 clavulanic acid Allergy Unknown Unknown Verified 02/01/21 15:55 [From Augmentin] diphenhydramine Allergy Unknown Unknown Verified 02/01/21 16:35 hydrochlorothiazide Allergy Unknown Unknown Verified 02/01/21 16:44 metronidazole Allergy Unknown Unknown Verified 02/01/21 16:54 trazodone Allergy Unknown Unknown Verified 02/01/21 16:54 Assessment & Plan Assessment & Plan (1) Major depressive disorder, recurrent episode with mood-congruent psychotic features: Status: Acute Code(s): F33.3 - Major depressive disorder, recurrent, severe with psychotic symptoms (2) Pre-op testing: Status: Acute Code(s): Z01.818 - Encounter for other preprocedural examination Plan Continue ECT as tolerated monitor for confusional state psychotic depression generally improving much decreased mood lability and agitation Discussed transition to maintenance ECT will need to coordinate with her when patient clearly is stable for outpatient I spent __20____ minutes with the patient and/or on the patient floor today, greater than?50% of which was spent counseling/coordinating care. Reason for contiued inpatient stay Substantial Risk for: inability to function, rapid decompensation and med/psych decompensation
[2021-06-19] MEDS: OLANZapine 5 MG TABLET PO ×3 (08:31→20:08)
[2021-06-19] MEDS: LORazepam 1 MG TABLET PO (10:49)
--- NOTE | 2021-06-19 11:24 | P.CONAN_ITS ---
HPI - Anesthesia Eval Consult details Narrative: Major depressive disorder [facility] Active Problems Active Problems: All Active Problems (Updated 05/19/21 @ 10:26 by Enoc Fontaine MD) Pre-op testing (Acute) Major depressive disorder, recurrent episode with mood-congruent psychotic features (Acute) Neurocognitive disorder (Acute) Past Medical History Medical History History of pulmonary embolism Neurocognitive disorder Pulmonary embolism Functional capacity: independent ambulation Family History Family history of problems with anesthesia: No Surgical History Surgical History H/O section History of Problems with Anesthesia: No Social History Social History Household Members: Spouse Household Members Other:: Her and her Housing: House Do you presently have visiting nurse or other home services: No Patient Tobacco Use Status: Never used Tobacco Second Hand Smoke Exposure: No Use of substances other than those prescribed or required for medical reasons: No Currently Displaying Signs/Symptoms of Drug Intoxication Withdrawal: No Have you been hit, kicked, punched, or otherwise hurt by someone within the past year? If so, by whom?: No Do you feel safe in your current relationship?: Yes Is there a partner from a previous relationship who is making you feel unsafe now?: No Are you made to feel afraid or neglected: No Are you DNR?: No Advance Directives: No Do you have thoughts of harming others: None Do you have a plan to hurt others: No Plan Recently lost weight without trying: No Nutrition Risks: No Nutritional Risk Patient : No : No Poor oral hygiene: No service: Yes Sexual orientation: Straight/Heterosexual Meds Allergies Allergy/AdvReac Type Severity Reaction Status Date / Time amoxicillin [From Augmentin] Allergy Unknown Unknown Verified 02/01/21 15:55 aspirin Allergy Unknown Unknown Verified 02/01/21 16:34 clavulanic acid Allergy Unknown Unknown Verified 02/01/21 15:55 [From Augmentin] diphenhydramine Allergy Unknown Unknown Verified 02/01/21 16:35 hydrochlorothiazide Allergy Unknown Unknown Verified 02/01/21 16:44 metronidazole Allergy Unknown Unknown Verified 02/01/21 16:54 trazodone Allergy Unknown Unknown Verified 02/01/21 16:54 Active Medications: Current Medications Acetaminophen (Acetaminophen 325 Mg Tablet) 650 mg PO Q6H PRN PRN Reason: Headache/Pain Mild Scale (1-3) Last Admin: 06/19/21 00:59 Dose: 650 mg Documented by: Al Hydroxide/Mg Hydroxide (Magnesium Hydrox/Alum Hydrox 30 Ml Oral.Susp) 30 ml PO Q6H PRN PRN Reason: Heartburn/Nausea Apixaban (Apixaban 5 Mg Tablet) 5 mg PO BID [facility] Last Admin: 06/19/21 08:49 Dose: Not Given Documented by: Donepezil HCl (Donepezil Hcl 5 Mg Tablet) 5 mg PO BEDTIME [facility] Last Admin: 06/18/21 21:51 Dose: 5 mg Documented by: Loperamide HCl (Loperamide Hcl 2 Mg Capsule) 2 mg PO Q4H PRN PRN Reason: diarrhes Last Admin: 06/04/21 09:29 Dose: 2 mg Documented by: Magnesium Hydroxide (Milk Of Magnesia 30 Ml Oral.Susp) 30 ml PO DAILY PRN PRN Reason: Constipation Last Admin: 06/06/21 13:32 Dose: 30 ml Documented by: Mirtazapine (Mirtazapine 30 Mg Tablet) 30 mg PO BEDTIME [facility] Last Admin: 06/18/21 21:50 Dose: 30 mg Documented by: Olanzapine (Olanzapine 2.5 Mg Tablet) 2.5 mg PO BID PRN PRN Reason: anxiety, agitation Last Admin: 06/18/21 21:50 Dose: 2.5 mg Documented by: Olanzapine (Olanzapine 5 Mg Tablet) 5 mg PO TID [facility] Last Admin: 06/19/21 08:31 Dose: 5 mg Documented by: Home Medications Medication Instructions Recorded Confirmed Last Taken Type gabapentin 600 mg tablet 600 mg PO TID 02/01/21 02/01/21 Unknown History lorazepam 0.5 mg tablet (Ativan) 0.5 mg PO DAILY PRN 05/18/21 05/18/21 Unknown History Exam Exam Date and Time: June 19, 2021 1124 Height,Weight and Vital Signs: Height 5 ft 3 in Weight 55.8 kg Last Vital Signs Temp 97.7 F 06/19/21 07:00 Pulse 66 06/19/21 07:00 Resp 18 06/18/21 21:50 BP 138/70 06/19/21 07:00 Pulse Ox 94 06/19/21 07:00 Pertinent Lab Results Pertinent Lab Results: Laboratory Tests 05/18/21 05/18/21 05/18/21 19:05 19:05 19:05 WBC 10.2 RBC 4.37 D Hgb 13.7 D Hct 39.6 MCV 90.6 MCH 31.4 MCHC 34.6 RDW 12.6 Plt Count 289 D MPV 9.4 Immature Gran % (Auto) 0.4 Neut % (Auto) 76.9 H Lymph % (Auto) 14.0 L [place] % (Auto) 8.4 Eos % (Auto) 0.0 Baso % (Auto) 0.3 Lymph # (Auto) 1.4 [place] # (Auto) 0.9 Eos # (Auto) 0.0 Baso # (Auto) 0.0 Abs Immat Gran (auto) 0.04 H Absolute Neuts (auto) 7.9 Absolute Nucleated RBC 0.000 Nucleated RBC % (auto) 0.0 Sodium 142 Potassium 4.0 Chloride 106 Carbon Dioxide 22 Anion Gap 18 BUN 20 H Creatinine 1.01 Estim Creat Clear Calc 43.4 Estimated GFR 54 Fasting Glucose 125 H Calcium 9.9 D Total Bilirubin 0.9 AST 27 ALT 22 Alkaline Phosphatase 94 Total Protein 7.2 Albumin 4.5 Triglycerides 58 Cholesterol 178 D LDL Cholesterol, Calc 110 HDL Cholesterol 57 Vitamin B12 237 25-OH Vitamin D Total 25-Hydroxy Vitamin D2 25-Hydroxy Vitamin D3 Folate 16.9 TSH 0.82 Free Cortisol Urine Color Urine Appearance Urine pH Ur Specific [place] Urine Protein Urine Glucose (UA) Urine Ketones Urine Blood Urine Nitrite Ur Leukocyte Esterase Urine RBC Urine WBC Ur Squamous Epith Cells Urine Bacteria Urine Mucus 05/18/21 05/19/21 05/19/21 19:05 06:30 07:54 WBC 5.7 RBC 4.29 Hgb 13.3 Hct 39.7 MCV 92.5 MCH 31.0 MCHC 33.5 RDW 13.0 Plt Count 243 MPV 9.4 Immature Gran % (Auto) 0.4 Neut % (Auto) 67.7 Lymph % (Auto) 20.4 [place] % (Auto) 10.5 Eos % (Auto) 0.5 Baso % (Auto) 0.5 Lymph # (Auto) 1.2 [place] # (Auto) 0.6 Eos # (Auto) 0.0 Baso # (Auto) 0.0 Abs Immat Gran (auto) 0.02 Absolute Neuts (auto) 3.9 Absolute Nucleated RBC 0.000 Nucleated RBC % (auto) 0.0 Sodium Potassium Chloride Carbon Dioxide Anion Gap BUN Creatinine Estim Creat Clear Calc Estimated GFR Fasting Glucose Calcium Total Bilirubin AST ALT Alkaline Phosphatase Total Protein Albumin Triglycerides Cholesterol LDL Cholesterol, Calc HDL Cholesterol Vitamin B12 25-OH Vitamin D Total 21 L 25-Hydroxy Vitamin D2 <4 25-Hydroxy Vitamin D3 21 Folate TSH Free Cortisol Urine Color YELLOW Urine Appearance CLOUDY Urine pH 6.0 Ur Specific [place] 1.025 Urine Protein TRACE Urine Glucose (UA) NEG Urine Ketones 15 Urine Blood 1+ H Urine Nitrite NEG Ur Leukocyte Esterase 2+ H Urine RBC 0-2 Urine WBC 10-14 H Ur Squamous Epith Cells 1+ Urine Bacteria 1+ Urine Mucus 2+ 05/19/21 05/19/21 05/19/21 07:54 07:54 07:54 WBC RBC Hgb Hct MCV MCH MCHC RDW Plt Count MPV Immature Gran % (Auto) Neut % (Auto) Lymph % (Auto) [place] % (Auto) Eos % (Auto) Baso % (Auto) Lymph # (Auto) [place] # (Auto) Eos # (Auto) Baso # (Auto) Abs Immat Gran (auto) Absolute Neuts (auto) Absolute Nucleated RBC Nucleated RBC % (auto) Sodium 141 Potassium 3.6 Chloride 106 Carbon Dioxide 25 Anion Gap 14 BUN 21 H Creatinine 0.78 Estim Creat Clear Calc 56.3 Estimated GFR > 60 Fasting Glucose 114 H Calcium 9.3 D Total Bilirubin 0.9 AST 32 H ALT 20 Alkaline Phosphatase 93 Total Protein 6.8 Albumin 4.3 Triglycerides 57 Cholesterol 165 LDL Cholesterol, Calc 100 HDL Cholesterol 54 Vitamin B12 225 25-OH Vitamin D Total 15 L 25-Hydroxy Vitamin D2 <4 25-Hydroxy Vitamin D3 15 Folate 18.0 TSH 0.70 Free Cortisol Urine Color Urine Appearance Urine pH Ur Specific [place] Urine Protein Urine Glucose (UA) Urine Ketones Urine Blood Urine Nitrite Ur Leukocyte Esterase Urine RBC Urine WBC Ur Squamous Epith Cells Urine Bacteria Urine Mucus 05/20/21 05/25/21 06:56 18:10 WBC RBC Hgb Hct MCV MCH MCHC RDW Plt Count MPV Immature Gran % (Auto) Neut % (Auto) Lymph % (Auto) [place] % (Auto) Eos % (Auto) Baso % (Auto) Lymph # (Auto) [place] # (Auto) Eos # (Auto) Baso # (Auto) Abs Immat Gran (auto) Absolute Neuts (auto) Absolute Nucleated RBC Nucleated RBC % (auto) Sodium Potassium Chloride Carbon Dioxide Anion Gap BUN Creatinine Estim Creat Clear Calc Estimated GFR Fasting Glucose Calcium Total Bilirubin AST ALT Alkaline Phosphatase Total Protein Albumin Triglycerides Cholesterol LDL Cholesterol, Calc HDL Cholesterol Vitamin B12 25-OH Vitamin D Total 25-Hydroxy Vitamin D2 25-Hydroxy Vitamin D3 Folate TSH Free Cortisol 0.50 Urine Color YELLOW Urine Appearance CLEAR Urine pH 6.0 Ur Specific [place] 1.025 Urine Protein TRACE Urine Glucose (UA) NEG Urine Ketones 5 Urine Blood TRACE Urine Nitrite NEG Ur Leukocyte Esterase 1+ H Urine RBC 1-4 Urine WBC 5-9 H Ur Squamous Epith Cells 1+ Urine Bacteria 1+ Urine Mucus 2+ Airway Mallampati Class: II TM Dist: >3cm Neck ROM: Full Loose/Missing/Broken Teeth: No Heart: [id number] Lungs: cta b/l Assessment and Plan Assessment Anesthesia Assessment: Anesthesia Plan Discussed and Chart Reviewed Final Anesthetic Review Family History of Problems with Anesthesia: No History of Problems with Anesthesia: No NPO: Yes ASA Class: III Final Preanesthetic Review: No Changes in Pt Med Stat, Meds/Allgs Chart Reviewed, Consent Obtained/Reviewed and Anes Risks/Benef Reviewed Patient Risk: Intermediate Procedure Risk: Intermediate Assessment/Block/Sedation in SS: Assess/Block/Sedation-SS Anesthetic Plan Anesthetic Plan: GA and Agree w/ Assess. and Plan Disposition: Standard PACU
--- NOTE | 2021-06-19 13:20 | MHC.SHP ---
Pre-Procedural Eval Section A Date of Service: 06/19/21 The patient is an INPATIENT: Yes Changes since office visit: Yes Changes in Medication and Yes Patient answered all questions; No Cold of Flu in the past 2 weeks and No New Medical Problems Section B Chief Complaint: major depressive d/o recurrent severe with psychot Details of Present Illness: pt seems much less depressed less anxious Relevant Social History: None Present Medications: see Short Stay Collaborative assessment Medical History: Significant History (dementia hx uti recurrent depression ) History of Previous Operations: Relevant previous surgery/procedure and date(s) (hx ect) Allergies: Allergies Allergy/AdvReac Type Severity Reaction Status Date / Time amoxicillin [From Augmentin] Allergy Unknown Unknown Verified 02/01/21 15:55 aspirin Allergy Unknown Unknown Verified 02/01/21 16:34 clavulanic acid Allergy Unknown Unknown Verified 02/01/21 15:55 [From Augmentin] diphenhydramine Allergy Unknown Unknown Verified 02/01/21 16:35 hydrochlorothiazide Allergy Unknown Unknown Verified 02/01/21 16:44 metronidazole Allergy Unknown Unknown Verified 02/01/21 16:54 trazodone Allergy Unknown Unknown Verified 02/01/21 16:54 Review of Systems Sugical H&P ROS: Negative: Cardiovascular and Respiratory and Yes, Specify: Neurological (memory exec fx ) Exam Surgical H&P Exam: Normal: Heart (rr) and Normal: Lungs (clear) Plan Diagnosis/Plan: Unchanged I have reviewed the history and physical and performed a pertinent physical examination on my patient. No changes have occurred unless specified.
--- NOTE | 2021-06-19 13:24 | HO.ECTPROC ---
ECT Procedure Note Diagnosis/Treatment Date of Service: 06/19/21 Diagnosis: Major Depressive Disorder Previous ECT Date: 06/16/21 Current Treatment Number: 12 Treatment: Series Interval Clinical Notes: improved depression anxiety and rumination some post ect confusion transition as tolerated to maint ECT Settings Device: THYMATRON DGx Electrode Placement: Right Unilateral Program/Pulse Width: 0.25 Energy Percent: 100 Seizure Duration By EEG (in seconds): 32 Medications Administration General Anesthetic: Etomidate (10) Muscle Relaxant: Succinylcholine (80) Ancillary Medications Miscillaneous Medications: Propofol (30) Airway Management Airway Management: Bag Mask Ventilation Treatment Recommendations Electrode Placement: Right Unilateral Notes: considfer flumazenil reevaluate ect course tx has improved Pt Tolerated Procedure w/o Issue: Yes
[2021-06-19] MEDS: Mirtazapine 30 MG TABLET PO (20:08)
[2021-06-19] MEDS: Apixaban 5 MG TABLET PO (20:08)
[2021-06-19] MEDS: Donepezil HCl 5 MG TABLET PO (20:09)
[2021-06-20 06:00] VITALS: BP 115/86; PULSE 65; RESP 14; TEMP 36.2; O2SAT 99
[2021-06-20] MEDS: Apixaban 5 MG TABLET PO ×2 (07:51→20:17)
[2021-06-20] MEDS: OLANZapine 5 MG TABLET PO ×3 (07:51→20:17)
--- NOTE | 2021-06-20 08:15 | P.PNPSI_ITS ---
Subjective Subjective Date of Service: 06/20/21 Reason For Visit: major depressive d/o recurrent severe with psychot Subjective Notes: Conditional Voluntary Interim History: The nursing staff reported the patient remain on bed most of the day yesterday. She had ECT without any complications. On interview the patient looks a little brighter on affect but she is confused at time, easily redirectable. We consulted the case with Dr. Castañeda. The patient has already finished 12 sessions of ECT and her mood is brighter. But, she is confused at times most likely due to the procedure. We will hold the next ECT tomorrow and will reassess if she decompensates we will schedule ECT for Saturday. Mental Status Exam Mental Status Exam Patient Appearance: Appropriate Patient Orientation: Person and Situation Level of Consciousness: Awake Patient Behavior: Guarded, Passive and Suspicious Mood Description: Withdrawn Affect Description: Constricted Patient Cognition Impaired: Yes Ability to Follow Directions: Good Speech Pattern: Clear Hallucinations: None Delusions: Paranoid Ideation Thought Process: Distracted and Slowed Thinking Thought Content: positive for [place] and positive for Poverty of Content Judgement: Fair Diagnostics Vital Signs (24Hr): Vital Signs - 24 hr 06/19/21 13:00 06/19/21 13:26 06/19/21 13:31 Temperature 97 F 97.3 F Pulse Rate 77 66 72 Respiratory Rate 18 18 18 Blood Pressure 127/77 139/73 156/92 H Pulse Oximetry 96 97 98 06/19/21 13:36 06/19/21 13:41 06/19/21 13:56 Temperature 98.2 F Pulse Rate 76 79 74 Respiratory Rate 26 H 23 H 22 H Blood Pressure 165/82 H 161/93 H 125/77 Pulse Oximetry 98 98 99 06/19/21 16:36 Temperature 97.3 F Pulse Rate 66 Respiratory Rate 18 Blood Pressure 155/77 H Pulse Oximetry 94 BMI result Body Mass Index 21.7 Labs Results: 05/19/21 07:54 05/19/21 07:54 Medications Medications Current Medications Acetaminophen (Acetaminophen 325 Mg Tablet) 650 mg PO Q6H PRN PRN Reason: Headache/Pain Mild Scale (1-3) Last Admin: 06/19/21 00:59 Dose: 650 mg Documented by: Al Hydroxide/Mg Hydroxide (Magnesium Hydrox/Alum Hydrox 30 Ml Oral.Susp) 30 ml PO Q6H PRN PRN Reason: Heartburn/Nausea Apixaban (Apixaban 5 Mg Tablet) 5 mg PO BID [facility] Last Admin: 06/20/21 07:51 Dose: 5 mg Documented by: Donepezil HCl (Donepezil Hcl 5 Mg Tablet) 5 mg PO BEDTIME [facility] Last Admin: 06/19/21 20:09 Dose: 5 mg Documented by: Loperamide HCl (Loperamide Hcl 2 Mg Capsule) 2 mg PO Q4H PRN PRN Reason: diarrhes Last Admin: 06/04/21 09:29 Dose: 2 mg Documented by: Lorazepam (Lorazepam 1 Mg Tablet) 1 mg PO TID PRN PRN Reason: Anxiety Magnesium Hydroxide (Milk Of Magnesia 30 Ml Oral.Susp) 30 ml PO DAILY PRN PRN Reason: Constipation Last Admin: 06/06/21 13:32 Dose: 30 ml Documented by: Mirtazapine (Mirtazapine 30 Mg Tablet) 30 mg PO BEDTIME [facility] Last Admin: 06/19/21 20:08 Dose: 30 mg Documented by: Olanzapine (Olanzapine 2.5 Mg Tablet) 2.5 mg PO BID PRN PRN Reason: anxiety, agitation Last Admin: 06/18/21 21:50 Dose: 2.5 mg Documented by: Olanzapine (Olanzapine 5 Mg Tablet) 5 mg PO TID [facility] Last Admin: 06/20/21 07:51 Dose: 5 mg Documented by: Allergies Allergies Allergy/AdvReac Type Severity Reaction Status Date / Time amoxicillin [From Augmentin] Allergy Unknown Unknown Verified 02/01/21 15:55 aspirin Allergy Unknown Unknown Verified 02/01/21 16:34 clavulanic acid Allergy Unknown Unknown Verified 02/01/21 15:55 [From Augmentin] diphenhydramine Allergy Unknown Unknown Verified 02/01/21 16:35 hydrochlorothiazide Allergy Unknown Unknown Verified 02/01/21 16:44 metronidazole Allergy Unknown Unknown Verified 02/01/21 16:54 trazodone Allergy Unknown Unknown Verified 02/01/21 16:54 Assessment & Plan Assessment & Plan (1) Major depressive disorder, recurrent episode with mood-congruent psychotic features: Status: Acute Code(s): F33.3 - Major depressive disorder, recurrent, severe with psychotic symptoms (2) Pre-op testing: Status: Acute Code(s): Z01.818 - Encounter for other preprocedural examination Plan Continue ECT as tolerated monitor for confusional state psychotic depression generally improving much decreased mood lability and agitation Discussed transition to maintenance ECT will need to coordinate with her when patient clearly is stable for outpatient I spent _20 minutes with the patient and/or on the patient floor today, greater than?50% of which was spent counseling/coordinating care. Reason for contiued inpatient stay Substantial Risk for: inability to function, rapid decompensation and med/psych decompensation
[2021-06-20 18:00] VITALS: BP 102/54; PULSE 64; RESP 16; TEMP 36.4; O2SAT 94
[2021-06-20] MEDS: Donepezil HCl 5 MG TABLET PO (20:17)
[2021-06-20] MEDS: Mirtazapine 30 MG TABLET PO (20:17)
[2021-06-21] MEDS: OLANZapine 5 MG TABLET PO ×3 (05:33→20:51)
[2021-06-21 05:45] VITALS: BP 147/77; PULSE 66; RESP 17; TEMP 36.1; O2SAT 95
[2021-06-21] MEDS: Apixaban 5 MG TABLET PO ×2 (08:12→20:51)
--- NOTE | 2021-06-21 08:12 | P.PNPSI_ITS ---
Subjective Subjective Date of Service: 06/21/21 Reason For Visit: major depressive d/o recurrent severe with psychot Subjective Notes: Conditional Voluntary Interim History: The nursing staff reported the patient has been compliant with treatment, she has been visible in the common areas. On interview, the patient reports that she is feeling fine she looks with a blunted affect but overall her level of anxiety and agitation has disappeared. The case was discussed at length yesterday with Dr. Castañeda, the possibility of a diagnosis of dementia is questionable so we will order a SPECT brain. Mental Status Exam Mental Status Exam Patient Appearance: Appropriate Patient Orientation: Person and Situation Level of Consciousness: Awake Patient Behavior: Guarded, Passive and Suspicious Mood Description: Withdrawn Affect Description: Constricted Patient Cognition Impaired: Yes Ability to Follow Directions: Good Speech Pattern: Clear Hallucinations: None Delusions: Paranoid Ideation Thought Process: Distracted and Confusion Thought Content: positive for [place] and positive for Poverty of Content Judgement: Fair Diagnostics Vital Signs (24Hr): Vital Signs - 24 hr 06/20/21 18:00 06/21/21 05:45 Temperature 97.6 F 97 F Pulse Rate 64 66 Respiratory Rate 16 17 Blood Pressure 102/54 L 147/77 H Pulse Oximetry 94 95 BMI result Body Mass Index 21.7 Labs Results: 05/19/21 07:54 05/19/21 07:54 Medications Medications Current Medications Acetaminophen (Acetaminophen 325 Mg Tablet) 650 mg PO Q6H PRN PRN Reason: Headache/Pain Mild Scale (1-3) Last Admin: 06/19/21 00:59 Dose: 650 mg Documented by: Al Hydroxide/Mg Hydroxide (Magnesium Hydrox/Alum Hydrox 30 Ml Oral.Susp) 30 ml PO Q6H PRN PRN Reason: Heartburn/Nausea Apixaban (Apixaban 5 Mg Tablet) 5 mg PO BID [facility] Last Admin: 06/20/21 20:17 Dose: 5 mg Documented by: Donepezil HCl (Donepezil Hcl 5 Mg Tablet) 5 mg PO BEDTIME [facility] Last Admin: 06/20/21 20:17 Dose: 5 mg Documented by: Loperamide HCl (Loperamide Hcl 2 Mg Capsule) 2 mg PO Q4H PRN PRN Reason: diarrhes Last Admin: 06/04/21 09:29 Dose: 2 mg Documented by: Lorazepam (Lorazepam 1 Mg Tablet) 1 mg PO TID PRN PRN Reason: Anxiety Magnesium Hydroxide (Milk Of Magnesia 30 Ml Oral.Susp) 30 ml PO DAILY PRN PRN Reason: Constipation Last Admin: 06/06/21 13:32 Dose: 30 ml Documented by: Mirtazapine (Mirtazapine 30 Mg Tablet) 30 mg PO BEDTIME [facility] Last Admin: 06/20/21 20:17 Dose: 30 mg Documented by: Olanzapine (Olanzapine 2.5 Mg Tablet) 2.5 mg PO BID PRN PRN Reason: anxiety, agitation Last Admin: 06/18/21 21:50 Dose: 2.5 mg Documented by: Olanzapine (Olanzapine 5 Mg Tablet) 5 mg PO TID [facility] Last Admin: 06/21/21 05:33 Dose: 5 mg Documented by: Allergies Allergies Allergy/AdvReac Type Severity Reaction Status Date / Time amoxicillin [From Augmentin] Allergy Unknown Unknown Verified 02/01/21 15:55 aspirin Allergy Unknown Unknown Verified 02/01/21 16:34 clavulanic acid Allergy Unknown Unknown Verified 02/01/21 15:55 [From Augmentin] diphenhydramine Allergy Unknown Unknown Verified 02/01/21 16:35 hydrochlorothiazide Allergy Unknown Unknown Verified 02/01/21 16:44 metronidazole Allergy Unknown Unknown Verified 02/01/21 16:54 trazodone Allergy Unknown Unknown Verified 02/01/21 16:54 Assessment & Plan Assessment & Plan (1) Major depressive disorder, recurrent episode with mood-congruent psychotic features: Status: Acute Code(s): F33.3 - Major depressive disorder, recurrent, severe with psychotic symptoms (2) Pre-op testing: Status: Acute Code(s): Z01.818 - Encounter for other preprocedural examination Plan Continue ECT as tolerated monitor for confusional state psychotic depression generally improving much decreased mood lability and agitation Discussed transition to maintenance ECT will need to coordinate with her when patient clearly is stable for outpatient. At this moment, after discussing the case with Dr. Castañeda, we will do it biweekly. ECT for Saturday I spent __20____ minutes with the patient and/or on the patient floor today, greater than?50% of which was spent counseling/coordinating care. Reason for contiued inpatient stay Substantial Risk for: inability to function, rapid decompensation and med/psych decompensation
[2021-06-21 08:26] VITALS: BP 154/79; PULSE 66; RESP 16; TEMP 36.6; O2SAT 98
[2021-06-21 20:48] VITALS: BP 120/62; PULSE 68; RESP 17; TEMP 36.3; O2SAT 96
[2021-06-21] MEDS: Donepezil HCl 5 MG TABLET PO (20:51)
[2021-06-21] MEDS: Mirtazapine 30 MG TABLET PO (20:51)
[2021-06-22 06:00] VITALS: BP 144/78; PULSE 64; RESP 16; TEMP 36.2; O2SAT 97
[2021-06-22 07:00] VITALS: BMI 21.1
[2021-06-22] MEDS: Apixaban 5 MG TABLET PO ×2 (07:53→20:07)
[2021-06-22] MEDS: OLANZapine 5 MG TABLET PO ×3 (07:53→20:07)
--- NOTE | 2021-06-22 08:07 | HO.PSYCHPN ---
Subjective Subjective Date of Service: 06/22/21 Reason For Visit: major depressive d/o recurrent severe with psychot Subjective Notes: Conditional Voluntary Interim History: The nursing staff reported the patient has been pleasant and cooperative, she was fully compliant with treatment. We ordered yesterday aspect and the results were compatible with frontotemporal dementia med On interview, the patient denies new symptoms, we will have ECT for tomorrow. Mental Status Exam Mental Status Exam Patient Appearance: Appropriate Patient Orientation: Person and Situation Level of Consciousness: Awake Patient Behavior: Guarded and Passive Mood Description: Withdrawn Affect Description: Blunted Patient Cognition Impaired: Yes Ability to Follow Directions: Good Speech Pattern: Clear Hallucinations: None Delusions: Paranoid Ideation Thought Process: Distracted and Slowed Thinking Thought Content: positive for [place] Judgement: Fair Diagnostics Vital Signs (24Hr): Vital Signs - 24 hr 06/21/21 08:26 06/21/21 20:48 Temperature 97.8 F 97.3 F Pulse Rate 66 68 Respiratory Rate 16 17 Blood Pressure 154/79 H 120/62 Pulse Oximetry 98 96 BMI result Body Mass Index 21.7 Labs Results: 05/19/21 07:54 05/19/21 07:54 Imaging Radiology Impressions: ITS Impressions SPECT Scan-Brain NM 06/21/21 15:00 IMPRESSION: 1. Abnormal study. There is significantly decreased perfusion in a bilaterally symmetrical distribution involving the frontal and anterior temporal cerebral cortex. Corresponding CT abnormalities are not present. 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 2. A small left posterior parietal focus of decreased perfusion may represent an imaging artifact or may be due to a deep sulcus in this region, or possibly a small cerebral infarct, although this is not visualized on the CT images. This could be further characterized with MRI performed without and with intravenous contrast, if clinically indicated. Medications Medications Current Medications Acetaminophen (Acetaminophen 325 Mg Tablet) 650 mg PO Q6H PRN PRN Reason: Headache/Pain Mild Scale (1-3) Last Admin: 06/19/21 00:59 Dose: 650 mg Documented by: Al Hydroxide/Mg Hydroxide (Magnesium Hydrox/Alum Hydrox 30 Ml Oral.Susp) 30 ml PO Q6H PRN PRN Reason: Heartburn/Nausea Apixaban (Apixaban 5 Mg Tablet) 5 mg PO BID [facility] Last Admin: 06/22/21 07:53 Dose: 5 mg Documented by: Donepezil HCl (Donepezil Hcl 5 Mg Tablet) 5 mg PO BEDTIME [facility] Last Admin: 06/21/21 20:51 Dose: 5 mg Documented by: Loperamide HCl (Loperamide Hcl 2 Mg Capsule) 2 mg PO Q4H PRN PRN Reason: diarrhes Last Admin: 06/04/21 09:29 Dose: 2 mg Documented by: Lorazepam (Lorazepam 1 Mg Tablet) 1 mg PO TID PRN PRN Reason: Anxiety Magnesium Hydroxide (Milk Of Magnesia 30 Ml Oral.Susp) 30 ml PO DAILY PRN PRN Reason: Constipation Last Admin: 06/06/21 13:32 Dose: 30 ml Documented by: Mirtazapine (Mirtazapine 30 Mg Tablet) 30 mg PO BEDTIME [facility] Last Admin: 06/21/21 20:51 Dose: 30 mg Documented by: Olanzapine (Olanzapine 2.5 Mg Tablet) 2.5 mg PO BID PRN PRN Reason: anxiety, agitation Last Admin: 06/18/21 21:50 Dose: 2.5 mg Documented by: Olanzapine (Olanzapine 5 Mg Tablet) 5 mg PO TID [facility] Last Admin: 06/22/21 07:53 Dose: 5 mg Documented by: Allergies Allergies Allergy/AdvReac Type Severity Reaction Status Date / Time amoxicillin [From Augmentin] Allergy Unknown Unknown Verified 02/01/21 15:55 aspirin Allergy Unknown Unknown Verified 02/01/21 16:34 clavulanic acid Allergy Unknown Unknown Verified 02/01/21 15:55 [From Augmentin] diphenhydramine Allergy Unknown Unknown Verified 02/01/21 16:35 hydrochlorothiazide Allergy Unknown Unknown Verified 02/01/21 16:44 metronidazole Allergy Unknown Unknown Verified 02/01/21 16:54 trazodone Allergy Unknown Unknown Verified 02/01/21 16:54 Assessment & Plan Assessment & Plan (1) Major depressive disorder, recurrent episode with mood-congruent psychotic features: Status: Acute Code(s): F33.3 - Major depressive disorder, recurrent, severe with psychotic symptoms (2) Pre-op testing: Status: Acute Code(s): Z01.818 - Encounter for other preprocedural examination (3) Fronto-temporal dementia: Status: Acute Code(s): G31.09 - Other frontotemporal dementia; F02.80 - Dementia in other diseases classified elsewhere without behavioral disturbance Plan Continue ECT as tolerated monitor for confusional state psychotic depression generally improving much decreased mood lability and agitation Discussed transition to maintenance ECT will need to coordinate with her when patient clearly is stable for outpatient. At this moment, after discussing the case with Dr. Castañeda, we will do it biweekly. ECT for Saturday. SPECT showed images compatible with fronto-temporal dementia. I spent ___20___ minutes with the patient and/or on the patient floor today, greater than?50% of which was spent counseling/coordinating care. Reason for contiued inpatient stay Substantial Risk for: inability to function, rapid decompensation and med/psych decompensation
[2021-06-22 18:00] VITALS: BP 110/55; PULSE 60; RESP 14; TEMP 36.2; O2SAT 93
[2021-06-22] MEDS: Donepezil HCl 5 MG TABLET PO (20:07)
[2021-06-22] MEDS: Mirtazapine 30 MG TABLET PO (20:07)
[2021-06-23 06:00] VITALS: BP 156/83; PULSE 70; RESP 18; TEMP 36.4; O2SAT 95
[2021-06-23] MEDS: OLANZapine 5 MG TABLET PO ×3 (06:18→19:57)
--- NOTE | 2021-06-23 06:28 | PC.NURSE ---
Patient prepared for ECT VSS and 5 MG Zyprexa PO with sip of water. Patient to PACU via wheelchair with staff.
[2021-06-23 06:42] VITALS: BP 132/88; PULSE 68; RESP 16; TEMP 36.5; O2SAT 97
--- NOTE | 2021-06-23 07:05 | HO.ANESPROP2 ---
[facility] Active Problems Active Problems: All Active Problems (Updated 06/22/21 @ 08:08 by Mark Brennan) Fronto-temporal dementia (Acute) Pre-op testing (Acute) Major depressive disorder, recurrent episode with mood-congruent psychotic features (Acute) Neurocognitive disorder (Acute) Past Medical History Medical History History of pulmonary embolism Neurocognitive disorder Pulmonary embolism Functional capacity: independent ambulation Family History Family history of problems with anesthesia: No Surgical History Surgical History H/O section History of Problems with Anesthesia: No Social History Social History Household Members: Spouse Household Members Other:: Her and her Housing: House Do you presently have visiting nurse or other home services: No Patient Tobacco Use Status: Never used Tobacco Second Hand Smoke Exposure: No Use of substances other than those prescribed or required for medical reasons: No Currently Displaying Signs/Symptoms of Drug Intoxication Withdrawal: No Have you been hit, kicked, punched, or otherwise hurt by someone within the past year? If so, by whom?: No Do you feel safe in your current relationship?: Yes Is there a partner from a previous relationship who is making you feel unsafe now?: No Are you made to feel afraid or neglected: No Are you DNR?: No Advance Directives: No Do you have thoughts of harming others: None Do you have a plan to hurt others: No Plan Recently lost weight without trying: No Nutrition Risks: No Nutritional Risk Patient : No : No Poor oral hygiene: No service: Yes Sexual orientation: Straight/Heterosexual Meds Allergies Allergy/AdvReac Type Severity Reaction Status Date / Time amoxicillin [From Augmentin] Allergy Unknown Unknown Verified 02/01/21 15:55 aspirin Allergy Unknown Unknown Verified 02/01/21 16:34 clavulanic acid Allergy Unknown Unknown Verified 02/01/21 15:55 [From Augmentin] diphenhydramine Allergy Unknown Unknown Verified 02/01/21 16:35 hydrochlorothiazide Allergy Unknown Unknown Verified 02/01/21 16:44 metronidazole Allergy Unknown Unknown Verified 02/01/21 16:54 trazodone Allergy Unknown Unknown Verified 02/01/21 16:54 Active Medications: Current Medications Acetaminophen (Acetaminophen 325 Mg Tablet) 650 mg PO Q6H PRN PRN Reason: Headache/Pain Mild Scale (1-3) Last Admin: 06/19/21 00:59 Dose: 650 mg Documented by: Al Hydroxide/Mg Hydroxide (Magnesium Hydrox/Alum Hydrox 30 Ml Oral.Susp) 30 ml PO Q6H PRN PRN Reason: Heartburn/Nausea Apixaban (Apixaban 5 Mg Tablet) 5 mg PO BID [facility] Last Admin: 06/22/21 20:07 Dose: 5 mg Documented by: Donepezil HCl (Donepezil Hcl 5 Mg Tablet) 5 mg PO BEDTIME [facility] Last Admin: 06/22/21 20:07 Dose: 5 mg Documented by: Loperamide HCl (Loperamide Hcl 2 Mg Capsule) 2 mg PO Q4H PRN PRN Reason: diarrhes Last Admin: 06/04/21 09:29 Dose: 2 mg Documented by: Lorazepam (Lorazepam 1 Mg Tablet) 1 mg PO TID PRN PRN Reason: Anxiety Magnesium Hydroxide (Milk Of Magnesia 30 Ml Oral.Susp) 30 ml PO DAILY PRN PRN Reason: Constipation Last Admin: 06/06/21 13:32 Dose: 30 ml Documented by: Mirtazapine (Mirtazapine 30 Mg Tablet) 30 mg PO BEDTIME [facility] Last Admin: 06/22/21 20:07 Dose: 30 mg Documented by: Olanzapine (Olanzapine 2.5 Mg Tablet) 2.5 mg PO BID PRN PRN Reason: anxiety, agitation Last Admin: 06/18/21 21:50 Dose: 2.5 mg Documented by: Olanzapine (Olanzapine 5 Mg Tablet) 5 mg PO TID [facility] Last Admin: 06/23/21 06:18 Dose: 5 mg Documented by: Home Medications Medication Instructions Recorded Confirmed Last Taken Type gabapentin 600 mg tablet 600 mg PO TID 02/01/21 02/01/21 Unknown History lorazepam 0.5 mg tablet (Ativan) 0.5 mg PO DAILY PRN 05/18/21 05/18/21 Unknown History Exam Exam Date and Time: June 23, [id number] Height,Weight and Vital Signs: Height 5 ft 3 in Weight 54.1 kg Last Vital Signs Temp 97.7 F 06/23/21 06:42 Pulse 68 06/23/21 06:42 Resp 16 06/23/21 06:42 BP 132/88 06/23/21 06:42 Pulse Ox 97 06/23/21 06:42 Pertinent Lab Results Pertinent Lab Results: Laboratory Tests 05/18/21 05/18/21 05/18/21 19:05 19:05 19:05 WBC 10.2 RBC 4.37 D Hgb 13.7 D Hct 39.6 MCV 90.6 MCH 31.4 MCHC 34.6 RDW 12.6 Plt Count 289 D MPV 9.4 Immature Gran % (Auto) 0.4 Neut % (Auto) 76.9 H Lymph % (Auto) 14.0 L [place] % (Auto) 8.4 Eos % (Auto) 0.0 Baso % (Auto) 0.3 Lymph # (Auto) 1.4 [place] # (Auto) 0.9 Eos # (Auto) 0.0 Baso # (Auto) 0.0 Abs Immat Gran (auto) 0.04 H Absolute Neuts (auto) 7.9 Absolute Nucleated RBC 0.000 Nucleated RBC % (auto) 0.0 Sodium 142 Potassium 4.0 Chloride 106 Carbon Dioxide 22 Anion Gap 18 BUN 20 H Creatinine 1.01 Estim Creat Clear Calc 43.4 Estimated GFR 54 Fasting Glucose 125 H Calcium 9.9 D Total Bilirubin 0.9 AST 27 ALT 22 Alkaline Phosphatase 94 Total Protein 7.2 Albumin 4.5 Triglycerides 58 Cholesterol 178 D LDL Cholesterol, Calc 110 HDL Cholesterol 57 Vitamin B12 237 25-OH Vitamin D Total 25-Hydroxy Vitamin D2 25-Hydroxy Vitamin D3 Folate 16.9 TSH 0.82 Free Cortisol Urine Color Urine Appearance Urine pH Ur Specific [place] Urine Protein Urine Glucose (UA) Urine Ketones Urine Blood Urine Nitrite Ur Leukocyte Esterase Urine RBC Urine WBC Ur Squamous Epith Cells Urine Bacteria Urine Mucus 05/18/21 05/19/21 05/19/21 19:05 06:30 07:54 WBC 5.7 RBC 4.29 Hgb 13.3 Hct 39.7 MCV 92.5 MCH 31.0 MCHC 33.5 RDW 13.0 Plt Count 243 MPV 9.4 Immature Gran % (Auto) 0.4 Neut % (Auto) 67.7 Lymph % (Auto) 20.4 [place] % (Auto) 10.5 Eos % (Auto) 0.5 Baso % (Auto) 0.5 Lymph # (Auto) 1.2 [place] # (Auto) 0.6 Eos # (Auto) 0.0 Baso # (Auto) 0.0 Abs Immat Gran (auto) 0.02 Absolute Neuts (auto) 3.9 Absolute Nucleated RBC 0.000 Nucleated RBC % (auto) 0.0 Sodium Potassium Chloride Carbon Dioxide Anion Gap BUN Creatinine Estim Creat Clear Calc Estimated GFR Fasting Glucose Calcium Total Bilirubin AST ALT Alkaline Phosphatase Total Protein Albumin Triglycerides Cholesterol LDL Cholesterol, Calc HDL Cholesterol Vitamin B12 25-OH Vitamin D Total 21 L 25-Hydroxy Vitamin D2 <4 25-Hydroxy Vitamin D3 21 Folate TSH Free Cortisol Urine Color YELLOW Urine Appearance CLOUDY Urine pH 6.0 Ur Specific [place] 1.025 Urine Protein TRACE Urine Glucose (UA) NEG Urine Ketones 15 Urine Blood 1+ H Urine Nitrite NEG Ur Leukocyte Esterase 2+ H Urine RBC 0-2 Urine WBC 10-14 H Ur Squamous Epith Cells 1+ Urine Bacteria 1+ Urine Mucus 2+ 05/19/21 05/19/21 05/19/21 07:54 07:54 07:54 WBC RBC Hgb Hct MCV MCH MCHC RDW Plt Count MPV Immature Gran % (Auto) Neut % (Auto) Lymph % (Auto) [place] % (Auto) Eos % (Auto) Baso % (Auto) Lymph # (Auto) [place] # (Auto) Eos # (Auto) Baso # (Auto) Abs Immat Gran (auto) Absolute Neuts (auto) Absolute Nucleated RBC Nucleated RBC % (auto) Sodium 141 Potassium 3.6 Chloride 106 Carbon Dioxide 25 Anion Gap 14 BUN 21 H Creatinine 0.78 Estim Creat Clear Calc 56.3 Estimated GFR > 60 Fasting Glucose 114 H Calcium 9.3 D Total Bilirubin 0.9 AST 32 H ALT 20 Alkaline Phosphatase 93 Total Protein 6.8 Albumin 4.3 Triglycerides 57 Cholesterol 165 LDL Cholesterol, Calc 100 HDL Cholesterol 54 Vitamin B12 225 25-OH Vitamin D Total 15 L 25-Hydroxy Vitamin D2 <4 25-Hydroxy Vitamin D3 15 Folate 18.0 TSH 0.70 Free Cortisol Urine Color Urine Appearance Urine pH Ur Specific [place] Urine Protein Urine Glucose (UA) Urine Ketones Urine Blood Urine Nitrite Ur Leukocyte Esterase Urine RBC Urine WBC Ur Squamous Epith Cells Urine Bacteria Urine Mucus 05/20/21 05/25/21 06:56 18:10 WBC RBC Hgb Hct MCV MCH MCHC RDW Plt Count MPV Immature Gran % (Auto) Neut % (Auto) Lymph % (Auto) [place] % (Auto) Eos % (Auto) Baso % (Auto) Lymph # (Auto) [place] # (Auto) Eos # (Auto) Baso # (Auto) Abs Immat Gran (auto) Absolute Neuts (auto) Absolute Nucleated RBC Nucleated RBC % (auto) Sodium Potassium Chloride Carbon Dioxide Anion Gap BUN Creatinine Estim Creat Clear Calc Estimated GFR Fasting Glucose Calcium Total Bilirubin AST ALT Alkaline Phosphatase Total Protein Albumin Triglycerides Cholesterol LDL Cholesterol, Calc HDL Cholesterol Vitamin B12 25-OH Vitamin D Total 25-Hydroxy Vitamin D2 25-Hydroxy Vitamin D3 Folate TSH Free Cortisol 0.50 Urine Color YELLOW Urine Appearance CLEAR Urine pH 6.0 Ur Specific [place] 1.025 Urine Protein TRACE Urine Glucose (UA) NEG Urine Ketones 5 Urine Blood TRACE Urine Nitrite NEG Ur Leukocyte Esterase 1+ H Urine RBC 1-4 Urine WBC 5-9 H Ur Squamous Epith Cells 1+ Urine Bacteria 1+ Urine Mucus 2+ Airway Mallampati Class: II TM Dist: >3cm Neck ROM: Full Heart: rrr Lungs: cta Assessment and Plan Assessment Anesthesia Assessment: Anesthesia Plan Discussed and Chart Reviewed Final Anesthetic Review Family History of Problems with Anesthesia: No History of Problems with Anesthesia: No NPO: Yes ASA Class: III Final Preanesthetic Review: No Changes in Pt Med Stat, Meds/Allgs Chart Reviewed and Consent Obtained/Reviewed Patient Risk: Intermediate Procedure Risk: Intermediate Anesthetic Plan Anesthetic Plan: GA Disposition: Standard PACU
--- NOTE | 2021-06-23 07:10 | MHC.SHP ---
Pre-Procedural Eval Section A Date of Service: 06/23/21 The patient is an INPATIENT: Yes Changes since office visit: No Cold of Flu in the past 2 weeks, No New Medical Problems, No Changes in Medication and No Patient answered all questions The History & Physical has been completed within 30 days and I have reviewed it.: Yes Section B Chief Complaint: major depressive d/o recurrent severe with psychot Allergies: Allergies Allergy/AdvReac Type Severity Reaction Status Date / Time amoxicillin [From Augmentin] Allergy Unknown Unknown Verified 02/01/21 15:55 aspirin Allergy Unknown Unknown Verified 02/01/21 16:34 clavulanic acid Allergy Unknown Unknown Verified 02/01/21 15:55 [From Augmentin] diphenhydramine Allergy Unknown Unknown Verified 02/01/21 16:35 hydrochlorothiazide Allergy Unknown Unknown Verified 02/01/21 16:44 metronidazole Allergy Unknown Unknown Verified 02/01/21 16:54 trazodone Allergy Unknown Unknown Verified 02/01/21 16:54 Plan I have reviewed the history and physical and performed a pertinent physical examination on my patient. No changes have occurred unless specified.
[2021-06-23] MEDS: LORazepam 2 MG/ML VIAL IVPUSH (07:35)
--- NOTE | 2021-06-23 13:46 | HO.PSYCHPN ---
Subjective Subjective Date of Service: 06/23/21 Reason For Visit: major depressive d/o recurrent severe with psychot Subjective Notes: Conditional Voluntary Interim History: Today the patient refused ECT while she was in the PACU. She was paranoid stating that she did not feel safe and she did feel that the procedure was safe even though that she had 12 procedures before. She started getting psychotically agitated, she was stating that she was getting cold. On interview, she remained isolative, internally preoccupied. 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 Her behavior of obsessive behavior, he is return falls and on impaired cognition correlates with that diagnosis. Mental Status Exam Mental Status Exam Patient Appearance: Appropriate Patient Orientation: Person and Situation Level of Consciousness: Awake Patient Behavior: Guarded, Passive and Suspicious Mood Description: Withdrawn Affect Description: Constricted Patient Cognition Impaired: Yes Ability to Follow Directions: Fair Speech Pattern: Clear Hallucinations: None Delusions: Paranoid Ideation and Bizarre Thought Process: Illogical Thought Content: positive for [place] and positive for Poverty of Content Judgement: Fair Diagnostics Vital Signs (24Hr): Vital Signs - 24 hr 06/22/21 18:00 06/23/21 06:00 06/23/21 06:42 Temperature 97.1 F 97.5 F 97.7 F Pulse Rate 60 70 68 Respiratory Rate 14 18 16 Blood Pressure 110/55 L 156/83 H 132/88 Pulse Oximetry 93 95 97 BMI result Body Mass Index 21.1 Labs Results: 05/19/21 07:54 05/19/21 07:54 Imaging Radiology Impressions: ITS Impressions SPECT Scan-Brain NM 06/21/21 15:00 IMPRESSION: 1. Abnormal study. There is significantly decreased perfusion in a bilaterally symmetrical distribution involving the frontal and anterior temporal cerebral cortex. Corresponding CT abnormalities are not present. 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 2. A small left posterior parietal focus of decreased perfusion may represent an imaging artifact or may be due to a deep sulcus in this region, or possibly a small cerebral infarct, although this is not visualized on the CT images. This could be further characterized with MRI performed without and with intravenous contrast, if clinically indicated. Medications Medications Current Medications Acetaminophen (Acetaminophen 325 Mg Tablet) 650 mg PO Q6H PRN PRN Reason: Headache/Pain Mild Scale (1-3) Last Admin: 06/19/21 00:59 Dose: 650 mg Documented by: Al Hydroxide/Mg Hydroxide (Magnesium Hydrox/Alum Hydrox 30 Ml Oral.Susp) 30 ml PO Q6H PRN PRN Reason: Heartburn/Nausea Apixaban (Apixaban 5 Mg Tablet) 5 mg PO BID [facility] Last Admin: 06/23/21 11:37 Dose: Not Given Documented by: Donepezil HCl (Donepezil Hcl 5 Mg Tablet) 5 mg PO BEDTIME [facility] Last Admin: 06/22/21 20:07 Dose: 5 mg Documented by: Loperamide HCl (Loperamide Hcl 2 Mg Capsule) 2 mg PO Q4H PRN PRN Reason: diarrhes Last Admin: 06/04/21 09:29 Dose: 2 mg Documented by: Lorazepam (Lorazepam 1 Mg Tablet) 1 mg PO TID PRN PRN Reason: Anxiety Magnesium Hydroxide (Milk Of Magnesia 30 Ml Oral.Susp) 30 ml PO DAILY PRN PRN Reason: Constipation Last Admin: 06/06/21 13:32 Dose: 30 ml Documented by: Mirtazapine (Mirtazapine 30 Mg Tablet) 30 mg PO BEDTIME [facility] Last Admin: 06/22/21 20:07 Dose: 30 mg Documented by: Olanzapine (Olanzapine 2.5 Mg Tablet) 2.5 mg PO BID PRN PRN Reason: anxiety, agitation Last Admin: 06/18/21 21:50 Dose: 2.5 mg Documented by: Olanzapine (Olanzapine 5 Mg Tablet) 5 mg PO TID [facility] Last Admin: 06/23/21 06:18 Dose: 5 mg Documented by: Allergies Allergies Allergy/AdvReac Type Severity Reaction Status Date / Time amoxicillin [From Augmentin] Allergy Unknown Unknown Verified 02/01/21 15:55 aspirin Allergy Unknown Unknown Verified 02/01/21 16:34 clavulanic acid Allergy Unknown Unknown Verified 02/01/21 15:55 [From Augmentin] diphenhydramine Allergy Unknown Unknown Verified 02/01/21 16:35 hydrochlorothiazide Allergy Unknown Unknown Verified 02/01/21 16:44 metronidazole Allergy Unknown Unknown Verified 02/01/21 16:54 trazodone Allergy Unknown Unknown Verified 02/01/21 16:54 Assessment & Plan Assessment & Plan (1) Major depressive disorder, recurrent episode with mood-congruent psychotic features: Status: Acute Code(s): F33.3 - Major depressive disorder, recurrent, severe with psychotic symptoms (2) Pre-op testing: Status: Acute Code(s): Z01.818 - Encounter for other preprocedural examination (3) Fronto-temporal dementia: Status: Acute Code(s): G31.09 - Other frontotemporal dementia; F02.80 - Dementia in other diseases classified elsewhere without behavioral disturbance Plan Continue ECT as tolerated monitor for confusional state psychotic depression generally improving much decreased mood lability and agitation Discussed transition to maintenance ECT will need to coordinate with her when patient clearly is stable for outpatient. At this moment, after discussing the case with Dr. Castañeda, we will do it biweekly. ECT for Saturday. SPECT showed images compatible with fronto-temporal dementia. I spent __20____ minutes with the patient and/or on the patient floor today, greater than?50% of which was spent counseling/coordinating care. Reason for contiued inpatient stay Substantial Risk for: inability to function, rapid decompensation and med/psych decompensation
[2021-06-23] MEDS: LORazepam 1 MG TABLET PO (14:40)
[2021-06-23 15:12] LABS: Appearance Urine CLEAR; Color Urine YELLOW; Glucose Urine UA NEG (NEG); Leukocyte Esterase Urine NEG (NEG); Nitrite Urine NEG (NEG); Urine Blood NEG (NEG); Urine Ketones NEG (NEG); Urine Protein NEG (NEG-TRACE)
[2021-06-23 18:00] VITALS: BP 92/50; PULSE 60; RESP 16; TEMP 36.1; O2SAT 93
[2021-06-23] MEDS: Donepezil HCl 5 MG TABLET PO (19:56)
[2021-06-23] MEDS: Mirtazapine 30 MG TABLET PO (19:56)
[2021-06-23] MEDS: Apixaban 5 MG TABLET PO (19:56)
[2021-06-24 06:00] VITALS: BP 158/87; PULSE 98; RESP 16; TEMP 36.6; O2SAT 95
[2021-06-24] MEDS: Apixaban 5 MG TABLET PO ×2 (08:41→20:32)
[2021-06-24] MEDS: OLANZapine 5 MG TABLET PO ×3 (08:41→20:32)
[2021-06-24] MEDS: LORazepam 1 MG TABLET PO (10:01)
[2021-06-24] MEDS: OLANZapine 2.5 MG TABLET PO ×2 (10:35→16:30)
[2021-06-24 18:00] VITALS: BP 100/59; PULSE 65; RESP 16; TEMP 36.4; O2SAT 93
[2021-06-24] MEDS: Mirtazapine 30 MG TABLET PO (20:32)
[2021-06-24] MEDS: Donepezil HCl 5 MG TABLET PO (20:32)
--- NOTE | 2021-06-24 21:36 | HO.PSYCHPN ---
Subjective Subjective Date of Service: 06/24/21 Reason For Visit: major depressive d/o recurrent severe with psychot Interim History: Patient seen. DW team. She reports she is feeling depressed . (She looks more perplexed). Says she doesn't know why people keep asking her questions and she feels confused by that, anxious and more depressed. She is ruminative. SPECT reviewed. Denies SI. Review of Systems Review of Systems unremarkable Yes all other systems are reviewed and are negative and Unobtainable due to mental status Mental Status Exam Mental Status Exam Narrative: Patient Appearance:?Appropriate Patient Orientation:?Person and Situation Level of Consciousness:?Awake Patient Behavior:?Guarded and Passive Mood Description:?Withdrawn Affect Description:?Constricted Patient Cognition Impaired:?Yes Ability to Follow Directions:?Good Speech Pattern:?Clear Memory Description:?Intact Hallucinations:?None Delusions:?Paranoid Ideation Thought Process:?Distracted and Confusion Thought Content:?positive for Poverty of Content and positive for Thought Blocking Judgement:?Fair Patient Appearance: Appropriate Patient Orientation: Person and Situation Level of Consciousness: Awake Patient Behavior: Guarded, Passive and Suspicious Mood Description: Withdrawn, Depressed, Nervous and Apprehensive Affect Description: Suspicious, Constricted, Fearful and Apprehensive Patient Cognition Impaired: Yes Ability to Follow Directions: Fair Speech Pattern: Clear Memory Description: Intact Diagnostics Vital Signs (24Hr): Vital Signs - 24 hr 06/24/21 06:00 Temperature 97.9 F Pulse Rate 98 Respiratory Rate 16 Blood Pressure 158/87 H Pulse Oximetry 95 BMI result Body Mass Index 21.1 Labs Results: 05/19/21 07:54 05/19/21 07:54 Labs: Laboratory Results - last 48 hr 06/23/21 14:00 Urine Color YELLOW Urine Appearance CLEAR Urine pH 6.0 Ur Specific [place] 1.020 Urine Protein NEG Urine Glucose (UA) NEG Urine Ketones NEG Urine Blood NEG Urine Nitrite NEG Ur Leukocyte Esterase NEG Imaging Radiology Impressions: ITS Impressions SPECT Scan-Brain NM 06/21/21 15:00 IMPRESSION: 1. Abnormal study. There is significantly decreased perfusion in a bilaterally symmetrical distribution involving the frontal and anterior temporal cerebral cortex. Corresponding CT abnormalities are not present. 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 2. A small left posterior parietal focus of decreased perfusion may represent an imaging artifact or may be due to a deep sulcus in this region, or possibly a small cerebral infarct, although this is not visualized on the CT images. This could be further characterized with MRI performed without and with intravenous contrast, if clinically indicated. Medications Medications Current Medications Acetaminophen (Acetaminophen 325 Mg Tablet) 650 mg PO Q6H PRN PRN Reason: Headache/Pain Mild Scale (1-3) Last Admin: 06/19/21 00:59 Dose: 650 mg Documented by: Al Hydroxide/Mg Hydroxide (Magnesium Hydrox/Alum Hydrox 30 Ml Oral.Susp) 30 ml PO Q6H PRN PRN Reason: Heartburn/Nausea Apixaban (Apixaban 5 Mg Tablet) 5 mg PO BID [facility] Last Admin: 06/24/21 20:32 Dose: 5 mg Documented by: Donepezil HCl (Donepezil Hcl 5 Mg Tablet) 5 mg PO BEDTIME [facility] Last Admin: 06/24/21 20:32 Dose: 5 mg Documented by: Loperamide HCl (Loperamide Hcl 2 Mg Capsule) 2 mg PO Q4H PRN PRN Reason: diarrhes Last Admin: 06/04/21 09:29 Dose: 2 mg Documented by: Magnesium Hydroxide (Milk Of Magnesia 30 Ml Oral.Susp) 30 ml PO DAILY PRN PRN Reason: Constipation Last Admin: 06/06/21 13:32 Dose: 30 ml Documented by: Mirtazapine (Mirtazapine 30 Mg Tablet) 30 mg PO BEDTIME [facility] Last Admin: 06/24/21 20:32 Dose: 30 mg Documented by: Olanzapine (Olanzapine 2.5 Mg Tablet) 2.5 mg PO BID PRN PRN Reason: anxiety, agitation Last Admin: 06/24/21 16:30 Dose: 2.5 mg Documented by: Olanzapine (Olanzapine 5 Mg Tablet) 5 mg PO TID [facility] Last Admin: 06/24/21 20:32 Dose: 5 mg Documented by: Allergies Allergies Allergy/AdvReac Type Severity Reaction Status Date / Time amoxicillin [From Augmentin] Allergy Unknown Unknown Verified 02/01/21 15:55 aspirin Allergy Unknown Unknown Verified 02/01/21 16:34 clavulanic acid Allergy Unknown Unknown Verified 02/01/21 15:55 [From Augmentin] diphenhydramine Allergy Unknown Unknown Verified 02/01/21 16:35 hydrochlorothiazide Allergy Unknown Unknown Verified 02/01/21 16:44 metronidazole Allergy Unknown Unknown Verified 02/01/21 16:54 trazodone Allergy Unknown Unknown Verified 02/01/21 16:54 Assessment & Plan Assessment & Plan (1) Major depressive disorder, recurrent episode with mood-congruent psychotic features: Status: Acute Code(s): F33.3 - Major depressive disorder, recurrent, severe with psychotic symptoms (2) Pre-op testing: Status: Acute Code(s): Z01.818 - Encounter for other preprocedural examination (3) Fronto-temporal dementia: Status: Acute Code(s): G31.09 - Other frontotemporal dementia; F02.80 - Dementia in other diseases classified elsewhere without behavioral disturbance Plan Continue ECT as tolerated monitor for confusional state psychotic depression generally improving much decreased mood lability and agitation Discussed transition to maintenance ECT will need to coordinate with her when patient clearly is stable for outpatient. At this moment, after discussing the case with Dr. Castañeda, we will do it biweekly. ECT for Saturday. SPECT showed images compatible with fronto-temporal dementia. 06/24: Continue treatment plan I spent minutes with the patient and/or on the patient floor today, greater than?50% of which was spent counseling/coordinating care. Reason for contiued inpatient stay Substantial Risk for: inability to function and rapid decompensation
[2021-06-25 06:00] VITALS: BP 134/72; PULSE 70; RESP 16; TEMP 36.2; O2SAT 95
[2021-06-25] MEDS: OLANZapine 5 MG TABLET PO ×3 (08:09→20:17)
[2021-06-25] MEDS: Apixaban 5 MG TABLET PO ×2 (08:09→20:17)
[2021-06-25] MEDS: Acetaminophen 325 MG TABLET 650 MG PO (18:24)
[2021-06-25 19:13] VITALS: BP 118/67; PULSE 72; TEMP 35.8; O2SAT 99
--- NOTE | 2021-06-25 19:15 | P.PNPSI_ITS ---
Subjective Subjective Date of Service: 06/25/21 Reason For Visit: major depressive d/o recurrent severe with psychot Interim History: pt says she's fine; she says she's not worried about feeling cold or hot and she is not having trouble breathing. She agrees to continue ECT. She denies any SI. Mental Status Exam Mental Status Exam Narrative: Patient Appearance:?Appropriate Patient Orientation:?Person and Situation Level of Consciousness:?Awake Patient Behavior:?calm Mood Description:? good Affect Description: withdrawn Patient Cognition Impaired:?Yes Ability to Follow Directions:?Good Speech Pattern:?Clear Memory Description:?Intact Hallucinations:?None Delusions:?none expressed Thought Process:?goal oriented Thought Content:?positive for Poverty of Content; no SI/HI Judgement:?Fair Diagnostics Vital Signs (24Hr): Vital Signs - 24 hr 06/25/21 06:00 Temperature 97.2 F Pulse Rate 70 Respiratory Rate 16 Blood Pressure 134/72 Pulse Oximetry 95 BMI result Body Mass Index 21.1 Labs Results: 05/19/21 07:54 05/19/21 07:54 Imaging Radiology Impressions: ITS Impressions SPECT Scan-Brain NM 06/21/21 15:00 IMPRESSION: 1. Abnormal study. There is significantly decreased perfusion in a bilaterally symmetrical distribution involving the frontal and anterior temporal cerebral cortex. Corresponding CT abnormalities are not present. 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 2. A small left posterior parietal focus of decreased perfusion may represent an imaging artifact or may be due to a deep sulcus in this region, or possibly a small cerebral infarct, although this is not visualized on the CT images. This could be further characterized with MRI performed without and with intravenous contrast, if clinically indicated. Medications Medications Current Medications Acetaminophen (Acetaminophen 325 Mg Tablet) 650 mg PO Q6H PRN PRN Reason: Headache/Pain Mild Scale (1-3) Last Admin: 06/25/21 18:24 Dose: 650 mg Documented by: Al Hydroxide/Mg Hydroxide (Magnesium Hydrox/Alum Hydrox 30 Ml Oral.Susp) 30 ml PO Q6H PRN PRN Reason: Heartburn/Nausea Apixaban (Apixaban 5 Mg Tablet) 5 mg PO BID [facility] Last Admin: 06/25/21 08:09 Dose: 5 mg Documented by: Donepezil HCl (Donepezil Hcl 5 Mg Tablet) 5 mg PO BEDTIME [facility] Last Admin: 06/24/21 20:32 Dose: 5 mg Documented by: Loperamide HCl (Loperamide Hcl 2 Mg Capsule) 2 mg PO Q4H PRN PRN Reason: diarrhes Last Admin: 06/04/21 09:29 Dose: 2 mg Documented by: Magnesium Hydroxide (Milk Of Magnesia 30 Ml Oral.Susp) 30 ml PO DAILY PRN PRN Reason: Constipation Last Admin: 06/06/21 13:32 Dose: 30 ml Documented by: Mirtazapine (Mirtazapine 30 Mg Tablet) 30 mg PO BEDTIME [facility] Last Admin: 06/24/21 20:32 Dose: 30 mg Documented by: Olanzapine (Olanzapine 2.5 Mg Tablet) 2.5 mg PO BID PRN PRN Reason: anxiety, agitation Last Admin: 06/24/21 16:30 Dose: 2.5 mg Documented by: Olanzapine (Olanzapine 5 Mg Tablet) 5 mg PO TID [facility] Last Admin: 06/25/21 15:58 Dose: 5 mg Documented by: Allergies Allergies Allergy/AdvReac Type Severity Reaction Status Date / Time amoxicillin [From Augmentin] Allergy Unknown Unknown Verified 02/01/21 15:55 aspirin Allergy Unknown Unknown Verified 02/01/21 16:34 clavulanic acid Allergy Unknown Unknown Verified 02/01/21 15:55 [From Augmentin] diphenhydramine Allergy Unknown Unknown Verified 02/01/21 16:35 hydrochlorothiazide Allergy Unknown Unknown Verified 02/01/21 16:44 metronidazole Allergy Unknown Unknown Verified 02/01/21 16:54 trazodone Allergy Unknown Unknown Verified 02/01/21 16:54 Assessment & Plan Assessment & Plan (1) Major depressive disorder, recurrent episode with mood-congruent psychotic features: Status: Acute Code(s): F33.3 - Major depressive disorder, recurrent, severe with psychotic symptoms (2) Pre-op testing: Status: Acute Code(s): Z01.818 - Encounter for other preprocedural examination (3) Fronto-temporal dementia: Status: Acute Code(s): G31.09 - Other frontotemporal dementia; F02.80 - Dementia in other diseases classified elsewhere without behavioral disturbance Plan Continue ECT as tolerated monitor for confusional state psychotic depression generally improving much decreased mood lability and agitation Discussed transition to maintenance ECT will need to coordinate with her when patient clearly is stable for outpatient. At this moment, after discussing the case with Dr. Castañeda, we will do it biweekly. ECT for Saturday. SPECT showed images compatible with fronto-temporal dementia. 06/24: Continue treatment plan 06/25 continue current treatment plan I spent minutes with the patient and/or on the patient floor today, greater than?50% of which was spent counseling/coordinating care. Reason for contiued inpatient stay Substantial Risk for: other
[2021-06-25] MEDS: Donepezil HCl 5 MG TABLET PO (20:17)
[2021-06-25] MEDS: Mirtazapine 30 MG TABLET PO (20:17)
[2021-06-26 05:41] VITALS: BP 158/83; PULSE 65; RESP 17; TEMP 36.3; O2SAT 96
[2021-06-26 05:46] VITALS: BP 158/83; PULSE 65; RESP 17; TEMP 36.3
--- NOTE | 2021-06-26 05:51 | PC.NURSE ---
Pt. in [place] at 0545. Pt. yelling out that she will not go to ECT because she is constipated and afraid it will start to come out during ECT. Pt. refusing to go to ECT this morning despite education by RN. Pt. refused to discuss further.
[2021-06-26] MEDS: Apixaban 5 MG TABLET PO ×2 (08:34→19:33)
[2021-06-26] MEDS: OLANZapine 5 MG TABLET PO ×3 (08:34→19:32)
[2021-06-26] MEDS: Milk of Magnesia 30 ML ORAL.SUSP PO (10:09)
--- NOTE | 2021-06-26 13:05 | HO.PSYCHPN ---
Subjective Subjective Date of Service: 06/26/21 Reason For Visit: major depressive d/o recurrent severe with psychot Subjective Notes: Conditional Voluntary Interim History: The nursing staff reported the patient refused to go to ECT. Today, on the family meeting, we disclose the diagnosis of Pick's dementia and the progressive of her cognition. Her is fully aware about the implications and probably would [facility]. The patient denies new symptoms, with poor short-term memory. No evidence of exacerbation of depression. Mental Status Exam Mental Status Exam Patient Appearance: Appropriate Patient Orientation: Person and Situation Level of Consciousness: Awake Patient Behavior: Guarded and Passive Mood Description: Withdrawn Affect Description: Blunted Patient Cognition Impaired: Yes Ability to Follow Directions: Fair Speech Pattern: Clear Hallucinations: None Delusions: Not Present Thought Process: Illogical and Slowed Thinking Thought Content: positive for [place] and positive for Poverty of Content Judgement: Fair Diagnostics Vital Signs (24Hr): Vital Signs - 24 hr 06/25/21 19:13 06/26/21 05:41 06/26/21 05:46 Temperature 96.5 F L 97.4 F 97.4 F Pulse Rate 72 65 65 Respiratory Rate 17 17 Blood Pressure 118/67 158/83 H 158/83 H Pulse Oximetry 99 96 BMI result Body Mass Index 21.1 Labs Results: 05/19/21 07:54 05/19/21 07:54 Imaging Radiology Impressions: ITS Impressions SPECT Scan-Brain NM 06/21/21 15:00 IMPRESSION: 1. Abnormal study. There is significantly decreased perfusion in a bilaterally symmetrical distribution involving the frontal and anterior temporal cerebral cortex. Corresponding CT abnormalities are not present. 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 2. A small left posterior parietal focus of decreased perfusion may represent an imaging artifact or may be due to a deep sulcus in this region, or possibly a small cerebral infarct, although this is not visualized on the CT images. This could be further characterized with MRI performed without and with intravenous contrast, if clinically indicated. Medications Medications Current Medications Acetaminophen (Acetaminophen 325 Mg Tablet) 650 mg PO Q6H PRN PRN Reason: Headache/Pain Mild Scale (1-3) Last Admin: 06/25/21 18:24 Dose: 650 mg Documented by: Al Hydroxide/Mg Hydroxide (Magnesium Hydrox/Alum Hydrox 30 Ml Oral.Susp) 30 ml PO Q6H PRN PRN Reason: Heartburn/Nausea Apixaban (Apixaban 5 Mg Tablet) 5 mg PO BID [facility] Last Admin: 06/26/21 08:34 Dose: 5 mg Documented by: Donepezil HCl (Donepezil Hcl 5 Mg Tablet) 5 mg PO BEDTIME [facility] Last Admin: 06/25/21 20:17 Dose: 5 mg Documented by: Loperamide HCl (Loperamide Hcl 2 Mg Capsule) 2 mg PO Q4H PRN PRN Reason: diarrhes Last Admin: 06/04/21 09:29 Dose: 2 mg Documented by: Magnesium Hydroxide (Milk Of Magnesia 30 Ml Oral.Susp) 30 ml PO DAILY PRN PRN Reason: Constipation Last Admin: 06/26/21 10:09 Dose: 30 ml Documented by: Mirtazapine (Mirtazapine 30 Mg Tablet) 30 mg PO BEDTIME [facility] Last Admin: 06/25/21 20:17 Dose: 30 mg Documented by: Olanzapine (Olanzapine 2.5 Mg Tablet) 2.5 mg PO BID PRN PRN Reason: anxiety, agitation Last Admin: 06/24/21 16:30 Dose: 2.5 mg Documented by: Olanzapine (Olanzapine 5 Mg Tablet) 5 mg PO TID [facility] Last Admin: 06/26/21 08:34 Dose: 5 mg Documented by: Allergies Allergies Allergy/AdvReac Type Severity Reaction Status Date / Time amoxicillin [From Augmentin] Allergy Unknown Unknown Verified 02/01/21 15:55 aspirin Allergy Unknown Unknown Verified 02/01/21 16:34 clavulanic acid Allergy Unknown Unknown Verified 02/01/21 15:55 [From Augmentin] diphenhydramine Allergy Unknown Unknown Verified 02/01/21 16:35 hydrochlorothiazide Allergy Unknown Unknown Verified 02/01/21 16:44 metronidazole Allergy Unknown Unknown Verified 02/01/21 16:54 trazodone Allergy Unknown Unknown Verified 02/01/21 16:54 Assessment & Plan Assessment & Plan (1) Major depressive disorder, recurrent episode with mood-congruent psychotic features: Status: Acute Code(s): F33.3 - Major depressive disorder, recurrent, severe with psychotic symptoms (2) Pre-op testing: Status: Acute Code(s): Z01.818 - Encounter for other preprocedural examination (3) Fronto-temporal dementia: Status: Acute Code(s): G31.09 - Other frontotemporal dementia; F02.80 - Dementia in other diseases classified elsewhere without behavioral disturbance Plan Continue ECT as tolerated monitor for confusional state psychotic depression generally improving much decreased mood lability and agitation Discussed transition to maintenance ECT will need to coordinate with her when patient clearly is stable for outpatient. At this moment, after discussing the case with Dr. Castañeda, we will do it biweekly. ECT for Saturday. SPECT showed images compatible with fronto-temporal dementia. I spent __20____ minutes with the patient and/or on the patient floor today, greater than?50% of which was spent counseling/coordinating care. Reason for contiued inpatient stay Substantial Risk for: inability to function, rapid decompensation and med/psych decompensation
[2021-06-26] MEDS: Acetaminophen 325 MG TABLET 650 MG PO (14:40)
[2021-06-26] MEDS: OLANZapine 2.5 MG TABLET PO (14:41)
[2021-06-26 18:00] VITALS: BP 143/76; PULSE 64; RESP 16; TEMP 36.3; O2SAT 96
[2021-06-26] MEDS: Donepezil HCl 5 MG TABLET PO (19:32)
[2021-06-26] MEDS: LORazepam 1 MG TABLET PO (19:33)
[2021-06-26] MEDS: Mirtazapine 30 MG TABLET PO (20:19)
--- NOTE | 2021-06-26 22:08 | PC.NURSE ---
at the start of shift, pt agitated anxious has repetitive somatic complaints of being cold. pt is focused on being cold despite being garbed in multiple layers of clothing. her affect is flat and apathetic. she is compliant to medication administration. contacted dr alon sue in regard to increased agitation and anxiety plan stat 1. ativan 1 mg po stat 2. resume prn ativan q 8 hr for anxiety 3. ativan 1 mg po administered.
[2021-06-27 07:45] VITALS: BP 142/68; PULSE 86; RESP 14; TEMP 36.8; O2SAT 95
[2021-06-27] MEDS: Apixaban 5 MG TABLET PO ×2 (08:35→20:45)
[2021-06-27] MEDS: OLANZapine 5 MG TABLET PO ×3 (08:35→20:45)
[2021-06-27] MEDS: LORazepam 1 MG TABLET PO ×2 (08:54→17:07)
--- NOTE | 2021-06-27 14:45 | P.PNPSI_ITS ---
Subjective Subjective Date of Service: 06/27/21 Reason For Visit: major depressive d/o recurrent severe with psychot Subjective Notes: Conditional Voluntary Interim History: The patient has refused ECT, the staff has reported that she is complaining of feeling called her feeling hot times, her usual behavior which that is obsessive. On interview, I provide 2nd vision the patient is thinking of the possibility of going back to ECT. The social work instructor has already talked with Dr. Castañeda regarding the [facility]. Mental Status Exam Mental Status Exam Patient Appearance: Well Grooomed Patient Orientation: Person and Situation Level of Consciousness: Awake Patient Behavior: Guarded Mood Description: Withdrawn Affect Description: Blunted Patient Cognition Impaired: Yes Ability to Follow Directions: Fair Speech Pattern: Clear Hallucinations: None Delusions: Bizarre Thought Process: Slowed Thinking Thought Content: positive for [place] and positive for Poverty of Content Judgement: Fair Diagnostics Vital Signs (24Hr): Vital Signs - 24 hr 06/26/21 18:00 06/27/21 07:45 Temperature 97.3 F 98.3 F Pulse Rate 64 86 Respiratory Rate 16 14 Blood Pressure 143/76 H 142/68 H Pulse Oximetry 96 95 BMI result Body Mass Index 21.1 Labs Results: 05/19/21 07:54 05/19/21 07:54 Imaging Radiology Impressions: ITS Impressions SPECT Scan-Brain NM 06/21/21 15:00 IMPRESSION: 1. Abnormal study. There is significantly decreased perfusion in a bilaterally symmetrical distribution involving the frontal and anterior temporal cerebral cortex. Corresponding CT abnormalities are not present. 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 2. A small left posterior parietal focus of decreased perfusion may represent an imaging artifact or may be due to a deep sulcus in this region, or possibly a small cerebral infarct, although this is not visualized on the CT images. This could be further characterized with MRI performed without and with intravenous contrast, if clinically indicated. Medications Medications Current Medications Acetaminophen (Acetaminophen 325 Mg Tablet) 650 mg PO Q6H PRN PRN Reason: Headache/Pain Mild Scale (1-3) Last Admin: 06/26/21 14:40 Dose: 650 mg Documented by: Al Hydroxide/Mg Hydroxide (Magnesium Hydrox/Alum Hydrox 30 Ml Oral.Susp) 30 ml PO Q6H PRN PRN Reason: Heartburn/Nausea Apixaban (Apixaban 5 Mg Tablet) 5 mg PO BID [facility] Last Admin: 06/27/21 08:35 Dose: 5 mg Documented by: Donepezil HCl (Donepezil Hcl 5 Mg Tablet) 5 mg PO BEDTIME [facility] Last Admin: 06/26/21 19:32 Dose: 5 mg Documented by: Loperamide HCl (Loperamide Hcl 2 Mg Capsule) 2 mg PO Q4H PRN PRN Reason: diarrhes Last Admin: 06/04/21 09:29 Dose: 2 mg Documented by: Lorazepam (Lorazepam 1 Mg Tablet) 1 mg PO Q8H PRN PRN Reason: agitation, anxiety Last Admin: 06/27/21 08:54 Dose: 1 mg Documented by: Magnesium Hydroxide (Milk Of Magnesia 30 Ml Oral.Susp) 30 ml PO DAILY PRN PRN Reason: Constipation Last Admin: 06/26/21 10:09 Dose: 30 ml Documented by: Mirtazapine (Mirtazapine 30 Mg Tablet) 30 mg PO BEDTIME [facility] Last Admin: 06/26/21 20:19 Dose: 30 mg Documented by: Olanzapine (Olanzapine 2.5 Mg Tablet) 2.5 mg PO BID PRN PRN Reason: anxiety, agitation Last Admin: 06/26/21 14:41 Dose: 2.5 mg Documented by: Olanzapine (Olanzapine 5 Mg Tablet) 5 mg PO TID [facility] Last Admin: 06/27/21 14:41 Dose: 5 mg Documented by: Allergies Allergies Allergy/AdvReac Type Severity Reaction Status Date / Time amoxicillin [From Augmentin] Allergy Unknown Unknown Verified 02/01/21 15:55 aspirin Allergy Unknown Unknown Verified 02/01/21 16:34 clavulanic acid Allergy Unknown Unknown Verified 02/01/21 15:55 [From Augmentin] diphenhydramine Allergy Unknown Unknown Verified 02/01/21 16:35 hydrochlorothiazide Allergy Unknown Unknown Verified 02/01/21 16:44 metronidazole Allergy Unknown Unknown Verified 02/01/21 16:54 trazodone Allergy Unknown Unknown Verified 02/01/21 16:54 Assessment & Plan Assessment & Plan (1) Major depressive disorder, recurrent episode with mood-congruent psychotic features: Status: Acute Code(s): F33.3 - Major depressive disorder, recurrent, severe with psychotic symptoms (2) Pre-op testing: Status: Acute Code(s): Z01.818 - Encounter for other preprocedural examination (3) Fronto-temporal dementia: Status: Acute Code(s): G31.09 - Other frontotemporal dementia; F02.80 - Dementia in other diseases classified elsewhere without behavioral disturbance Plan Continue ECT as tolerated monitor for confusional state psychotic depression generally improving much decreased mood lability and agitation Discussed transition to maintenance ECT will need to coordinate with her when patient clearly is stable for outpatient. At this moment, after discussing the case with Dr. Castañeda, we will do it biweekly. ECT cancel due to patient's refusal SPECT showed images compatible with fronto-temporal dementia. work on discharge planning I spent ___20___ minutes with the patient and/or on the patient floor today, greater than?50% of which was spent counseling/coordinating care. Reason for contiued inpatient stay Substantial Risk for: inability to function, rapid decompensation and med/psych decompensation
[2021-06-27 18:00] VITALS: BP 109/55; PULSE 67; RESP 16; TEMP 36.2; O2SAT 93
[2021-06-27] MEDS: Donepezil HCl 5 MG TABLET PO (20:45)
[2021-06-27] MEDS: Mirtazapine 30 MG TABLET PO (20:45)
[2021-06-28 07:15] VITALS: BP 152/79; PULSE 69; RESP 18; TEMP 36.3; O2SAT 95
[2021-06-28] MEDS: Apixaban 5 MG TABLET PO ×2 (08:19→20:24)
[2021-06-28] MEDS: OLANZapine 5 MG TABLET PO ×3 (08:19→20:24)
[2021-06-28] MEDS: LORazepam 1 MG TABLET PO ×2 (08:21→20:29)
--- NOTE | 2021-06-28 11:56 | HO.PSYCHPN ---
Subjective Subjective Date of Service: 06/28/21 Reason For Visit: major depressive d/o recurrent severe with psychot Subjective Notes: Conditional Voluntary Interim History: the nursing staff reported the patient slept most of the day when she attended a few groups and she wants to go back home. She ate 80% of her dinner and she was relaxed and quiet. On interview, the patient reported that she is feeling called. I explained her that the perception of feeling called within clear correlation with her anxiety and dysphoria and that symptom reversed with ECT. She agreed to do ECT next Saturday. Mental Status Exam Mental Status Exam Patient Appearance: Well Grooomed Patient Orientation: Person and Situation Level of Consciousness: Awake Affect Description: Calm and Blunted Patient Cognition Impaired: Yes Ability to Follow Directions: Good Speech Pattern: Clear Hallucinations: Tactile Delusions: Bizarre Thought Process: Distracted Thought Content: positive for [employer], positive for [place] and positive for Poverty of Content Judgement: Fair Diagnostics Vital Signs (24Hr): Vital Signs - 24 hr 06/27/21 18:00 06/28/21 07:15 Temperature 97.2 F 97.4 F Pulse Rate 67 69 Respiratory Rate 16 18 Blood Pressure 109/55 L 152/79 H Pulse Oximetry 93 95 BMI result Body Mass Index 21.1 Labs Results: 05/19/21 07:54 05/19/21 07:54 Imaging Radiology Impressions: ITS Impressions SPECT Scan-Brain NM 06/21/21 15:00 IMPRESSION: 1. Abnormal study. There is significantly decreased perfusion in a bilaterally symmetrical distribution involving the frontal and anterior temporal cerebral cortex. Corresponding CT abnormalities are not present. 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 2. A small left posterior parietal focus of decreased perfusion may represent an imaging artifact or may be due to a deep sulcus in this region, or possibly a small cerebral infarct, although this is not visualized on the CT images. This could be further characterized with MRI performed without and with intravenous contrast, if clinically indicated. Medications Medications Current Medications Acetaminophen (Acetaminophen 325 Mg Tablet) 650 mg PO Q6H PRN PRN Reason: Headache/Pain Mild Scale (1-3) Last Admin: 06/26/21 14:40 Dose: 650 mg Documented by: Al Hydroxide/Mg Hydroxide (Magnesium Hydrox/Alum Hydrox 30 Ml Oral.Susp) 30 ml PO Q6H PRN PRN Reason: Heartburn/Nausea Apixaban (Apixaban 5 Mg Tablet) 5 mg PO BID [facility] Last Admin: 06/28/21 08:19 Dose: 5 mg Documented by: Donepezil HCl (Donepezil Hcl 5 Mg Tablet) 5 mg PO BEDTIME [facility] Last Admin: 06/27/21 20:45 Dose: 5 mg Documented by: Loperamide HCl (Loperamide Hcl 2 Mg Capsule) 2 mg PO Q4H PRN PRN Reason: diarrhes Last Admin: 06/04/21 09:29 Dose: 2 mg Documented by: Lorazepam (Lorazepam 1 Mg Tablet) 1 mg PO Q8H PRN PRN Reason: agitation, anxiety Last Admin: 06/28/21 08:21 Dose: 1 mg Documented by: Magnesium Hydroxide (Milk Of Magnesia 30 Ml Oral.Susp) 30 ml PO DAILY PRN PRN Reason: Constipation Last Admin: 06/26/21 10:09 Dose: 30 ml Documented by: Mirtazapine (Mirtazapine 30 Mg Tablet) 30 mg PO BEDTIME [facility] Last Admin: 06/27/21 20:45 Dose: 30 mg Documented by: Olanzapine (Olanzapine 2.5 Mg Tablet) 2.5 mg PO BID PRN PRN Reason: anxiety, agitation Last Admin: 06/26/21 14:41 Dose: 2.5 mg Documented by: Olanzapine (Olanzapine 5 Mg Tablet) 5 mg PO TID [facility] Last Admin: 06/28/21 08:19 Dose: 5 mg Documented by: Allergies Allergies Allergy/AdvReac Type Severity Reaction Status Date / Time amoxicillin [From Augmentin] Allergy Unknown Unknown Verified 02/01/21 15:55 aspirin Allergy Unknown Unknown Verified 02/01/21 16:34 clavulanic acid Allergy Unknown Unknown Verified 02/01/21 15:55 [From Augmentin] diphenhydramine Allergy Unknown Unknown Verified 02/01/21 16:35 hydrochlorothiazide Allergy Unknown Unknown Verified 02/01/21 16:44 metronidazole Allergy Unknown Unknown Verified 02/01/21 16:54 trazodone Allergy Unknown Unknown Verified 02/01/21 16:54 Assessment & Plan Assessment & Plan (1) Major depressive disorder, recurrent episode with mood-congruent psychotic features: Status: Acute Code(s): F33.3 - Major depressive disorder, recurrent, severe with psychotic symptoms (2) Pre-op testing: Status: Acute Code(s): Z01.818 - Encounter for other preprocedural examination (3) Fronto-temporal dementia: Status: Acute Code(s): G31.09 - Other frontotemporal dementia; F02.80 - Dementia in other diseases classified elsewhere without behavioral disturbance Plan Continue ECT as tolerated monitor for confusional state psychotic depression generally improving much decreased mood lability and agitation Discussed transition to maintenance ECT will need to coordinate with her when patient clearly is stable for outpatient. At this moment, after discussing the case with Dr. Castañeda, we will do it biweekly. Plan 1. Continue same medications. 2. ECT for Saturday. 3. Will discuss discharge planning. I spent ___20___ minutes with the patient and/or on the patient floor today, greater than?50% of which was spent counseling/coordinating care. Reason for contiued inpatient stay Substantial Risk for: inability to function, rapid decompensation and med/psych decompensation
[2021-06-28 19:30] VITALS: BP 115/62; PULSE 58; RESP 16; TEMP 36.2; O2SAT 94
[2021-06-28] MEDS: Mirtazapine 30 MG TABLET PO (20:24)
[2021-06-28] MEDS: Donepezil HCl 5 MG TABLET PO (20:24)
[2021-06-29 07:00] VITALS: BMI 21.4
[2021-06-29 07:05] VITALS: BP 164/85; PULSE 67; RESP 16; TEMP 36.4; O2SAT 97
[2021-06-29] MEDS: Apixaban 5 MG TABLET PO ×2 (08:36→20:22)
[2021-06-29] MEDS: OLANZapine 5 MG TABLET PO ×3 (08:36→20:23)
[2021-06-29] MEDS: LORazepam 1 MG TABLET PO ×2 (08:36→16:32)
[2021-06-29] MEDS: Milk of Magnesia 30 ML ORAL.SUSP PO (08:38)
[2021-06-29] MEDS: Acetaminophen 325 MG TABLET 650 MG PO (11:45)
--- NOTE | 2021-06-29 13:41 | P.PNPSI_ITS ---
Subjective Subjective Date of Service: 06/29/21 Reason For Visit: major depressive d/o recurrent severe with psychot Subjective Notes: Conditional Voluntary Interim History: The nursing staff reported the patient has been mostly in her room, isolated, she participated with minimal groups. On interview, the patient agreed to have ECT tomorrow. Mental Status Exam Mental Status Exam Patient Appearance: Appropriate Patient Orientation: Person and Situation Level of Consciousness: Awake Patient Behavior: Guarded and Passive Mood Description: Withdrawn Affect Description: Blunted Patient Cognition Impaired: Yes Ability to Follow Directions: Good Speech Pattern: Clear Hallucinations: None Delusions: Bizarre Thought Process: Distracted Thought Content: positive for [place] and positive for Poverty of Content Judgement: Fair Diagnostics Vital Signs (24Hr): Vital Signs - 24 hr 06/28/21 19:30 06/29/21 07:05 Temperature 97.1 F 97.5 F Pulse Rate 58 67 Respiratory Rate 16 16 Blood Pressure 115/62 164/85 H Pulse Oximetry 94 97 BMI result Body Mass Index 21.4 Labs Results: 05/19/21 07:54 05/19/21 07:54 Imaging Radiology Impressions: ITS Impressions SPECT Scan-Brain NM 06/21/21 15:00 IMPRESSION: 1. Abnormal study. There is significantly decreased perfusion in a bilaterally symmetrical distribution involving the frontal and anterior temporal cerebral cortex. Corresponding CT abnormalities are not present. 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 2. A small left posterior parietal focus of decreased perfusion may represent an imaging artifact or may be due to a deep sulcus in this region, or possibly a small cerebral infarct, although this is not visualized on the CT images. This could be further characterized with MRI performed without and with intravenous contrast, if clinically indicated. Medications Medications Current Medications Acetaminophen (Acetaminophen 325 Mg Tablet) 650 mg PO Q6H PRN PRN Reason: Headache/Pain Mild Scale (1-3) Last Admin: 06/29/21 11:45 Dose: 650 mg Documented by: Al Hydroxide/Mg Hydroxide (Magnesium Hydrox/Alum Hydrox 30 Ml Oral.Susp) 30 ml PO Q6H PRN PRN Reason: Heartburn/Nausea Apixaban (Apixaban 5 Mg Tablet) 5 mg PO BID [facility] Last Admin: 06/29/21 08:36 Dose: 5 mg Documented by: Donepezil HCl (Donepezil Hcl 5 Mg Tablet) 5 mg PO BEDTIME [facility] Last Admin: 06/28/21 20:24 Dose: 5 mg Documented by: Loperamide HCl (Loperamide Hcl 2 Mg Capsule) 2 mg PO Q4H PRN PRN Reason: diarrhes Last Admin: 06/04/21 09:29 Dose: 2 mg Documented by: Lorazepam (Lorazepam 1 Mg Tablet) 1 mg PO Q8H PRN PRN Reason: agitation, anxiety Last Admin: 06/29/21 08:36 Dose: 1 mg Documented by: Magnesium Hydroxide (Milk Of Magnesia 30 Ml Oral.Susp) 30 ml PO DAILY PRN PRN Reason: Constipation Last Admin: 06/29/21 08:38 Dose: 30 ml Documented by: Mirtazapine (Mirtazapine 30 Mg Tablet) 30 mg PO BEDTIME [facility] Last Admin: 06/28/21 20:24 Dose: 30 mg Documented by: Olanzapine (Olanzapine 2.5 Mg Tablet) 2.5 mg PO BID PRN PRN Reason: anxiety, agitation Last Admin: 06/26/21 14:41 Dose: 2.5 mg Documented by: Olanzapine (Olanzapine 5 Mg Tablet) 5 mg PO TID [facility] Last Admin: 06/29/21 08:36 Dose: 5 mg Documented by: Allergies Allergies Allergy/AdvReac Type Severity Reaction Status Date / Time amoxicillin [From Augmentin] Allergy Unknown Unknown Verified 02/01/21 15:55 aspirin Allergy Unknown Unknown Verified 02/01/21 16:34 clavulanic acid Allergy Unknown Unknown Verified 02/01/21 15:55 [From Augmentin] diphenhydramine Allergy Unknown Unknown Verified 02/01/21 16:35 hydrochlorothiazide Allergy Unknown Unknown Verified 02/01/21 16:44 metronidazole Allergy Unknown Unknown Verified 02/01/21 16:54 trazodone Allergy Unknown Unknown Verified 02/01/21 16:54 Assessment & Plan Assessment & Plan (1) Major depressive disorder, recurrent episode with mood-congruent psychotic features: Status: Acute Code(s): F33.3 - Major depressive disorder, recurrent, severe with psychotic symptoms (2) Pre-op testing: Status: Acute Code(s): Z01.818 - Encounter for other preprocedural examination (3) Fronto-temporal dementia: Status: Acute Code(s): G31.09 - Other frontotemporal dementia; F02.80 - Dementia in other diseases classified elsewhere without behavioral disturbance Plan Continue ECT as tolerated monitor for confusional state psychotic depression generally improving much decreased mood lability and agitation Discussed transition to maintenance ECT will need to coordinate with her when patient clearly is stable for outpatient. At this moment, after discussing the case with Dr. Castañeda, we will do it biweekly. Plan 1. Continue same medications. 2. ECT for Saturday. 3. Will discuss discharge planning. I spent __20____ minutes with the patient and/or on the patient floor today, greater than?50% of which was spent counseling/coordinating care. Reason for contiued inpatient stay Substantial Risk for: inability to function, rapid decompensation and med/psych decompensation
[2021-06-29 18:00] VITALS: BP 144/69; PULSE 57; RESP 16; TEMP 36; O2SAT 92
[2021-06-29] MEDS: Donepezil HCl 5 MG TABLET PO (20:22)
[2021-06-29] MEDS: Mirtazapine 30 MG TABLET PO (20:23)
[2021-06-30] VITALS (9 sets, daily range): BP systolic 100–171; BP diastolic 58–121; PULSE 60–97; RESP 16–20; TEMP 35.8–36.6; O2SAT 94–96
--- NOTE | 2021-06-30 06:17 | PC.NURSE ---
Patient refused to go to ECT this morning. Richard Art informed.
[2021-06-30] MEDS: OLANZapine 5 MG TABLET PO ×3 (06:53→20:17)
--- NOTE | 2021-06-30 07:33 | HO.ANESPROP2 ---
[facility] Active Problems Active Problems: All Active Problems (Updated 06/22/21 @ 08:08 by Mark Brennan) Fronto-temporal dementia (Acute) Pre-op testing (Acute) Major depressive disorder, recurrent episode with mood-congruent psychotic features (Acute) Neurocognitive disorder (Acute) Past Medical History Medical History History of pulmonary embolism Neurocognitive disorder Pulmonary embolism Functional capacity: independent ambulation Family History Family history of problems with anesthesia: No Surgical History Surgical History H/O section History of Problems with Anesthesia: No Social History Social History Household Members: Spouse Household Members Other:: Her and her Housing: House Do you presently have visiting nurse or other home services: No Patient Tobacco Use Status: Never used Tobacco Second Hand Smoke Exposure: No Use of substances other than those prescribed or required for medical reasons: No Currently Displaying Signs/Symptoms of Drug Intoxication Withdrawal: No Have you been hit, kicked, punched, or otherwise hurt by someone within the past year? If so, by whom?: No Do you feel safe in your current relationship?: Yes Is there a partner from a previous relationship who is making you feel unsafe now?: No Are you made to feel afraid or neglected: No Are you DNR?: No Advance Directives: No Do you have thoughts of harming others: None Do you have a plan to hurt others: No Plan Recently lost weight without trying: No Nutrition Risks: No Nutritional Risk Patient : No : No Poor oral hygiene: No service: Yes Sexual orientation: Straight/Heterosexual Meds Allergies Allergy/AdvReac Type Severity Reaction Status Date / Time amoxicillin [From Augmentin] Allergy Unknown Unknown Verified 02/01/21 15:55 aspirin Allergy Unknown Unknown Verified 02/01/21 16:34 clavulanic acid Allergy Unknown Unknown Verified 02/01/21 15:55 [From Augmentin] diphenhydramine Allergy Unknown Unknown Verified 02/01/21 16:35 hydrochlorothiazide Allergy Unknown Unknown Verified 02/01/21 16:44 metronidazole Allergy Unknown Unknown Verified 02/01/21 16:54 trazodone Allergy Unknown Unknown Verified 02/01/21 16:54 Active Medications: Current Medications Acetaminophen (Acetaminophen 325 Mg Tablet) 650 mg PO Q6H PRN PRN Reason: Headache/Pain Mild Scale (1-3) Last Admin: 06/29/21 11:45 Dose: 650 mg Documented by: Al Hydroxide/Mg Hydroxide (Magnesium Hydrox/Alum Hydrox 30 Ml Oral.Susp) 30 ml PO Q6H PRN PRN Reason: Heartburn/Nausea Apixaban (Apixaban 5 Mg Tablet) 5 mg PO BID [facility] Last Admin: 06/29/21 20:22 Dose: 5 mg Documented by: Donepezil HCl (Donepezil Hcl 5 Mg Tablet) 5 mg PO BEDTIME [facility] Last Admin: 06/29/21 20:22 Dose: 5 mg Documented by: Loperamide HCl (Loperamide Hcl 2 Mg Capsule) 2 mg PO Q4H PRN PRN Reason: diarrhes Last Admin: 06/04/21 09:29 Dose: 2 mg Documented by: Lorazepam (Lorazepam 1 Mg Tablet) 1 mg PO Q8H PRN PRN Reason: agitation, anxiety Last Admin: 06/29/21 16:32 Dose: 1 mg Documented by: Magnesium Hydroxide (Milk Of Magnesia 30 Ml Oral.Susp) 30 ml PO DAILY PRN PRN Reason: Constipation Last Admin: 06/29/21 08:38 Dose: 30 ml Documented by: Mirtazapine (Mirtazapine 30 Mg Tablet) 30 mg PO BEDTIME [facility] Last Admin: 06/29/21 20:23 Dose: 30 mg Documented by: Olanzapine (Olanzapine 2.5 Mg Tablet) 2.5 mg PO BID PRN PRN Reason: anxiety, agitation Last Admin: 06/26/21 14:41 Dose: 2.5 mg Documented by: Olanzapine (Olanzapine 5 Mg Tablet) 5 mg PO TID [facility] Last Admin: 06/30/21 06:53 Dose: 5 mg Documented by: Home Medications Medication Instructions Recorded Confirmed Last Taken Type gabapentin 600 mg tablet 600 mg PO TID 02/01/21 02/01/21 Unknown History lorazepam 0.5 mg tablet (Ativan) 0.5 mg PO DAILY PRN 05/18/21 05/18/21 Unknown History Exam Exam Date and Time: June 30, 2021 0733 Height,Weight and Vital Signs: Height 5 ft 3 in Weight 54.9 kg Last Vital Signs Temp 97.8 F 06/30/21 07:05 Pulse 80 06/30/21 07:05 Resp 20 06/30/21 07:05 BP 148/85 H 06/30/21 07:05 Pulse Ox 96 06/30/21 07:05 Pertinent Lab Results Pertinent Lab Results: Laboratory Tests 05/18/21 05/18/21 05/18/21 19:05 19:05 19:05 WBC 10.2 RBC 4.37 D Hgb 13.7 D Hct 39.6 MCV 90.6 MCH 31.4 MCHC 34.6 RDW 12.6 Plt Count 289 D MPV 9.4 Immature Gran % (Auto) 0.4 Neut % (Auto) 76.9 H Lymph % (Auto) 14.0 L [place] % (Auto) 8.4 Eos % (Auto) 0.0 Baso % (Auto) 0.3 Lymph # (Auto) 1.4 [place] # (Auto) 0.9 Eos # (Auto) 0.0 Baso # (Auto) 0.0 Abs Immat Gran (auto) 0.04 H Absolute Neuts (auto) 7.9 Absolute Nucleated RBC 0.000 Nucleated RBC % (auto) 0.0 Sodium 142 Potassium 4.0 Chloride 106 Carbon Dioxide 22 Anion Gap 18 BUN 20 H Creatinine 1.01 Estim Creat Clear Calc 43.4 Estimated GFR 54 Fasting Glucose 125 H Calcium 9.9 D Total Bilirubin 0.9 AST 27 ALT 22 Alkaline Phosphatase 94 Total Protein 7.2 Albumin 4.5 Triglycerides 58 Cholesterol 178 D LDL Cholesterol, Calc 110 HDL Cholesterol 57 Vitamin B12 237 25-OH Vitamin D Total 25-Hydroxy Vitamin D2 25-Hydroxy Vitamin D3 Folate 16.9 TSH 0.82 Free Cortisol Urine Color Urine Appearance Urine pH Ur Specific [place] Urine Protein Urine Glucose (UA) Urine Ketones Urine Blood Urine Nitrite Ur Leukocyte Esterase Urine RBC Urine WBC Ur Squamous Epith Cells Urine Bacteria Urine Mucus 05/18/21 05/19/21 05/19/21 19:05 06:30 07:54 WBC 5.7 RBC 4.29 Hgb 13.3 Hct 39.7 MCV 92.5 MCH 31.0 MCHC 33.5 RDW 13.0 Plt Count 243 MPV 9.4 Immature Gran % (Auto) 0.4 Neut % (Auto) 67.7 Lymph % (Auto) 20.4 [place] % (Auto) 10.5 Eos % (Auto) 0.5 Baso % (Auto) 0.5 Lymph # (Auto) 1.2 [place] # (Auto) 0.6 Eos # (Auto) 0.0 Baso # (Auto) 0.0 Abs Immat Gran (auto) 0.02 Absolute Neuts (auto) 3.9 Absolute Nucleated RBC 0.000 Nucleated RBC % (auto) 0.0 Sodium Potassium Chloride Carbon Dioxide Anion Gap BUN Creatinine Estim Creat Clear Calc Estimated GFR Fasting Glucose Calcium Total Bilirubin AST ALT Alkaline Phosphatase Total Protein Albumin Triglycerides Cholesterol LDL Cholesterol, Calc HDL Cholesterol Vitamin B12 25-OH Vitamin D Total 21 L 25-Hydroxy Vitamin D2 <4 25-Hydroxy Vitamin D3 21 Folate TSH Free Cortisol Urine Color YELLOW Urine Appearance CLOUDY Urine pH 6.0 Ur Specific [place] 1.025 Urine Protein TRACE Urine Glucose (UA) NEG Urine Ketones 15 Urine Blood 1+ H Urine Nitrite NEG Ur Leukocyte Esterase 2+ H Urine RBC 0-2 Urine WBC 10-14 H Ur Squamous Epith Cells 1+ Urine Bacteria 1+ Urine Mucus 2+ 05/19/21 05/19/21 05/19/21 07:54 07:54 07:54 WBC RBC Hgb Hct MCV MCH MCHC RDW Plt Count MPV Immature Gran % (Auto) Neut % (Auto) Lymph % (Auto) [place] % (Auto) Eos % (Auto) Baso % (Auto) Lymph # (Auto) [place] # (Auto) Eos # (Auto) Baso # (Auto) Abs Immat Gran (auto) Absolute Neuts (auto) Absolute Nucleated RBC Nucleated RBC % (auto) Sodium 141 Potassium 3.6 Chloride 106 Carbon Dioxide 25 Anion Gap 14 BUN 21 H Creatinine 0.78 Estim Creat Clear Calc 56.3 Estimated GFR > 60 Fasting Glucose 114 H Calcium 9.3 D Total Bilirubin 0.9 AST 32 H ALT 20 Alkaline Phosphatase 93 Total Protein 6.8 Albumin 4.3 Triglycerides 57 Cholesterol 165 LDL Cholesterol, Calc 100 HDL Cholesterol 54 Vitamin B12 225 25-OH Vitamin D Total 15 L 25-Hydroxy Vitamin D2 <4 25-Hydroxy Vitamin D3 15 Folate 18.0 TSH 0.70 Free Cortisol Urine Color Urine Appearance Urine pH Ur Specific [place] Urine Protein Urine Glucose (UA) Urine Ketones Urine Blood Urine Nitrite Ur Leukocyte Esterase Urine RBC Urine WBC Ur Squamous Epith Cells Urine Bacteria Urine Mucus 05/20/21 05/25/21 06/23/21 06:56 18:10 14:00 WBC RBC Hgb Hct MCV MCH MCHC RDW Plt Count MPV Immature Gran % (Auto) Neut % (Auto) Lymph % (Auto) [place] % (Auto) Eos % (Auto) Baso % (Auto) Lymph # (Auto) [place] # (Auto) Eos # (Auto) Baso # (Auto) Abs Immat Gran (auto) Absolute Neuts (auto) Absolute Nucleated RBC Nucleated RBC % (auto) Sodium Potassium Chloride Carbon Dioxide Anion Gap BUN Creatinine Estim Creat Clear Calc Estimated GFR Fasting Glucose Calcium Total Bilirubin AST ALT Alkaline Phosphatase Total Protein Albumin Triglycerides Cholesterol LDL Cholesterol, Calc HDL Cholesterol Vitamin B12 25-OH Vitamin D Total 25-Hydroxy Vitamin D2 25-Hydroxy Vitamin D3 Folate TSH Free Cortisol 0.50 Urine Color YELLOW YELLOW Urine Appearance CLEAR CLEAR Urine pH 6.0 6.0 Ur Specific [place] 1.025 1.020 Urine Protein TRACE NEG Urine Glucose (UA) NEG NEG Urine Ketones 5 NEG Urine Blood TRACE NEG Urine Nitrite NEG NEG Ur Leukocyte Esterase 1+ H NEG Urine RBC 1-4 Urine WBC 5-9 H Ur Squamous Epith Cells 1+ Urine Bacteria 1+ Urine Mucus 2+ Airway Mallampati Class: II TM Dist: >3cm Neck ROM: Full Heart: rrr Lungs: cta Assessment and Plan Assessment Anesthesia Assessment: Anesthesia Plan Discussed and Chart Reviewed Final Anesthetic Review Family History of Problems with Anesthesia: No History of Problems with Anesthesia: No NPO: Yes ASA Class: III Final Preanesthetic Review: No Changes in Pt Med Stat, Meds/Allgs Chart Reviewed and Consent Obtained/Reviewed Patient Risk: Intermediate Procedure Risk: Intermediate Anesthetic Plan Anesthetic Plan: GA Disposition: Standard PACU
--- NOTE | 2021-06-30 07:43 | MHC.SHP ---
Pre-Procedural Eval Section A Date of Service: 06/30/21 The patient is an INPATIENT: Yes Changes since office visit: No Cold of Flu in the past 2 weeks, No New Medical Problems, No Changes in Medication and No Patient answered all questions The History & Physical has been completed within 30 days and I have reviewed it.: Yes Section B Chief Complaint: major depressive d/o recurrent severe with psychot Allergies: Allergies Allergy/AdvReac Type Severity Reaction Status Date / Time amoxicillin [From Augmentin] Allergy Unknown Unknown Verified 02/01/21 15:55 aspirin Allergy Unknown Unknown Verified 02/01/21 16:34 clavulanic acid Allergy Unknown Unknown Verified 02/01/21 15:55 [From Augmentin] diphenhydramine Allergy Unknown Unknown Verified 02/01/21 16:35 hydrochlorothiazide Allergy Unknown Unknown Verified 02/01/21 16:44 metronidazole Allergy Unknown Unknown Verified 02/01/21 16:54 trazodone Allergy Unknown Unknown Verified 02/01/21 16:54 Plan I have reviewed the history and physical and performed a pertinent physical examination on my patient. No changes have occurred unless specified.
--- NOTE | 2021-06-30 08:07 | HO.ECTPROC ---
ECT Procedure Note Diagnosis/Treatment Date of Service: 06/30/21 Diagnosis: Major Depressive Disorder Previous ECT Date: 06/30/21 Current Treatment Number: 13 Interval Clinical Notes: The patient has anxiety symptoms, she needed Ativan 2 mg IVP before since she was too anxious and scared . Flumazenil was used before ECT. ECT Settings Device: THYMATRON DGx Electrode Placement: Right Unilateral Program/Pulse Width: 0.25 Energy Percent: 100 Seizure Duration By EEG (in seconds): 45 Medications Administration General Anesthetic: Etomidate Muscle Relaxant: Succinylcholine Ancillary Medications Analgesics: Torodol - Pre ECT Anti-emetics: Zofran - Pre ECT Miscillaneous Medications: Flumazenil Airway Management Airway Management: Bag Mask Ventilation Treatment Recommendations No Changes Recommended: No change
[2021-06-30] MEDS: Apixaban 5 MG TABLET PO ×2 (09:11→20:17)
[2021-06-30] MEDS: LORazepam 1 MG TABLET PO ×2 (09:11→15:04)
--- NOTE | 2021-06-30 10:56 | HO.PSYCHPN ---
Subjective Subjective Date of Service: 06/30/21 Reason For Visit: major depressive d/o recurrent severe with psychot Subjective Notes: Conditional Voluntary Interim History: The patient had ECT today after a lot of encouragement in the morning, even though the, that she agreed to have ECT the day before. As per nursing report, the patient was complaining of feeling called yesterday. The social service worker has contacted her and we will schedule her discharge for early next week after a family meeting. On interview the patient denies new symptoms she looks confused at times. the nursing staff reported the patient fell today in the morning after ECT. No injuries Mental Status Exam Mental Status Exam Patient Appearance: Appropriate Patient Orientation: Person Level of Consciousness: Awake Patient Behavior: Cooperative Mood Description: Withdrawn Affect Description: Blunted Patient Cognition Impaired: Yes Ability to Follow Directions: Good Speech Pattern: Clear Hallucinations: None Delusions: Not Present Thought Process: Distracted and Slowed Thinking Thought Content: positive for [place] and positive for Poverty of Content Judgement: Fair Diagnostics Vital Signs (24Hr): Vital Signs - 24 hr 06/29/21 18:00 06/30/21 05:59 06/30/21 06:56 Temperature 96.8 F 97 F 97 F Pulse Rate 57 70 70 Respiratory Rate 16 16 16 Blood Pressure 144/69 H 130/74 130/74 Pulse Oximetry 92 94 94 06/30/21 07:05 06/30/21 08:03 06/30/21 08:08 Temperature 97.8 F 98 F Pulse Rate 80 77 91 Respiratory Rate 20 20 20 Blood Pressure 148/85 H 171/82 H 166/121 H Pulse Oximetry 96 95 95 06/30/21 08:13 06/30/21 08:18 06/30/21 08:32 Temperature 98 F Pulse Rate 97 96 89 Respiratory Rate 20 20 20 Blood Pressure 171/117 H 158/108 H 159/95 H Pulse Oximetry 95 95 95 BMI result Body Mass Index 21.4 Labs Results: 05/19/21 07:54 05/19/21 07:54 Imaging Radiology Impressions: ITS Impressions SPECT Scan-Brain NM 06/21/21 15:00 IMPRESSION: 1. Abnormal study. There is significantly decreased perfusion in a bilaterally symmetrical distribution involving the frontal and anterior temporal cerebral cortex. Corresponding CT abnormalities are not present. 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 2. A small left posterior parietal focus of decreased perfusion may represent an imaging artifact or may be due to a deep sulcus in this region, or possibly a small cerebral infarct, although this is not visualized on the CT images. This could be further characterized with MRI performed without and with intravenous contrast, if clinically indicated. Medications Medications Current Medications Acetaminophen (Acetaminophen 325 Mg Tablet) 650 mg PO Q6H PRN PRN Reason: Headache/Pain Mild Scale (1-3) Last Admin: 06/29/21 11:45 Dose: 650 mg Documented by: Al Hydroxide/Mg Hydroxide (Magnesium Hydrox/Alum Hydrox 30 Ml Oral.Susp) 30 ml PO Q6H PRN PRN Reason: Heartburn/Nausea Apixaban (Apixaban 5 Mg Tablet) 5 mg PO BID [facility] Last Admin: 06/30/21 09:11 Dose: 5 mg Documented by: Donepezil HCl (Donepezil Hcl 5 Mg Tablet) 5 mg PO BEDTIME [facility] Last Admin: 06/29/21 20:22 Dose: 5 mg Documented by: Loperamide HCl (Loperamide Hcl 2 Mg Capsule) 2 mg PO Q4H PRN PRN Reason: diarrhes Last Admin: 06/04/21 09:29 Dose: 2 mg Documented by: Lorazepam (Lorazepam 1 Mg Tablet) 1 mg PO Q8H PRN PRN Reason: agitation, anxiety Last Admin: 06/30/21 09:11 Dose: 1 mg Documented by: Magnesium Hydroxide (Milk Of Magnesia 30 Ml Oral.Susp) 30 ml PO DAILY PRN PRN Reason: Constipation Last Admin: 06/29/21 08:38 Dose: 30 ml Documented by: Mirtazapine (Mirtazapine 30 Mg Tablet) 30 mg PO BEDTIME [facility] Last Admin: 06/29/21 20:23 Dose: 30 mg Documented by: Olanzapine (Olanzapine 2.5 Mg Tablet) 2.5 mg PO BID PRN PRN Reason: anxiety, agitation Last Admin: 06/26/21 14:41 Dose: 2.5 mg Documented by: Olanzapine (Olanzapine 5 Mg Tablet) 5 mg PO TID [facility] Last Admin: 06/30/21 06:53 Dose: 5 mg Documented by: Allergies Allergies Allergy/AdvReac Type Severity Reaction Status Date / Time amoxicillin [From Augmentin] Allergy Unknown Unknown Verified 02/01/21 15:55 aspirin Allergy Unknown Unknown Verified 02/01/21 16:34 clavulanic acid Allergy Unknown Unknown Verified 02/01/21 15:55 [From Augmentin] diphenhydramine Allergy Unknown Unknown Verified 02/01/21 16:35 hydrochlorothiazide Allergy Unknown Unknown Verified 02/01/21 16:44 metronidazole Allergy Unknown Unknown Verified 02/01/21 16:54 trazodone Allergy Unknown Unknown Verified 02/01/21 16:54 Assessment & Plan Assessment & Plan (1) Major depressive disorder, recurrent episode with mood-congruent psychotic features: Status: Acute Code(s): F33.3 - Major depressive disorder, recurrent, severe with psychotic symptoms (2) Pre-op testing: Status: Acute Code(s): Z01.818 - Encounter for other preprocedural examination (3) Fronto-temporal dementia: Status: Acute Code(s): G31.09 - Other frontotemporal dementia; F02.80 - Dementia in other diseases classified elsewhere without behavioral disturbance Plan Continue ECT as tolerated monitor for confusional state psychotic depression generally improving much decreased mood lability and agitation Discussed transition to maintenance ECT will need to coordinate with her when patient clearly is stable for outpatient. At this moment, after discussing the case with Dr. Castañeda, we will do it biweekly. Plan 1. Continue same medications. 2. Will discuss discharge planning. I spent __20____ minutes with the patient and/or on the patient floor today, greater than?50% of which was spent counseling/coordinating care. Reason for contiued inpatient stay Substantial Risk for: inability to function, rapid decompensation and med/psych decompensation
--- NOTE | 2021-06-30 13:33 | PC.NURSE ---
Patient was unsteady gait after the ECT this morning. She was observed closely but went back to the bathroom and had an unwitnessed fall. VS after the fall are: BP :112/69 Pulse: 107 O2: 97% Temp: 97.4. Neuro and general physical exam are negative except for a mild pain in the left elbow. Patient was keeping on close observation and will continue to be monitor.
[2021-06-30] MEDS: Donepezil HCl 5 MG TABLET PO (20:17)
[2021-06-30] MEDS: Mirtazapine 30 MG TABLET PO (20:17)
[2021-07-01 08:00] VITALS: BP 134/73; PULSE 72; RESP 14; TEMP 36.4; O2SAT 94
[2021-07-01] MEDS: LORazepam 1 MG TABLET PO ×2 (08:28→14:10)
[2021-07-01] MEDS: Apixaban 5 MG TABLET PO ×2 (08:28→20:24)
[2021-07-01] MEDS: OLANZapine 5 MG TABLET PO ×3 (08:28→20:24)
--- NOTE | 2021-07-01 11:29 | P.PNPSI_ITS ---
Subjective Subjective Date of Service: 07/01/21 Reason For Visit: major depressive d/o recurrent severe with psychot Interim History: pt seen in her room, lying in bed, 1:1 at bedside. has been put on 1:1 for fall risk, as she fell yesterday after ECT. she states she just want[s] to go home and that her mood is not very good. she is c/o the temperature's being too cold and asks for the heat to be turned up. MD explains that staff can provider her with blankets. per staff, confused, flat, withdrawn. on 1:1 for fall risk. taking meds. good PO intake. Mental Status Exam Mental Status Exam Patient Appearance: Appropriate Patient Orientation: Person Level of Consciousness: Awake Patient Behavior: Cooperative Mood Description: Withdrawn ( not very good ) Affect Description: Blunted Patient Cognition Impaired: Yes Ability to Follow Directions: Good Speech Pattern: Clear Hallucinations: None Delusions: Not Present Thought Process: Distracted and Slowed Thinking Thought Content: positive for [place] and positive for Poverty of Content Judgement: Fair Diagnostics Vital Signs (24Hr): Vital Signs - 24 hr 06/30/21 18:00 07/01/21 08:00 Temperature 96.5 F L 97.5 F Pulse Rate 60 72 Respiratory Rate 16 14 Blood Pressure 100/58 L 134/73 Pulse Oximetry 94 94 BMI result Body Mass Index 21.4 Labs Results: 05/19/21 07:54 05/19/21 07:54 Imaging Radiology Impressions: ITS Impressions SPECT Scan-Brain NM 06/21/21 15:00 IMPRESSION: 1. Abnormal study. There is significantly decreased perfusion in a bilaterally symmetrical distribution involving the frontal and anterior temporal cerebral cortex. Corresponding CT abnormalities are not present. 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 2. A small left posterior parietal focus of decreased perfusion may represent an imaging artifact or may be due to a deep sulcus in this region, or possibly a small cerebral infarct, although this is not visualized on the CT images. This could be further characterized with MRI performed without and with intravenous contrast, if clinically indicated. Medications Medications Current Medications Acetaminophen (Acetaminophen 325 Mg Tablet) 650 mg PO Q6H PRN PRN Reason: Headache/Pain Mild Scale (1-3) Last Admin: 06/29/21 11:45 Dose: 650 mg Documented by: Al Hydroxide/Mg Hydroxide (Magnesium Hydrox/Alum Hydrox 30 Ml Oral.Susp) 30 ml PO Q6H PRN PRN Reason: Heartburn/Nausea Apixaban (Apixaban 5 Mg Tablet) 5 mg PO BID [facility] Last Admin: 07/01/21 08:28 Dose: 5 mg Documented by: Donepezil HCl (Donepezil Hcl 5 Mg Tablet) 5 mg PO BEDTIME [facility] Last Admin: 06/30/21 20:17 Dose: 5 mg Documented by: Loperamide HCl (Loperamide Hcl 2 Mg Capsule) 2 mg PO Q4H PRN PRN Reason: diarrhes Last Admin: 06/04/21 09:29 Dose: 2 mg Documented by: Lorazepam (Lorazepam 1 Mg Tablet) 1 mg PO Q8H PRN PRN Reason: agitation, anxiety Last Admin: 07/01/21 08:28 Dose: 1 mg Documented by: Magnesium Hydroxide (Milk Of Magnesia 30 Ml Oral.Susp) 30 ml PO DAILY PRN PRN Reason: Constipation Last Admin: 06/29/21 08:38 Dose: 30 ml Documented by: Mirtazapine (Mirtazapine 30 Mg Tablet) 30 mg PO BEDTIME [facility] Last Admin: 06/30/21 20:17 Dose: 30 mg Documented by: Olanzapine (Olanzapine 2.5 Mg Tablet) 2.5 mg PO BID PRN PRN Reason: anxiety, agitation Last Admin: 06/26/21 14:41 Dose: 2.5 mg Documented by: Olanzapine (Olanzapine 5 Mg Tablet) 5 mg PO TID [facility] Last Admin: 07/01/21 08:28 Dose: 5 mg Documented by: Allergies Allergies Allergy/AdvReac Type Severity Reaction Status Date / Time amoxicillin [From Augmentin] Allergy Unknown Unknown Verified 02/01/21 15:55 aspirin Allergy Unknown Unknown Verified 02/01/21 16:34 clavulanic acid Allergy Unknown Unknown Verified 02/01/21 15:55 [From Augmentin] diphenhydramine Allergy Unknown Unknown Verified 02/01/21 16:35 hydrochlorothiazide Allergy Unknown Unknown Verified 02/01/21 16:44 metronidazole Allergy Unknown Unknown Verified 02/01/21 16:54 trazodone Allergy Unknown Unknown Verified 02/01/21 16:54 Assessment & Plan Assessment & Plan (1) Major depressive disorder, recurrent episode with mood-congruent psychotic features: Status: Acute Code(s): F33.3 - Major depressive disorder, recurrent, severe with psychotic symptoms (2) Pre-op testing: Status: Acute Code(s): Z01.818 - Encounter for other preprocedural examination (3) Fronto-temporal dementia: Status: Acute Code(s): G31.09 - Other frontotemporal dementia; F02.80 - Dementia in other diseases classified elsewhere without behavioral disturbance Plan Continue ECT as tolerated monitor for confusional state psychotic depression generally improving much decreased mood lability and agitation Discussed transition to maintenance ECT will need to coordinate with her when patient clearly is stable for outpatient. At this moment, after discussing the case with Dr. Castañeda, we will do it biweekly. Plan 1. Continue same medications. 2. Will discuss discharge planning. I spent ___15___ minutes with the patient and/or on the patient floor today, greater than?50% of which was spent counseling/coordinating care. Reason for contiued inpatient stay Substantial Risk for: inability to function and rapid decompensation
[2021-07-01 18:00] VITALS: BP 101/57; PULSE 62; RESP 16; TEMP 36.1; O2SAT 92
[2021-07-01] MEDS: Donepezil HCl 5 MG TABLET PO (20:24)
[2021-07-01] MEDS: Mirtazapine 30 MG TABLET PO (20:24)
[2021-07-02 08:00] VITALS: BP 144/85; PULSE 80; RESP 16; TEMP 36.3; O2SAT 97
[2021-07-02] MEDS: OLANZapine 5 MG TABLET PO ×3 (08:35→19:51)
[2021-07-02] MEDS: Apixaban 5 MG TABLET PO ×2 (08:35→19:51)
--- NOTE | 2021-07-02 10:49 | HO.PSYCHPN ---
Subjective Subjective Date of Service: 07/02/21 Reason For Visit: major depressive d/o recurrent severe with psychot Interim History: pt seen as she emerged from showering. calm, cooperative. feels ECT is stressful. MD reinforced for her how helpful it has been for her and encouraged her to continue. no other questions or complaints. per staff, slept well. c/o hot and cold variably, bit not as much as prior. off 1:1 from fall on saturday, now on Q5 min checks. Mental Status Exam Mental Status Exam Patient Appearance: Appropriate Patient Orientation: Person Level of Consciousness: Awake Patient Behavior: Cooperative Mood Description: Calm, Withdrawn, Appropriate and Constricted Affect Description: Constricted Patient Cognition Impaired: Yes Ability to Follow Directions: Good Speech Pattern: Clear Hallucinations: None Delusions: Not Present Thought Process: Distracted and Slowed Thinking Thought Content: positive for [place] and positive for Poverty of Content Judgement: Fair Diagnostics Vital Signs (24Hr): Vital Signs - 24 hr 07/01/21 18:00 07/02/21 08:00 Temperature 97 F 97.3 F Pulse Rate 62 80 Respiratory Rate 16 16 Blood Pressure 101/57 L 144/85 H Pulse Oximetry 92 97 BMI result Body Mass Index 21.4 Labs Results: 05/19/21 07:54 05/19/21 07:54 Imaging Radiology Impressions: ITS Impressions SPECT Scan-Brain NM 06/21/21 15:00 IMPRESSION: 1. Abnormal study. There is significantly decreased perfusion in a bilaterally symmetrical distribution involving the frontal and anterior temporal cerebral cortex. Corresponding CT abnormalities are not present. 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 2. A small left posterior parietal focus of decreased perfusion may represent an imaging artifact or may be due to a deep sulcus in this region, or possibly a small cerebral infarct, although this is not visualized on the CT images. This could be further characterized with MRI performed without and with intravenous contrast, if clinically indicated. Medications Medications Current Medications Acetaminophen (Acetaminophen 325 Mg Tablet) 650 mg PO Q6H PRN PRN Reason: Headache/Pain Mild Scale (1-3) Last Admin: 06/29/21 11:45 Dose: 650 mg Documented by: Al Hydroxide/Mg Hydroxide (Magnesium Hydrox/Alum Hydrox 30 Ml Oral.Susp) 30 ml PO Q6H PRN PRN Reason: Heartburn/Nausea Apixaban (Apixaban 5 Mg Tablet) 5 mg PO BID [facility] Last Admin: 07/02/21 08:35 Dose: 5 mg Documented by: Donepezil HCl (Donepezil Hcl 5 Mg Tablet) 5 mg PO BEDTIME [facility] Last Admin: 07/01/21 20:24 Dose: 5 mg Documented by: Loperamide HCl (Loperamide Hcl 2 Mg Capsule) 2 mg PO Q4H PRN PRN Reason: diarrhes Last Admin: 06/04/21 09:29 Dose: 2 mg Documented by: Magnesium Hydroxide (Milk Of Magnesia 30 Ml Oral.Susp) 30 ml PO DAILY PRN PRN Reason: Constipation Last Admin: 06/29/21 08:38 Dose: 30 ml Documented by: Mirtazapine (Mirtazapine 30 Mg Tablet) 30 mg PO BEDTIME [facility] Last Admin: 07/01/21 20:24 Dose: 30 mg Documented by: Olanzapine (Olanzapine 2.5 Mg Tablet) 2.5 mg PO BID PRN PRN Reason: anxiety, agitation Last Admin: 06/26/21 14:41 Dose: 2.5 mg Documented by: Olanzapine (Olanzapine 5 Mg Tablet) 5 mg PO TID [facility] Last Admin: 07/02/21 08:35 Dose: 5 mg Documented by: Allergies Allergies Allergy/AdvReac Type Severity Reaction Status Date / Time amoxicillin [From Augmentin] Allergy Unknown Unknown Verified 02/01/21 15:55 aspirin Allergy Unknown Unknown Verified 02/01/21 16:34 clavulanic acid Allergy Unknown Unknown Verified 02/01/21 15:55 [From Augmentin] diphenhydramine Allergy Unknown Unknown Verified 02/01/21 16:35 hydrochlorothiazide Allergy Unknown Unknown Verified 02/01/21 16:44 metronidazole Allergy Unknown Unknown Verified 02/01/21 16:54 trazodone Allergy Unknown Unknown Verified 02/01/21 16:54 Assessment & Plan Assessment & Plan (1) Major depressive disorder, recurrent episode with mood-congruent psychotic features: Status: Acute Code(s): F33.3 - Major depressive disorder, recurrent, severe with psychotic symptoms (2) Pre-op testing: Status: Acute Code(s): Z01.818 - Encounter for other preprocedural examination (3) Fronto-temporal dementia: Status: Acute Code(s): G31.09 - Other frontotemporal dementia; F02.80 - Dementia in other diseases classified elsewhere without behavioral disturbance Plan Continue ECT as tolerated monitor for confusional state psychotic depression generally improving much decreased mood lability and agitation Discussed transition to maintenance ECT will need to coordinate with her when patient clearly is stable for outpatient. At this moment, after discussing the case with Dr. Castañeda, we will do it biweekly. Plan 1. Continue same medications. 2. Will discuss discharge planning. I spent __20____ minutes with the patient and/or on the patient floor today, greater than?50% of which was spent counseling/coordinating care. Reason for contiued inpatient stay Substantial Risk for: inability to function and rapid decompensation
[2021-07-02 18:00] VITALS: BP 103/55; PULSE 68; RESP 18; TEMP 35.9; O2SAT 93
[2021-07-02] MEDS: Donepezil HCl 5 MG TABLET PO (19:51)
[2021-07-02] MEDS: Mirtazapine 30 MG TABLET PO (19:51)
[2021-07-03] VITALS (12 sets, daily range): BP systolic 98–156; BP diastolic 55–100; PULSE 64–101; RESP 14–22; TEMP 35.9–37.4; O2SAT 93–97
[2021-07-03] MEDS: Loperamide HCl 2 MG CAPSULE PO (06:21)
--- NOTE | 2021-07-03 08:23 | HO.PSYCHPN ---
Subjective Subjective Date of Service: 07/03/21 Reason For Visit: major depressive d/o recurrent severe with psychot Subjective Notes: Conditional Voluntary Interim History: The nursing staff reported the patient refused ECT today. According to the nursing staff, the patient has remained mostly of the time on her bed. She had diarrhea and she used Imodium. Over the weekend, apparently she was complaining of being cold or hot and she is unable to understand that it is a somatic delusion. The social media specialist reported that all the aftercare was already arranged, we will discharge her tomorrow. She asked to have her ECT after she initially refused and we did it in the afternoon. Mental Status Exam Mental Status Exam Patient Appearance: Disheveled Patient Orientation: Person and Situation Level of Consciousness: Awake Patient Behavior: Guarded and Passive Mood Description: Withdrawn Affect Description: Apathetic Patient Cognition Impaired: Yes Ability to Follow Directions: Fair Speech Pattern: Clear Hallucinations: None Delusions: Paranoid Ideation Thought Process: Distracted Thought Content: positive for [place] and positive for Poverty of Content Judgement: Poor Diagnostics Vital Signs (24Hr): Vital Signs - 24 hr 07/02/21 18:00 07/03/21 05:31 Temperature 96.7 F L 96.7 F L Pulse Rate 68 84 Respiratory Rate 18 17 Blood Pressure 103/55 L 144/76 H Pulse Oximetry 93 97 BMI result Body Mass Index 21.4 Labs Results: 05/19/21 07:54 05/19/21 07:54 Imaging Radiology Impressions: ITS Impressions SPECT Scan-Brain NM 06/21/21 15:00 IMPRESSION: 1. Abnormal study. There is significantly decreased perfusion in a bilaterally symmetrical distribution involving the frontal and anterior temporal cerebral cortex. Corresponding CT abnormalities are not present. 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 2. A small left posterior parietal focus of decreased perfusion may represent an imaging artifact or may be due to a deep sulcus in this region, or possibly a small cerebral infarct, although this is not visualized on the CT images. This could be further characterized with MRI performed without and with intravenous contrast, if clinically indicated. Medications Medications Current Medications Acetaminophen (Acetaminophen 325 Mg Tablet) 650 mg PO Q6H PRN PRN Reason: Headache/Pain Mild Scale (1-3) Last Admin: 06/29/21 11:45 Dose: 650 mg Documented by: Al Hydroxide/Mg Hydroxide (Magnesium Hydrox/Alum Hydrox 30 Ml Oral.Susp) 30 ml PO Q6H PRN PRN Reason: Heartburn/Nausea Apixaban (Apixaban 5 Mg Tablet) 5 mg PO BID [facility] Last Admin: 07/02/21 19:51 Dose: 5 mg Documented by: Donepezil HCl (Donepezil Hcl 5 Mg Tablet) 5 mg PO BEDTIME [facility] Last Admin: 07/02/21 19:51 Dose: 5 mg Documented by: Loperamide HCl (Loperamide Hcl 2 Mg Capsule) 2 mg PO Q4H PRN PRN Reason: diarrhes Last Admin: 07/03/21 06:21 Dose: 2 mg Documented by: Magnesium Hydroxide (Milk Of Magnesia 30 Ml Oral.Susp) 30 ml PO DAILY PRN PRN Reason: Constipation Last Admin: 06/29/21 08:38 Dose: 30 ml Documented by: Mirtazapine (Mirtazapine 30 Mg Tablet) 30 mg PO BEDTIME [facility] Last Admin: 07/02/21 19:51 Dose: 30 mg Documented by: Olanzapine (Olanzapine 2.5 Mg Tablet) 2.5 mg PO BID PRN PRN Reason: anxiety, agitation Last Admin: 06/26/21 14:41 Dose: 2.5 mg Documented by: Olanzapine (Olanzapine 5 Mg Tablet) 5 mg PO TID [facility] Last Admin: 07/02/21 19:51 Dose: 5 mg Documented by: Allergies Allergies Allergy/AdvReac Type Severity Reaction Status Date / Time amoxicillin [From Augmentin] Allergy Unknown Unknown Verified 02/01/21 15:55 aspirin Allergy Unknown Unknown Verified 02/01/21 16:34 clavulanic acid Allergy Unknown Unknown Verified 02/01/21 15:55 [From Augmentin] diphenhydramine Allergy Unknown Unknown Verified 02/01/21 16:35 hydrochlorothiazide Allergy Unknown Unknown Verified 02/01/21 16:44 metronidazole Allergy Unknown Unknown Verified 02/01/21 16:54 trazodone Allergy Unknown Unknown Verified 02/01/21 16:54 Assessment & Plan Assessment & Plan (1) Major depressive disorder, recurrent episode with mood-congruent psychotic features: Status: Acute Code(s): F33.3 - Major depressive disorder, recurrent, severe with psychotic symptoms (2) Pre-op testing: Status: Acute Code(s): Z01.818 - Encounter for other preprocedural examination (3) Fronto-temporal dementia: Status: Acute Code(s): G31.09 - Other frontotemporal dementia; F02.80 - Dementia in other diseases classified elsewhere without behavioral disturbance Plan Continue ECT as tolerated monitor for confusional state psychotic depression generally improving much decreased mood lability and agitation Discussed transition to maintenance ECT will need to coordinate with her when patient clearly is stable for outpatient. At this moment, after discussing the case with Dr. Castañeda, we will do it biweekly. Plan 1. Continue same medications. 2. Will discuss discharge planning. I spent __20____ minutes with the patient and/or on the patient floor today, greater than?50% of which was spent counseling/coordinating care. Reason for contiued inpatient stay Substantial Risk for: inability to function, rapid decompensation and med/psych decompensation
[2021-07-03] MEDS: Apixaban 5 MG TABLET PO ×2 (08:41→20:48)
[2021-07-03] MEDS: OLANZapine 5 MG TABLET PO ×3 (08:41→20:48)
[2021-07-03] MEDS: LORazepam 1 MG TABLET PO (09:22)
--- NOTE | 2021-07-03 10:52 | HO.ANESPROP2 ---
HPI - Anesthesia Eval Consult details Narrative: Major Depression [facility] Active Problems Active Problems: All Active Problems (Updated 06/22/21 @ 08:08 by Mark Brennan) Fronto-temporal dementia (Acute) Pre-op testing (Acute) Major depressive disorder, recurrent episode with mood-congruent psychotic features (Acute) Neurocognitive disorder (Acute) Past Medical History Medical History History of pulmonary embolism Neurocognitive disorder Pulmonary embolism Functional capacity: independent ambulation Family History Family history of problems with anesthesia: No Surgical History Surgical History H/O section History of Problems with Anesthesia: No Social History Social History Household Members: Spouse Household Members Other:: Her and her Housing: House Do you presently have visiting nurse or other home services: No Patient Tobacco Use Status: Never used Tobacco Second Hand Smoke Exposure: No Use of substances other than those prescribed or required for medical reasons: No Currently Displaying Signs/Symptoms of Drug Intoxication Withdrawal: No Have you been hit, kicked, punched, or otherwise hurt by someone within the past year? If so, by whom?: No Do you feel safe in your current relationship?: Yes Is there a partner from a previous relationship who is making you feel unsafe now?: No Are you made to feel afraid or neglected: No Are you DNR?: No Advance Directives: No Do you have thoughts of harming others: None Do you have a plan to hurt others: No Plan Recently lost weight without trying: No Nutrition Risks: No Nutritional Risk Patient : No : No Poor oral hygiene: No service: Yes Sexual orientation: Straight/Heterosexual Meds Allergies Allergy/AdvReac Type Severity Reaction Status Date / Time amoxicillin [From Augmentin] Allergy Unknown Unknown Verified 02/01/21 15:55 aspirin Allergy Unknown Unknown Verified 02/01/21 16:34 clavulanic acid Allergy Unknown Unknown Verified 02/01/21 15:55 [From Augmentin] diphenhydramine Allergy Unknown Unknown Verified 02/01/21 16:35 hydrochlorothiazide Allergy Unknown Unknown Verified 02/01/21 16:44 metronidazole Allergy Unknown Unknown Verified 02/01/21 16:54 trazodone Allergy Unknown Unknown Verified 02/01/21 16:54 Active Medications: Current Medications Acetaminophen (Acetaminophen 325 Mg Tablet) 650 mg PO Q6H PRN PRN Reason: Headache/Pain Mild Scale (1-3) Last Admin: 06/29/21 11:45 Dose: 650 mg Documented by: Al Hydroxide/Mg Hydroxide (Magnesium Hydrox/Alum Hydrox 30 Ml Oral.Susp) 30 ml PO Q6H PRN PRN Reason: Heartburn/Nausea Apixaban (Apixaban 5 Mg Tablet) 5 mg PO BID [facility] Last Admin: 07/03/21 08:41 Dose: 5 mg Documented by: Donepezil HCl (Donepezil Hcl 5 Mg Tablet) 5 mg PO BEDTIME [facility] Last Admin: 07/02/21 19:51 Dose: 5 mg Documented by: Loperamide HCl (Loperamide Hcl 2 Mg Capsule) 2 mg PO Q4H PRN PRN Reason: diarrhes Last Admin: 07/03/21 06:21 Dose: 2 mg Documented by: Lorazepam (Lorazepam 1 Mg Tablet) 1 mg PO Q6H PRN PRN Reason: Anxiety Last Admin: 07/03/21 09:22 Dose: 1 mg Documented by: Magnesium Hydroxide (Milk Of Magnesia 30 Ml Oral.Susp) 30 ml PO DAILY PRN PRN Reason: Constipation Last Admin: 06/29/21 08:38 Dose: 30 ml Documented by: Mirtazapine (Mirtazapine 30 Mg Tablet) 30 mg PO BEDTIME [facility] Last Admin: 07/02/21 19:51 Dose: 30 mg Documented by: Olanzapine (Olanzapine 2.5 Mg Tablet) 2.5 mg PO BID PRN PRN Reason: anxiety, agitation Last Admin: 06/26/21 14:41 Dose: 2.5 mg Documented by: Olanzapine (Olanzapine 5 Mg Tablet) 5 mg PO TID [facility] Last Admin: 07/03/21 08:41 Dose: 5 mg Documented by: Home Medications Medication Instructions Recorded Confirmed Last Taken Type gabapentin 600 mg tablet 600 mg PO TID 02/01/21 02/01/21 Unknown History lorazepam 0.5 mg tablet (Ativan) 0.5 mg PO DAILY PRN 05/18/21 05/18/21 Unknown History Exam Exam Date and Time: July 03, 2021 1052 Height,Weight and Vital Signs: Height 5 ft 3 in Weight 54.9 kg Last Vital Signs Temp 97.6 F 05/16/22 08:53 Pulse 84 07/03/21 08:53 Resp 14 07/03/21 08:53 BP 156/92 H 07/03/21 08:53 Pulse Ox 95 07/03/21 08:53 Pertinent Lab Results Pertinent Lab Results: Laboratory Tests 05/18/21 05/18/21 05/18/21 19:05 19:05 19:05 WBC 10.2 RBC 4.37 D Hgb 13.7 D Hct 39.6 MCV 90.6 MCH 31.4 MCHC 34.6 RDW 12.6 Plt Count 289 D MPV 9.4 Immature Gran % (Auto) 0.4 Neut % (Auto) 76.9 H Lymph % (Auto) 14.0 L [place] % (Auto) 8.4 Eos % (Auto) 0.0 Baso % (Auto) 0.3 Lymph # (Auto) 1.4 [place] # (Auto) 0.9 Eos # (Auto) 0.0 Baso # (Auto) 0.0 Abs Immat Gran (auto) 0.04 H Absolute Neuts (auto) 7.9 Absolute Nucleated RBC 0.000 Nucleated RBC % (auto) 0.0 Sodium 142 Potassium 4.0 Chloride 106 Carbon Dioxide 22 Anion Gap 18 BUN 20 H Creatinine 1.01 Estim Creat Clear Calc 43.4 Estimated GFR 54 Fasting Glucose 125 H Calcium 9.9 D Total Bilirubin 0.9 AST 27 ALT 22 Alkaline Phosphatase 94 Total Protein 7.2 Albumin 4.5 Triglycerides 58 Cholesterol 178 D LDL Cholesterol, Calc 110 HDL Cholesterol 57 Vitamin B12 237 25-OH Vitamin D Total 25-Hydroxy Vitamin D2 25-Hydroxy Vitamin D3 Folate 16.9 TSH 0.82 Free Cortisol Urine Color Urine Appearance Urine pH Ur Specific [place] Urine Protein Urine Glucose (UA) Urine Ketones Urine Blood Urine Nitrite Ur Leukocyte Esterase Urine RBC Urine WBC Ur Squamous Epith Cells Urine Bacteria Urine Mucus 05/18/21 05/19/21 05/19/21 19:05 06:30 07:54 WBC 5.7 RBC 4.29 Hgb 13.3 Hct 39.7 MCV 92.5 MCH 31.0 MCHC 33.5 RDW 13.0 Plt Count 243 MPV 9.4 Immature Gran % (Auto) 0.4 Neut % (Auto) 67.7 Lymph % (Auto) 20.4 [place] % (Auto) 10.5 Eos % (Auto) 0.5 Baso % (Auto) 0.5 Lymph # (Auto) 1.2 [place] # (Auto) 0.6 Eos # (Auto) 0.0 Baso # (Auto) 0.0 Abs Immat Gran (auto) 0.02 Absolute Neuts (auto) 3.9 Absolute Nucleated RBC 0.000 Nucleated RBC % (auto) 0.0 Sodium Potassium Chloride Carbon Dioxide Anion Gap BUN Creatinine Estim Creat Clear Calc Estimated GFR Fasting Glucose Calcium Total Bilirubin AST ALT Alkaline Phosphatase Total Protein Albumin Triglycerides Cholesterol LDL Cholesterol, Calc HDL Cholesterol Vitamin B12 25-OH Vitamin D Total 21 L 25-Hydroxy Vitamin D2 <4 25-Hydroxy Vitamin D3 21 Folate TSH Free Cortisol Urine Color YELLOW Urine Appearance CLOUDY Urine pH 6.0 Ur Specific [place] 1.025 Urine Protein TRACE Urine Glucose (UA) NEG Urine Ketones 15 Urine Blood 1+ H Urine Nitrite NEG Ur Leukocyte Esterase 2+ H Urine RBC 0-2 Urine WBC 10-14 H Ur Squamous Epith Cells 1+ Urine Bacteria 1+ Urine Mucus 2+ 05/19/21 05/19/21 05/19/21 07:54 07:54 07:54 WBC RBC Hgb Hct MCV MCH MCHC RDW Plt Count MPV Immature Gran % (Auto) Neut % (Auto) Lymph % (Auto) [place] % (Auto) Eos % (Auto) Baso % (Auto) Lymph # (Auto) [place] # (Auto) Eos # (Auto) Baso # (Auto) Abs Immat Gran (auto) Absolute Neuts (auto) Absolute Nucleated RBC Nucleated RBC % (auto) Sodium 141 Potassium 3.6 Chloride 106 Carbon Dioxide 25 Anion Gap 14 BUN 21 H Creatinine 0.78 Estim Creat Clear Calc 56.3 Estimated GFR > 60 Fasting Glucose 114 H Calcium 9.3 D Total Bilirubin 0.9 AST 32 H ALT 20 Alkaline Phosphatase 93 Total Protein 6.8 Albumin 4.3 Triglycerides 57 Cholesterol 165 LDL Cholesterol, Calc 100 HDL Cholesterol 54 Vitamin B12 225 25-OH Vitamin D Total 15 L 25-Hydroxy Vitamin D2 <4 25-Hydroxy Vitamin D3 15 Folate 18.0 TSH 0.70 Free Cortisol Urine Color Urine Appearance Urine pH Ur Specific [place] Urine Protein Urine Glucose (UA) Urine Ketones Urine Blood Urine Nitrite Ur Leukocyte Esterase Urine RBC Urine WBC Ur Squamous Epith Cells Urine Bacteria Urine Mucus 05/20/21 05/25/21 06/23/21 06:56 18:10 14:00 WBC RBC Hgb Hct MCV MCH MCHC RDW Plt Count MPV Immature Gran % (Auto) Neut % (Auto) Lymph % (Auto) [place] % (Auto) Eos % (Auto) Baso % (Auto) Lymph # (Auto) [place] # (Auto) Eos # (Auto) Baso # (Auto) Abs Immat Gran (auto) Absolute Neuts (auto) Absolute Nucleated RBC Nucleated RBC % (auto) Sodium Potassium Chloride Carbon Dioxide Anion Gap BUN Creatinine Estim Creat Clear Calc Estimated GFR Fasting Glucose Calcium Total Bilirubin AST ALT Alkaline Phosphatase Total Protein Albumin Triglycerides Cholesterol LDL Cholesterol, Calc HDL Cholesterol Vitamin B12 25-OH Vitamin D Total 25-Hydroxy Vitamin D2 25-Hydroxy Vitamin D3 Folate TSH Free Cortisol 0.50 Urine Color YELLOW YELLOW Urine Appearance CLEAR CLEAR Urine pH 6.0 6.0 Ur Specific [place] 1.025 1.020 Urine Protein TRACE NEG Urine Glucose (UA) NEG NEG Urine Ketones 5 NEG Urine Blood TRACE NEG Urine Nitrite NEG NEG Ur Leukocyte Esterase 1+ H NEG Urine RBC 1-4 Urine WBC 5-9 H Ur Squamous Epith Cells 1+ Urine Bacteria 1+ Urine Mucus 2+ Airway Mallampati Class: II TM Dist: >3cm Neck ROM: Full Loose/Missing/Broken Teeth: No Heart: [id number] Lungs: cta b/l Assessment and Plan Assessment Anesthesia Assessment: Anesthesia Plan Discussed and Chart Reviewed Final Anesthetic Review Family History of Problems with Anesthesia: No History of Problems with Anesthesia: No NPO: Yes ASA Class: III Final Preanesthetic Review: No Changes in Pt Med Stat, Meds/Allgs Chart Reviewed, Consent Obtained/Reviewed and Anes Risks/Benef Reviewed Patient Risk: Intermediate Procedure Risk: Intermediate Assessment/Block/Sedation in SS: Assess/Block/Sedation-SS Anesthetic Plan Anesthetic Plan: GA and Agree w/ Assess. and Plan Disposition: Standard PACU
--- NOTE | 2021-07-03 13:09 | MHC.SHP ---
Pre-Procedural Eval Section A Date of Service: 07/03/21 The patient is an INPATIENT: Yes Changes since office visit: No Cold of Flu in the past 2 weeks, No New Medical Problems, No Changes in Medication and No Patient answered all questions The History & Physical has been completed within 30 days and I have reviewed it.: Yes Section B Chief Complaint: major depressive d/o recurrent severe with psychot Allergies: Allergies Allergy/AdvReac Type Severity Reaction Status Date / Time amoxicillin [From Augmentin] Allergy Unknown Unknown Verified 02/01/21 15:55 aspirin Allergy Unknown Unknown Verified 02/01/21 16:34 clavulanic acid Allergy Unknown Unknown Verified 02/01/21 15:55 [From Augmentin] diphenhydramine Allergy Unknown Unknown Verified 02/01/21 16:35 hydrochlorothiazide Allergy Unknown Unknown Verified 02/01/21 16:44 metronidazole Allergy Unknown Unknown Verified 02/01/21 16:54 trazodone Allergy Unknown Unknown Verified 02/01/21 16:54 Plan I have reviewed the history and physical and performed a pertinent physical examination on my patient. No changes have occurred unless specified.
--- NOTE | 2021-07-03 13:16 | HO.ECTPROC ---
ECT Procedure Note Diagnosis/Treatment Date of Service: 07/03/21 Diagnosis: Major Depressive Disorder Previous ECT Date: 06/30/21 Current Treatment Number: 14 Treatment: Series Interval Clinical Notes: The patient remains with lack of energy due to Picks dementia. Initially refused ECT today AM but later, she had it. Mood remains stable ECT Settings Device: THYMATRON DGx Electrode Placement: Right Unilateral Program/Pulse Width: 0.25 Energy Percent: 100 Seizure Duration By EEG (in seconds): 0 (not registered but sz activity on EEG until 40s) By Motor Observation (in seconds): 0 Medications Administration General Anesthetic: Etomidate Muscle Relaxant: Succinylcholine Ancillary Medications Analgesics: Torodol - Pre ECT Anti-emetics: Zofran - Pre ECT Miscillaneous Medications: Propofol and Flumazenil Airway Management Airway Management: Bag Mask Ventilation Treatment Recommendations No Changes Recommended: No change Pt Tolerated Procedure w/o Issue: Yes
[2021-07-03] MEDS: Acetaminophen 325 MG TABLET 650 MG PO (17:35)
[2021-07-03] MEDS: Donepezil HCl 5 MG TABLET PO (20:48)
[2021-07-03] MEDS: Mirtazapine 30 MG TABLET PO (20:48)
[2021-07-04] MEDS: Acetaminophen 325 MG TABLET 650 MG PO (02:27)
[2021-07-04] MEDS: LORazepam 1 MG TABLET PO (02:28)
[2021-07-04 03:15] VITALS: BP 126/68; PULSE 65; RESP 18; TEMP 36.1; O2SAT 95
--- NOTE | 2021-07-04 03:40 | PC.NURSE ---
Patient was brought to the at 01:55h by the sitter and while she is trying to get a toilet paper from the wall and when she turns back pt. fell on the floor in a sitting position.Patient did not hit her head,no bruises or skin tears noted.Patient able to move all extremities w/good strength,and pt. ambulates to the dining area.No c/o headache,dizziness, nausea or vomiting.Pupils 3mm, PERRLA. Dr. Nallely Brennan and Meme Mai, the telephone order supervisor was informed of the fall.No injury noted or reported.VS taken and recorded w/in normal limits.After the fall pt.is getting anxious and c/o slight pain on her buttocks and L.elbow, given Tylenol 650mg and Ativan 1 mg po w/ good effect. Pt. went to sleep and remain calm and quiet on bed.We'll continue to monitor the pt. closely.
[2021-07-04 07:20] VITALS: BP 108/56; PULSE 66; RESP 14; TEMP 36.3; O2SAT 96
--- NOTE | 2021-07-04 07:40 | PM.PSYDC ---
DS: Providers Provider Date of Service: 07/04/21 Date of admission: 05/18/21 14:40 Date of discharge: 07/04/21 Primary care physician: Annabelle Wilkes NP DS: Diagnosis Discharge Diagnosis (1) Major depressive disorder, recurrent episode with mood-congruent psychotic features: Status: Acute (2) Pre-op testing: Status: Acute (3) Fronto-temporal dementia: Status: Acute DS: Medications Discharge Medications Home Medications: Home Medications Medication Instructions Recorded Confirmed gabapentin 600 mg tablet 600 mg PO TID 02/01/21 02/01/21 lorazepam 0.5 mg tablet (Ativan) 0.5 mg PO DAILY PRN 05/18/21 05/18/21 Previous Rx's Medication Instructions Recorded alprazolam 0.25 mg tablet 0.25 mg PO TID 30 Days #90 tab 03/07/21 apixaban 5 mg tablet 5 mg PO BID 30 Days #60 tab 03/07/21 fluoxetine 40 mg capsule 40 mg PO DAILY 30 Days #30 cap 03/07/21 mirtazapine 45 mg tablet 45 mg PO BEDTIME 30 Days #30 tab 03/07/21 olanzapine 5 mg tablet 5 mg PO DAILY 30 Days #30 tab 03/07/21 olanzapine 7.5 mg tablet 7.5 mg PO BEDTIME 30 Days #30 tab 03/07/21 Mental Status Exam Mental Status Exam Patient Appearance: Appropriate Patient Orientation: Person and Situation Level of Consciousness: Awake Patient Behavior: Guarded and Passive Mood Description: Withdrawn Affect Description: Blunted Patient Cognition Impaired: Yes Ability to Follow Directions: Good Speech Pattern: Impoverished and Monotone Memory Description: Remote Impaired, Immediate Impaired and Jail Impaired Hallucinations: None Delusions: Present ( somatic delusions) Thought Process: Distracted and Slowed Thinking Thought Content: positive for [place], positive for Perseveration and positive for Poverty of Content Judgement: Fair Data Data Completed and Pending Completed studies during hospitalization [Text1]: 05/19/21 06:30 Urine clean catch - Clean Catch Midstream Urine Culture - Final Imaging Diagnostic Imaging Impressions SPECT Scan-Brain NM 06/21/21 15:00 IMPRESSION: 1. Abnormal study. There is significantly decreased perfusion in a bilaterally symmetrical distribution involving the frontal and anterior temporal cerebral cortex. Corresponding CT abnormalities are not present. 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 2. A small left posterior parietal focus of decreased perfusion may represent an imaging artifact or may be due to a deep sulcus in this region, or possibly a small cerebral infarct, although this is not visualized on the CT images. This could be further characterized with MRI performed without and with intravenous contrast, if clinically indicated. DS: Summary Hospital Course Hospital Course: The patient was admitted for exacerbation of depression, anxiety, obsessive behavior and somatic delusions stating that she was cold all the time. Please see the HPI of the admission note for further details. The patient is very well known by this team since she was transferred with a similar presentation from the [place] inpatient unit a few months ago to do ECT. The patient has a long history of depression that is refractory to any medication management and only responds to ECT. The patient was discharged a few months ago with a recommendation to continue outpatient ECT but she stopped and she relapseD on her symptoms. We restarted the ECT and after several treatments, her mood improved. Even though, her condition worsen it after the ECT treatment, with periods of confusion after the treatment that lasted several hours. It was also noticeable that her obsessive delusions regarding of the temperature relieved very fast with that treatment but her level of energy and awareness lowered significantly. We did another [place] test and she has dropped more than 6 points from the last [place] 6 months ago. We consulted with the team and Dr. Castañeda and we decided to do a SPECT. 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 We had several family meetings and we explained to the and the patient about this diagnosis and prognosis. The patient's mood remains stable but her cognition has worsen it. We were considering the possibility of placement in a care home facility but her refuse that disposition plan. Since there were no safety concerns discharge planning was discussed and ancillary services put in place. The recommendation is to continue medication management and to do maintenance ECT. 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 - 07/13/21 2:00 pm (Appt scheduled for , July 13, 2021 @ 2:00 PM VIDEO visit with Dr. Nga Szymanski.) Annabelle Francis NP [facility] [Other] - 1 Week (Appt scheduled for) Pat Adair ([place] [facility]) [Other] - 07/19/21 11:00 am (Appt with Pat Adair on , 07/06/21 @ 11 AM VIDEO appt. Follow up with on Saturday, July 19, 2021 @ 11 AM IN- OFFICE visit.) [facility] [Other] - 3-5 Days (The for 10/09 support.) Annabelle Wilkes NP [Primary Care Provider] - 1 Week Discharge Medications: New acetaminophen 325 mg Tablet 650 mg PO Q6H PRN (Reason: Headache/Pain Mild Scale (1-3)) 30 Days Qty: 30 0RF donepezil 5 mg Tablet 5 mg PO BEDTIME 30 Days Qty: 30 0RF olanzapine 5 mg Tablet 5 mg PO TID 30 Days Qty: 90 0RF mirtazapine 30 mg Tablet 30 mg PO BEDTIME 30 Days Qty: 30 0RF lorazepam 1 mg Tablet 1 mg PO Q6H PRN (Reason: Anxiety) 30 Days Qty: 60 0RF Continued apixaban 5 mg Tablet 5 mg PO BID 30 Days Qty: 60 0RF Discontinued gabapentin 600 mg Tablet 600 mg PO TID 0RF alprazolam 0.25 mg Tablet 0.25 mg PO TID 30 Days Qty: 90 0RF fluoxetine 40 mg Capsule 40 mg PO DAILY 30 Days Qty: 30 0RF olanzapine 5 mg Tablet 5 mg PO DAILY 30 Days Qty: 30 0RF olanzapine 7.5 mg Tablet 7.5 mg PO BEDTIME 30 Days Qty: 30 0RF mirtazapine 45 mg Tablet 45 mg PO BEDTIME 30 Days Qty: 30 0RF lorazepam [Ativan] 0.5 mg tablet 0.5 mg PO DAILY PRN (Reason: Anxiety) 0RF Discharge Orders: Discharge Order (Routine); Ordered 07/04/21 Ordered By: Mark Brennan Diet: advance to usual diet Activity on Discharge: As tolerated Stand Alone Forms: Patient Portal Discharge page Care Plan Goals: Care Plan Goals achieved on this admission Health Concerns: continue treatment as per primary care physician Plan of Treatment: continue medication management. ECT as an outpatient once a week schedule for Fridays Assessment: elderly female with a long history of major depressive disorder recurrent episode refractory to treatment the responds only to ECT with Pick's dementia that has advanced pretty fast in the last months. At this moment the patient is safe ready for discharge
[2021-07-04] MEDS: Apixaban 5 MG TABLET PO (08:47)
[2021-07-04] MEDS: OLANZapine 5 MG TABLET PO (08:47)
--- NOTE | 2021-07-04 10:08 | PC.NURSE ---
Patient is alert and oriented x2. Patient appears calm, cooperative, pleasant. Patient has a flat affect, reports mood is ok. During contact this morning, patient appeared to be thought blocking, provided limited responses to questions. Patient is med and care compliant. Patient had a witnessed fall overnight, however, no injuries sustained. Patient denies any distress, pain and no alteration to skin integrity noted or reported Patient aware of discharge today.
--- NOTE | 2021-07-04 10:54 | PC.NURSE ---
Pt. updated on pt's fall on the overnight.
== END 2021-07-04 11:32 | disposition home or self-care (01) | DRG 885 ==
PROVIDERS: Admitting Provider Psychiatry & Neurology Psychiatry; PCP Nurse Practitioner Family; Visit Provider Psychiatry & Neurology Psychiatry
PROC: GZB4ZZZ Other Electroconvulsive Therapy (ICD-10-PCS; CPT 90870; principal; 2021-05-19 16:30)
PROC: (CPT 90870; principal; 2021-05-24 07:00)
DX: F33.3 Major depressive disorder, recurrent, severe with psychotic symptoms (principal); G31.09 Other frontotemporal neurocognitive disorder; Z86.711 Personal history of pulmonary embolism; Z88.0 Allergy status to penicillin; Z88.6 Allergy status to analgesic agent; Z88.8 Allergy status to other drugs, medicaments and biological substances; Z79.01 Long term (current) use of anticoagulants; Z79.899 Other long term (current) drug therapy
CPT/HCPCS: 36415; 78803; 80053; 80061; 81001; 81003; 82306; 82530; 82607; 82746; 84443; 85025; 87086; 90870; 93005; 97162; A9557; J0330; J0461; J1200; J2060; J2250; J2370; J2405